=== PATIENT | female | born 1950 | race Caucasian/White ===

== ENCOUNTER → 2017-07-07 | Outpatient (POV) | payer MEDICARE, SELFPAY | PROVIDERS: Visit Provider Podiatrist ==

== ENCOUNTER → 2018-07-13 14:06 | Outpatient (CLI) | payer MEDICARE, SELFPAY ==
--- NOTE | 2018-07-13 14:10 | MR_ITS ---
MR foot RT wo/w con HISTORY: Prior injury to the great toe with persistent redness pain and swelling. Patient with diabetes ITS.REASON: Non-healing diabetic ulcer ORDERING PHYSICIAN: Celine Doyle DPM PATIENT AGE: 67 years Comparison: 07/03/2017 TECHNIQUE: Standard multiplanar multiecho sequences are performed without and with gadolinium enhancement.. In addition, thin section axial and sagittal post enhanced images are obtained FINDINGS: There is decrease T1 and increased T2 signal intensity involving the tuft of the distal phalanx of the great toe. There is increased STIR signal intensity involving the entire distal phalanx of the great toe. The DLP joint has an unremarkable appearance and the middle phalanx has an unremarkable appearance. No abscess or fluid collection evident. The area of enhancement involves the tuft of the distal phalanx. There is mild soft tissue swelling at this region well. No obvious fracture or other significant anomalies. IMPRESSION: Mild bone marrow edema involves the distal phalanx of the great toe with a small area of enhancement of the tuft of the distal phalanx with mild soft tissue swelling suggesting osteomyelitis. The middle phalanx has an unremarkable appearance as does the DIP joint
--- NOTE | 2018-07-13 14:10 | US_ITS ---
US Arterial Ankle Brachial Ind History: ITS.REASON: Non healing diabetic ulcer ORDERING PHYSICIAN: Celine Doyle DPM PATIENT AGE: 67 years TECHNIQUE: Segmental pressures obtained of both right and left leg. These are compared to brachial blood pressure to yield index at each level sampled including summary LEILANI. The data sheets from the procedure are available in PACS FINDINGS Rest study only performed today No prior studies available for comparison. Blood pressures reported are in millimeters mercury. RIGHT LEG LEILANI = 1.3. RIGHT LEG TBI=0.8 Brachial BP: 142 Thigh BP: 185 Calf BP: Noncompressible Ankle PT: 179 Ankle DP : 168 Digit =116 LEFT LEG LEILANI = 1.0 LEFT LEG TBI= 0.7 Brachial BPD: 132 Thigh BP: 157 Calf BP: Noncompressible Ankle PT:148 Ankle DP: 134 Digit = 100 Pulses and waveforms: Normal IMPRESSION: The ABIs as reported above are within normal limits. Waveforms and pulses are also unremarkable. The TBI's are within normal limits. The arteries are noncompressible in the calf which may be seen with hardening of the arteries and diabetes
--- NOTE | 2018-07-13 16:21 | HMH.ITSHM ---
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 []METOPROLOL LISINOPRIL ATORVASTATIN ASPIRIN METFORMIN SOLIQUA INSULIN SERTRALINE
== END ==
PROVIDERS: PCP Family Medicine; Visit Provider Podiatrist
DX: E08.621 Diabetes mellitus due to underlying condition with foot ulcer (principal); L97.501 Non-pressure chronic ulcer of other part of unspecified foot limited to breakdown of skin; R09.89 Other specified symptoms and signs involving the circulatory and respiratory systems
CPT/HCPCS: 73720; 93922; A9576

== ENCOUNTER → 2018-09-20 10:58 | Outpatient (CLI) | payer MEDICARE, SELFPAY ==
--- NOTE | 2018-09-20 11:03 | XR_ITS ---
XR foot wt bearing RT 3V HISTORY: Follow-up surgery/amputation ITS.REASON: postop views ORDERING PHYSICIAN: Celine Doyle DPM PATIENT AGE: 67 years COMPARISON: 09/05/2018 FINDINGS: Status post amputation at the first MTP joint. The antibody beats are less dense. There remains good alignment with no obvious bony destructive process of the distal aspect of the first metatarsal. IMPRESSION: Status post ORIF MTP amputation with no acute finding
== END ==
PROVIDERS: PCP Family Medicine; Visit Provider Podiatrist
DX: Z98.890 Other specified postprocedural states (principal)
CPT/HCPCS: 73630

== ENCOUNTER → 2020-02-24 14:25 | Outpatient (CLI) | payer MEDICARE, SELFPAY ==
--- NOTE | 2020-02-24 14:33 | XR_ITS ---
PROCEDURE: XR FOOT WT BEARING RT 3V CLINICAL INDICATION: right foot pain Pain, follow-up amputation COMPARISON: FTR3 FOOT-RT-3 VIEWS from 07/03/2017 FTL3 FOOT-LT-3 VIEWS from 07/03/2017 [id number] XR foot RT min 3V from 09/05/2018 [id number] XR foot wt bearing RT 3V from 09/20/2018 FINDINGS: Status post amputation at the 1st metatarsophalangeal joint. There is some faint calcification within the amputation site similar to the previous exam. No acute fracture or dislocation. No lytic or blastic change. Mild hypertrophic changes are present along the dorsal aspect of the navicular. The joint spaces are well-preserved. No significant degenerative/arthritic changes. No erosive changes evident. Other findings:None. IMPRESSION: Prior amputation at the 1st metatarsophalangeal junction. No acute finding Dictated by: Dustin Matos MD 02/24/2020 16:19 Electronically signed by Dustin Matos MD in [place] 02/24/2020 16:19
== END ==
PROVIDERS: PCP Family Medicine; Visit Provider Podiatrist
DX: M79.671 Pain in right foot (principal)
CPT/HCPCS: 73630

== ENCOUNTER → 2020-03-10 17:03 | Outpatient (CLI) | payer MEDICARE, SELFPAY | PROVIDERS: Visit Provider Podiatrist | DX: S91.114A Laceration without foreign body of right lesser toe(s) without damage to nail, initial encounter (principal) | CPT/HCPCS: 87070; 87077; 87186; 87205 ==

== ENCOUNTER → 2020-03-17 13:33 | Outpatient (CLI) | payer MEDICARE, SELFPAY ==
--- NOTE | 2020-03-17 13:34 | US_ITS ---
APPROVED REPORT Exam Type: Lower Extremity Segmental Pressures Manager Of Enterprise: Maria Isabel Santos RDCS Indications Claudication: Non-healing Ulcer: Rest Pain: CAD Risk Factors Hypertension Hyperlipidemia Obesity Diabetes Pressures/Indices Right Indices Left Indices Brachial 124.00 mmHg Brachial 122.00 mmHg Low Thigh 181.00 mmHg 1.46 Low Thigh 170.00 mmHg 1.37 Ankle(PT) 153.00 mmHg 1.23 Ankle(PT) 158.00 mmHg 1.27 Ankle(DP) 140.00 mmHg 1.13 Ankle(DP) 154.00 mmHg 1.24 Digit 104.00 mmHg 0.84 Digit 114.00 mmHg 0.92 Findings R LEILANI 1.2 L LEILANI 1.3 R TBI .8 L TBI .9 NORMAL PULSES AND WAVEFORMS RIGHT AND LEFT CALF NONCOMPRESSABLE Conclusion R LEILANI 1.2 L LEILANI 1.3 R TBI .8 L TBI .9 NORMAL PULSES AND WAVEFORMS RIGHT AND LEFT CALF NONCOMPRESSABLE WITH ELEVATED LEILANI OF LEFT ANKLE CONSISTENT WITH HARDENING OF THE ARTERIES Electronically signed by : Dustin Matos MD 03/17/2020 17:38:50
== END ==
PROVIDERS: PCP Family Medicine; Visit Provider Podiatrist
DX: R09.89 Other specified symptoms and signs involving the circulatory and respiratory systems (principal)
CPT/HCPCS: 93923

== ENCOUNTER → 2020-05-04 14:42 | Outpatient (CLI) | payer MEDICARE, SELFPAY ==
--- NOTE | 2020-05-04 14:46 | XR_ITS ---
PROCEDURE: XR FOOT WT BEARING RT 3V CLINICAL INDICATION: pain, wound COMPARISON: CR FTR3 FOOT-RT-3 VIEWS from 07/03/2017 CR [id number] XR foot RT min 3V from 09/05/2018 CR [id number] XR foot wt bearing RT 3V from 09/20/2018 CR XR FOOT WT BEARING RT 3V from 02/24/2020 FINDINGS: There has been amputation at the 1st metatarsophalangeal junction. There is some dystrophic calcification present within the soft tissues distal to the head of the 1st metatarsal. This is similar when compared to the previous exam. No bony erosive process. The joint spaces are well-preserved. No significant degenerative/arthritic changes. No erosive changes evident. Other findings:None. IMPRESSION: Prior amputation at the 1st MTP joint. No change with no acute finding Dictated by: Dustin Matos MD 05/04/2020 15:00 Dustin Matos MD in [place] 05/04/2020 15:00
== END ==
PROVIDERS: PCP Family Medicine; Visit Provider Podiatrist
DX: S91.114D Laceration without foreign body of right lesser toe(s) without damage to nail, subsequent encounter (principal); Z51.89 Encounter for other specified aftercare
CPT/HCPCS: 73630

== ENCOUNTER → 2021-01-14 11:01 | Outpatient (CLI) | payer MEDICARE, SELFPAY ==
--- NOTE | 2021-01-14 11:05 | XR_ITS ---
PROCEDURE: XR FOOT WT BEARING RT 3V CLINICAL INDICATION: wound, pain COMPARISON: No exams were available for comparison FINDINGS: Status post amputation at the 1st metatarsophalangeal joint. Faint calcification is present just distal to the distal aspect of the 1st metatarsal. Erosive changes are present involving the tuft of the distal phalanx the 2nd toe and also involving the DIP joint of the 2nd toe medially. IMPRESSION: Erosive changes at the tip of the distal phalanx of the 2nd toe and at the DIP joint medially suspicious for osteomyelitis. Prior amputation at the 1st metatarsophalangeal joint Dictated by: Dustin Matos MD 01/14/2021 14:54 Dustin Matos MD in [place] 01/14/2021 14:54
== END ==
PROVIDERS: PCP Family Medicine; Visit Provider Podiatrist
DX: Z51.89 Encounter for other specified aftercare (principal); M79.671 Pain in right foot
CPT/HCPCS: 73630

== ENCOUNTER → 2021-01-18 12:11 | Outpatient (CLI) | payer MEDICARE, SELFPAY ==
--- NOTE | 2021-01-18 | ECG_ITS ---
APPROVED REPORT Exam: Resting ECG HR:66 bpm ECG Measurements Heart Rate 66 AXES MT 112 P 54 QRSd 94 QRS 95 QT 438 T 78 QTc 459 Conclusion Normal sinus rhythm Rightward axis Borderline ECG Electronically signed by : Daniel Valdivia, 01/18/2021 18:13:12
--- NOTE | 2021-01-18 12:19 | XR_ITS ---
PROCEDURE: XR CHEST 2V CLINICAL HISTORY: PRE-OP COMPARISON: No exams were available for comparison FINDINGS: The cardiomediastinal silhouette and pulmonary vascularity are within normal limits. Tortuous descending thoracic aorta. The lungs are clear without infiltrates, suspicious nodules, or pleural effusions. Degenerative changes of the visualized thoracic spine are noted. IMPRESSION: No acute findings. Dictated by: Becca Perez 01/18/2021 15:25 Becca Perez in [place] 01/18/2021 15:25
[2021-01-18 13:10] LABS: Basophils % 0.3 % (0.1-2.0); Eosinophils # 0.2 K/mm3 (0.0-0.4); Eosinophils % 1.8 % (0.1-12.0); Hematocrit 46.9 % (37.0-47.0); Hemoglobin 15.3 g/dL (12.2-16.2); Lymphocytes % 23.2 % (10-50); Mean Corpuscular HGB Conc 32.7 g/dL (31.8-35.4); Mean Corpuscular Volume 88.8 fl (81-99); Mean Platelet Volume 7.8 fl (7.4-10.4); Monocytes # 0.8 K/mm3 (0.1-1.0); Monocytes % 6.6 % (1.7-9.3); Neutrophils # 8.7 K/mm3 (1.8-7.8); Neutrophils % 68.1 % (37.0-80.0); Platelet Count 204 K/mm3 (142-424); Red Blood Count 5.28 M/mm3 (4.20-5.40); Red Cell Distribution Width 14.3 % (11.5-17.5); White Blood Count 12.7 K/mm3 (4.8-10.8)
[2021-01-18 13:28] LABS: Alanine Aminotransferase 20 U/L (12-78); Albumin Level 3.8 g/dl (3.5-5.0); Albumin/Globulin Ratio 1.4 (1.1-1.8); Alkaline Phosphatase 106 U/L (38-126); Anion Gap 10.5 mEq/L (5-15); Aspartate Amino Transferase 23 U/L (14-36); Bilirubin,Total 0.6 mg/dl (0.2-1.3); Blood Urea Nitrogen 17 mg/dl (7-17); Carbon Dioxide 23 mmol/L (22.0-30.0); Chloride 110 mmol/L (98-107); Estimated Glomerular Filt Rate 71 ml/min (>60); GFR (African American) 86 ML/MIN (>60); Globulin 2.7 g/dL (1.3-3.2); Glucose 119 mg/dl (74-100); Potassium 4.5 mmoL/L (3.5-5.1); Sodium 139 mmol/L (136-145); Total Protein,Serum 6.5 g/dl (6.3-8.2)
[2021-01-18 13:34] LABS: C-Reactive Protein 4.1 mg/L (0-4)
[2021-01-18 15:21] LABS: Hemoglobin A1C 6.1 % (4.0-6.0)
[2021-01-18 17:15] LABS: Erythrocyte Sedimentation Rate 9 mm/hr (0-30)
== END ==
PROVIDERS: PCP Family Medicine; Visit Provider Podiatrist
DX: M86.9 Osteomyelitis, unspecified (principal); L03.031 Cellulitis of right toe; L97.514 Non-pressure chronic ulcer of other part of right foot with necrosis of bone; Z89.411 Acquired absence of right great toe; E11.9 Type 2 diabetes mellitus without complications; Z79.4 Long term (current) use of insulin
CPT/HCPCS: 36415; 71046; 80053; 83036; 85025; 85651; 86140; 87070; 87077; 87205; 93005; U0003

== ENCOUNTER → 2021-01-18 18:06 | Outpatient (CLI) | payer MEDICARE, SELFPAY | PROVIDERS: Visit Provider Podiatrist | DX: E08.621 Diabetes mellitus due to underlying condition with foot ulcer (principal) | CPT/HCPCS: 87070; 87205 ==

== ENCOUNTER 2021-01-20 06:59 | Day surgery (SDC) | payer MEDICARE, SELFPAY ==
[2021-01-19 14:49] VITALS: BMI 35.6
[2021-01-20] VITALS (12 sets, daily range): BP systolic 101–132; BP diastolic 50–69; PULSE 57–67; RESP 16–24; TEMP 36.2–43; O2SAT 91–943
[2021-01-20 07:56] LABS: POC Glucose,Bedside 140 (70-110)
--- NOTE | 2021-01-20 09:51 | HMH.ANESCL ---
[facility] [place] Anesthesia Checklist - Structural Data Admitted From: Home Planned Operative Procedure/s: r 2nd toe amp Consent for Planned Operative Procedure(s) Verified: Yes - Additional verifications Anesthesia Reactions: No Hx Blood Transfusions: No Blood Transfusion Reaction: No - Airway Assessment C-Spine Mobility Assessed: Yes TMJ Mobility Assessed: Yes Dentition: Poor Dentition - Neurological Assessment Level of Consciousness: Awake, Alert, Appropriate - Anesthesia Plan Anesthesia Risk discussed: Yes Anesthesia Plan: Verified ASA Class: III Anesthesia Type: General [facility] [place] History I have reviewed the patient's past medical history: Yes Medical History: Reports:: Depression, Diabetes Mellitus Type 2, Hyperlipidemia, Hypertension Denies:: Cancer, Diabetes Mellitus Type 1, Internal Pacemaker, MRSA, Seizures *Have you ever received a pneumonia vaccine?: Yes *Have you received a flu vaccine this season?: Yes Other Medical History: Denies: Blood Transfusion Reaction Anesthesia experience/problems:: none Other Surgeries: Yes: Cardiac Catheterization, Cardiac Surgery, Cholecystectomy, Colonoscopy, Tubal Ligation, Other. No: Pacemaker Amputation: No Fractures: Yes (pins and screws in left arm) - *Social History Last grade of school completed: Advanced degree Smoking Status: Never smoker Alcohol Intake: never Alcohol Intake Frequency:: other Substance Use Type: denies use *Occupational Status:: retired Housing: house Household Members: spouse *Travel in the last 8 weeks: None - Psychiatric History Pschychiatric History:: Reports:: Depression Family Hx:: Diabetes, Coronary Artery Disease
--- NOTE | 2021-01-20 10:24 | SUR.OPER ---
1024-family updated at this time
--- NOTE | 2021-01-20 10:46 | HMH.ANESI ---
[facility] Anesthesia Record Part I Intake, IV Amount: 600 Estimated blood loss (mL): 10 Urine output (mL): 0 Blood Pressure: 118/63 SaO2: 943 Pulse Rate: 61 Respiratory Rate: 24 Temperature: 98.2 F Patient is:: Awake Stable to PACU at:: 10:45
--- NOTE | 2021-01-20 10:48 | XR_ITS ---
PROCEDURE: XR FOOT RT MIN 3V CLINICAL INDICATION: Post op amp COMPARISON: CR [id number] XR foot wt bearing RT 3V from 09/20/2018 CR XR FOOT WT BEARING RT 3V from 02/24/2020 CR XR FOOT WT BEARING RT 3V from 05/04/2020 CR XR FOOT WT BEARING RT 3V from 01/14/2021 FINDINGS: Amputation of the 1st and 2nd digits at the metatarsophalangeal joint. There is evidence of minor soft tissue density noted at the soft tissues of the stump, likely postsurgical changes. No acute fractures or dislocations. Bone density is normal. The rest of the tarsals, metatarsals and phalanges are unremarkable. Calcaneal spur and Achilles tendon enthesopathy is noted. IMPRESSION: Postsurgical changes with amputation of the first and 2nd digits at the metatarsophalangeal joints. Dictated by: Becca Perez 01/20/2021 13:44 Becca Perez in [place] 01/20/2021 13:44
--- NOTE | 2021-01-20 10:50 | HMH.OPNOTE ---
Date of procedure: 01/20/21 Pre-op Diagnosis:: 1. Right 2nd toe osteomyelitis 2. Right 2nd toe cellulitis Post-op Diagnosis:: Same Procedure performed:: 1. Right 2nd toe amputation Surgeon:: Celine Doyle DPM SALES ORDER ADMINISTRATOR:: Other (Aileen Dodson) Anesthesia: local (20cc 0.5% marcaine plain), LMA Estimated blood loss (mL): 10 Clinical Note:: Patient is a 70-year-old diabetic female who presents with a toenail avulsion of the right second toe. Patient does not have a right second toenail. Patient accidentally ran the foot over with his vanity which ripped off the toenail. She reports the nail bed never fully healed and has had an open wound on and off for the last 4 months. I discussed with the patient the skin breakdown that comes and goes x 4-5 months. It gets better and then starts back again. I am concerned about the lack of progress. Imaging consistent with underlying infection. We discussed a (partial) 2nd toe amputation. Patient verbalized understand of the disease process. Patient agrees with and is to follow the treatment plan. Education provided. We discussed conservative versus surgical treatment options. Conservative treatment options include local wound care, oral and IV antibiotics, change in shoe wear, taping/padding, and off-loading. We discussed surgical intervention for amputation of the right second toe. Patient understands that there is a chance that the foot may change shape after surgery. Patient also understands that they could have wound healing complications including delayed healing and infection. We discussed that if the wound does not heal, it is possible that they may need a more proximal amputation and could result in further loss of digits, loss of partial foot or loss of leg. We discussed the risks and benefits in great detail. Other surgical risks include: prolonged pain and swelling, further infection requiring oral or IV antibiotics, delay in healing of soft tissue or bone, nerve or blood vessel damage, CRPS/RSD, DVT, anesthesia complications, and even . e-Rx Zofran, Diflucan, Doxycycline 100mg BID x 2 weeks (had Clinda, Levo x2 weeks after right hallux amp on 09/05/18). Dr. Shahnaz Meadows granted cardiac clearance on 01/19/21. Operative findings:: Right second toe nail had been previously avulsed. The nail bed directly over the distal phalanx has edema and erythema, tissue fragile. No obvious purulence noted. Cellulitis localized to the distal to middle toe. Distal phalanx soft and crumbly. Middle phalanx was also soft. The proximal phalanx head had some mild cortical erosion but the base appeared to be intact with no obvious signs of osteomyelitis. No infection tracking up the extensor or flexor tendons. Operative note:: On this date and time patient was deemed an appropriate surgical candidate. With informed consent signed, the patient was taken to the operating theater. The patient was positioned supine. LMA anesthesia was induced. No tourniquet used. Pre-op right second toe and forefoot block given with 10 cc 0.5% marcaine plain. Right 2nd digit amputation: The right lower extremity was prepped and drapped in normal sterile fashion. A fish mouth incision was mapped out around the DIPJ. Utilizing a 15 blade dissection was carried down sharply to the level of the bone around the distal phalanx which was disarticulated from the medial phalanx. The distal second toe was sent for pathology. The distal phalanx bone was soft and crumbly and had a no malodor to it. The middle phalanx was also soft. The distal and middle phalanx bone was sent for bone culture. Attention was then directed to the proximal phalanx. The head was intact with some mild cortical erosions noted. The base of the proximal phalanx was hard and intact. No obvious signs of infection tracking up the tendons. The proximal phalanx was disarticulated from the metatarsal head and sent as bone margin for pathology. First metatarsal head intact with no obvious signs of osteomye
[2021-01-20 11:08] LABS: POC Glucose,Bedside 93 (70-110)
--- NOTE | 2021-01-20 12:29 | P.PN_ITS ---
[facility] Anesthesia Record Part II Discharge Time: 11:15 Destination: Surgical Day Care (OP Surgery) PACU nurse assessment reviewed?: Yes Patient Condition:: Good Anesthesia Complications:: None Swallowing reflex intact?: Yes Cyanosis?: No Blood Pressure: 128/58 Pulse Rate: 60 Temperature: 97.9 F Mental Status: Alert & Oriented Pain level:: 0 Nausea and/or vomitting:: None Intake, IV Amount: 0
== END 2021-01-20 12:01 | disposition home or self-care (01) ==
LOC: OR 07:00
PROVIDERS: PCP Family Medicine; Visit Provider Podiatrist
DX: E11.42 Type 2 diabetes mellitus with diabetic polyneuropathy (principal); Z79.4 Long term (current) use of insulin; L03.031 Cellulitis of right toe; L97.514 Non-pressure chronic ulcer of other part of right foot with necrosis of bone; M86.9 Osteomyelitis, unspecified
CPT/HCPCS: 28825; 73630; 82962; 87070; 87077; 87186; 87205; 88305; 88311; 96374; J2405; J3370

== ENCOUNTER → 2021-02-04 12:31 | Outpatient (CLI) | payer MEDICARE, SELFPAY ==
[2021-02-04 13:15] LABS: Basophils # 0.1 K/mm3 (0-0.2); Basophils % 0.5 % (0.1-2.0); Eosinophils # 0.3 K/mm3 (0.0-0.4); Eosinophils % 1.9 % (0.1-12.0); Hematocrit 46.5 % (37.0-47.0); Hemoglobin 15.8 g/dL (12.2-16.2); Lymphocytes # 4.2 K/mm3 (0.7-4.5); Lymphocytes % 26.9 % (10-50); Mean Corpuscular HGB Conc 33.9 g/dL (31.8-35.4); Mean Corpuscular Hemoglobin 29.6 pg (27.0-31.2); Mean Corpuscular Volume 87.4 fl (81-99); Monocytes # 1.1 K/mm3 (0.1-1.0); Monocytes % 7.3 % (1.7-9.3); Neutrophils # 9.7 K/mm3 (1.8-7.8); Neutrophils % 63.2 % (37.0-80.0); Platelet Count 235 K/mm3 (142-424); Red Blood Count 5.33 M/mm3 (4.20-5.40); Red Cell Distribution Width 14.5 % (11.5-17.5); White Blood Count 15.4 K/mm3 (4.8-10.8)
[2021-02-04 13:17] LABS: MANUAL DIFFERENTIAL MANUAL DIFFERENTIAL (MANUAL DIFF)
[2021-02-04 13:28] LABS: Eosinophils % 3 % (0-3); Hypochromasia 1+; Lymphocytes % 17 % (10-50); Monocytes % 14 % (2-9); Neutrophils % 66 % (42-76); Platelet Estimate Normal; Total Cells Counted 100
[2021-02-04 13:31] LABS: Alanine Aminotransferase 21 U/L (12-78); Albumin Level 3.9 g/dl (3.5-5.0); Albumin/Globulin Ratio 1.4 (1.1-1.8); Alkaline Phosphatase 93 U/L (38-126); Anion Gap 10.2 mEq/L (5-15); Aspartate Amino Transferase 27 U/L (14-36); Bilirubin,Total 0.7 mg/dl (0.2-1.3); Blood Urea Nitrogen 20 mg/dl (7-17); Calcium 8.8 mg/dl (8.4-10.2); Carbon Dioxide 24 mmol/L (22.0-30.0); Chloride 113 mmol/L (98-107); Estimated Glomerular Filt Rate 62 ml/min (>60); GFR (African American) 75 ML/MIN (>60); Globulin 2.7 g/dL (1.3-3.2); Glucose 89 mg/dl (74-100); Potassium 4.2 mmoL/L (3.5-5.1); Sodium 143 mmol/L (136-145); Total Protein,Serum 6.6 g/dl (6.3-8.2)
[2021-02-04 13:36] LABS: C-Reactive Protein 3.2 mg/L (0-4)
[2021-02-04 14:51] LABS: Erythrocyte Sedimentation Rate 11 mm/hr (0-30)
== END ==
PROVIDERS: Visit Provider Podiatrist
DX: M86.9 Osteomyelitis, unspecified (principal); Z98.890 Other specified postprocedural states
CPT/HCPCS: 80053; 85007; 85025; 85651; 86140

== ENCOUNTER → 2021-08-23 15:55 | Outpatient (CLI) | payer MEDICARE, SELFPAY ==
--- NOTE | 2021-08-23 15:59 | XR_ITS ---
PROCEDURE: XR FOOT WT BEARING RT 3V CLINICAL INDICATION: WOUND COMPARISON: No exams were available for comparison FINDINGS: Status post amputation at the 1st and 2nd MTP joints. There is some faint soft tissue calcification distal to the head of the 1st metatarsal. Irregular there is a bandage artifact in the soft tissues at this region. Cortical erosion involves the distal aspect the distal 3rd phalanx consistent with osteomyelitis. IMPRESSION: Irregular erosive change of the of the distal phalanx of the 3rd toe consistent with osteomyelitis. Prior amputation at the 1st and 2nd MTP joints Dictated by: Dustin Matos MD 08/23/2021 16:39 Dustin Matos MD in [place] 08/23/2021 16:39
[2021-08-23 18:19] LABS: Chloride 107 mmol/L (98-107); Sodium 142 mmol/L (136-145)
[2021-08-23 18:20] LABS: Potassium 4.4 mmoL/L (3.5-5.1)
[2021-08-23 18:21] LABS: Basophils # 0.1 K/mm3 (0-0.2); Basophils % 0.4 % (0.1-2.0); Eosinophils # 0.3 K/mm3 (0.0-0.4); Eosinophils % 2.4 % (0.1-12.0); Hematocrit 48.6 % (37.0-47.0); Hemoglobin 16.1 g/dL (12.2-16.2); Lymphocytes # 3.5 K/mm3 (0.7-4.5); Lymphocytes % 31.4 % (10-50); Mean Corpuscular HGB Conc 33.1 g/dL (31.8-35.4); Mean Corpuscular Hemoglobin 30.4 pg (27.0-31.2); Mean Platelet Volume 8.3 fl (7.4-10.4); Monocytes # 0.6 K/mm3 (0.1-1.0); Monocytes % 5.5 % (1.7-9.3); Neutrophils # 6.6 K/mm3 (1.8-7.8); Neutrophils % 60.2 % (37.0-80.0); Platelet Count 190 K/mm3 (142-424); Red Blood Count 5.28 M/mm3 (4.20-5.40); Red Cell Distribution Width 14.2 % (11.5-17.5)
[2021-08-23 18:22] LABS: Alanine Aminotransferase 30 U/L (12-78); Albumin Level 3.9 g/dl (3.5-5.0); Albumin/Globulin Ratio 1.6 (1.1-1.8); Alkaline Phosphatase 88 U/L (38-126); Anion Gap 11.4 mEq/L (5-15); Aspartate Amino Transferase 41 U/L (14-36); Bilirubin,Total 0.6 mg/dl (0.2-1.3); Blood Urea Nitrogen 14 mg/dl (7-17); Carbon Dioxide 28 mmol/L (22.0-30.0); Estimated Glomerular Filt Rate 71 ml/min (>60); GFR (African American) 86 ML/MIN (>60); Globulin 2.4 g/dL (1.3-3.2); Total Protein,Serum 6.3 g/dl (6.3-8.2)
[2021-08-23 18:23] LABS: Calcium 8.7 mg/dl (8.4-10.2); Glucose 59 mg/dl (74-100)
[2021-08-23 18:28] LABS: C-Reactive Protein 2.8 mg/L (0-4)
[2021-08-23 19:03] LABS: Erythrocyte Sedimentation Rate 8 mm/hr (0-30)
== END ==
PROVIDERS: PCP Family Medicine; Visit Provider Podiatrist
DX: M86.9 Osteomyelitis, unspecified; E11.69 Type 2 diabetes mellitus with other specified complication; Z79.4 Long term (current) use of insulin
CPT/HCPCS: 36415; 73630; 80053; 85025; 85651; 86140

== ENCOUNTER → 2021-08-30 15:14 | Outpatient (CLI) | payer MEDICARE, SELFPAY ==
--- NOTE | 2021-08-30 15:15 | MR_ITS ---
PROCEDURE INFORMATION: Exam: MR Right Lower Extremity Other Than Joint Without and With Contrast; Foot Exam date and time: 08/30/2021 3:15 PM Age: 70 years old Clinical indication: Pain; Foot; Right; Prior surgery; Additional info: Wound, osteomyelitis. Open wound on tip of 3rd toe. Prior amputation of 1st and 2nd toes. Reddness on toe. 20ml prohance given. Lot: [id number] exp: Dec 2023 bun: 14 cre: 0.8 gfr: 71. TECHNIQUE: Imaging protocol: MR of the Right lower extremity without and with intravenous contrast. Exam focused on the foot. Contrast material: PROHANCE; Contrast volume: 20 ml; Contrast route: IV; COMPARISON: FOOTRTWW MR foot RT wo/w con 07/13/2018 3:22 PM FINDINGS: Bones and cartilage: There is confluent T2 bright/T1 dark marrow signal abnormality throughout the entire distal phalanx of the 3rd toe, compatible with acute osteomyelitis. There is no signal abnormality of the 3rd toe middle/proximal phalanges. Status post amputation of the 1st and 2nd toes at the level of the MTP joints. Joint spaces: Mild degenerative spurring throughout the foot. Calcaneal enthesopathy. Soft tissues: Wound of the distal aspect of the 3rd toe. Surrounding skin thickening and subcutaneous edema compatible with local cellulitis. No abscess. There is nonspecific subcutaneous edema in the posterior ankle and hindfoot region. Plantar fascia: No evidence of fasciitis. Calcaneal enthesophytes noted. IMPRESSION: 1. Wound of the distal 3rd toe with associated local cellulitis. 2. Acute osteomyelitis involving the entire 3rd toe distal phalanx. No involvement of the proximal and middle phalanges of the 3rd toe.
== END ==
PROVIDERS: PCP Family Medicine; Visit Provider Podiatrist
DX: L97.512 Non-pressure chronic ulcer of other part of right foot with fat layer exposed (principal); M86.171 Other acute osteomyelitis, right ankle and foot
CPT/HCPCS: 73720; A9576

== ENCOUNTER → 2021-09-07 15:20 | Outpatient (CLI) | payer MEDICARE, SELFPAY ==
--- NOTE | 2021-09-07 15:27 | XR_ITS ---
PROCEDURE: XR CHEST 2V CLINICAL HISTORY: PT STATES SHE HAS 3 HEART STINTS, PRE OPERATIVE COMPARISON: CR XR CHEST 2V from 01/18/2021 FINDINGS: The cardiomediastinal silhouette and pulmonary vascularity are within normal limits. The lungs are clear without infiltrates, suspicious nodules, or pleural effusions. Degenerative changes thoracic spine with mild kyphosis IMPRESSION: No acute findings. Dictated by: Dustin Matos MD 09/07/2021 16:07 Dustin Matos MD in [place] 09/07/2021 16:07
--- NOTE | 2021-09-07 15:53 | ECG_ITS ---
APPROVED REPORT Exam: Resting ECG HR:70 bpm ECG Measurements Heart Rate 70 AXES ME 134 P -24 QRSd 90 QRS 65 QT 424 T 73 QTc 457 Conclusion Normal sinus rhythm Inferior infarct, age undetermined Abnormal ECG Electronically signed by : Daniel Valdivia MD 09/08/2021 13:23:35
[2021-09-07 16:27] LABS: Basophils # 0.1 K/mm3 (0-0.2); Basophils % 1.1 % (0.1-2.0); Eosinophils # 0.2 K/mm3 (0.0-0.4); Eosinophils % 1.7 % (0.1-12.0); Hematocrit 51.1 % (37.0-47.0); Hemoglobin 16.5 g/dL (12.2-16.2); Lymphocytes # 2.9 K/mm3 (0.7-4.5); Lymphocytes % 24.6 % (10-50); Mean Corpuscular HGB Conc 32.3 g/dL (31.8-35.4); Mean Corpuscular Hemoglobin 30.2 pg (27.0-31.2); Mean Corpuscular Volume 93.4 fl (81-99); Mean Platelet Volume 8.2 fl (7.4-10.4); Monocytes # 0.8 K/mm3 (0.1-1.0); Monocytes % 6.5 % (1.7-9.3); Neutrophils # 7.8 K/mm3 (1.8-7.8); Neutrophils % 66.1 % (37.0-80.0); Platelet Count 182 K/mm3 (142-424); Red Blood Count 5.48 M/mm3 (4.20-5.40); Red Cell Distribution Width 14.7 % (11.5-17.5); White Blood Count 11.8 K/mm3 (4.8-10.8)
[2021-09-07 17:24] LABS: Erythrocyte Sedimentation Rate 7 mm/hr (0-30)
[2021-09-07 17:29] LABS: Alanine Aminotransferase 26 U/L (12-78); Albumin Level 3.8 g/dl (3.5-5.0); Albumin/Globulin Ratio 1.5 (1.1-1.8); Alkaline Phosphatase 104 U/L (38-126); Anion Gap 14.3 mEq/L (5-15); Aspartate Amino Transferase 30 U/L (14-36); Bilirubin,Total 0.6 mg/dl (0.2-1.3); Blood Urea Nitrogen 15 mg/dl (7-17); Calcium 8.8 mg/dl (8.4-10.2); Carbon Dioxide 22 mmol/L (22.0-30.0); Chloride 108 mmol/L (98-107); Estimated Glomerular Filt Rate 71 ml/min (>60); GFR (African American) 86 ML/MIN (>60); Globulin 2.6 g/dL (1.3-3.2); Glucose 164 mg/dl (74-100); Potassium 4.3 mmoL/L (3.5-5.1); Sodium 140 mmol/L (136-145); Total Protein,Serum 6.4 g/dl (6.3-8.2)
[2021-09-07 17:35] LABS: C-Reactive Protein 3.2 mg/L (0-4)
== END ==
PROVIDERS: PCP Family Medicine; Visit Provider Podiatrist
DX: Z01.818 Encounter for other preprocedural examination (principal); L97.514 Non-pressure chronic ulcer of other part of right foot with necrosis of bone; M86.171 Other acute osteomyelitis, right ankle and foot
CPT/HCPCS: 36415; 71046; 80053; 85025; 85651; 86140; 93005

== ENCOUNTER → 2021-09-14 14:12 | Outpatient (CLI) | payer MEDICARE, SELFPAY ==
--- NOTE | 2021-09-16 13:35 | P.PN_ITS ---
[facility] Anesthesia Checklist - Patient Identification Patient Identification: Arm Band - Structural Data Admitted From: Home Planned Operative Procedure/s: Partial amp right 3rd to Consent for Planned Operative Procedure(s) Verified: Yes Verified Documents: Surgical Consent - NPO Status Verified Time NPO: 00:00 - Chart Verification Results Verified: CBC, BMP - Additional verifications Anesthesia Reactions: No Hx Blood Transfusions: No Blood Transfusion Reaction: No - Cardiovascular Assessment Heart Sounds: S1 & S2 Pulse Rhythm: Regular - Airway Assessment C-Spine Mobility Assessed: Yes TMJ Mobility Assessed: Yes - Neurological Assessment Level of Consciousness: Awake, Alert, Appropriate - Anesthesia Plan Anesthesia Risk discussed: Yes ASA Class: III Anesthesia Type: MAC [facility] History Medical History: Reports:: Depression, Diabetes Mellitus Type 2, Hyperlipidemia, Hypertension Denies:: Cancer, Diabetes Mellitus Type 1, Internal Pacemaker, MRSA, Seizures *Have you ever received a pneumonia vaccine?: Yes *Have you received a flu vaccine this season?: Yes Other Medical History: Denies: Blood Transfusion Reaction Anesthesia experience/problems:: none Other Surgeries: Yes: Cardiac Catheterization, Cardiac Surgery, Cholecystectomy, Colonoscopy, Tubal Ligation, Other. No: Pacemaker Amputation: Yes (2 x toe amp) Fractures: Yes (pins and screws in left arm) - *Social History Smoking Status: Never smoker Alcohol Intake: never Alcohol Intake Frequency:: other Substance Use Type: denies use *Occupational Status:: retired Housing: house Household Members: spouse *Travel in the last 8 weeks: None - Psychiatric History Pschychiatric History:: Reports:: Depression Family Hx:: Diabetes, Coronary Artery Disease
== END ==
PROVIDERS: Visit Provider Podiatrist
DX: Z01.812 Encounter for preprocedural laboratory examination (principal); Z11.52 Encounter for screening for COVID-19; M86.171 Other acute osteomyelitis, right ankle and foot
CPT/HCPCS: C9803; U0003; U0005

== ENCOUNTER 2021-09-16 11:11 | Day surgery (SDC) | payer MEDICARE, SELFPAY ==
[2021-09-15 09:19] VITALS: BMI 36.0
[2021-09-16] VITALS (8 sets, daily range): BP systolic 138–184; BP diastolic 69–96; PULSE 57–70; RESP 16–18; TEMP 36.1–36.8; O2SAT 93–97
--- NOTE | 2021-09-16 14:00 | XR_ITS ---
FINAL REPORT CLINICAL HISTORY: Post op 3rd toe amp FINDINGS: RIGHT FOOT FINDINGS: Three views show postoperative changes from amputation of the first and second digits. There has been amputation through the middle portion of the third middle phalange. IMPRESSION: Postoperative changes as above. Reviewed, Interpreted and Dictated by Edgar Fitch MD Transcribed by Viridiana Sabillon Authenticated by Edgar Fitch MD on 09/16/2021 03:53:53 PM [facility]
--- NOTE | 2021-09-16 14:05 | HMH.OPNOTE ---
Date of procedure: 09/16/21 Pre-op Diagnosis:: 1. Right 3rd toe osteomyelitis 2. Right 3rd toe DM ulcer 3. Right sub 5th metatarsal callus Post-op Diagnosis:: Same Procedure performed:: 1. Right 3rd toe partial amputation 2. Right DM ulcer excision 3. 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 X-rays and MRI reviewed and discussed with the patient. We discussed conservative versus surgical treatment options. Conservative treatment options include local wound care, oral and IV antibiotics, change in shoe wear, taping/padding, and off-loading. Discussed that patient would benefit from a wider and deeper shoe wear to accommodate the deformity. Did not want postop for surgical fracture boot. We discussed surgical intervention for amputation of the right third toe. Patient understands that there is a chance that the toes can migrate to fill the gap or the foot may change shape after surgery. She understands this may alter her gait/balance. Patient also understands that they could have wound healing complications including delayed healing and infection. We discussed that if the wound does not heal, it is possible that they may need a more proximal amputation and could result in further loss of digits, loss of partial foot or loss of leg. We discussed the risks and benefits in great detail. Other surgical risks include: prolonged pain and swelling, further infection requiring oral or IV antibiotics, delay in healing of soft tissue or bone, nerve or blood vessel damage, CRPS/RSD, DVT, anesthesia complications, and even . All questions answered. Patient verbalized understanding. Consent obtained. Pre-op labs: ESR, CRP, CBC, CMP, EKG, CXR, covid. Operative findings:: Prior first and second toe amputations. 0.5 x 0.5 x 0.3 cm diabetic ulcer noted to the tip of the third toe, which probes deep to the level of the bone. Some serosanguineous drainage noted to the tip of the toe. Distal phalanx was crumbly and soft. Middle phalanx did have some soft nests noted. Proximal phalanx intact with no signs of infection extending up the tendon proximally. The infection appeared to be localized to the distal toe. Operative note:: On this date and time patient was deemed an appropriate surgical candidate. With informed consent signed, the patient was taken to the operating theater. The patient was positioned supine. MAC anesthesia was induced. No tourniquet used. Pre-op right 3rd toe block given with 10 cc 0.5% marcaine plain. IV vancomycin given. Right 3rd irrigation and debridement, ulcer excision, partial toe/digit amputation: The right lower extremity was prepped and draped in normal sterile fashion. Attention was directed to the right foot where prior 1-2nd toe amputation was noted, skin well healed. The right 3rd toe had a distal ulcer over the tip of toe. There was exposed deep fascia, extensor tendon and proximal phalanx. Cellulitis is noted extending to the DIPJ. Wound probed directly to the bone and <1 cc drainage was expressed from the wound site. Wound culture taken. A fish mouth incision was mapped out around the DIPJ. Utilizing a 15 blade dissection was carried down sharply to the level of the bone around the middle phalanx base which was disarticulated from the distal phalanx. The ulcer was excised in total. The distal toe tissue and bone was sent as culture. The middle phalanx appeared to be crumbly distally. It was transected with a bone rongeur and sent to pathology as bone pathology specimen. The remaining middle and entire proximal phalanx was left intact. The remaining bone was hard and intact with no cortical erosions, discoloration or obvious signs of osteomyelitis. Next gentamicin and saline irrigation w
[2022-06-09 10:56] LABS: POC Glucose,Bedside 97 (70-110)
== END 2021-09-16 15:45 | disposition home or self-care (01) ==
LOC: OR 11:12
PROVIDERS: PCP Family Medicine; Visit Provider Podiatrist
PROC: (CPT 11055; principal; 2021-09-16 13:00)
DX: E11.621 Type 2 diabetes mellitus with foot ulcer (principal); M86.171 Other acute osteomyelitis, right ankle and foot; L97.514 Non-pressure chronic ulcer of other part of right foot with necrosis of bone; Z79.4 Long term (current) use of insulin; E11.42 Type 2 diabetes mellitus with diabetic polyneuropathy; B95.2 Enterococcus as the cause of diseases classified elsewhere; L84 Corns and callosities; E11.8 Type 2 diabetes mellitus with unspecified complications; I10 Essential (primary) hypertension; E78.5 Hyperlipidemia, unspecified; Z79.899 Other long term (current) drug therapy
CPT/HCPCS: 11055; 28825; 73630; 82962; 87070; 87075; 87077; 87186; 87205; 88304; 88307; 88311; 96374

== ENCOUNTER → 2021-10-05 12:11 | Outpatient (CLI) | payer MEDICARE, SELFPAY ==
[2021-10-05 14:00] LABS: Basophils # 0.1 K/mm3 (0-0.2); Eosinophils # 0.2 K/mm3 (0.0-0.4); Eosinophils % 1.7 % (0.1-12.0); Hematocrit 50.5 % (37.0-47.0); Hemoglobin 16.4 g/dL (12.2-16.2); Lymphocytes # 3.5 K/mm3 (0.7-4.5); Lymphocytes % 31.2 % (10-50); Mean Corpuscular HGB Conc 32.4 g/dL (31.8-35.4); Mean Corpuscular Hemoglobin 30.5 pg (27.0-31.2); Mean Corpuscular Volume 94.1 fl (81-99); Mean Platelet Volume 8.2 fl (7.4-10.4); Monocytes # 0.8 K/mm3 (0.1-1.0); Monocytes % 6.8 % (1.7-9.3); Neutrophils # 6.7 K/mm3 (1.8-7.8); Neutrophils % 59.2 % (37.0-80.0); Platelet Count 192 K/mm3 (142-424); Red Blood Count 5.37 M/mm3 (4.20-5.40); Red Cell Distribution Width 14.2 % (11.5-17.5); White Blood Count 11.3 K/mm3 (4.8-10.8)
[2021-10-05 14:18] LABS: Chloride 108 mmol/L (98-107); Potassium 4.4 mmoL/L (3.5-5.1); Sodium 139 mmol/L (136-145)
[2021-10-05 14:20] LABS: Blood Urea Nitrogen 15 mg/dl (7-17); Estimated Glomerular Filt Rate 71 ml/min (>60); GFR (African American) 86 ML/MIN (>60)
[2021-10-05 14:21] LABS: Alanine Aminotransferase 24 U/L (12-78); Albumin Level 3.7 g/dl (3.5-5.0); Albumin/Globulin Ratio 1.4 (1.1-1.8); Alkaline Phosphatase 107 U/L (38-126); Anion Gap 9.4 mEq/L (5-15); Aspartate Amino Transferase 28 U/L (14-36); Bilirubin,Total 0.8 mg/dl (0.2-1.3); Calcium 8.6 mg/dl (8.4-10.2); Carbon Dioxide 26 mmol/L (22.0-30.0); Creatine Kinase 40 U/L (30-135); Globulin 2.6 g/dL (1.3-3.2); Glucose 143 mg/dl (74-100); Total Protein,Serum 6.3 g/dl (6.3-8.2)
[2021-10-05 15:21] LABS: Erythrocyte Sedimentation Rate 21 mm/hr (0-30)
== END ==
PROVIDERS: PCP Family Medicine; Visit Provider Podiatrist
DX: B95.2 Enterococcus as the cause of diseases classified elsewhere (principal); M86.9 Osteomyelitis, unspecified; Z89.421 Acquired absence of other right toe(s); Z01.812 Encounter for preprocedural laboratory examination; Z11.52 Encounter for screening for COVID-19
CPT/HCPCS: 36415; 80053; 82550; 85025; 85651; 86140; 87070; 87205; C9803; U0003; U0005

== ENCOUNTER 2021-10-06 11:50 | Day surgery (SDC) | payer MEDICARE, SELFPAY ==
[2021-10-05 13:37] VITALS: BMI 34.6
[2021-10-06 12:13] VITALS: BP 110/64; PULSE 66; RESP 18; TEMP 37; O2SAT 95
--- NOTE | 2021-10-06 13:39 | XR_ITS ---
FINAL REPORT CLINICAL HISTORY: picc line placement FINDINGS: SINGLE VIEW CHEST. A right-sided line is present with the tip in the SVC. The heart is normal in size. The mediastinum is unremarkable. There are chronic changes in the lung bases. The lungs are otherwise clear. There is no pneumothorax. IMPRESSION: Right-sided PICC line is present with the tip in the SVC. No acute process. Reviewed, Interpreted and Dictated by Edgar Fitch MD Transcribed by Marisol Judd Authenticated by Edgar Fitch MD on 10/06/2021 02:18:08 PM [facility]
[2021-10-06 14:48] VITALS: TEMP 38
--- NOTE | 2021-10-06 14:58 | HMH.OPNOTE ---
Date of procedure: 10/06/21 Pre-op Diagnosis:: 1. Right 3rd toe osteomyelitis 2. S/p right partial 3rd toe amp on 09/16/21 Post-op Diagnosis:: Same Procedure performed:: 1. Right 3rd toe amputation 2. Right 3rd toe irrigation and debridement Surgeon:: Celine Doyle DPM Anesthesia: MAC, local (20cc 0.5% marcaine plain) Estimated blood loss (mL): 10 Clinical Note:: Patient is a 70-year-old diabetic female who had a partial right third toe amputation 09/16/2021. Discussed results of the Intra-Op specimens. The pathology has finalized with OM. Discussed the distal phalanx culture grew E faecalis. She did get IV Vanco on DOS. She is currently taking minocycline oral. Discussed the proximal margin came back with osteomyelitis, will need IV antibiotics and remaining part of 3rd toe amputated. She verbalized understanding and agreement with the treatment plan. Patient understands that there is a chance that the toes can migrate to fill the gap or the foot may change shape after surgery. Patient also understands that they could have wound healing complications including delayed healing and infection. We discussed that if the wound does not heal, it is possible that they may need a more proximal amputation and could result in further loss of digits, loss of partial foot or loss of leg. We discussed the risks and benefits in great detail. Other surgical risks include: prolonged pain and swelling, further infection requiring oral or IV antibiotics, delay in healing of soft tissue or bone, nerve or blood vessel damage, CRPS/RSD, DVT, anesthesia complications, and even . All questions answered. Patient verbalized understanding. Consent obtained. Pre-op labs: ESR, CRP, Ha1c, CBC, CMP. Operative findings:: Right third toe prior partial amputation with sutures previously removed from the incision site. The distal most aspect of the incision has demarcation with distal black eschar and gangrene noted. The infection appears to be localized to the remaining portion of the middle phalanx and distal proximal phalanx. The base of the proximal phalanx was hard with no obvious cortical erosions or signs of infection. The infection did not appear to track up the tendons. No purulence or drainage noted. Operative note:: On this date and time patient was deemed an appropriate surgical candidate. With informed consent signed, the patient was taken to the operating theater. The patient was positioned supine. MAC anesthesia was induced. No tourniquet used. Pre-op right 3rd toe block given with 10 cc 0.5% marcaine plain. IV Daptomycin 1g given after bone cultures. Right 3rd irrigation and debridement, toe/digit amputation: The right lower extremity was prepped and draped in normal sterile fashion. Attention was directed to the right foot where prior 1-2nd toe amputation noted with skin well healed. A partial 3rd toe amputation was noted. The right 3rd toe had distal eschar and gangrene. Cellulitis is noted extending to the PIPJ. A linear rectal incision was made over the remaining toe. Utilizing a 15 blade dissection was carried down sharply to the level of the bone around the middle phalanx base which was disarticulated from the proximal phalanx phalanx. The medial phalanx and head of the proximal phalanx bone was sent as bone culture. The middle phalanx appeared to be crumbly. A piece of the bone and distal toe was transected with a bone rongeur and sent to pathology as bone pathology specimen. The remaining proximal phalanx including the base was sent to pathology as proximal bone margin. The remaining bone was hard and intact with no cortical erosions, discoloration or obvious signs of osteomyelitis. Next gentamicin and saline irrigation was used to flush the wound The wound was reexplored and no further signs of infection noted. Bleeding controlled. Vessels ligated with electrocautery, there was minimal to no blood loss. 3-0 Prolene was used to close skin in an interrupted simple sut
--- NOTE | 2021-10-06 15:05 | SUR.OPER ---
1431 provided with update
[2021-10-06 15:10] VITALS: BP 122/62; PULSE 61; RESP 16; TEMP 36.4; O2SAT 94
[2021-10-06 15:15] VITALS: BP 120/79; PULSE 60; RESP 16; O2SAT 95
[2021-10-06 15:30] VITALS: BP 107/63; PULSE 56; RESP 16; O2SAT 94
[2022-06-09 10:57] LABS: POC Glucose,Bedside 140 (70-110)
== END 2021-10-06 15:30 | disposition home or self-care (01) ==
LOC: OR 11:51
PROVIDERS: PCP Family Medicine; Visit Provider Podiatrist
PROC: 0Y6M0ZC Detachment at Right Foot, Partial 3rd Ray, Open Approach (ICD-10-PCS; principal; 2021-10-06 14:00)
DX: M86.171 Other acute osteomyelitis, right ankle and foot (principal); E11.42 Type 2 diabetes mellitus with diabetic polyneuropathy; E11.621 Type 2 diabetes mellitus with foot ulcer; Z79.4 Long term (current) use of insulin; E11.8 Type 2 diabetes mellitus with unspecified complications; I10 Essential (primary) hypertension; Z79.899 Other long term (current) drug therapy; M86.671 Other chronic osteomyelitis, right ankle and foot; E11.52 Type 2 diabetes mellitus with diabetic peripheral angiopathy with gangrene; I96 Gangrene, not elsewhere classified
CPT/HCPCS: 28820; 36569; 71045; 82962; 88304; 88305; 88311; 88312; 96374; C1751; J0878

== ENCOUNTER 2021-10-07 12:53 | Outpatient (CLI) | payer MEDICARE, SELFPAY ==
[2021-10-07 13:47] VITALS: BP 133/54; PULSE 70; RESP 18; TEMP 36.7; O2SAT 96
[2021-10-07 14:20] VITALS: BP 128/59; PULSE 72; RESP 18; O2SAT 97
[2021-10-07 14:50] VITALS: BP 118/58; PULSE 64; RESP 18; O2SAT 98
== END 2021-10-07 14:50 | disposition home or self-care (01) ==
LOC: INF 12:55
PROVIDERS: PCP Emergency Medicine; Visit Provider Podiatrist
DX: L03.115 Cellulitis of right lower limb (principal); M86.9 Osteomyelitis, unspecified
CPT/HCPCS: 96365; G0463; J0878

== ENCOUNTER 2021-10-08 12:47 | Outpatient (CLI) | payer MEDICARE, SELFPAY ==
[2021-10-08 13:30] VITALS: BP 152/72; PULSE 68; RESP 20; TEMP 36.9; O2SAT 95
[2021-10-08 14:10] VITALS: BP 139/58; PULSE 68; RESP 20; TEMP 36.9; O2SAT 95
== END 2021-10-08 14:10 | disposition home or self-care (01) ==
LOC: INF 12:48
PROVIDERS: PCP Emergency Medicine; Visit Provider Podiatrist
DX: L03.031 Cellulitis of right toe (principal); M86.9 Osteomyelitis, unspecified
CPT/HCPCS: 96365; G0463; J0878

== ENCOUNTER 2021-10-09 12:51 | Outpatient (CLI) | payer MEDICARE, SELFPAY | END 2021-10-09 14:05 | disposition home or self-care (01) | LOC: INF 12:52 | PROVIDERS: PCP Emergency Medicine; Visit Provider Podiatrist | DX: L03.031 Cellulitis of right toe (principal); M86.9 Osteomyelitis, unspecified | CPT/HCPCS: 96365; G0463; J0878 ==

== ENCOUNTER 2021-10-10 12:48 | Outpatient (CLI) | payer MEDICARE, SELFPAY | END 2021-10-10 13:52 | disposition home or self-care (01) | LOC: INF 12:50 | PROVIDERS: PCP Emergency Medicine; Visit Provider Podiatrist | DX: L03.031 Cellulitis of right toe (principal); M86.9 Osteomyelitis, unspecified | CPT/HCPCS: 96365; G0463; J0878 ==

== ENCOUNTER 2021-10-11 12:57 | Outpatient (CLI) | payer MEDICARE, SELFPAY ==
[2021-10-11 13:03] VITALS: BMI 36.0
--- NOTE | 2021-10-11 13:15 | PC.NURSE ---
Addendum entered by Hannah Ng RN 10/11/21 14:40: time corrected to 1315 Original Note: 1515-carlos a from office here to look at pt right foot redness and swelling; will come after she talks to chikis
[2021-10-11 13:16] VITALS: BP 145/70; PULSE 71; RESP 18; TEMP 36.7; O2SAT 94
[2021-10-11 13:22] LABS: Basophils # 0.2 K/mm3 (0-0.2); Basophils % 1.4 % (0.1-2.0); Eosinophils # 0.3 K/mm3 (0.0-0.4); Eosinophils % 3.3 % (0.1-12.0); Hematocrit 43.8 % (37.0-47.0); Hemoglobin 14.2 g/dL (12.2-16.2); Lymphocytes # 2.9 K/mm3 (0.7-4.5); Lymphocytes % 28.1 % (10-50); Mean Corpuscular HGB Conc 32.4 g/dL (31.8-35.4); Mean Corpuscular Hemoglobin 30.5 pg (27.0-31.2); Mean Corpuscular Volume 93.9 fl (81-99); Mean Platelet Volume 8.1 fl (7.4-10.4); Monocytes # 0.7 K/mm3 (0.1-1.0); Monocytes % 6.6 % (1.7-9.3); Neutrophils # 6.2 K/mm3 (1.8-7.8); Neutrophils % 60.5 % (37.0-80.0); Platelet Count 198 K/mm3 (142-424); Red Blood Count 4.66 M/mm3 (4.20-5.40); Red Cell Distribution Width 14.3 % (11.5-17.5); White Blood Count 10.2 K/mm3 (4.8-10.8)
--- NOTE | 2021-10-11 13:30 | PC.NURSE ---
1330-per pt to continue daily antibiotics and dressing changes;start new oral antibiotic and notify md with any other changes
[2021-10-11 13:36] LABS: Alanine Aminotransferase 24 U/L (12-78); Albumin Level 3.3 g/dl (3.5-5.0); Albumin/Globulin Ratio 1.3 (1.1-1.8); Alkaline Phosphatase 92 U/L (38-126); Anion Gap 9.1 mEq/L (5-15); Aspartate Amino Transferase 27 U/L (14-36); Bilirubin,Total 0.5 mg/dl (0.2-1.3); Blood Urea Nitrogen 13 mg/dl (7-17); Calcium 8.3 mg/dl (8.4-10.2); Carbon Dioxide 27 mmol/L (22.0-30.0); Chloride 110 mmol/L (98-107); Creatine Kinase 34 U/L (30-135); Creatinine Clearance Estimated 86 mL/min (50-200); Estimated Glomerular Filt Rate 62 ml/min (>60); GFR (African American) 75 ML/MIN (>60); Globulin 2.6 g/dL (1.3-3.2); Glucose 133 mg/dl (74-100); Potassium 4.1 mmoL/L (3.5-5.1); Sodium 142 mmol/L (136-145); Total Protein,Serum 5.9 g/dl (6.3-8.2)
[2021-10-11 13:41] LABS: C-Reactive Protein 11.1 mg/L (0-4)
[2021-10-11 13:54] LABS: Erythrocyte Sedimentation Rate 22 mm/hr (0-30)
[2021-10-11 14:15] VITALS: BP 139/75; PULSE 70; RESP 18
== END 2021-10-11 14:15 | disposition home or self-care (01) ==
LOC: INF 12:58
PROVIDERS: PCP Emergency Medicine; Visit Provider Podiatrist
DX: M86.8X8 Other osteomyelitis, other site (principal)
CPT/HCPCS: 80053; 82550; 85025; 85651; 86140; 96365; G0463; J0878

== ENCOUNTER 2021-10-12 13:00 | Outpatient (CLI) | payer MEDICARE, SELFPAY ==
[2021-10-12 13:35] VITALS: BP 164/73; PULSE 75; RESP 18; TEMP 36.7; O2SAT 96
[2021-10-12 14:15] VITALS: BP 149/78; PULSE 79; RESP 18; O2SAT 96
== END 2021-10-12 14:20 | disposition home or self-care (01) ==
LOC: INF 13:02
PROVIDERS: PCP Emergency Medicine; Visit Provider Podiatrist
DX: M86.9 Osteomyelitis, unspecified (principal); B95.2 Enterococcus as the cause of diseases classified elsewhere; Z89.421 Acquired absence of other right toe(s)
CPT/HCPCS: 96365; G0463; J0878

== ENCOUNTER 2021-10-13 13:06 | Outpatient (CLI) | payer MEDICARE, SELFPAY ==
[2021-10-13 13:30] VITALS: BP 131/56; PULSE 71; RESP 18; O2SAT 96
--- NOTE | 2021-10-13 13:45 | PC.NURSE ---
1345- at chairside; did daily right s/p 3rd toe amputation dressing change
[2021-10-13 14:40] VITALS: BP 132/61; PULSE 69; RESP 18
== END 2021-10-13 14:40 | disposition home or self-care (01) ==
LOC: INF 13:07
PROVIDERS: PCP Emergency Medicine; Visit Provider Podiatrist
DX: M86.9 Osteomyelitis, unspecified (principal); B95.2 Enterococcus as the cause of diseases classified elsewhere; Z89.421 Acquired absence of other right toe(s)
CPT/HCPCS: 96365; J0878

== ENCOUNTER 2021-10-14 10:28 | Outpatient (CLI) | payer MEDICARE, SELFPAY ==
[2021-10-14 10:40] VITALS: BP 128/56; PULSE 69; RESP 18; TEMP 36.3; O2SAT 96
[2021-10-14 11:40] VITALS: BP 127/51; PULSE 65; RESP 18; O2SAT 96
== END 2021-10-14 11:40 | disposition home or self-care (01) ==
LOC: INF 10:29
PROVIDERS: PCP Emergency Medicine; Visit Provider Podiatrist
DX: L03.115 Cellulitis of right lower limb (principal); M86.9 Osteomyelitis, unspecified
CPT/HCPCS: 96365; G0463; J0878

== ENCOUNTER 2021-10-16 12:57 | Outpatient (CLI) | payer MEDICARE, SELFPAY ==
[2021-10-16 13:02] VITALS: BP 125/43; PULSE 61; RESP 18; O2SAT 93
== END 2021-10-16 14:15 | disposition home or self-care (01) ==
LOC: INF 12:57
PROVIDERS: PCP Emergency Medicine; Visit Provider Podiatrist
DX: L03.115 Cellulitis of right lower limb (principal); M86.9 Osteomyelitis, unspecified
CPT/HCPCS: 96365; G0463; J0878

== ENCOUNTER → 2021-10-17 13:04 | Outpatient (CLI) | payer MEDICARE, SELFPAY ==
[2021-10-17 14:35] VITALS: BP 109/67; PULSE 63; RESP 20; TEMP 36.8; O2SAT 98
--- NOTE | 2021-10-17 15:00 | PC.NURSE ---
109/67, 63, 98.2, 20, 98% Pt came in for routine daily dressing change to rt foot and infusion of IV Daptomycin. Tolerated well. PICC (rt upper arm) flushed prior to infusing and thoroughly after.
== END ==
PROVIDERS: PCP Emergency Medicine; Visit Provider Podiatrist
DX: L03.115 Cellulitis of right lower limb (principal); M86.9 Osteomyelitis, unspecified
CPT/HCPCS: 96365; G0463; J0878

== ENCOUNTER 2021-10-18 13:10 | Outpatient (CLI) | payer MEDICARE, SELFPAY ==
[2021-10-18 13:16] VITALS: BMI 36.0
[2021-10-18 13:25] VITALS: BP 130/76; PULSE 65; RESP 16; TEMP 36.4; O2SAT 95
[2021-10-18 13:50] LABS: Creatine Kinase 47 U/L (30-135)
[2021-10-18 13:55] LABS: Basophils # 0.2 K/mm3 (0-0.2); Basophils % 1.5 % (0.1-2.0); Eosinophils # 0.2 K/mm3 (0.0-0.4); Eosinophils % 1.6 % (0.1-12.0); Hematocrit 43.5 % (37.0-47.0); Hemoglobin 13.7 g/dL (12.2-16.2); Lymphocytes # 2.8 K/mm3 (0.7-4.5); Lymphocytes % 27.7 % (10-50); Mean Corpuscular HGB Conc 31.6 g/dL (31.8-35.4); Mean Corpuscular Hemoglobin 29.9 pg (27.0-31.2); Mean Corpuscular Volume 94.6 fl (81-99); Mean Platelet Volume 7.9 fl (7.4-10.4); Monocytes # 0.6 K/mm3 (0.1-1.0); Monocytes % 6.3 % (1.7-9.3); Neutrophils # 6.3 K/mm3 (1.8-7.8); Neutrophils % 62.9 % (37.0-80.0); Platelet Count 177 K/mm3 (142-424); Red Cell Distribution Width 14.2 % (11.5-17.5)
[2021-10-18 14:51] LABS: Chloride 108 mmol/L (98-107); Potassium 4.2 mmoL/L (3.5-5.1); Sodium 136 mmol/L (136-145)
[2021-10-18 15:01] LABS: Alanine Aminotransferase 25 U/L (12-78); Albumin Level 3.2 g/dl (3.5-5.0); Albumin/Globulin Ratio 1.2 (1.1-1.8); Alkaline Phosphatase 77 U/L (38-126); Anion Gap 9.2 mEq/L (5-15); Aspartate Amino Transferase 30 U/L (14-36); Bilirubin,Total 0.6 mg/dl (0.2-1.3); Blood Urea Nitrogen 22 mg/dl (7-17); Calcium 8.1 mg/dl (8.4-10.2); Carbon Dioxide 23 mmol/L (22.0-30.0); Creatinine Clearance Estimated 86 mL/min (50-200); Estimated Glomerular Filt Rate 55 ml/min (>60); GFR (African American) 66 ML/MIN (>60); Globulin 2.6 g/dL (1.3-3.2); Glucose 263 mg/dl (74-100); Total Protein,Serum 5.8 g/dl (6.3-8.2)
[2021-10-18 15:03] LABS: Erythrocyte Sedimentation Rate 19 mm/hr (0-30)
[2021-10-18 15:22] LABS: C-Reactive Protein 3.2 mg/L (0-4)
== END 2021-10-18 14:12 | disposition home or self-care (01) ==
LOC: INF 13:11
PROVIDERS: PCP Emergency Medicine; Visit Provider Podiatrist
DX: L03.115 Cellulitis of right lower limb (principal); M86.9 Osteomyelitis, unspecified
CPT/HCPCS: 80053; 82550; 85025; 85651; 86140; 96365; G0463; J0878

== ENCOUNTER 2021-10-19 12:55 | Outpatient (CLI) | payer MEDICARE, SELFPAY ==
[2021-10-19 13:05] VITALS: RESP 16; TEMP 36.6; O2SAT 98
== END 2021-10-19 14:16 | disposition home or self-care (01) ==
LOC: INF 12:57
PROVIDERS: PCP Emergency Medicine; Visit Provider Podiatrist
DX: L03.115 Cellulitis of right lower limb (principal); M86.9 Osteomyelitis, unspecified
CPT/HCPCS: 96365; G0463; J0878

== ENCOUNTER 2021-10-20 13:20 | Outpatient (CLI) | payer MEDICARE, SELFPAY ==
[2021-10-20 13:43] VITALS: BP 117/54; PULSE 66; RESP 18; TEMP 36.4; O2SAT 96
[2021-10-20 14:35] VITALS: BP 120/56; PULSE 58; RESP 18; O2SAT 96
== END 2021-10-20 14:35 | disposition home or self-care (01) ==
LOC: INF 13:20
PROVIDERS: PCP Emergency Medicine; Visit Provider Podiatrist
DX: M86.9 Osteomyelitis, unspecified (principal); B95.2 Enterococcus as the cause of diseases classified elsewhere; Z89.421 Acquired absence of other right toe(s)
CPT/HCPCS: 96365; G0463; J0878

== ENCOUNTER 2021-10-21 12:43 | Outpatient (CLI) | payer MEDICARE, SELFPAY ==
[2021-10-21 12:53] VITALS: BMI 36.0
[2021-10-21 13:17] VITALS: BP 128/53; PULSE 65; RESP 18; TEMP 36.1; O2SAT 96
[2021-10-21 14:05] VITALS: BP 158/66; PULSE 64; RESP 18; O2SAT 97
--- NOTE | 2021-10-21 15:01 | PC.NURSE ---
10/21/[address] Doyle at pt chairside to visit pt for f/u, rt foot drsg performed per .
== END 2021-10-21 14:20 | disposition home or self-care (01) ==
LOC: INF 12:44
PROVIDERS: PCP Emergency Medicine; Visit Provider Podiatrist
DX: L03.115 Cellulitis of right lower limb (principal); M86.9 Osteomyelitis, unspecified
CPT/HCPCS: 96365; J0878

== ENCOUNTER 2021-10-22 13:14 | Outpatient (CLI) | payer MEDICARE, SELFPAY ==
[2021-10-22 14:10] VITALS: BP 112/54; PULSE 89; RESP 20; TEMP 36.9; O2SAT 95
[2021-10-22 14:50] VITALS: BP 113/54; PULSE 68; RESP 20; TEMP 36.2; O2SAT 95
== END 2021-10-22 15:00 | disposition home or self-care (01) ==
LOC: INF 13:17
PROVIDERS: PCP Emergency Medicine; Visit Provider Podiatrist
DX: L03.115 Cellulitis of right lower limb (principal); M86.9 Osteomyelitis, unspecified
CPT/HCPCS: 96365; 96413; G0463; J0878

== ENCOUNTER 2021-10-23 12:55 | Outpatient (CLI) | payer MEDICARE, SELFPAY | END 2021-10-23 14:03 | disposition home or self-care (01) | LOC: INF 12:57 | PROVIDERS: PCP Emergency Medicine; Visit Provider Podiatrist | DX: L03.115 Cellulitis of right lower limb (principal); M86.9 Osteomyelitis, unspecified | CPT/HCPCS: 96365; G0463; J0878 ==

== ENCOUNTER 2021-10-24 12:50 | Outpatient (CLI) | payer MEDICARE, SELFPAY ==
[2021-10-24 13:15] VITALS: BP 147/43; PULSE 66; RESP 17; O2SAT 95
== END 2021-10-24 13:55 | disposition home or self-care (01) ==
LOC: INF 12:50
PROVIDERS: PCP Emergency Medicine; Visit Provider Podiatrist
DX: L03.115 Cellulitis of right lower limb (principal); M86.9 Osteomyelitis, unspecified
CPT/HCPCS: 96365; G0463; J0878

== ENCOUNTER 2021-10-25 08:25 | Outpatient (CLI) | payer MEDICARE, SELFPAY ==
[2021-10-25 12:52] VITALS: BMI 42.3
[2021-10-25 13:00] VITALS: BP 135/54; PULSE 55; RESP 18; TEMP 36.6; O2SAT 98
[2021-10-25 13:19] LABS: Basophils # 0.1 K/mm3 (0-0.2); Basophils % 1.2 % (0.1-2.0); Eosinophils # 0.3 K/mm3 (0.0-0.4); Eosinophils % 2.4 % (0.1-12.0); Hematocrit 44.8 % (37.0-47.0); Hemoglobin 14.5 g/dL (12.2-16.2); Lymphocytes # 3.4 K/mm3 (0.7-4.5); Lymphocytes % 30.8 % (10-50); Mean Corpuscular HGB Conc 32.3 g/dL (31.8-35.4); Mean Corpuscular Hemoglobin 30.4 pg (27.0-31.2); Mean Corpuscular Volume 94.1 fl (81-99); Mean Platelet Volume 7.9 fl (7.4-10.4); Monocytes # 0.8 K/mm3 (0.1-1.0); Neutrophils # 6.4 K/mm3 (1.8-7.8); Neutrophils % 58.7 % (37.0-80.0); Platelet Count 181 K/mm3 (142-424); Red Blood Count 4.76 M/mm3 (4.20-5.40); Red Cell Distribution Width 14.4 % (11.5-17.5)
[2021-10-25 13:20] LABS: Chloride 109 mmol/L (98-107); Potassium 4.3 mmoL/L (3.5-5.1); Sodium 137 mmol/L (136-145)
[2021-10-25 13:22] LABS: Alanine Aminotransferase 24 U/L (12-78); Alkaline Phosphatase 84 U/L (38-126); Aspartate Amino Transferase 25 U/L (14-36); Bilirubin,Total 0.6 mg/dl (0.2-1.3); Blood Urea Nitrogen 19 mg/dl (7-17); Creatinine Clearance Estimated 46 mL/min (50-200); Estimated Glomerular Filt Rate 49 ml/min (>60); GFR (African American) 59 ML/MIN (>60)
[2021-10-25 13:23] LABS: Anion Gap 6.3 mEq/L (5-15); Calcium 7.9 mg/dl (8.4-10.2); Carbon Dioxide 26 mmol/L (22.0-30.0); Creatine Kinase 35 U/L (30-135); Glucose 138 mg/dl (74-100); Total Protein,Serum 6.3 g/dl (6.3-8.2)
[2021-10-25 14:00] VITALS: BP 139/56; PULSE 57; RESP 18
[2021-10-25 14:24] LABS: Albumin Level 3.4 g/dl (3.5-5.0); Albumin/Globulin Ratio 1.2 (1.1-1.8); Globulin 2.9 g/dL (1.3-3.2)
[2021-10-25 14:37] LABS: Erythrocyte Sedimentation Rate 16 mm/hr (0-30)
== END 2021-10-25 14:00 | disposition home or self-care (01) ==
LOC: INF 08:26
PROVIDERS: Visit Provider Podiatrist
DX: L03.115 Cellulitis of right lower limb (principal); M86.9 Osteomyelitis, unspecified
CPT/HCPCS: 80053; 82550; 85025; 85651; 86140; 96365; G0463; J0878

== ENCOUNTER 2021-10-26 08:15 | Outpatient (CLI) | payer MEDICARE, SELFPAY ==
[2021-10-26 13:08] VITALS: BP 133/85; PULSE 73; RESP 18; O2SAT 94
[2021-10-26 14:05] VITALS: BP 139/65; PULSE 68; RESP 18
== END 2021-10-26 14:05 | disposition home or self-care (01) ==
LOC: INF 08:16
PROVIDERS: Visit Provider Podiatrist
DX: L03.115 Cellulitis of right lower limb (principal); M86.9 Osteomyelitis, unspecified
CPT/HCPCS: 96365; G0463; J0878

== ENCOUNTER 2021-10-27 08:14 | Outpatient (CLI) | payer MEDICARE, SELFPAY ==
[2021-10-27 13:20] VITALS: BP 130/65; PULSE 64; RESP 18; TEMP 36.6; O2SAT 97
[2021-10-27 14:14] VITALS: BP 128/60; PULSE 62; RESP 18; O2SAT 98
== END 2021-10-27 14:19 | disposition home or self-care (01) ==
LOC: INF 08:15
PROVIDERS: Visit Provider Podiatrist
DX: L03.115 Cellulitis of right lower limb (principal); M86.9 Osteomyelitis, unspecified
CPT/HCPCS: 96365; G0463; J0878

== ENCOUNTER 2021-10-28 08:25 | Outpatient (CLI) | payer MEDICARE, SELFPAY ==
[2021-10-28 12:57] VITALS: BP 123/59; PULSE 61; RESP 18; TEMP 36.3; O2SAT 97
[2021-10-28 13:45] VITALS: BP 118/58; PULSE 64; RESP 16; TEMP 36.4; O2SAT 97
== END 2021-10-28 13:48 | disposition home or self-care (01) ==
LOC: INF 08:26
PROVIDERS: Visit Provider Podiatrist
DX: L03.115 Cellulitis of right lower limb (principal); M86.9 Osteomyelitis, unspecified
CPT/HCPCS: 96365; J0878

== ENCOUNTER 2021-10-29 08:19 | Outpatient (CLI) | payer MEDICARE, SELFPAY ==
[2021-10-29 13:11] VITALS: BP 111/63; PULSE 63; RESP 16; TEMP 36.4; O2SAT 98
[2021-10-29 15:09] VITALS: BP 111/56; PULSE 64; RESP 18; TEMP 36.4; O2SAT 98
== END 2021-10-29 13:52 | disposition home or self-care (01) ==
LOC: INF 08:20
PROVIDERS: Visit Provider Podiatrist
DX: L03.115 Cellulitis of right lower limb (principal); M86.9 Osteomyelitis, unspecified
CPT/HCPCS: 96365; G0463; J0878

== ENCOUNTER → 2021-10-30 12:48 | Outpatient (CLI) | payer MEDICARE, SELFPAY ==
[2021-10-30 13:05] VITALS: BP 141/78; PULSE 78; RESP 18; TEMP 37.1; O2SAT 98
[2021-10-30 13:50] VITALS: BP 138/69; PULSE 88; RESP 18; O2SAT 98
== END ==
PROVIDERS: PCP Emergency Medicine; Visit Provider Podiatrist
DX: L03.115 Cellulitis of right lower limb (principal); M86.9 Osteomyelitis, unspecified
CPT/HCPCS: 96365; G0463; J0878

== ENCOUNTER → 2021-10-31 12:53 | Outpatient (CLI) | payer MEDICARE, SELFPAY ==
[2021-10-31 13:15] VITALS: BP 92/68; PULSE 58; RESP 18; TEMP 36.4; O2SAT 97
== END ==
PROVIDERS: PCP Emergency Medicine; Visit Provider Podiatrist
DX: L03.115 Cellulitis of right lower limb (principal); M86.9 Osteomyelitis, unspecified
CPT/HCPCS: 96365; G0463; J0878

== ENCOUNTER 2021-11-01 08:10 | Outpatient (CLI) | payer MEDICARE, SELFPAY ==
[2021-11-01 12:55] VITALS: BMI 36.0
[2021-11-01 13:10] VITALS: BP 116/43; PULSE 60; RESP 20; TEMP 36.9; O2SAT 98
[2021-11-01 13:14] LABS: Basophils # 0.1 K/mm3 (0-0.2); Basophils % 0.4 % (0.1-2.0); Eosinophils # 0.3 K/mm3 (0.0-0.4); Eosinophils % 2.4 % (0.1-12.0); Hemoglobin 14.4 g/dL (12.2-16.2); Lymphocytes % 24.9 % (10-50); Mean Corpuscular HGB Conc 32.6 g/dL (31.8-35.4); Mean Corpuscular Hemoglobin 30.3 pg (27.0-31.2); Mean Corpuscular Volume 92.9 fl (81-99); Mean Platelet Volume 7.6 fl (7.4-10.4); Monocytes # 0.6 K/mm3 (0.1-1.0); Monocytes % 4.7 % (1.7-9.3); Neutrophils % 67.5 % (37.0-80.0); Platelet Count 155 K/mm3 (142-424); Red Blood Count 4.74 M/mm3 (4.20-5.40); Red Cell Distribution Width 14.4 % (11.5-17.5); White Blood Count 11.9 K/mm3 (4.8-10.8)
[2021-11-01 13:20] LABS: Chloride 110 mmol/L (98-107); Potassium 3.9 mmoL/L (3.5-5.1); Sodium 137 mmol/L (136-145)
[2021-11-01 13:22] LABS: Alanine Aminotransferase 23 U/L (12-78); Aspartate Amino Transferase 29 U/L (14-36); Blood Urea Nitrogen 18 mg/dl (7-17); Creatinine Clearance Estimated 86 mL/min (50-200); Estimated Glomerular Filt Rate 55 ml/min (>60); GFR (African American) 66 ML/MIN (>60)
[2021-11-01 13:23] LABS: Albumin Level 3.4 g/dl (3.5-5.0); Albumin/Globulin Ratio 1.2 (1.1-1.8); Alkaline Phosphatase 88 U/L (38-126); Anion Gap 6.9 mEq/L (5-15); Bilirubin,Total 0.7 mg/dl (0.2-1.3); Calcium 7.6 mg/dl (8.4-10.2); Carbon Dioxide 24 mmol/L (22.0-30.0); Creatine Kinase 46 U/L (30-135); Globulin 2.8 g/dL (1.3-3.2); Glucose 172 mg/dl (74-100); Total Protein,Serum 6.2 g/dl (6.3-8.2)
[2021-11-01 13:29] LABS: C-Reactive Protein 8.2 mg/L (0-4)
[2021-11-01 14:00] VITALS: BP 116/43; PULSE 68; RESP 20; TEMP 36.9; O2SAT 95
[2021-11-01 14:02] LABS: Erythrocyte Sedimentation Rate 17 mm/hr (0-30)
== END 2021-11-01 14:00 | disposition home or self-care (01) ==
LOC: INF 08:11
PROVIDERS: Visit Provider Podiatrist
DX: L03.115 Cellulitis of right lower limb (principal); M86.9 Osteomyelitis, unspecified
CPT/HCPCS: 80053; 82550; 85025; 85651; 86140; 96365; G0463; J0878

== ENCOUNTER 2021-11-02 09:32 | Outpatient (CLI) | payer MEDICARE, SELFPAY ==
[2021-11-02 13:45] VITALS: BP 130/58; PULSE 68; RESP 20; TEMP 36.2; O2SAT 95
[2021-11-02 14:25] VITALS: BP 124/55; PULSE 62; RESP 20; TEMP 36.9; O2SAT 99
--- NOTE | 2021-11-02 15:00 | XR_ITS ---
FINAL REPORT CLINICAL HISTORY: post-op, tarsal amputations in September 2021. Patient is diabetic. COMPARISON: September 16, 2021 FINDINGS: 3 views of the right foot were obtained. There has been amputation of the 1st, 2nd and 3rd digits. The amputation of the 3rd digit is new since the prior exam. There are no bony erosions. There is no periosteal reaction. The joint spaces are intact. The soft tissues are unremarkable. IMPRESSION: Interval amputation of the 3rd digit with prior amputation of the 1st and 2nd digits. No bony erosions or periosteal reaction. Reviewed, Interpreted and Dictated by Edgar Fitch MD Transcribed by Rio James Authenticated by Edgar Fitch MD on 11/02/2021 04:17:58 PM [facility]
== END 2021-11-02 14:25 | disposition home or self-care (01) ==
PROVIDERS: Visit Provider Podiatrist
DX: Z98.890 Other specified postprocedural states (principal); L03.115 Cellulitis of right lower limb; M86.9 Osteomyelitis, unspecified
CPT/HCPCS: 73630; 96365; G0463; J0878

== ENCOUNTER 2021-11-03 08:10 | Outpatient (CLI) | payer MEDICARE, SELFPAY ==
[2021-11-03 12:53] VITALS: BP 144/59; PULSE 69; RESP 16; TEMP 36.4; O2SAT 96
[2021-11-03 13:40] VITALS: BP 156/62; PULSE 69; RESP 16; O2SAT 96
--- NOTE | 2021-11-03 15:29 | PC.NURSE ---
1315 - REMOVED DRESSING FROM PT'S RIGHT FOOT. CLEANED AREA WITH NS WHERE 3RD TOE WAS AMPUTATED. SUTURES REMAIN INTACT. COVERED AREA WITH BETADINE SOAKED GAUZE, DRY GAUZE, KERLEX, AND SHARONA WRAP.
== END 2021-11-03 13:50 | disposition home or self-care (01) ==
LOC: INF 08:11
PROVIDERS: Visit Provider Podiatrist
DX: L03.115 Cellulitis of right lower limb (principal); M86.9 Osteomyelitis, unspecified
CPT/HCPCS: 96365; G0463; J0878

== ENCOUNTER 2021-11-09 08:18 | Outpatient (CLI) | payer MEDICARE, SELFPAY ==
--- NOTE | 2021-11-09 10:33 | PC.NURSE ---
11/09/21 @1020: PICC dressing changed to right upper arm via sterile technique, pt tolerated well.
[2021-11-09 10:46] VITALS: BMI 36.0
[2021-11-09 11:05] LABS: Chloride 111 mmol/L (98-107); Sodium 139 mmol/L (136-145)
[2021-11-09 11:07] LABS: Blood Urea Nitrogen 19 mg/dl (7-17); Creatinine Clearance Estimated 86 mL/min (50-200); Estimated Glomerular Filt Rate 71 ml/min (>60); GFR (African American) 86 ML/MIN (>60)
[2021-11-09 11:08] LABS: Alanine Aminotransferase 20 U/L (12-78); Albumin Level 3.3 g/dl (3.5-5.0); Albumin/Globulin Ratio 1.1 (1.1-1.8); Alkaline Phosphatase 75 U/L (38-126); Aspartate Amino Transferase 28 U/L (14-36); Bilirubin,Total 0.6 mg/dl (0.2-1.3); Calcium 7.6 mg/dl (8.4-10.2); Carbon Dioxide 23 mmol/L (22.0-30.0); Creatine Kinase 40 U/L (30-135); Globulin 2.9 g/dL (1.3-3.2); Glucose 85 mg/dl (74-100); Total Protein,Serum 6.2 g/dl (6.3-8.2)
[2021-11-09 11:16] LABS: Basophils # 0.1 K/mm3 (0-0.2); Basophils % 1.2 % (0.1-2.0); Eosinophils # 0.2 K/mm3 (0.0-0.4); Eosinophils % 1.5 % (0.1-12.0); Hematocrit 46.2 % (37.0-47.0); Hemoglobin 14.4 g/dL (12.2-16.2); Lymphocytes # 2.5 K/mm3 (0.7-4.5); Lymphocytes % 23.2 % (10-50); Mean Corpuscular HGB Conc 31.2 g/dL (31.8-35.4); Mean Corpuscular Hemoglobin 29.8 pg (27.0-31.2); Mean Corpuscular Volume 95.5 fl (81-99); Mean Platelet Volume 8.6 fl (7.4-10.4); Monocytes # 0.9 K/mm3 (0.1-1.0); Monocytes % 7.8 % (1.7-9.3); Neutrophils # 7.2 K/mm3 (1.8-7.8); Neutrophils % 66.2 % (37.0-80.0); Platelet Count 171 K/mm3 (142-424); Red Blood Count 4.84 M/mm3 (4.20-5.40); Red Cell Distribution Width 14.6 % (11.5-17.5); White Blood Count 10.9 K/mm3 (4.8-10.8)
[2021-11-09 11:53] LABS: Erythrocyte Sedimentation Rate 16 mm/hr (0-30)
== END 2021-11-09 10:29 | disposition home or self-care (01) ==
LOC: INF 08:18
PROVIDERS: Visit Provider Podiatrist
DX: L03.115 Cellulitis of right lower limb (principal); M86.9 Osteomyelitis, unspecified; Z48.01 Encounter for change or removal of surgical wound dressing
CPT/HCPCS: 80053; 82550; 85025; 85651; 86140; G0463

== ENCOUNTER → 2022-01-10 15:12 | Outpatient (CLI) | payer MEDICARE, SELFPAY ==
--- NOTE | 2022-01-10 15:12 | CT_ITS ---
FINAL REPORT TECHNIQUE: Thin section axial CT images of the facial bones and sinuses were obtained without contrast. Coronal reformatted images were also obtained.This study was performed with techniques to keep radiation doses as low as reasonably achievable, (ALARA). Individualized dose reduction techniques using automated exposure control or adjustment of mA and/or kV according to the patient''''s size were employed. CLINICAL HISTORY: sinus congestion FINDINGS: There is mild mucosal thickening in the left sphenoid sinus. No fluid levels are identified. The ostiomeatal units have an unremarkable appearance. There are bilateral malachi bullosa. There is mild leftward nasal septal deviation. There is a small left-sided nasal septal spur. No fracture or acute bony abnormality is identified. IMPRESSION: Mild mucosal thickening in the left sphenoid sinus. Reviewed, Interpreted and Dictated by Laurent Cortes III, MD Transcribed by Rio James Authenticated by Laurent Cortes III, MD on 01/10/2022 04:40:[address] [facility]
== END ==
PROVIDERS: PCP Emergency Medicine; Visit Provider Student in an Organized Health Care Education/Training Program
DX: R09.81 Nasal congestion (principal)
CPT/HCPCS: 70486

== ENCOUNTER → 2022-05-05 12:53 | Outpatient (CLI) | payer MEDICARE, SELFPAY ==
--- NOTE | 2022-05-05 13:09 | MR_ITS ---
FINAL REPORT CLINICAL HISTORY: RIGHT THIGH PAIN. mass on inner thigh getting larger and painful to touch. mass been on thigh since 2010. no injury or trauma. 21 prohance given. FINDINGS: Multiplanar MR imaging of the right femur was obtained with and without contrast. The images are somewhat degraded by magnetic artifact particularly at store Ding the image field. No marker was placed to identify the site of the clinical abnormality. No specific mass or inflammation is identified. No fluid collection is seen. There is no evidence of marrow edema. The femur appears intact. There is no abnormal contrast enhancement on the postcontrast images. IMPRESSION: No abnormality identified. Reviewed, Interpreted and Dictated by Edgar Fitch MD Transcribed by Yajaira York Authenticated and [facility]
[2022-05-05 13:31] LABS: Blood Urea Nitrogen 13 mg/dl (7-17); Estimated Glomerular Filt Rate 71 ml/min (>60); GFR (African American) 86 ML/MIN (>60)
== END ==
PROVIDERS: PCP Emergency Medicine; Visit Provider Orthopaedic Surgery
DX: M79.651 Pain in right thigh (principal)
CPT/HCPCS: 36415; 73720; 82565; 84520; A9576

== ENCOUNTER → 2022-06-07 12:46 | Outpatient (CLI) | payer MEDICARE, SELFPAY ==
--- NOTE | 2022-06-07 12:49 | MR_ITS ---
FINAL REPORT TECHNIQUE: Multiplanar MR without contrast CLINICAL HISTORY: LUMBAR BACK PAIN lower back garcia in right thigh and right hip intermittent numbness and tingling down right leg x years FINDINGS: Sagittal images show normal vertebral height. Alignment is normal. Marrow signal pattern is unremarkable. L1-2: Unremarkable L2-3: Unremarkable L3-4: Mild annular disc bulge. Moderate facet arthropathy. Mild bilateral neural foraminal narrowing without central canal stenosis. L4-5: Mild annular disc bulge. Moderate facet arthropathy. Mild bilateral neural foraminal narrowing without central canal stenosis. L5-S1: Mild annular disc bulge. Mild facet arthropathy. Moderate left neural foraminal narrowing without central canal stenosis. IMPRESSION: Multilevel degenerative disc disease. Reviewed, Interpreted and Dictated by Gill Almonte MD Transcribed by Yajaira York Authenticated and [facility]
== END ==
PROVIDERS: PCP Emergency Medicine; Visit Provider Psychiatry & Neurology Neurology
DX: M54.16 Radiculopathy, lumbar region (principal)
CPT/HCPCS: 72148; 76376

== ENCOUNTER → 2022-11-16 14:42 | Outpatient (CLI) | payer MEDICARE, SELFPAY ==
--- NOTE | 2022-11-16 14:49 | MR_ITS ---
PROCEDURE INFORMATION: Exam: MR Head Without and With Contrast Exam date and time: 11/16/2022 3:47 PM Age: 72 years old Clinical indication: Pain; Headache not specified; Additional info: Cerebrovascular disease. Posterior head pain , painful to the touch , vison loss x 6 weeks TECHNIQUE: Imaging protocol: Magnetic resonance imaging of the head without and with contrast. Contrast material: PROHANCE; Contrast volume: 21 ml; Contrast route: IV; COMPARISON: CT SINUS WO CON 01/10/2022 3:29 PM FINDINGS: Brain: No acute infarct, hemorrhage, or obvious mass lesion. Age appropriate diffuse cerebral volume loss. Mild chronic white matter changes, likely to be chronic small vessel ischemic changes. No abnormal enhancement. 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 Cerebral ventricles: Normal. No ventriculomegaly. Bones/joints: Unremarkable. Paranasal sinuses: Normal as visualized. No acute sinusitis. Mastoid air cells: Normal as visualized. No mastoid effusion. Orbital cavities: Unremarkable. Soft tissues: Unremarkable. IMPRESSION: No acute findings.
== END ==
PROVIDERS: PCP Emergency Medicine; Visit Provider Emergency Medicine
DX: I67.9 Cerebrovascular disease, unspecified (principal)
CPT/HCPCS: 70553; A9576

== ENCOUNTER 2022-12-24 12:31 | Emergency (ER) | payer MEDICARE, SELFPAY ==
[2022-12-24 12:40] VITALS: BP 126/58; PULSE 88; RESP 19; TEMP 36.6; O2SAT 100; BMI 39.1
--- NOTE | 2022-12-24 12:50 | XR_ITS ---
PROCEDURE INFORMATION: Exam: XR Left Ankle Exam date and time: 12/24/2022 1:19 PM Age: 72 years old Clinical indication: Injury or trauma; Fall; Swelling (edema); Ankle; Left; Injury date: 12/23/22 TECHNIQUE: Imaging protocol: Radiologic exam of the left ankle. Views: 3 or more views. COMPARISON: CR FTL3 FOOT-LT-3 VIEWS 07/03/2017 1:57 PM FINDINGS: Bones/joints: Normal. Soft tissues: Normal. IMPRESSION: No acute findings.
--- NOTE | 2022-12-24 13:24 | EXP.UTC ---
Discharge Plan Disposition Patient Disposition: Home, Self-Care Condition: Good Prescriptions Prescriptions: No Action lisinopril 2.5 mg tablet 2.5 mg PO DAILY urea 40 % cream 1 applic TOPICAL BID PRN (Reason: keratosis) 30 Days Qty: 60 3RF Rx Instructions: Apply to dry affected skin up to twice dailys clopidogrel 75 mg tablet 75 mg PO DAILY 90 Days Qty: 90 metoprolol succinate 50 mg tablet extended release 24 hr 50 mg PO DAILY 90 Days Qty: 90 sertraline 100 mg tablet 100 mg PO Q24H atorvastatin 40 mg tablet 40 mg PO DAILY 90 Days Qty: 180 aspirin [Adult Low Dose Aspirin] 81 mg tablet,delayed release (DR/EC) 81 mg PO DAILY glipizide 5 mg tablet extended release 24hr 5 mg PO DAILY furosemide 20 mg tablet 20 mg PO NEEDED PRN (Reason: fluid) cetirizine [Zyrtec] 10 mg tablet 10 mg PO DAILY Qty: 30 4RF fluticasone propionate [Flonase Allergy Relief] 50 mcg/actuation spray,suspension 2 spray INTRANASAL DAILY Qty: 16 3RF Rx Instructions: administer into each nostril azelastine 205.5 mcg (0.15 %) spray,non-aerosol 2 spray INTRANASAL DAILY Qty: 30 4RF Rx Instructions: administer into each nostril empagliflozin 10 MG tablet 10 mg PO DAILY insulin glargine-lixisenatide 3 ML insulin pen 50 units SQ DAILY Referrals Follow up/Referrals: Dieter Larios MD [Primary Care Provider] - See instructions Activity Restrictions/Add. Instructions Additional Instructions/Restrictions: wear air cast for added support. Clinical Impressions Clinical Impression: High ankle sprain of left lower extremity Instructions Patient Instructions: DI for Ankle Sprain Discharge ED Provider: Viki Bains [facility] [place] General Stated complaint: [id number]@home pain in Lt ankle, body aches Mode of Arrival: Ambulatory Source of Information: Patient Limitations: No Limitations Time Seen by Provider: 12/24/22 13:02 Description of Symptoms (Recalled from Triage Doc. by RN): PATIENT C/O INJURY TO LEFT ANKLE AND LEG AFTER FALLING YESTERDAY HEENT Symptoms (Recalled from RN notes): No Resp Symptoms (Recalled from RN notes): No Skin Symptoms (Recalled from RN notes): No MS Symptoms (Recalled from RN notes): Yes Functional Status (Recalled from RN notes): WNL History of Present Illness Provider Complaint: Pt relates that she fell yesterday and hurt her left ankle. She reports icing the ankle last night several times and walking on the side of her foot. She states that the ankle has only gotten more sore, swollen, and blue today. Of note she is on Eliquis and Plavix. Related Data Home Medications Medication Instructions Recorded Confirmed clopidogrel 75 mg tablet 75 mg PO DAILY Blood thinner 90 04/18/18 08/17/22 days ##90 metoprolol succinate 50 mg 50 mg PO DAILY blood pressure 90 04/18/18 08/17/22 tablet,extended release 24 hr days ##90 sertraline 100 mg tablet 100 mg PO Q24H mood 04/18/18 08/17/22 aspirin 81 mg tablet,delayed 81 mg PO DAILY heart health 09/27/18 08/17/22 release (Adult Low Dose Aspirin) atorvastatin 40 mg tablet 40 mg PO DAILY Cholesterol 90 days 04/16/20 08/17/22 #180 tabs glipizide 5 mg tablet, extended 5 mg PO DAILY Diabetes 05/04/20 08/17/22 release 24 hr lisinopril 2.5 mg tablet 2.5 mg PO DAILY High blood pressure 08/03/20 08/17/22 empagliflozin 10 mg tablet 10 mg PO DAILY Diabetes 01/20/21 08/17/22 insulin glargine 100 50 units SQ DAILY Diabetes 01/20/21 08/17/22 unit-lixisenatide 33 mcg/mL subcutaneous pen furosemide 20 mg tablet 20 mg PO NEEDED PRN fluid 10/05/21 08/17/22 Previous Rx's Medication Instructions Recorded azelastine 205.5 mcg (0.15 %) 2 spray intranasal DAILY #30 mL 01/04/22 nasal spray cetirizine 10 mg tablet (Zyrtec) 10 mg PO DAILY #30 tabs 01/04/22 fluticasone propionate 50 2 spray intranasal DAILY #16 grams 01/04/22 mcg/actuation nasal spray,suspension (Flonase Pedro
[2022-12-24 13:32] VITALS: BP 126/58; PULSE 88; RESP 19; TEMP 36.6; O2SAT 100
== END 2022-12-24 13:50 | disposition home or self-care (01) ==
PROVIDERS: Emergency Provider Nurse Practitioner Family; PCP Emergency Medicine
DX: S93.402A Sprain of unspecified ligament of left ankle, initial encounter (principal); W19.XXXA Unspecified fall, initial encounter; Z79.01 Long term (current) use of anticoagulants
CPT/HCPCS: 73610; 99203; 99212; G0463

== ENCOUNTER → 2023-01-03 14:30 | Outpatient (CLI) | payer MEDICARE, SELFPAY ==
[2023-01-03 15:15] LABS: Alanine Aminotransferase 22 U/L (12-78); Albumin Level 3.6 g/dl (3.5-5.0); Albumin/Globulin Ratio 1.3 (1.1-1.8); Alkaline Phosphatase 106 U/L (38-126); Anion Gap 12.3 mEq/L (5-15); Aspartate Amino Transferase 25 U/L (14-36); Basophils # 0.1 K/mm3 (0-0.2); Basophils % 0.5 % (0.1-2.0); Bilirubin,Total 0.6 mg/dl (0.2-1.3); Blood Urea Nitrogen 19 mg/dl (7-17); Calcium 8.5 mg/dl (8.4-10.2); Carbon Dioxide 25 mmol/L (22.0-30.0); Chloride 110 mmol/L (98-107); Eosinophils # 0.3 K/mm3 (0.0-0.4); Eosinophils % 1.7 % (0.1-12.0); Estimated Glomerular Filt Rate 71 ml/min (>60); GFR (African American) 86 ML/MIN (>60); Globulin 2.7 g/dL (1.3-3.2); Glucose 144 mg/dl (74-100); Hematocrit 50.7 % (37.0-47.0); Hemoglobin 16.4 g/dL (12.2-16.2); Lymphocytes # 3.9 K/mm3 (0.7-4.5); Lymphocytes % 25.7 % (10-50); Mean Corpuscular HGB Conc 32.4 g/dL (31.8-35.4); Mean Corpuscular Hemoglobin 30.2 pg (27.0-31.2); Mean Corpuscular Volume 93.2 fl (81-99); Mean Platelet Volume 7.9 fl (7.4-10.4); Monocytes # 0.8 K/mm3 (0.1-1.0); Monocytes % 5.3 % (1.7-9.3); Neutrophils % 66.8 % (37.0-80.0); Platelet Count 229 K/mm3 (142-424); Potassium 4.3 mmoL/L (3.5-5.1); Red Blood Count 5.44 M/mm3 (4.20-5.40); Red Cell Distribution Width 14.1 % (11.5-17.5); Sodium 143 mmol/L (136-145); Total Protein,Serum 6.3 g/dl (6.3-8.2)
[2023-01-03 15:20] LABS: C-Reactive Protein 5.2 mg/L (0-4)
[2023-01-03 15:31] LABS: MANUAL DIFFERENTIAL MANUAL DIFFERENTIAL (MANUAL DIFF)
[2023-01-03 16:07] LABS: Lymphocytes % 34 % (10-50); Monocytes % 3 % (2-9); Neutrophils % 63 % (42-76); Platelet Estimate Normal; RBC Morphology Normal; Total Cells Counted 100
[2023-01-03 16:31] LABS: Hemoglobin A1C 7.5 % (4.0-6.0)
[2023-01-03 16:53] LABS: Erythrocyte Sedimentation Rate 54 mm/hr (0-30)
== END ==
PROVIDERS: PCP Emergency Medicine; Visit Provider Podiatrist
DX: L97.511 Non-pressure chronic ulcer of other part of right foot limited to breakdown of skin; M25.571 Pain in right ankle and joints of right foot; E11.621 Type 2 diabetes mellitus with foot ulcer; L03.115 Cellulitis of right lower limb
CPT/HCPCS: 36415; 80053; 83036; 85007; 85025; 85651; 86140

== ENCOUNTER → 2023-01-10 14:58 | Outpatient (CLI) | payer MEDICARE, SELFPAY ==
--- NOTE | 2023-01-10 14:59 | MR_ITS ---
FINAL REPORT CLINICAL HISTORY: ankle pain MEDIAL SIDED ANKLE PAIN AFTER A FALL X 1 WEEK AGO SWELLING AND BRUSING FINDINGS: Multiplanar MR imaging of the left ankle was performed without contrast. The Achilles tendon is intact. The plantar fascia is intact. The bony structures are intact without evidence of fracture, bone bruise or marrow edema. No osteochondral lesion is identified. The ligaments are intact without evidence of injury. The flexor and extensor tendons are intact. No significant joint effusion is seen. The musculature is intact. There is a fluid collection medial to the distal tibial metadiaphysis measuring up to 2.0 cm best seen on image 12 of series 3. IMPRESSION: Fluid collection overlying the medial aspect of the distal tibial metadiaphysis may be due to posttraumatic seroma or resolving hematoma. No acute osseous abnormality. Reviewed, Interpreted and Dictated by Edgar Fitch MD Transcribed by Rio James Authenticated and . [facility]
== END ==
PROVIDERS: PCP Emergency Medicine; Visit Provider Podiatrist
DX: L03.116 Cellulitis of left lower limb (principal); M25.572 Pain in left ankle and joints of left foot
CPT/HCPCS: 73721

== ENCOUNTER → 2023-02-07 17:35 | Outpatient (CLI) | payer MEDICARE, SELFPAY | PROVIDERS: PCP Podiatrist; Visit Provider Podiatrist | DX: L84 Corns and callosities (principal); M79.671 Pain in right foot; B95.7 Other staphylococcus as the cause of diseases classified elsewhere | CPT/HCPCS: 87070; 87077; 87186; 87205 ==

== ENCOUNTER → 2023-02-28 14:00 | Outpatient (CLI) | payer MEDICARE, SELFPAY ==
--- NOTE | 2023-02-28 14:07 | XR_ITS ---
FINAL REPORT CLINICAL HISTORY: rt hip pain FINDINGS: Right hip with pelvis. There is no acute fracture or dislocation. There are moderate degenerative changes of the bilateral hips. There are no soft tissue abnormalities. IMPRESSION: Moderate degenerative changes. Reviewed, Interpreted and Dictated by Edgar Fitch MD Transcribed by Rio James Authenticated and [facility]
--- NOTE | 2023-02-28 14:07 | XR_ITS ---
FINAL REPORT CLINICAL HISTORY: lt hip pain FINDINGS: Left hip with pelvis. There is no acute fracture or dislocation. There are moderate degenerative changes of the bilateral hips. There are no soft tissue abnormalities. IMPRESSION: Moderate degenerative changes. Reviewed, Interpreted and Dictated by Edgar Fitch MD Transcribed by Rio James Authenticated and [facility]
== END ==
PROVIDERS: PCP Emergency Medicine; Visit Provider Orthopaedic Surgery
DX: M25.552 Pain in left hip (principal); M25.551 Pain in right hip
CPT/HCPCS: 73502

== ENCOUNTER → 2023-05-16 14:04 | Outpatient (POV) | payer MEDICARE, SELFPAY | PROVIDERS: Visit Provider Dermatology | DX: Z00.00 Encounter for general adult medical examination without abnormal findings (principal) ==

== ENCOUNTER → 2023-05-18 16:24 | Outpatient (CLI) | payer MEDICARE, SELFPAY | PROVIDERS: Visit Provider Nurse Practitioner Family | DX: S90.414A Abrasion, right lesser toe(s), initial encounter (principal); Z51.89 Encounter for other specified aftercare; B95.7 Other staphylococcus as the cause of diseases classified elsewhere | CPT/HCPCS: 87070; 87077; 87186; 87205 ==

== ENCOUNTER → 2023-06-19 14:50 | Outpatient (CLI) | payer MEDICARE, SELFPAY ==
--- NOTE | 2023-06-19 14:50 | US_ITS ---
FINAL REPORT CLINICAL HISTORY: decreased sensation, never smoked, Hyperlipidemia, DM, CAD, right pinky toe infected ulceration, great toe, 2nd toe, and 3rd toe amputation of the right foot., right leg claudication, CAD. FINDINGS: ANKLE-BRACHIAL PRESSURE INDICES Pressure indices are as follows: RIGHT LOWER EXTREMITY: Ankle-brachial pressure index: 0.9, borderline Comments: Normal LEFT LOWER EXTREMITY: Ankle-brachial pressure index: 1.1 Comments: Normal IMPRESSION: Borderline right LEILANI. Normal left LEILANI. Reviewed, Interpreted and Dictated by Laurent Cortes III, MD Transcribed by Esperanza Sparrow Authenticated and [facility]
== END ==
PROVIDERS: PCP Emergency Medicine; Visit Provider Nurse Practitioner Family
DX: R09.89 Other specified symptoms and signs involving the circulatory and respiratory systems (principal)
CPT/HCPCS: 93923

== ENCOUNTER → 2023-06-29 12:23 | Outpatient (CLI) | payer MEDICARE, SELFPAY ==
--- NOTE | 2023-06-29 12:26 | XR_ITS ---
FINAL REPORT CLINICAL HISTORY: Look for Osteomyelitis FINDINGS: Right foot Three views were obtained. There is no acute fracture or dislocation. There are mild degenerative changes. Plantar calcaneal spur is identified. There is amputation of the 1st, 2nd, and 3rd digits at the metacarpophalangeal joints. There is a chronic fracture of the distal 4th metatarsal. There is erosion of the distal aspect of the 5th distal phalanx. The appearance is worrisome for osteomyelitis. IMPRESSION: Degenerative and postsurgical changes as above. Findings worrisome for osteomyelitis of the distal 4th metatarsal. Reviewed, Interpreted and Dictated by Laurent Cortes III, MD Transcribed by Yajaira York Authenticated and [facility]
--- NOTE | 2023-06-29 12:26 | XR_ITS ---
FINAL REPORT CLINICAL HISTORY: Foot pain fell 6months ago FINDINGS: Left foot Three views were obtained. There is no acute fracture or dislocation. There are mild degenerative changes. Note is made of vascular calcification. There are calcaneal spurs. IMPRESSION: No acute process. Reviewed, Interpreted and Dictated by Laurent Cortes III, MD Transcribed by Yajaira York Authenticated and [facility]
--- NOTE | 2023-06-29 12:52 | XR_ITS ---
FINAL REPORT CLINICAL HISTORY: ankle pain FINDINGS: Left ankle Three views were obtained. There is no acute fracture or dislocation. The joint spaces appear normal. Note is made of vascular calcification. IMPRESSION: No acute process. Reviewed, Interpreted and Dictated by Laurent Cortes III, MD Transcribed by Yajaira York Authenticated and [facility]
== END ==
PROVIDERS: PCP Emergency Medicine; Visit Provider Nurse Practitioner Family
DX: Z51.89 Encounter for other specified aftercare (principal); M79.672 Pain in left foot; M25.572 Pain in left ankle and joints of left foot
CPT/HCPCS: 73610; 73630

== ENCOUNTER → 2023-07-19 14:58 | Outpatient (CLI) | payer MEDICARE, SELFPAY ==
--- NOTE | 2023-07-19 15:01 | XR_ITS ---
FINAL REPORT CLINICAL HISTORY: wound of foot, preoperative testing COMPARISON: 09/07/2021 FINDINGS: PA and lateral views of the chest were obtained. The cardiac and mediastinal silhouettes are within normal limits. The lungs are clear. There is no pleural effusion or pneumothorax. No acute osseous abnormality is identified. IMPRESSION: No radiographic evidence of acute cardiac or pulmonary disease. Reviewed, Interpreted and Dictated by Brandi Henderson MD Transcribed by Emilee Caraballo Authenticated and [facility]
--- NOTE | 2023-07-19 15:31 | MR_ITS ---
FINAL REPORT TECHNIQUE: Multi planar MR imaging was performed through the right foot. CLINICAL HISTORY: Osteomyelitis of toe. Patient is diabetic. COMPARISON: Plain films right foot 06/29/2023 FINDINGS: The first 3 toes have been amputated at the first MTP joints. There may be abnormal signal in the distal phalanx of the fifth toe, although the exam is limited by motion and the location of the fifth toe within the gantry and coil. Osteomyelitis of the distal phalanx of the fifth toe is not excluded. The bone marrow signal in the foot is otherwise unremarkable. There is multijoint degenerative change throughout the portions of the right foot visualized. There is edema in the dorsal forefoot, without a loculated fluid collection to suggest a focal abscess. IMPRESSION: Possible osteomyelitis distal phalanx of the fifth toe as described, exam somewhat limited by motion and the location of the fifth toe in the gantry. Plain film correlation is suggested. Cellulitis is present predominantly in the dorsal forefoot, without evidence of an abscess. Reviewed, Interpreted and Dictated by Brandi Henderson MD Transcribed by Daksha Alexander Authenticated and [facility]
[2023-07-19 15:38] LABS: Basophils # 0.1 K/mm3 (0-0.2); Basophils % 0.6 % (0.1-2.0); Eosinophils # 0.3 K/mm3 (0.0-0.4); Eosinophils % 2.1 % (0.1-12.0); Hematocrit 45.6 % (37.0-47.0); Hemoglobin 15.6 g/dL (12.2-16.2); Mean Corpuscular HGB Conc 34.1 g/dL (31.8-35.4); Mean Corpuscular Hemoglobin 31.4 pg (27.0-31.2); Mean Corpuscular Volume 92.1 fl (81-99); Mean Platelet Volume 8.1 fl (7.4-10.4); Monocytes # 0.7 K/mm3 (0.1-1.0); Monocytes % 5.5 % (1.7-9.3); Neutrophils # 7.1 K/mm3 (1.8-7.8); Neutrophils % 58.9 % (37.0-80.0); Platelet Count 178 K/mm3 (142-424); Red Blood Count 4.95 M/mm3 (4.20-5.40); Red Cell Distribution Width 14.6 % (11.5-17.5)
[2023-07-19 15:57] LABS: Hemoglobin A1C 8.7 % (4.0-6.0)
[2023-07-19 16:08] LABS: Alanine Aminotransferase 33 U/L (12-78); Albumin Level 3.6 g/dl (3.5-5.0); Albumin/Globulin Ratio 1.4 (1.1-1.8); Alkaline Phosphatase 93 U/L (38-126); Anion Gap 12.6 mEq/L (5-15); Aspartate Amino Transferase 31 U/L (14-36); Bilirubin,Total 0.5 mg/dl (0.2-1.3); Blood Urea Nitrogen 16 mg/dl (7-17); Carbon Dioxide 23 mmol/L (22.0-30.0); Chloride 107 mmol/L (98-107); Estimated Glomerular Filt Rate 62 ml/min (>60); GFR (African American) 75 ML/MIN (>60); Globulin 2.5 g/dL (1.3-3.2); Glucose 234 mg/dl (74-100); Potassium 4.6 mmoL/L (3.5-5.1); Sodium 138 mmol/L (136-145); Total Protein,Serum 6.1 g/dl (6.3-8.2)
[2023-07-19 16:09] LABS: Erythrocyte Sedimentation Rate 12 mm/hr (0-30)
[2023-07-19 16:13] LABS: C-Reactive Protein 4.7 mg/L (0-4)
== END ==
PROVIDERS: Podiatrist; PCP Emergency Medicine; Visit Provider Nurse Practitioner Family
DX: E11.42 Type 2 diabetes mellitus with diabetic polyneuropathy; E11.621 Type 2 diabetes mellitus with foot ulcer; L97.511 Non-pressure chronic ulcer of other part of right foot limited to breakdown of skin; L97.512 Non-pressure chronic ulcer of other part of right foot with fat layer exposed; M79.671 Pain in right foot; S90.414A Abrasion, right lesser toe(s), initial encounter; Z87.39 Personal history of other diseases of the musculoskeletal system and connective tissue; Z79.84 Long term (current) use of oral hypoglycemic drugs; Z79.4 Long term (current) use of insulin
CPT/HCPCS: 36415; 71046; 73718; 80053; 83036; 85025; 85651; 86140

== ENCOUNTER → 2023-07-25 13:02 | Outpatient (POV) | payer MEDICARE, SELFPAY | PROVIDERS: PCP Emergency Medicine; Visit Provider Dermatology | DX: Z00.00 Encounter for general adult medical examination without abnormal findings (principal) ==

== ENCOUNTER 2023-08-02 10:34 | Day surgery (SDC) | payer MEDICARE, SELFPAY ==
[2023-08-01 08:41] VITALS: BMI 36.1
[2023-08-02] VITALS (8 sets, daily range): BP systolic 104–141; BP diastolic 52–71; PULSE 63–85; RESP 16–20; TEMP 36.1–36.6; O2SAT 91–97
[2023-08-02] MEDS: LACTATED RINGERS 1000ML 1,000 ML 25 ML IV (11:06)
[2023-08-02 11:11] LABS: POC Glucose,Bedside 128 (70-110)
--- NOTE | 2023-08-02 12:47 | SUR.PREOP ---
1245- recheck FSBS- 109 Pt up to bathroom and back to stretcher. Stated comfortable
[2023-08-02 12:54] LABS: POC Glucose,Bedside 109 (70-110)
[2023-08-02] MEDS: BUPIVACAINE 0.5% 30ML VIAL 150 MG (13:29)
--- NOTE | 2023-08-02 13:35 | EXP.ANES.CKL ---
[facility] Disclaimer: The information contained in this section may have been updated after the patient was seen, as this information can be updated by other users. Medical History History of amputation of toe History of fracture of arm Hyperlipidemia Hypertension Type 2 diabetes mellitus Surgical History History of laparoscopic cholecystectomy Family History Sister Cancer Diabetes Stroke Sister Cancer Diabetes Mother Coronary artery disease Heart attack Hypertension Stroke Sister Diabetes Father Diabetes Social History Smoking Status: Never smoker second hand exposure: No alcohol intake: never substance use type: denies use current occupational status: retired Travel in the last 8 weeks: None household members: spouse housing: house current occupational exposures/hazards: Yes caffeine: Yes [facility] Anesthesia Checklist Patient Identification Patient Identification: Arm Band Structural Data Admitted From: Home Planned Operative Procedure/s: Right Foot Transmetatarsal Amputation Consent for Planned Operative Procedure(s) Verified: Yes Verified Documents: Surgical Consent and History and Physical NPO Status Verified Time NPO: 00:00 Additional verifications Anesthesia Reactions: No Hx Blood Transfusions: No Blood Transfusion Reaction: No Airway Assessment Mallampati Score:: Class II C-Spine Mobility Assessed: Yes TMJ Mobility Assessed: Yes Dentition: Good Dentition Neurological Assessment Level of Consciousness: Awake and Alert Anesthesia Plan Anesthesia Risk discussed: Yes Anesthesia Plan: Verified ASA Class: III Anesthesia Type: General
[2023-08-02] MEDS: GENTAMICIN 80 MG/2 ML VIAL (13:47)
[2023-08-02] MEDS: SODIUM CHLORIDE IRRIG SOLUTION 3,000 ML 100 ML IR (13:49)
--- NOTE | 2023-08-02 14:47 | P.PNANES_ITS ---
[facility] Anesthesia Record Part I Anesthesia Record I Intake, IV Amount: 1,000 Hydration: Adequate Estimated blood loss (mL): 20 Urine output (mL): 0 Blood Pressure: 141/71 SaO2: 96 Pulse Rate: 85 Airway Patency: Patent Respiratory Rate: 20 Temperature: 97 F Patient is:: Awake Stable to PACU at:: 14:39
[2023-08-02 14:48] LABS: POC Glucose,Bedside 118 (70-110)
--- NOTE | 2023-08-02 14:53 | SUR.PHASEII ---
per dr. diop pt to cont. all home medications
--- NOTE | 2023-08-02 14:55 | P.OP_ITS ---
Date of procedure: 08/02/23 Pre-op Diagnosis:: Right foot osteomyelitis Right fifth toe diabetic foot ulcer Post-op Diagnosis:: Same Procedure performed:: Right transmetatarsal amputation Application of ADELINA drain Surgeon:: Celine Doyle DPM ACCOUNT MAINTENANCE REPRESENTATIVE:: Aileen Dodson Anesthesia: local (20 cc 0.5% Marcaine plain) and LMA Estimated blood loss (mL): 20 Clinical Note:: X-rays and MRI right foot reviewed and discussed with patient. Concern for osteomyelitis right 5th toe and 4th met. We discussed conservative versus surgical treatment options. Conservative treatment options include local wound care, oral and IV antibiotics, change in shoe wear, taping/padding, and off-misael ding. We discussed surgical intervention for amputation of the remaining two toes and met heads. Patient understands that the foot will change shape after surgery. Patient also understands that they could have wound healing complications including delayed healing and infection. We discussed that if the wound does not heal, it is possible that they may need a more proximal amputation and could result in further loss of digits, loss of partial foot or loss of leg. We discussed the risks and benefits in great detail. Other surgical risks include: prolonged pain and swelling, further infection requiring oral or IV antibiotics, delay in healing of soft tissue or bone, nerve or blood vessel damage, CRPS/RSD, DVT/PE, anesthesia complications, including stroke and even . All questions answered. Patient verbalized understanding. Consent obtained. Cardiac clearance granted. Operative findings:: Right fifth digit diabetic foot ulcer noted. No purulence or malodor. The wound measures 0.5 x 0.5 x 0.2 cm through skin into subcutaneous tissue. Prior first through third toe amputations. Hammertoe to the fourth digit. Transmetatarsal amputation performed in standard technique. Fourth and fifth toes were sent for culture. Metatarsal heads intact. There are some cortical erosion noted to the fourth and fifth metatarsal heads; they were removed and sent for pathology. Metatarsal heads 1 through 3 sent for pathology separate. No ascending cellulitis or signs of tracking or sinus drainage. Equinus evaluated and ankle was able to get to neutral, no MARK performed. Operative note:: On this date and time patient was deemed an appropriate surgical candidate. With informed consent signed, the patient was taken to the operating theater. The patient was positioned supine. General anesthesia was induced. Right mid- calf tourniquet used @225mmHg. IV vancomycin infused. Right transmetatarsal amputation, irrigation and debridement: Attention was directed to the 4-5th toes where open wound was noted to fifth toe. Previous 1- 3rd toe amp sites well healed. A fish mouth incision was mapped out at the level of the MPJs. Utilizing a 15 blade dissection was carried down sharply to the level of the bone around the proximal phalanx bases, which were disarticulated from the metatarsals. The 4-5th distal toes were soft and crumbly. The toes were cut and sent for bone culture and the other part was sent for pathology. Attention was then directed to the metatarsals. Utilizing power resection the metatarsal heads 1-5 were transected. A piece of the 1-3rd metatarsals were sent to pathology and 4-5th metatarsals were sent separately to pathology. The remaining proximal aspect of the metatarsals looked within normal limits, bone hard, no obvious signs of osteomyelitis noted. Next 3 L of bacitracin irrigation was used to flush the wound and pulse lavage. The wound was reexplored and no further signs of infection noted. At this point the double-ended rasp was used to smooth down the edges of the bone so that there were no sharp prominences. Bleeding controlled. The tourniquet was deflated and immediate hyperemic response was noted to the digits. 2-0 Vicryl was used to reapproximate the subcutaneous tissue. Nylon used to reapproximate the skin. A 7 flat ADELINA drain was inserted medially. Mich were used to reinforce the skin closure. The wounds were cleansed. 20cc 0.5% marcaine plain was injected at the end of the case. Betadine soaked Xeroform and dry sterile dressing was then applied to the right foot. The patient was awoken from anesthesia and transferred to recovery with vital signs stable and neurovascular status intact. Materials: Nylon, Skin mich, 7 flat ADELINA drain Discharge/Plan: Okay to DC home when ready and vital signs stable. Patient is to maintain dressing clean dry and intact. Instructions dispensed on how to change the drain if necessary. Continue antibiotics. e-Rx given for Doxy. PWB to RLE with walker in offloading post op shoe. Obtain post op films, right foot, 3 views. Follow-up in 5 days for dressing change. Tourniquet time (min): 39 Condition: stable Disposition: same day Specimens:: Right 4-5th toe culture Right 1-3rd metatarsals path Right 4-5th metatarsals path Complications:: None
--- NOTE | 2023-08-02 15:10 | XR_ITS ---
FINAL REPORT CLINICAL HISTORY: TMA COMPARISON: None FINDINGS: RIGHT FOOT: Three views of the right foot were obtained. The patient has undergone a transmetatarsal amputation of the foot, and a surgical drain is present along with multiple alphonse in the distal soft tissues. There is mild degenerative change seen in the midfoot. IMPRESSION: The patient has undergone a transmetatarsal amputation of the foot, and a surgical drain is present in the operative site with multiple alphonse in the distal soft tissues. Reviewed, Interpreted and Dictated by Laurent Cortes III, MD Transcribed by Daksha Alexander Authenticated and [facility]
--- NOTE | 2023-08-04 04:35 | EXP.ANES.II ---
[facility] Anesthesia Record Part II Anesthesia Record Part II Discharge Time: 15:09 Destination: Surgical Day Care (OP Surgery) PACU nurse assessment reviewed?: Yes Patient Condition:: Good Anesthesia Complications:: None Swallowing reflex intact?: Yes Airway Patency: Patent Cyanosis?: No Blood Pressure: 104/65 SaO2: 92 Respiratory Rate: 18 Pulse Rate: 83 Temperature: 97.6 F Mental Status: Alert & Oriented Pain level:: 0 Nausea and/or vomitting:: None Intake, IV Amount: 0 Hydration: Adequate
[2023-08-04 04:36] VITALS: BP 104/65; PULSE 83; RESP 18; TEMP 36.4; O2SAT 92
== END 2023-08-02 15:43 | disposition home or self-care (01) ==
PROVIDERS: PCP Emergency Medicine; Visit Provider Podiatrist
PROC: (CPT 28805; principal; 2023-08-02 12:15)
DX: E11.621 Type 2 diabetes mellitus with foot ulcer (principal); M86.171 Other acute osteomyelitis, right ankle and foot; L97.512 Non-pressure chronic ulcer of other part of right foot with fat layer exposed; E11.42 Type 2 diabetes mellitus with diabetic polyneuropathy; Z89.411 Acquired absence of right great toe; I10 Essential (primary) hypertension; Z79.4 Long term (current) use of insulin; Z79.899 Other long term (current) drug therapy; E11.69 Type 2 diabetes mellitus with other specified complication
CPT/HCPCS: 28805; 73630; 82962; 88304; 88305; 88307; 88311; 96374; J2405

== ENCOUNTER 2023-09-13 11:19 | Outpatient (CLI) | payer MEDICARE, SELFPAY ==
--- NOTE | 2023-09-13 11:31 | XR_ITS ---
FINAL REPORT CLINICAL HISTORY: Right foot pain COMPARISON: 08/02/2023 FINDINGS: RIGHT FOOT: Three views of the right foot were obtained. There are postoperative changes from transmetatarsal amputation. There is no acute fracture or dislocation. The joint spaces are intact. Calcaneal spurs are noted. There is no soft tissue abnormality. IMPRESSION: Postoperative changes without acute bony abnormality. Reviewed, Interpreted and Dictated by Laurent Corets III, MD Transcribed by Emilee Caraballo Authenticated and [facility]
== END 2023-09-13 23:59 ==
LOC: RAD 11:22
PROVIDERS: PCP Emergency Medicine; Visit Provider Podiatrist
DX: M79.671 Pain in right foot (principal)
CPT/HCPCS: 73630

== ENCOUNTER 2023-10-12 22:26 | Outpatient (CLI) | payer MEDICARE, SELFPAY | END 2023-10-12 23:59 | LOC: LAB.DROPOF 22:26 | PROVIDERS: PCP Nurse Practitioner; Visit Provider Nurse Practitioner | DX: M79.671 Pain in right foot; S91.301A Unspecified open wound, right foot, initial encounter; B96.89 Other specified bacterial agents as the cause of diseases classified elsewhere; B96.4 Proteus (mirabilis) (morganii) as the cause of diseases classified elsewhere; B95.2 Enterococcus as the cause of diseases classified elsewhere | CPT/HCPCS: 87070; 87205 ==

== ENCOUNTER 2023-11-14 10:24 | Outpatient (CLI) | payer MEDICARE, SELFPAY ==
--- NOTE | 2023-11-14 10:29 | XR_ITS ---
FINAL REPORT CLINICAL HISTORY: Ankle Pain FINDINGS: Left ankle Three views were obtained. There is no acute fracture or dislocation. There are mild degenerative changes. Calcaneal spurs are identified. Note is made of vascular calcification. IMPRESSION: Degenerative and chronic appearing findings. Reviewed, Interpreted and Dictated by Laurent Cortes III, MD Transcribed by Yajaira York Authenticated and [facility]
== END 2023-11-14 23:59 ==
PROVIDERS: PCP Emergency Medicine; Visit Provider Podiatrist
DX: M25.572 Pain in left ankle and joints of left foot (principal)
CPT/HCPCS: 73610

== ENCOUNTER 2023-12-07 11:00 | Outpatient (RCR) | payer MEDICARE, SELFPAY ==
--- NOTE | 2023-11-21 16:51 | HMH.PTOPEV ---
PT Outpatient Evaluation Rehab PT Outpatient Evaluation Start: 11/21/23 14:55 Freq: Status: Active Protocol: Document 11/21/23 14:56 KEVON (Rec: 11/21/23 16:50 KEVON [email or web address]) E-signed By Giuliana Stoddard, PT Outpatient Therapy Subjective History Subjective History This is an initial evaluation for 73 y/o, Tiffany Javed who presents with referral for right foot stability and balance training. Pt with post transmetatarsal amputation of R foot. Pt uses SPC for most ambulation and intermittently a RW at home. Pt reports 4 falls since initial amputation . Pt denies balance concerns before amputation or use of AD . Pt with closed amp wound site. Pt reports she will be getting a custom shoe insert soon. PMH: History of fracture of arm, Hyperlipidemia, Hypertension, Type 2 diabetes mellitus New diagnosis of cancer in past 12 No months? Hip/Knee Eval MMT bilateral Hip Flexion Strength Grade 4 Good Hip Abduction Strength Grade 4 Good Hip Adduction Strength Grade 4 Good Knee Extension Strength Grade 4 Good Knee Flexion Strength Grade 4 Good Balance Eval Subjective Hx of Complaint Comment Unsteady, falls, LOB Chief Complaint vertigo No Did you feel dizzy, unsteady or faint? No Prior Functional Limitations Prior Functional [place] Level None reported Current Functional Limitations Comment Walking on even and uneven surfaces, stairs, balance, standing, gait Hx of Falls Hx Falls Yes Number in last 6 months 4 Gait/Posture Asssessment General Gait Observation Antalgic Gait,Wide Based Gait, Decrease Weight Bear (R) Assistive Devices Straight Cane Level of Transfer Assist Standby Assistance Timed Up and Go Test 1. Is the Timed Up and Go test result > yes or = to 12 seconds? [place] Feet Together/Eyes open/Stable Surface fail Feet Together/Eyes Closed/Stable Surface fail Feet Together/Eyes open/Unstable Surface fail Feet Together/Eyes Closed/Unstable fail Surface ROBERSON Balance Evaluation Sitting to Standing Ability Independent w/Hands Unsupported Stance Safely- 2 minutes Sitting Unsupported, Feet on Floor Safely- 2 minutes Standing to Sitting Ability Safely, Minimal Hand Use Transfer Ability Safely, Minimal Hand Use Unsupported Stance- Eyes Closed Supervision, 10 seconds Unsupported Stance- Eyes Open Independent, 1 minute Reaching Forward Standing Confidently, 10 inches Pick- Up Object From Floor Supervision Look Behind Shoulder - Standing Shifts Weight Unilateral Turning 360 Degrees Turns slowly, but safely Unsupported Stance, Alternating Feet on 2 Steps w/Minimum Assist Stair Unsupported Tandem Stance Balance Lost- Step/Stand Unilateral Leg Stance Lifts Leg/Unable to Hold Total Score Balance Evaluation Total (out of 56 40 points) Tinetti Sitting Balance Sitting Balance Steady, safe Arising from Chair Ability to Arise Able, uses arms to help Attempts to Arise Arises on 1st attempt Standing Balance Immediate Standing Balance Steady with support Standing Balance Steady, wide stance Nudged Response Staggers, catches self Standing with Eyes Closed Steady Turning Step Pattern Turning 360 Degrees Discontinuous steps Stability Turning 360 Degrees Steady Sitting Down Sitting Down Uses arms or unsteady Gait and Step Initiation of Gait No hesitancy Right Foot Step Length Does pass stance foot Right Foot Step Height Completely clears floor Left Foot Step Length Does pass stance foot Left Foot Step Height Completely clears floor Step Description Step Symmetry Step length not equal Step Continuity Stopping or discontinuity Gait Description Path Description Straight Trunk Description Marked sway or uses aide Walking Stance Heels apart Scoring and Interpretation Tinetti Composite Score (points) 17 Interpretation of Scores High risk for falls(< 19) Lower Extremity Functional Index Activities Today, do you or would you have any difficulty at all with: a.Any of your usual work, housework or Moderate difficulty school activities b. Your usual hobbies, recreational or Moderate difficulty sporting activities c. Getting into or out of the bath Moderate difficulty d. Walking between rooms Moderate difficulty e. Putting on your shoes or socks Moderate difficulty f. Squatting Quite a bit of difficulty g. Lifting an object, like a bag of Moderate difficulty groceries from the floor h. Performing light activities around Moderate difficulty your home i. Performing heavy activities around Quite a bit of difficulty your home j. Getting into or out of a car Quite a bit of difficulty k. Walking 2 blocks Quite a bit of difficulty l. Walking a mile Extreme difficulty or unable to perform activity m. Going up or down 10 stairs (about 1 Quite a bit of difficulty flight of stairs) n. Standing for 1 hour Quite a bit of difficulty o. Sitting for 1 hour Moderate difficulty p. Running on even ground Extreme difficulty or unable to perform activity q. Running on uneven ground Extreme difficulty or unable to perform activity r. Making sharp turns while running fast Extreme difficulty or unable to perform activity s. Hopping Extreme difficulty or unable to perform activity t. Rolling over in bed Moderate difficulty LEFI Score Lower Extremity Functional Index Score 24 Outpatient Therapy Assessment Impairments Problems/Impairmments Impaired Range of Motion, Impaired Strength,Impaired Endurance,Impaired Transfers, Impaired Gait Pattern,Impaired Walking,Impaired Standing, Impaired Stair Climbing, Impaired Stepping on Uneven Surface,Impaired Squatting, Impaired Recreational Activities,Impaired Balance, Impaired ROBERSON Score,Impaired Tinnetti Score,Impaired TUG Time Prognosis Rehab Potential Good Comment Pt presents with impaired gait , dynamic and static standing balance, and strength. Pt would benefit from skilled OP PT to address safety, gait, and balance. Clinical Impression Consistent with Diagnosis Yes Short Term Goals Number of Weeks 3 Improve Gait Pattern with Assistive Yes: 20' with even step length Device and proper weight shifting with Min VCs Improve Balance Yes: At most Mod A during higher level dynamic balance interventions. Increase ROBERSON Score Yes: >45/56 Improve Self Care/Self Management Yes: Will report no falls at home over past 72 hours. Patient to be Ind w/ HEP Yes Longterm Goals Number of Weeks 6 Increase Strength Yes: 5/5 BLE strength Improve Gait Pattern with Assistive Yes: No antalgic gait pattern Device Increase ROBERSON Score Yes: 50/56 Increase Tinnetti Score Yes: Score reflecting low risk for falls Decrease TUG Time Yes: <12sec Improve Self Care/Self Management Yes: Reports no falls in the past 10 days. Patient to be Ind w/ Advanced HEP Yes Outpatient Therapy Plan of Care Treatment Plan May Include Therapeutic Exercise Including Home Yes Exercise Program Neuromuscular Re-education Yes Therapeutic Activities to Return to Yes Previous Functional/Work Level Gait Training Yes ADL/Self Care Education Yes Thermal Modalities Yes Electrical Stimulation Yes Ultrasound/Phonophoresis Yes Massage Yes Eval/Re-Eval Yes Aquatic Therapy Yes Frequency Times per week 1-2 times Duration Number of Weeks 5-6 Addendums This patient is a candidate for social No or vocational rehab? Patient/Guardian verbally acknowledges Yes understanding of treatment program and consents to further treatment? Patient/Guardian verbally acknowledges Yes understanding of diagnosis, prognosis and goals for treatment? Eval Complexity PT Charges 99070 - Moderate Complexity Shoulder/Elbow Eval Shoulder Objective Measurements Elbow Objective Measurements PHYSICIAN CERTIFICATION: I certify the specified therapy services for Tiffany Kiko Bridges are required, authorized, and reviewed every 30 days.
== END 2023-12-07 12:00 | disposition home or self-care (01) ==
LOC: PT 11:00
PROVIDERS: Visit Provider Podiatrist
DX: R26.89 Other abnormalities of gait and mobility (principal); Z89.431 Acquired absence of right foot
CPT/HCPCS: 97110; 97112; 97163; 97530; 97535

== ENCOUNTER 2024-01-16 10:02 | Outpatient (CLI) | payer MEDICARE, SELFPAY ==
--- NOTE | 2024-01-16 10:09 | XR_ITS ---
FINAL REPORT CLINICAL HISTORY: Foot Pain COMPARISON: 08/02/2023 FINDINGS: Right foot Three views were obtained. There is no acute fracture or dislocation. There are postoperative changes from transmetatarsal amputation. Mild degenerative changes are present. Note is made of calcaneal spurs. IMPRESSION: Degenerative and postsurgical changes as above. Reviewed, Interpreted and Dictated by Laurent Cortes III, MD Transcribed by Yajaira York Authenticated and [facility]
--- NOTE | 2024-01-16 10:09 | XR_ITS ---
FINAL REPORT CLINICAL HISTORY: Foot Pain COMPARISON: 06/29/2023 FINDINGS: Left foot Three views were obtained. There is no acute fracture or dislocation. There are mild degenerative changes. Calcaneal spurs are identified. No soft tissue abnormality is identified. IMPRESSION: Mild degenerative changes. Reviewed, Interpreted and Dictated by Laurent Cortes III, MD Transcribed by Yajaira York Authenticated and [facility]
== END 2024-01-16 23:59 | disposition home or self-care (01) ==
LOC: RAD 10:03
PROVIDERS: PCP Emergency Medicine; Visit Provider Podiatrist
DX: M79.671 Pain in right foot (principal); M79.672 Pain in left foot
CPT/HCPCS: 73630

== ENCOUNTER 2024-12-17 12:51 | Outpatient (CLI) | payer MEDICARE, SELFPAY ==
--- NOTE | 2024-12-17 12:54 | CT_ITS ---
FINAL REPORT TECHNIQUE: Axial images through the head was performed by computed tomography. Reconstructed images were obtained and reviewed. This study was performed with techniques to keep radiation doses as low as reasonably achievable, (ALARA). Individualized dose reduction techniques using automated exposure control or adjustment of mA and/or kV according to the patient's size were employed. CLINICAL HISTORY: HEADACHES, FOREHEAD TENDERNESS, VISUAL CHANGES, FALLS FINDINGS: Chronic ischemic white matter changes are noted. No cortical edema is present. There is no mass or hemorrhage. Ventricles are normal. 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 Bone windows show no skull fracture or obvious obstructive lesion. IMPRESSION: 1. No acute intracranial abnormality or obvious mass. Reviewed, Interpreted and Dictated by Gill Almonte MD Transcribed by Yajaira York Authenticated and . [facility]
--- OUTSIDE RECORDS SUMMARY | 2024-12-19 21:12 | XMS_ITS | Data Portability ---
Author Organization [facility] Address [address] [place] [address] Care Team Providers Care Financial Health Counselor Name Role Phone DIETER MOORE Primary Care Provider [phone] Assessment Encounter Date Assessment Date Assessment LastModified by Organization Details LastModified Time 06/21/2023 06/21/2023 patient denies any new issues. She tells me she is not due for a colonoscopy at this time. she is also up-to-date on her mammogram and DEXA scans. [email or web address] Not available 06/21/2023 08:45:25 Plan of Treatment Reminders Order Date Submit Date Provider Last Modified By Organization Details Last Modified Time Details Appointments None recorded. Lab HbA1c (hemoglobin A1c), blood 2023 [facility] (Laboratory), [address] [place], [address], 4 17:29:31 CMP, serum or plasma 2023 [facility] (Laboratory), [place], [address], 4 17:24:54 CMP, serum or plasma 2023 [facility] (Laboratory), [address] [place], [address], 4 07:49:45 CBC w/ auto diff 2023 [facility] (Laboratory), [address] [place], [address], 4 17:06:22 TSH, serum or plasma 2023 024 [facility] (Laboratory), [address] [place], [address], 4 17:24:52 HbA1c (hemoglobin A1c), blood 2023 024 [facility] (Laboratory), [address] [place], [address], 4 07:49:46 CMP, serum or plasma 2023 024 [facility] (Laboratory), [address] [place], [address], 4 11:33:32 CBC w/ auto diff 2023 024 [facility] (Laboratory), [address] [place], [address], 4 11:06:48 hemoglobin A1c + average glucose, QN, blood 2023 024 [facility] (Laboratory), [address] [place], [address], 4 07:32:22 CMP, serum or plasma 2022 023 [facility] (Laboratory), [address] [place], [address], 3 12:03:01 CMP, serum or plasma 2022 023 [facility] (Laboratory), [address] [place], [address], 3 19:26:25 CBC w/ auto diff 2022 023 [facility] (Laboratory), [address] [place], [address], 3 11:30:03 TSH, serum or plasma 2022 [facility] (Laboratory), [address] [place], [address], 3 12:04:11 HbA1c (hemoglobin A1c), blood 2022 [facility] (Laboratory), [address] [place], [address], 3 12:12:57 vitamin B12, serum 2022 [facility] (Laboratory), [address] [place], [address], 3 12:04:13 vitamin D, 25-hydroxy, total, serum [address] (Laboratory), [address] [place], [address], 4 07:43:26 lipid panel, serum 2022 [facility] (Laboratory), [address] [place], [address], 3 12:04:09 CMP, serum or plasma 2022 023 [facility] (Laboratory), [address] [place], [address], 3 18:03:50 CBC w/ auto diff 2022 023 [facility] (Laboratory), [address] [place], [address], 3 17:51:36 HbA1c (hemoglobin A1c), blood 2022 023 [facility] (Laboratory), [address] [place], [address], 3 18:03:45 TSH, serum or plasma 2022 023 [facility] (Laboratory), [address] [place], [address], 3 18:03:46 lipid panel, serum 2022 023 [facility] (Laboratory), [address] [place], [address], 3 18:03:48 Referral [facility] referral - PT and OT to evaluate and treat 2022 023 [facility], [address], [address], [place], [address], 3 10:43:[address] referral 2022 023 [facility], [address], [place], [address], 3 10:43:00 Procedures None recorded. Surgeries None recorded. Imaging None recorded. Medication Orders propranolol 20 mg tablet 2023 024 [facility]/Pharmacy #[id number], [address] [place], [address], 4 15:28:44 Soliqua 100/33 100 unit-33 mcg/mL subcutaneou s insulin pen 2023 024 [facility], [address], [address], [place], [place], [id number], 4 15:14:16 Medrol (Ag) 4 mg tablets in a dose pack 2023 024 [facility]arm[facility] #3016, [address] [place], [address], 4 15:28:47 doxycycline monohydrate 100 mg capsule 2023 024 [facility]armacy #3016, [address] [place], [address], 4 15:28:43 Magic Mouthwash w/ Nystatin 2023 024 tpardini [facility]/Pharmacy #3016, [address] [place], [address], 4 15:43:48 amlodipine 10 mg-atorvast atin 80 mg tablet 2022 023 [email or web address] 0 [facility], [address], [address], [place], [place], [id number], 4 14:36:18 lisinopril 5 mg tablet 2022 023 [facility], [address], [address], [place], [place], [id number], 3 08:49:49 metoprolol succinate ER 50 mg tablet,exte nded release 24 hr 2022 023 [facility], [address], [address], [place], [place], [id number], 3 08:49:49 clopidogrel 75 mg tablet 2022 023 [facility], [address], [address], [place], [place], [id number], 3 08:49:50 sertraline 100 mg tablet 2022 023 [facility], [address], [address], [place], [place], [id number], 3 08:49:51 Patient TargetsNo targets recorded. Patient InstructionsNo instructions recorded. Reason for Referral [employer] Referral for P igmented skin lesion Referring Physician: Dieter Moore [facility], Encounter Date: 01/05/2023 Home Health Referral for Fal ls PT and OT to evaluate and treat Referring Physician: Dieter Moore [facility], Encounter Date: 01/05/2023 Results Created Date Observation Date Name Description Value Unit Range Abnormal Flag Note LastModifiedBy Organization Detail LastModifiedTime 11/08/19 23 11/08/2022 CBC AUTO W DIFF WBC 11.2 10 4.5-11 .5 Not Available [facility] (Lab Registration) [address] [place], [address], 11/08/2022 17:51:36 11/08/19 23 11/08/2022 CBC AUTO W DIFF RBC 5.39 10 4.25-5 .57 Not Available [facility] (Lab Registration) [address] [place], [address], 11/08/2022 17:51:36 11/08/19 23 11/08/2022 CBC AUTO W DIFF HGB 16.3 g/dL 12.0-1 5.7 high Not Available [facility] (Lab Registration) [address] [place], [address], 11/08/2022 17:51:36 11/08/19 23 11/08/2022 CBC AUTO W DIFF HCT 48.9 % 36.0-4 7.0 high Not Available [facility] (Lab Registration) [address] [place], [address], 11/08/2022 17:51:36 11/08/19 23 11/08/2022 CBC AUTO W DIFF MCV 90.7 fL 80-95 Not Available [facility] (Lab Registration) [address] [place], [address], 11/08/2022 17:51:36 11/08/19 23 11/08/2022 CBC AUTO W DIFF MCH 30.2 pg 27.0-3 4.0 Not Available [facility] (Lab Registration) [address] [place], [address], 11/08/2022 17:51:36 11/08/19 23 11/08/2022 CBC AUTO W DIFF MCHC 33.3 g/dL 32.0-3 6.0 Not Available [facility] (Lab Registration) [address] [place], [address], 11/08/2022 17:51:36 11/08/19 23 11/08/2022 CBC AUTO W DIFF platelet count 194 10 150-45 0 Not Available [facility] (Lab Registration) [address] [place], [address], 11/08/2022 17:51:36 11/08/19 23 11/08/2022 CBC AUTO W DIFF RDW 13.5 % 12.3-1 5.1 Not Available [facility] (Lab Registration) [address] [place], [address], 11/08/2022 17:51:36 11/08/19 23 11/08/2022 CBC AUTO W DIFF MPV 10.2 fL 7.4-10 .4 Not Available [facility] (Lab Registration) [address] [place], [address], 11/08/2022 17:51:36 11/08/19 23 11/08/2022 CBC AUTO W DIFF granulocyte% 61.8 % 40-75 Not Available [facility] (Lab Registration) [address] [place], [address], 11/08/2022 17:51:36 11/08/19 23 11/08/2022 CBC AUTO W DIFF lymphocyte% 26.4 % 15-57 Not Available [facility] (Lab Registration) [address] [place], [address], 11/08/2022 17:51:36 11/08/19 23 11/08/2022 CBC AUTO W DIFF monocyte% 9.5 % 4.0-12 .0 Not Available [facility] (Lab Registration) [address] [place], [address], 11/08/2022 17:51:36 11/08/19 23 11/08/2022 CBC AUTO W DIFF eosinophil% 1.7 % 0.0-4. 0 Not Available [facility] (Lab Registration) [address] [place], [address], 11/08/2022 17:51:36 11/08/19 23 11/08/2022 CBC AUTO W DIFF basophil% 0.3 % 0.0-1. 0 Not Available [facility] (Lab Registration) [address] [place], [address], 11/08/2022 17:51:36 11/08/19 23 11/08/2022 CBC AUTO W DIFF immature granulocytes % 0.3 % 0.0-0. 8 Not Available [facility] (Lab Registration) [address] [place], [address], 11/08/2022 17:51:36 11/08/19 23 11/08/2022 CBC AUTO W DIFF granulocyte# 6.94 10 Not Available [facility] (Lab Registration) [address] [place], [address], 11/08/2022 17:51:36 11/08/19 23 11/08/2022 CBC AUTO W DIFF lymphocyte# 2.96 10 Not Available [facility] (Lab Registration) [address] [place], [address], 11/08/2022 17:51:36 11/08/19 23 11/08/2022 CBC AUTO W DIFF monocyte# 1.06 10 Not Available [facility] (Lab Registration) [address] [place], [address], 11/08/2022 17:51:36 11/08/19 23 11/08/2022 CBC AUTO W DIFF eosinophil# 0.19 10 Not Available [facility] (Lab Registration) [address] [place], [address], 11/08/2022 17:51:36 11/08/19 23 11/08/2022 CBC AUTO W DIFF basophil# 0.03 10 Not Available [facility] (Lab Registration) [address] [place], [address], 11/08/2022 17:51:36 11/08/19 23 11/08/2022 CBC AUTO W DIFF immature granulocytes # 0.03 10 Not Available [facility] (Lab Registration) [address] [place], [address], 11/08/2022 17:51:36 11/08/19 23 11/08/2022 CBC AUTO W DIFF manual differential NO Not Available [facility] (Lab Registration) [address] [place], [address], 11/08/2022 17:51:36 11/08/19 23 11/08/2022 CBC AUTO W DIFF note Unles s other wilkinson noted testi ng perfo rmed at: [facility] [address] [place] [address] [phone] Juan polanco MD CLIA: [id number] Not Available [facility] (Lab Registration) [address] [place], [address], 11/08/2022 17:51:36 11/08/19 23 11/08/2022 HEMOG LOBIN A1C glycosylated hemoglobin A1C 6.8 % 4.5-6. 2 high Not Available [facility] (Lab Registration) [address] [place], [address], 11/08/2022 18:03:45 11/08/19 23 11/08/2022 HEMOG LOBIN A1C estimated average glucose 148 mg/dL 82-131 high Not Available [facility] (Lab Registration) [address] [place], [address], 11/08/2022 18:03:45 11/08/19 23 11/08/2022 HEMOG LOBIN A1C note Marylues s other wilkinson noted testi ng perfo rmed at: [facility] [address] [address] [place] [phone] Juan polanco MD CLIA: [id number] Not Available [facility] (Lab Registration) [address] [place], [address], 11/08/2022 18:03:45 11/08/19 23 11/08/2022 THYRO ID STIMU LATIN G HORMO NE thyroid stimulating hormone 0.82 mIU/m L 0.34-4 .80 Not Available [facility] (Lab Registration) [address] [place], [address], 11/08/2022 18:03:46 11/08/19 23 11/08/2022 THYRO ID STIMU LATIN G HORMO NE note Michelle polanco other wilkinson noted testi ng perfo rmed at: [facility] [address] [place] [address] [phone] Juan polanco MD CLIA: [id number] Not Available [facility] (Lab Registration) [address] [place], [address], 11/08/2022 18:03:46 11/08/19 23 11/08/2022 LIPID PANEL triglyceride 114 mg/dL 20-200 The [employer]io n[employer] t[employer] am (NCEP ) has set the follo wing guide lines for Fasti ng Trigl yceri rakesh: DERICK L: <150 mg/dL BORDE RLINE HIGH: 150 - 199 mg/dL HIGH: 200 - 499 mg/dL VERY HIGH: > or =500 mg/dL Not Available [facility] (Lab Registration) [address] [place], [address], 11/08/2022 18:03:47 11/08/19 23 11/08/2022 LIPID PANEL cholesterol 138 mg/dL 0-200 The [employer]io n[employer]ca t[employer]gr am (NCEP ) has set the follo wing guide lines for Fasti ng Jill stero l: SONYA ABLE: <200 mg/dL BORDE RLINE HIGH: 200 - 239 mg/dL HIGH: > or =240 mg/dL Not Available [facility] (Lab Registration) [address], [place], [address], 11/08/2022 18:03:47 11/08/19 23 11/08/2022 LIPID PANEL HDL cholesterol 47 mg/dL 60- low The [employer]io n[employer]ca t[employer]gr am (IDEP ) has set the follo wing guide lines for Fasti ng HDL Jill stero l: LOW HDL: <40 mg/dL DERICK L: 40 - 60 mg/dL SONYA ABLE: >60 mg/dL Not Available [facility] (Lab Registration) [address], [place], [address], 11/08/2022 18:03:47 11/08/19 23 11/08/2022 LIPID PANEL LDL calculated 68 mg/dL 100- low The [employer]ca t[employer]gr am (IDEP ) has set the follo wing guide lines for Fasti ng LDL Jill stero l: OPTIM AL: < 100 mg/dL LOW RISK: 100 - 129 mg/dL BORDE RLINE HIGH: 130 - 159 mg/dL HIGH: 160 - 189 mg/dL VERY HIGH: > or = 190 mg/dL Not Available [facility] (Lab Registration) [address], [place], [address], 11/08/2022 18:03:47 11/08/19 23 11/08/2022 LIPID PANEL chol/HDL ratio 3 ratio -5 Not Available [facility] (Lab Registration) [address] [place], [address], 11/08/2022 18:03:47 11/08/19 23 11/08/2022 LIPID PANEL note Unles s other wilkinson noted testi ng perfo rmed at: [facility] [address] [facility] [place] [address] [phone] Juan polanco MD CLIA: [id number] Not Available [facility] (Lab Registration) [address] [place], [address], 11/08/2022 18:03:47 11/08/19 23 11/08/2022 COMP METAB OLIC PANEL sodium 143 mmol/ L 136-14 5 Not Available [facility] (Lab Registration) [address] [place], [address], 11/08/2022 18:03:50 11/08/19 23 11/08/2022 COMP METAB OLIC PANEL potassium 4.5 mmol/ L 3.5-5. 1 Not Available [facility] (Lab Registration) [address] [place], [address], 11/08/2022 18:03:50 11/08/19 23 11/08/2022 COMP METAB OLIC PANEL chloride 109 mmol/ L 98-107 high Not Available [facility] (Lab Registration) [address] [place], [address], 11/08/2022 18:03:50 11/08/19 23 11/08/2022 COMP METAB OLIC PANEL carbon dioxide 26 mmol/ L 21-32 Not Available [facility] (Lab Registration) [address] [place], [address], 11/08/2022 18:03:50 11/08/19 23 11/08/2022 COMP METAB OLIC PANEL anion gap 8.0 Not Available [facility] (Lab Registration) [address] [place], [address], 11/08/2022 18:03:50 11/08/19 23 11/08/2022 COMP METAB OLIC PANEL glucose 161 mg/dL 70-110 high Not Available [facility] (Lab Registration) [address] [place], [address], 11/08/2022 18:03:50 11/08/19 23 11/08/2022 COMP METAB OLIC PANEL blood urea nitrogen 16 mg/dL 7-18 Not Available [facility] (Lab Registration) [address] [place], [address], 11/08/2022 18:03:50 11/08/19 23 11/08/2022 COMP METAB OLIC PANEL creatinine 0.8 mg/dL 0.6-1. 0 Not Available [facility] (Lab Registration) [address] [place], [address], 11/08/2022 18:03:50 11/08/19 23 11/08/2022 COMP METAB OLIC PANEL BUN/creatini ne ratio 20.0 ratio 9-21 Not Available [facility] (Lab Registration) [address] [place], [address], 11/08/2022 18:03:50 11/08/19 23 11/08/2022 COMP METAB OLIC PANEL estimated glom filtration rate 75 mL/mi n >60- Not Available [facility] (Lab Registration) [address] [place], [address], 11/08/2022 18:03:50 11/08/19 23 11/08/2022 COMP METAB OLIC PANEL total protein 6.7 g/dL 6.4-8. 2 Not Available [facility] (Lab Registration) [address] [place], [address], 11/08/2022 18:03:50 11/08/19 23 11/08/2022 COMP METAB OLIC PANEL albumin 3.6 g/dL 3.4-5. 0 Not Available [facility] (Lab Registration) [address] [place], [address], 11/08/2022 18:03:50 11/08/19 23 11/08/2022 COMP METAB OLIC PANEL calcium 8.8 mg/dL 8.5-10 .1 Not Available [facility] (Lab Registration) [address] [place], [address], 11/08/2022 18:03:50 11/08/19 23 11/08/2022 COMP METAB OLIC PANEL corrected calcium 9.1 mg/dL 8.5-10 .1 Not Available [facility] (Lab Registration) [address], [place], [address], 11/08/2022 18:03:50 11/08/19 23 11/08/2022 COMP METAB OLIC PANEL bilirubin total 0.6 mg/dL 0.4-1. 5 Not Available [facility] (Lab Registration) [address] [place], [address], 11/08/2022 18:03:50 11/08/19 23 11/08/2022 COMP METAB OLIC PANEL AST (SGOT) 19 U/L 15-37 Not Available [facility] (Lab Registration) [address] [place], [address], 11/08/2022 18:03:50 11/08/19 23 11/08/2022 COMP METAB OLIC PANEL ALT (SGPT) 32 U/L 12-78 Not Available [facility] (Lab Registration) [address] [place], [address], 11/08/2022 18:03:50 11/08/19 23 11/08/2022 COMP METAB OLIC PANEL alk phosphatase 82 U/L 53-141 Not Available [facility] (Lab Registration) [address] [place], [address], 11/08/2022 18:03:50 11/08/19 23 11/08/2022 COMP METAB OLIC PANEL note Unles s other wilkinson noted testi ng perfo rmed at: [facility] [address] [place] [address] [phone] Juan polanco MD CLIA: [id number] Not Available [facility] (Lab Registration) [address] [place], [address], 11/08/2022 18:03:50 06/21/20 23 06/21/2023 CBC AUTO W DIFF WBC 12.4 10 4.5-11 .5 high Not Available [facility] (Lab Registration) [address] [place], [address], 06/21/2023 11:30:03 06/21/20 23 06/21/2023 CBC AUTO W DIFF RBC 5.19 10 4.25-5 .57 Not Available [facility] (Lab Registration) [address] [place], [address], 06/21/2023 11:30:03 06/21/2006/21/2023 CBC AUTO W DIFF HGB 15.7 g/dL 12.0-1 5.7 Not Available [facility] (Lab Registration) [address] [place], [address], 06/21/2023 11:30:03 06/21/2006/21/2023 CBC AUTO W DIFF HCT 45.5 % 36.0-4 7.0 Not Available [facility] (Lab Registration) [address] [place], [address], 06/21/2023 11:30:03 06/21/2006/21/2023 CBC AUTO W DIFF MCV 87.7 fL 80-95 Not Available [facility] (Lab Registration) [address] [place], [address], 06/21/2023 11:30:03 06/21/2006/21/2023 CBC AUTO W DIFF MCH 30.3 pg 27.0-3 4.0 Not Available [facility] (Lab Registration) [address] [place], [address], 06/21/2023 11:30:03 06/21/2006/21/2023 CBC AUTO W DIFF MCHC 34.5 g/dL 32.0-3 6.0 Not Available [facility] (Lab Registration) [address] [place], [address], 06/21/2023 11:30:03 06/21/2006/21/2023 CBC AUTO W DIFF platelet count 180 10 150-45 0 Not Available [facility] (Lab Registration) [address] [place], [address], 06/21/2023 11:30:03 06/21/2006/21/2023 CBC AUTO W DIFF RDW 13.9 % 12.3-1 5.1 Not Available [facility] (Lab Registration) [address] [place], [address], 06/21/2023 11:30:03 06/21/2006/21/2023 CBC AUTO W DIFF MPV 10.2 fL 7.4-10 .4 Not Available [facility] (Lab Registration) [address] [place], [address], 06/21/2023 11:30:03 06/21/2006/21/2023 CBC AUTO W DIFF granulocyte% 58.0 % 40-75 Not Available [facility] (Lab Registration) [address] [place], [address], 06/21/2023 11:30:03 06/21/2006/21/2023 CBC AUTO W DIFF lymphocyte% 29.1 % 15-57 Not Available [facility] (Lab Registration) [address] [place], [address], 06/21/2023 11:30:03 06/21/2006/21/2023 CBC AUTO W DIFF monocyte% 10.6 % 4.0-12 .0 Not Available [facility] (Lab Registration) [address] [place], [address], 06/21/2023 11:30:03 06/21/2006/21/2023 CBC AUTO W DIFF eosinophil% 1.6 % 0.0-4. 0 Not Available [facility] (Lab Registration) [address] [place], [address], 06/21/2023 11:30:03 06/21/2006/21/2023 CBC AUTO W DIFF basophil% 0.3 % 0.0-1. 0 Not Available [facility] (Lab Registration) [address] [place], [address], 06/21/2023 11:30:03 06/21/2006/21/2023 CBC AUTO W DIFF immature granulocytes % 0.4 % 0.0-0. 8 Not Available [facility] (Lab Registration) [address] [place], [address], 06/21/2023 11:30:03 06/21/2006/21/2023 CBC AUTO W DIFF granulocyte# 7.21 10 Not Available [facility] (Lab Registration) [address] [place], [address], 06/21/2023 11:30:03 06/21/2006/21/2023 CBC AUTO W DIFF lymphocyte# 3.62 10 Not Available [facility] (Lab Registration) [address] [place], [address], 06/21/2023 11:30:03 06/21/2006/21/2023 CBC AUTO W DIFF monocyte# 1.32 10 Not Available [facility] (Lab Registration) [address] [place], [address], 06/21/2023 11:30:03 06/21/2006/21/2023 CBC AUTO W DIFF eosinophil# 0.20 10 Not Available [facility] (Lab Registration) [address] [place], [address], 06/21/2023 11:30:03 06/21/2006/21/2023 CBC AUTO W DIFF basophil# 0.04 10 Not Available [facility] (Lab Registration) [address] [place], [address], 06/21/2023 11:30:03 06/21/20 23 06/21/2023 CBC AUTO W DIFF immature granulocytes # 0.05 10 Not Available [facility] (Lab Registration) [address] [place], [address], 06/21/2023 11:30:03 06/21/20 23 06/21/2023 CBC AUTO W DIFF manual differential NO Not Available [facility] (Lab Registration) [address] [place], [address], 06/21/2023 11:30:03 06/21/20 23 06/21/2023 CBC AUTO W DIFF note Unles s other wilkinson noted testi ng perfo rmed at: [facility] [address] [place] [address] [phone] Juan polanco MD CLIA: [id number] Not Available [facility] (Lab Registration) [address] [place], [address], 06/21/2023 11:30:03 06/21/20 23 06/21/2023 COMP METAB OLIC PANEL sodium 142 mmol/ L 136-14 5 Not Available [facility] (Lab Registration) [address] [place], [address], 06/21/2023 12:03:00 06/21/20 23 06/21/2023 COMP METAB OLIC PANEL potassium 4.0 mmol/ L 3.5-5. 1 Not Available [facility] (Lab Registration) [address] [place], [address], 06/21/2023 12:03:00 06/21/2006/21/2023 COMP METAB OLIC PANEL chloride 104 mmol/ L 98-107 Not Available [facility] (Lab Registration) [address] [place], [address], 06/21/2023 12:03:00 06/21/2006/21/2023 COMP METAB OLIC PANEL carbon dioxide 26 mmol/ L 21-32 Not Available [facility] (Lab Registration) [address], [place], [address], 06/21/2023 12:03:00 06/21/2006/21/2023 COMP METAB OLIC PANEL anion gap 12.0 Not Available [facility] (Lab Registration) [address] [place], [address], 06/21/2023 12:03:00 06/21/2006/21/2023 COMP METAB OLIC PANEL glucose 159 mg/dL 70-110 high Not Available [facility] (Lab Registration) [address] [place], [address], 06/21/2023 12:03:00 06/21/2006/21/2023 COMP METAB OLIC PANEL blood urea nitrogen 17 mg/dL 7-18 Not Available [facility] (Lab Registration) [address] [place], [address], 06/21/2023 12:03:00 06/21/2006/21/2023 COMP METAB OLIC PANEL creatinine 1.0 mg/dL 0.6-1. 0 Not Available [facility] (Lab Registration) [address] [place], [address], 06/21/2023 12:03:00 06/21/2006/21/2023 COMP METAB OLIC PANEL BUN/creatini ne ratio 17.0 ratio 9-21 Not Available [facility] (Lab Registration) [address] [place], [address], 06/21/2023 12:03:00 06/21/2006/21/2023 COMP METAB OLIC PANEL estimated glom filtration rate 58 mL/mi n >60- low Not Available [facility] (Lab Registration) [address] [place], [address], 06/21/2023 12:03:00 06/21/2006/21/2023 COMP METAB OLIC PANEL total protein 6.5 g/dL 6.4-8. 2 Not Available [facility] (Lab Registration) [address] [place], [address], 06/21/2023 12:03:00 06/21/2006/21/2023 COMP METAB OLIC PANEL albumin 3.3 g/dL 3.4-5. 0 low Not Available [facility] (Lab Registration) [address] [place], [address], 06/21/2023 12:03:00 06/21/2006/21/2023 COMP METAB OLIC PANEL calcium 8.9 mg/dL 8.5-10 .1 Not Available [facility] (Lab Registration) [address] [place], [address], 06/21/2023 12:03:00 06/21/2006/21/2023 COMP METAB OLIC PANEL corrected calcium 9.5 mg/dL 8.5-10 .1 Not Available [facility] (Lab Registration) [address] [place], [address], 06/21/2023 12:03:00 06/21/2006/21/2023 COMP METAB OLIC PANEL bilirubin total 0.6 mg/dL 0.4-1. 5 Not Available [facility] (Lab Registration) [address] [place], [address], 06/21/2023 12:03:00 06/21/2006/21/2023 COMP METAB OLIC PANEL AST (SGOT) 17 U/L 15-37 Not Available [facility] (Lab Registration) [address] [place], [address], 06/21/2023 12:03:00 06/21/2006/21/2023 COMP METAB OLIC PANEL ALT (SGPT) 29 U/L 12-78 Not Available [facility] (Lab Registration) [address] [place], [address], 06/21/2023 12:03:00 06/21/20 23 06/21/2023 COMP METAB OLIC PANEL alk phosphatase 102 U/L 53-141 Not Available [facility] (Lab Registration) [address], [place], [address], 06/21/2023 12:03:00 06/21/2006/21/2023 COMP METAB OLIC PANEL note Unles s other wilkinson noted testi ng perfo rmed at: [facility] [address] [place] [address] [phone] Juan polanco MD CLIA: [id number] Not Available [facility] (Lab Registration) [address], [place], [address], 06/21/2023 12:03:00 06/21/2006/21/2023 LIPID PANEL triglyceride 143 mg/dL 20-200 [employer] ([employer] ) has set the follo wing guide lines for Fasti ng Trigl yceri rakesh: DERICK L: <150 mg/dL BORDE RLINE HIGH: 150 - 199 mg/dL HIGH: 200 - 499 mg/dL VERY HIGH: > or =500 mg/dL Not Available [facility] (Lab Registration) [address], [place], [address], 06/21/2023 12:04:09 06/21/2006/21/2023 LIPID PANEL cholesterol 151 mg/dL 0-200 [employer] ([employer] ) has set the follo wing guide lines for Fasti ng Jill stero l: SONYA ABLE: <200 mg/dL BORDE RLINE HIGH: 200 - 239 mg/dL HIGH: > or =240 mg/dL Not Available [facility] (Lab Registration) [address] [place], [address], 06/21/2023 12:04:09 06/21/2006/21/2023 LIPID PANEL HDL cholesterol 47 mg/dL 60- low [facility] [employer] [facility] ([facility] ) has set the follo wing guide lines for Fasti ng HDL Jill stero l: LOW HDL: <40 mg/dL DERICK L: 40 - 60 mg/dL SONYA ABLE: >60 mg/dL Not Available [facility] (Lab Registration) [address] [place], [address], 06/21/2023 12:04:09 06/21/20 23 06/21/2023 LIPID PANEL LDL calculated 75 mg/dL 100- low [employer] ([facility] ) has set the follo wing guide lines for Fasti ng LDL Jill stero l: OPTIM AL: < 100 mg/dL LOW RISK: 100 - 129 mg/dL BORDE RLINE HIGH: 130 - 159 mg/dL HIGH: 160 - 189 mg/dL VERY HIGH: > or = 190 mg/dL Not Available [facility] (Lab Registration) [address] [place], [address], 06/21/2023 12:04:09 06/21/20 23 06/21/2023 LIPID PANEL chol/HDL ratio 3 ratio -5 Not Available [facility] (Lab Registration) [address] [place], [address], 06/21/2023 12:04:09 06/21/20 23 06/21/2023 LIPID PANEL note Unles s other wilkinson noted testi ng perfo rmed at: [facility] [address] [place] [address] [phone] Juan polanco MD CLIA: [id number] Not Available [facility] (Lab Registration) [address] [place], [address], 06/21/2023 12:04:09 06/21/20 23 06/21/2023 THYRO ID STIMU LATIN G HORMO NE thyroid stimulating hormone 2.88 mIU/m L 0.34-4 .80 Not Available [facility] (Lab Registration) [address] [place], [address], 06/21/2023 12:04:11 06/21/20 23 06/21/2023 THYRO ID STIMU LATIN G HORMO NE note Unles s other wilkinson noted testi ng perfo rmed at: [facility] [address] [place] [address] [phone] Juan polanco MD CLIA: [id number] Not Available [facility] (Lab Registration) [address], [place], [address], 06/21/2023 12:04:11 06/21/2006/21/2023 VITAM IN D TOTAL (D2+D 3) vitamin D25 (D2+D3) 35.3 NG/mL 30-100 Not Available [facility] (Lab Registration) [address] [place], [address], 06/21/2023 12:04:12 06/21/2006/21/2023 VITAM IN D TOTAL (D2+D 3) note Michelle s other wilkinson noted testi ng perfo rmed at: [facility] [address] [place] [address] [phone] Juan polanco MD CLIA: [id number] Not Available [facility] (Lab Registration) [address] , [place], [address], 06/21/2023 12:04:12 06/21/2006/21/2023 VITAM IN B12 vitamin B12 540 pg/mL 193-98 6 Not Available [facility] (Lab Registration) [address], [place], [address], 06/21/2023 12:04:13 06/21/2006/21/2023 VITAM IN B12 note Michelle polanco other wilkinson noted testi ng perfo rmed at: [facility] [address] [place] [address] [phone] Juan polanco MD CLIA: [id number] Not Available [facility] (Lab Registration) [address], [place], [address], 06/21/2023 12:04:13 06/21/20 23 06/21/2023 HEMOG LOBIN A1C glycosylated hemoglobin A1C 8.3 % 4.5-6. 2 high Not Available [facility] (Lab Registration) [address] [place], [address], 06/21/2023 12:12:57 06/21/2006/21/2023 HEMOG LOBIN A1C estimated average glucose 192 mg/dL 82-131 high Not Available [facility] (Lab Registration) [address] [place], [address], 06/21/2023 12:12:57 06/21/2006/21/2023 HEMOG LOBIN A1C note Unles s other wilkinson noted testi ng perfo rmed at: [facility] [address] [place] [address] [phone] Juan polanco MD CLIA: [id number] Not Available [facility] (Lab Registration) [address] [place], [address], 06/21/2023 12:12:57 11/23/19 24 11/23/2023 CBC AUTO W DIFF WBC 10.0 10 4.5-11 .5 Not Available [facility] (Lab Registration) [address] [place], [address], 11/23/2023 11:06:48 11/23/19 24 11/23/2023 CBC AUTO W DIFF RBC 4.96 10 4.25-5 .57 Not Available [facility] (Lab Registration) [address] [place], [address], 11/23/2023 11:06:48 11/23/19 24 11/23/2023 CBC AUTO W DIFF HGB 14.5 g/dL 12.0-1 5.7 Not Available [facility] (Lab Registration) [address], [place], [address], 11/23/2023 11:06:48 11/23/19 24 11/23/2023 CBC AUTO W DIFF HCT 43.3 % 36.0-4 7.0 Not Available [facility] (Lab Registration) [address] [place], [address], 11/23/2023 11:06:48 11/23/19 24 11/23/2023 CBC AUTO W DIFF MCV 87.3 fL 80-95 Not Available [facility] (Lab Registration) [address] [place], [address], 11/23/2023 11:06:48 11/23/19 24 11/23/2023 CBC AUTO W DIFF MCH 29.2 pg 27.0-3 4.0 Not Available [facility] (Lab Registration) [address] [place], [address], 11/23/2023 11:06:48 11/23/19 24 11/23/2023 CBC AUTO W DIFF MCHC 33.5 g/dL 32.0-3 6.0 Not Available [facility] (Lab Registration) [address] [place], [address], 11/23/2023 11:06:48 11/23/19 24 11/23/2023 CBC AUTO W DIFF platelet count 170 10 150-45 0 Not Available [facility] (Lab Registration) [address] [place], [address], 11/23/2023 11:06:48 11/23/19 24 11/23/2023 CBC AUTO W DIFF RDW 15.1 % 12.3-1 5.1 Not Available [facility] (Lab Registration) [address] [place], [address], 11/23/2023 11:06:48 11/23/19 24 11/23/2023 CBC AUTO W DIFF MPV 9.9 fL 7.4-10 .4 Not Available [facility] (Lab Registration) [address], [place], [address], 11/23/2023 11:06:48 11/23/19 24 11/23/2023 CBC AUTO W DIFF granulocyte% 61.9 % 40-75 Not Available [facility] (Lab Registration) [address] [place], [address], 11/23/2023 11:06:48 11/23/19 24 11/23/2023 CBC AUTO W DIFF lymphocyte% 25.9 % 15-57 Not Available [facility] (Lab Registration) [address] [place], [address], 11/23/2023 11:06:48 11/23/19 24 11/23/2023 CBC AUTO W DIFF monocyte% 10.0 % 4.0-12 .0 Not Available [facility] (Lab Registration) [address] [place], [address], 11/23/2023 11:06:48 11/23/19 24 11/23/2023 CBC AUTO W DIFF eosinophil% 1.6 % 0.0-4. 0 Not Available [facility] (Lab Registration) [address] [place], [address], 11/23/2023 11:06:48 11/23/19 24 11/23/2023 CBC AUTO W DIFF basophil% 0.3 % 0.0-1. 0 Not Available [facility] (Lab Registration) [address] [place], [address], 11/23/2023 11:06:48 11/23/19 24 11/23/2023 CBC AUTO W DIFF immature granulocytes % 0.3 % 0.0-0. 8 Not Available [facility] (Lab Registration) [address] [place], [address], 11/23/2023 11:06:48 11/23/19 24 11/23/2023 CBC AUTO W DIFF granulocyte# 6.22 10 Not Available [facility] (Lab Registration) [address] [place], [address], 11/23/2023 11:06:48 11/23/19 24 11/23/2023 CBC AUTO W DIFF lymphocyte# 2.60 10 Not Available [facility] (Lab Registration) [address] [place], [address], 11/23/2023 11:06:48 11/23/19 24 11/23/2023 CBC AUTO W DIFF monocyte# 1.00 10 Not Available [facility] (Lab Registration) [address] [place], [address], 11/23/2023 11:06:48 11/23/19 24 11/23/2023 CBC AUTO W DIFF eosinophil# 0.16 10 Not Available [facility] (Lab Registration) [address] [place], [address], 11/23/2023 11:06:48 11/23/19 24 11/23/2023 CBC AUTO W DIFF basophil# 0.03 10 Not Available [facility] (Lab Registration) [address] [place], [address], 11/23/2023 11:06:48 11/23/19 24 11/23/2023 CBC AUTO W DIFF immature granulocytes # 0.03 10 Not Available [facility] (Lab Registration) [address] [place], [address], 11/23/2023 11:06:48 11/23/19 24 11/23/2023 CBC AUTO W DIFF manual differential NO Not Available [facility] (Lab Registration) [address] [place], [address], 11/23/2023 11:06:48 11/23/19 24 11/23/2023 CBC AUTO W DIFF note Unles s other wilkinson noted testi ng perfo rmed at: [facility] [place] [address] [phone] Juan polanco MD CLIA: [id number] Not Available [facility] (Lab Registration) [address] [place], [address], 11/23/2023 11:06:48 11/23/19 24 11/23/2023 COMP METAB OLIC PANEL sodium 140 mmol/ L 136-14 5 Not Available [facility] (Lab Registration) [address] [place], [address], 11/23/2023 11:33:32 11/23/19 24 11/23/2023 COMP METAB OLIC PANEL potassium 4.2 mmol/ L 3.5-5. 1 Not Available [facility] (Lab Registration) [address] [place], [address], 11/23/2023 11:33:32 11/23/19 24 11/23/2023 COMP METAB OLIC PANEL chloride 105 mmol/ L 98-107 Not Available [facility] (Lab Registration) [address] [place], [address], 11/23/2023 11:33:32 11/23/19 24 11/23/2023 COMP METAB OLIC PANEL carbon dioxide 26 mmol/ L 21-32 Not Available [facility] (Lab Registration) [address] [place], [address], 11/23/2023 11:33:32 11/23/19 24 11/23/2023 COMP METAB OLIC PANEL anion gap 9.0 Not Available [facility] (Lab Registration) [address] [place], [address], 11/23/2023 11:33:32 11/23/19 24 11/23/2023 COMP METAB OLIC PANEL glucose 242 mg/dL 70-110 high Not Available [facility] (Lab Registration) [address] [place], [address], 11/23/2023 11:33:32 11/23/19 24 11/23/2023 COMP METAB OLIC PANEL blood urea nitrogen 16 mg/dL 7-18 Not Available [facility] (Lab Registration) [address] [place], [address], 11/23/2023 11:33:32 11/23/19 24 11/23/2023 COMP METAB OLIC PANEL creatinine 0.9 mg/dL 0.6-1. 0 Not Available [facility] (Lab Registration) [address] [place], [address], 11/23/2023 11:33:32 11/23/19 24 11/23/2023 COMP METAB OLIC PANEL BUN/creatini ne ratio 17.8 ratio 9-21 Not Available [facility] (Lab Registration) [address] [place], [address], 11/23/2023 11:33:32 11/23/19 24 11/23/2023 COMP METAB OLIC PANEL estimated glom filtration rate 65 mL/mi n >60- Not Available [facility] (Lab Registration) [address] [place], [address], 11/23/2023 11:33:32 11/23/19 24 11/23/2023 COMP METAB OLIC PANEL total protein 6.1 g/dL 6.4-8. 2 low Not Available [facility] (Lab Registration) [address] [place], [address], 11/23/2023 11:33:32 11/23/19 24 11/23/2023 COMP METAB OLIC PANEL albumin 3.2 g/dL 3.4-5. 0 low Not Available [facility] (Lab Registration) [address] [place], [address], 11/23/2023 11:33:32 11/23/19 24 11/23/2023 COMP METAB OLIC PANEL calcium 8.8 mg/dL 8.5-10 .1 Not Available [facility] (Lab Registration) [address] [place], [address], 11/23/2023 11:33:32 11/23/19 24 11/23/2023 COMP METAB OLIC PANEL corrected calcium 9.4 mg/dL 8.5-10 .1 Not Available [facility] (Lab Registration) [address], [place], [address], 11/23/2023 11:33:32 11/23/19 24 11/23/2023 COMP METAB OLIC PANEL bilirubin total 0.7 mg/dL 0.4-1. 5 Not Available [facility] (Lab Registration) [address], [place], [address], 11/23/2023 11:33:32 11/23/19 24 11/23/2023 COMP METAB OLIC PANEL AST (SGOT) 17 U/L 15-37 Not Available [facility] (Lab Registration) [address] [place], [address], 11/23/2023 11:33:32 11/23/19 24 11/23/2023 COMP METAB OLIC PANEL ALT (SGPT) 28 U/L 12-78 Not Available [facility] (Lab Registration) [address] [place], [address], 11/23/2023 11:33:32 11/23/19 24 11/23/2023 COMP METAB OLIC PANEL alk phosphatase 110 U/L 53-141 Not Available [facility] (Lab Registration) [address] [place], [address], 11/23/2023 11:33:32 11/23/19 24 11/23/2023 COMP METAB OLIC PANEL note Unles s other wilkinson noted testi ng perfo rmed at: [facility] [place] [address] [phone] Juan polanco MD CLIA: [id number] Not Available [facility] (Lab Registration) [address] [place], [address], 11/23/2023 11:33:32 11/23/19 24 11/23/2023 HEMOG LOBIN A1C glycosylated hemoglobin A1C 9.4 % 4.5-6. 2 high Not Available [facility] (Lab Registration) [address] [place], [address], 11/23/2023 11:55:32 11/23/19 24 11/23/2023 HEMOG LOBIN A1C estimated average glucose 223 mg/dL 82-131 high Not Available [facility] (Lab Registration) [address] [place], [address], 11/23/2023 11:55:32 11/23/19 24 11/23/2023 HEMOG LOBIN A1C note Unles s other wilkinson noted testi ng perfo rmed at: [facility] [place] [address] [phone] Juan polanco MD CLIA: [id number] Not Available [facility] (Lab Registration) [address] [place], [address], 11/23/2023 11:55:32 02/20/20 24 02/20/2024 CBC AUTO W DIFF WBC 10.8 10 4.5-11 .5 Not Available [facility] (Lab Registration) [address] [place], [address], 02/20/2024 17:06:22 02/20/20 24 02/20/2024 CBC AUTO W DIFF RBC 5.22 10 4.25-5 .57 Not Available [facility] (Lab Registration) [address] [place], [address], 02/20/2024 17:06:22 02/20/20 24 02/20/2024 CBC AUTO W DIFF HGB 15.8 g/dL 12.0-1 5.7 high Not Available [facility] (Lab Registration) [address] [place], [address], 02/20/2024 17:06:22 02/20/20 24 02/20/2024 CBC AUTO W DIFF HCT 46.3 % 36.0-4 7.0 Not Available [facility] (Lab Registration) [address] [place], [address], 02/20/2024 17:06:22 02/20/20 24 02/20/2024 CBC AUTO W DIFF MCV 88.7 fL 80-95 Not Available [facility] (Lab Registration) [address] [place], [address], 02/20/2024 17:06:22 02/20/20 24 02/20/2024 CBC AUTO W DIFF MCH 30.3 pg 27.0-3 4.0 Not Available [facility] (Lab Registration) [address] [place], [address], 02/20/2024 17:06:22 02/20/20 24 02/20/2024 CBC AUTO W DIFF MCHC 34.1 g/dL 32.0-3 6.0 Not Available [facility] (Lab Registration) [address] [place], [address], 02/20/2024 17:06:22 02/20/20 24 02/20/2024 CBC AUTO W DIFF platelet count 166 10 150-45 0 Not Available [facility] (Lab Registration) [address] [place], [address], 02/20/2024 17:06:22 02/20/20 24 02/20/2024 CBC AUTO W DIFF RDW 13.9 % 12.3-1 5.1 Not Available [facility] (Lab Registration) [address] [place], [address], 02/20/2024 17:06:22 02/20/20 24 02/20/2024 CBC AUTO W DIFF MPV 9.8 fL 7.4-10 .4 Not Available [facility] (Lab Registration) [address] [place], [address], 02/20/2024 17:06:22 02/20/20 24 02/20/2024 CBC AUTO W DIFF granulocyte% 60.3 % 40-75 Not Available [facility] (Lab Registration) [address] [place], [address], 02/20/2024 17:06:22 02/20/20 24 02/20/2024 CBC AUTO W DIFF lymphocyte% 27.0 % 15-57 Not Available [facility] (Lab Registration) [address] [place], [address], 02/20/2024 17:06:22 02/20/20 24 02/20/2024 CBC AUTO W DIFF monocyte% 11.0 % 4.0-12 .0 Not Available [facility] (Lab Registration) [address] [place], [address], 02/20/2024 17:06:22 02/20/20 24 02/20/2024 CBC AUTO W DIFF eosinophil% 1.2 % 0.0-4. 0 Not Available [facility] (Lab Registration) [address] [place], [address], 02/20/2024 17:06:22 02/20/20 24 02/20/2024 CBC AUTO W DIFF basophil% 0.2 % 0.0-1. 0 Not Available [facility] (Lab Registration) [address] [place], [address], 02/20/2024 17:06:22 02/20/20 24 02/20/2024 CBC AUTO W DIFF immature granulocytes % 0.3 % 0.0-0. 8 Not Available [facility] (Lab Registration) [address] [place], [address], 02/20/2024 17:06:22 02/20/20 24 02/20/2024 CBC AUTO W DIFF granulocyte# 6.50 10 Not Available [facility] (Lab Registration) [address] [place], [address], 02/20/2024 17:06:22 02/20/20 24 02/20/2024 CBC AUTO W DIFF lymphocyte# 2.91 10 Not Available [facility] (Lab Registration) [address], [place], [address], 02/20/2024 17:06:22 02/20/20 24 02/20/2024 CBC AUTO W DIFF monocyte# 1.18 10 Not Available [facility] (Lab Registration) [address], [place], [address], 02/20/2024 17:06:22 02/20/20 24 02/20/2024 CBC AUTO W DIFF eosinophil# 0.13 10 Not Available [facility] (Lab Registration) [address], [place], [address], 02/20/2024 17:06:22 02/20/20 24 02/20/2024 CBC AUTO W DIFF basophil# 0.02 10 Not Available [facility] (Lab Registration) [address], [place], [address], 02/20/2024 17:06:22 02/20/20 24 02/20/2024 CBC AUTO W DIFF immature granulocytes # 0.03 10 Not Available [facility] (Lab Registration) [address], [place], [address], 02/20/2024 17:06:22 02/20/20 24 02/20/2024 CBC AUTO W DIFF manual differential NO Not Available [facility] (Lab Registration) [address] [place], [address], 02/20/2024 17:06:22 02/20/20 24 02/20/2024 CBC AUTO W DIFF note Unles s other wilkinson noted testi ng perfo rmed at: [facility] [address] [place] [address] [phone] Juan polanco MD CLIA: [id number] Not Available [facility] (Lab Registration) [address], [place], [address], 02/20/2024 17:06:22 02/20/20 24 02/20/2024 THYRO ID STIMU LATIN G HORMO NE thyroid stimulating hormone 2.05 mIU/m L 0.34-4 .80 Not Available [facility] (Lab Registration) [address], [place], [address], 02/20/2024 17:24:52 02/20/20 24 02/20/2024 THYRO ID STIMU LATIN G HORMO NE note Unles s other wilkinson noted testi ng perfo rmed at: [facility] [address] [employer] [place] [address] [phone] Juan polanco MD CLIA: [id number] Not Available [facility] (Lab Registration) [address], [place], [address], 02/20/2024 17:24:52 02/20/20 24 02/20/2024 COMP METAB OLIC PANEL sodium 142 mmol/ L 136-14 5 Not Available [facility] (Lab Registration) [address], [place], [address], 02/20/2024 17:24:54 02/20/20 24 02/20/2024 COMP METAB OLIC PANEL potassium 4.0 mmol/ L 3.5-5. 1 Not Available [facility] (Lab Registration) [address], [place], [address], 02/20/2024 17:24:54 02/20/20 24 02/20/2024 COMP METAB OLIC PANEL chloride 107 mmol/ L 98-107 Not Available [facility] (Lab Registration) [address], [place], [address], 02/20/2024 17:24:54 02/20/20 24 02/20/2024 COMP METAB OLIC PANEL carbon dioxide 26 mmol/ L 21-32 Not Available [facility] (Lab Registration) [address] [place], [address], 02/20/2024 17:24:54 02/20/20 24 02/20/2024 COMP METAB OLIC PANEL anion gap 9.0 Not Available [facility] (Lab Registration) [address] [place], [address], 02/20/2024 17:24:54 02/20/20 24 02/20/2024 COMP METAB OLIC PANEL glucose 147 mg/dL 70-110 high Not Available [facility] (Lab Registration) [address] [place], [address], 02/20/2024 17:24:54 02/20/20 24 02/20/2024 COMP METAB OLIC PANEL blood urea nitrogen 13 mg/dL 7-18 Not Available [facility] (Lab Registration) [address] [place], [address], 02/20/2024 17:24:54 02/20/20 24 02/20/2024 COMP METAB OLIC PANEL creatinine 0.9 mg/dL 0.6-1. 0 Not Available [facility] (Lab Registration) [address] [place], [address], 02/20/2024 17:24:54 02/20/20 24 02/20/2024 COMP METAB OLIC PANEL BUN/creatini ne ratio 14.4 ratio 9-21 Not Available [facility] (Lab Registration) [address] [place], [address], 02/20/2024 17:24:54 02/20/20 24 02/20/2024 COMP METAB OLIC PANEL estimated glom filtration rate 68 mL/mi n >60- Not Available [facility] (Lab Registration) [address] [place], [address], 02/20/2024 17:24:54 02/20/20 24 02/20/2024 COMP METAB OLIC PANEL total protein 6.3 g/dL 6.4-8. 2 low Not Available [facility] (Lab Registration) [address] [place], [address], 02/20/2024 17:24:54 02/20/20 24 02/20/2024 COMP METAB OLIC PANEL albumin 3.3 g/dL 3.4-5. 0 low Not Available [facility] (Lab Registration) [address] [place], [address], 02/20/2024 17:24:54 02/20/20 24 02/20/2024 COMP METAB OLIC PANEL calcium 8.7 mg/dL 8.5-10 .1 Not Available [facility] (Lab Registration) [address] [place], [address], 02/20/2024 17:24:54 02/20/20 24 02/20/2024 COMP METAB OLIC PANEL corrected calcium 9.3 mg/dL 8.5-10 .1 Not Available [facility] (Lab Registration) [address] [place], [address], 02/20/2024 17:24:54 02/20/20 24 02/20/2024 COMP METAB OLIC PANEL bilirubin total 0.8 mg/dL 0.4-1. 5 Not Available [facility] (Lab Registration) [address] [place], [address], 02/20/2024 17:24:54 02/20/20 24 02/20/2024 COMP METAB OLIC PANEL AST (SGOT) 21 U/L 15-37 Not Available [facility] (Lab Registration) [address] [place], [address], 02/20/2024 17:24:54 02/20/20 24 02/20/2024 COMP METAB OLIC PANEL ALT (SGPT) 34 U/L 12-78 Not Available [facility] (Lab Registration) [address] [place], [address], 02/20/2024 17:24:54 02/20/20 24 02/20/2024 COMP METAB OLIC PANEL alk phosphatase 90 U/L 53-141 Not Available [facility] (Lab Registration) [address] [place], [address], 02/20/2024 17:24:54 02/20/20 24 02/20/2024 COMP METAB OLIC PANEL note Unles s other wilkinson noted testi ng perfo rmed at: [facility] [address] [place] [address] [phone] Juan polanco MD CLIA: [id number] Not Available [facility] (Lab Registration) [address] [place], [address], 02/20/2024 17:24:54 02/20/20 24 02/20/2024 HEMOG LOBIN A1C glycosylated hemoglobin A1C 8.4 % 4.5-6. 2 high Not Available [facility] (Lab Registration) [address] [place], [address], 02/20/2024 17:29:31 02/20/20 24 02/20/2024 HEMOG LOBIN A1C estimated average glucose 194 mg/dL 82-131 high Not Available [facility] (Lab Registration) [address] [place], [address], 02/20/2024 17:29:31 02/20/20 24 02/20/2024 HEMOG LOBIN A1C note Unles sherri other wilkinson noted testi ng perfo rmed at: [facility] [address] [place] [address] [phone] Juan polanco MD CLIA: [id number] Not Available [facility] (Lab Registration) [address] [place], [address], 02/20/2024 17:29:31 11/17/19 23 11/16/2022 imagi ng inter preta tion No observ ation record ed. [email or web address] [place], [address], 11/17/2022 11:18:40 12/25/19 23 12/24/2022 XR, ankle No observ ation record ed. [address] [place], [address], 12/26/2022 08:25:46 12/28/19 23 12/27/2022 XR, foot No observ ation record ed. [facility] (Radiology) [address] [place] [address] [place], [address], 12/27/2022 15:23:54 12/28/19 23 12/27/2022 CT, lumba r spine , w/o contr ast No observ ation record ed. [facility] (Radiology) [address] [place] [address] [place], [address], 12/27/2022 15:23:33 01/04/20 23 12/09/2016 colon oscop y proce dure (PROC ) No observ ation record ed. [email or web address] Not Available 2022 08:18:49 01/11/20 23 01/10/2023 XR, foot No observ ation record ed. [facility] [address], [place], [address], 01/11/2023 08:04:50 02/29/20 23 02/28/2023 XR, hip + pelvi s, bilat eral No observ ation record ed. [address] [place], [address], 02/28/2023 16:31:42 02/29/20 23 02/28/2023 XR, hip, unila teral , 2 or 3 view No observ ation record ed. [address] [place], [address], 02/28/2023 16:31:23 06/19/20 23 06/19/2023 imagi ng inter preta tion No observ [facility] ed. [facility] [address], [place], [place], [address], 06/20/2023 00:45:05 06/29/20 23 06/29/2023 XR, foot No observ ation record ed. [facility] [address], [place], [address], 06/30/2023 07:42:49 06/29/2006/29/2023 XR, foot No observ ation record ed. [facility] [address], [place], [place], [address], 06/30/2023 07:42:36 06/29/2006/29/2023 XR, ankle No observ ation record ed. [facility] [address], [place], [place], [address], 06/30/2023 07:42:24 07/20/20 23 07/19/2023 imagi ng inter preta tion No observ ation record ed. [address], [place], [place], [address], 07/24/2023 08:10:55 07/20/20 23 07/19/2023 imagi ng inter preta tion No observ ation record ed. [address], [place], [place], [address], 07/24/2023 08:10:45 08/02/20 23 08/02/2023 imagi ng inter preta tion No observ [facility]ion record ed. [facility] [address], [place], [place], [address], 08/02/2023 16:12:36 09/13/19 24 09/13/2023 imagi ng inter preta tion No observ ation record ed. [email or web address] [id number], [place], [address], 09/13/2023 15:41:46 11/14/19 24 11/14/2023 imagi ng inter preta tion No observ ation record ed. [facility] [address], [place], [address], 11/15/2023 07:53:54 01/16/20 24 01/16/2024 imagi ng inter preta tion No observ ation record ed. [facility] [address], [place], [address], 01/16/2024 14:33:55 01/16/20 24 01/16/2024 imagi ng inter preta tion No observ ation record ed. [facility] [address], [place], [address], 01/16/2024 14:33:43 Result Notes None recorded. Problems Name Problem SNOMED Code Status Onset Date Resolution Date Notes Provider Name and Address Organization Details Recorded Time Essential hypertension 75394863 Active 2021 Kassandra Darden null, [place] - [facility] - [place] & [place] 2 08:27:27 Type 2 diabetes mellitus 40603342 Active 2021 Kassandra Bellamyi null[place] [facility] 2 08:27:36 Mixed anxiety and depressive disorder 246673620 Active 2021 Kassandra Sedrickdini null[place] 2 08:27:44 Insomnia 802454509 Active 2021 Kassandra Sedrickdini [place] 2 08:27:54 Atrial fibrillation 64340745 Active 2021 Kassandra Miai [place] [facility] 2 08:28:00 Hyperlipidemi a 03004688 Active 2021 Kassandragurwinder Darden null[place] [facility] 2 08:28:10 Pulmonary embolism 52700137 Active 2022 Dieter Moore MD [address] [place], [address] , [place] [facility] [place] 3 16:20:29 Falls 662672814 Active 2022 Dieter Moore MD [address] [place], [address] , [place] [facility] & [place] 3 15:39:10 Problem Notes None recorded. Procedures Surgical History Date Name Laterality Status Provider Name and Address Organization Details Recorded Time 023 Medicare Annual Wellness Visit Health Risk Assessment completed Pipo MARTINEZ - [facility] - [place] & [place] 06/21/2023 08:17:32 022 Medicare Annual Wellness Visit Health Risk Assessment completed Kassandra Darden [place] - [facility] - [place] 08/11/2022 08:44:27 022 Cardiovascular Surgery completed Kassandra Darden [place] [facility] 08/11/2022 08:40:05 996 Gastrointestinal Surgery completed Kassandra Darden [place] [facility] 08/11/2022 08:40:05 Cholecystectomy completed Ashley MARTINEZ - [facility] - [place] & [place] 06/09/2022 16:01:07 bilateral extraction of cataracts completed Ashley MARTINEZ - [facility] - [facility] [place] 06/09/2022 16:01:45 insertion of arterial stent completed Ashley MARTINEZ - [facility] - [place] & [place] 06/09/2022 16:02:18 cardiac catheterization completed Ashley MARTINEZ - [facility] - [place] & [place] 06/09/2022 16:02:31 amputation of toe completed Ashley plummer [place] - [facility] - [place] & [place] 06/09/2022 16:03:01 Other completed Kassandra Darden [place] [facility] [place] & [place] 08/11/2022 08:27:06 Colonoscopy completed Kassandra Darden [place] - [facility] & [place] 08/11/2022 08:40:05 Imaging Results Imaging Date Name Status LastModified by Organization Details LastModified Time 11/16/2022 imaging interpretation completed [address] [place], [address], 11/17/2022 11:18:40 12/24/2022 XR, ankle completed [address] [place], [address], 12/26/2022 08:25:46 12/27/2022 XR, foot completed [facility] [address] [place] [address] [place], [address], 12/27/2022 15:23:54 12/27/2022 CT, lumbar spine, w/o contrast completed [facility] [address] [place] [address] [place], [address], 12/27/2022 15:23:33 12/09/2016 colonoscopy procedure (PROC) [place] [address] Information not available 01/03/2023 08:18:49 01/10/2023 XR, foot completed [place] [address], [place], [address], 01/11/2023 08:04:50 02/28/2023 XR, hip + pelvis, bilateral [place] [address] [place], [address], 02/28/2023 16:31:42 02/28/2023 XR, hip, unilateral, 2 or 3 view completed [address] [place], [address], 02/28/2023 16:31:23 06/19/2023 imaging interpretation completed [facility] [address], [place], [address], 06/20/2023 00:45:05 06/29/2023 XR, foot completed [facility] [address], [place], [address], 06/30/2023 07:42:49 06/29/2023 XR, foot completed [facility] [address], [place], [address], 06/30/2023 07:42:36 06/29/2023 XR, ankle completed [facility] [address], [place], [address], 06/30/2023 07:42:24 07/19/2023 imaging interpretation completed [place] [id number], [place], [address], 07/24/2023 08:10:55 07/19/2023 imaging interpretation completed [address], [place], [address], 07/24/2023 08:10:45 08/02/2023 imaging interpretation completed [facility] [address], [place], [address], 08/02/2023 16:12:36 09/13/2023 imaging interpretation completed [address], [place], [address], 09/13/2023 15:41:46 11/14/2023 imaging interpretation completed [facility] [address], [place], [address], 11/15/2023 07:53:54 01/16/2024 imaging interpretation completed [place] [address], [place], [address], 01/16/2024 14:33:55 01/16/2024 imaging interpretation completed [facility] [address], [place], [place], [address], 01/16/2024 14:33:43 Procedure Notes None recorded. Medical Equipment None Reported. Allergies Allergen ID Allergen Name Allergen Category Reaction Reaction Severity Criticality Documentation Date Start Date Code Code System Note Provider Name and Address Organization Details Recorded Time hydrocodo ne Not available Not available Not available Not available 06/09/2022 5489 RxNorm Ashley espinosa, [place] [facility] & [place] 15:54:53 [address] acetamino phen / hydrocodo ne medicatio n Not available Not available Not available 06/09/2022 909[address] 2 RxNorm Ashley [place]pinosa, [place] [facility] & [place] 15:55:00 Medications Name Sig Start Date Stop Date Status Note LastModified by Organization Details LastModified Time Magic Mouthwash w/ Nystatin swish and swallow 4 times a day. 2023 active Not Available Not Available Not Avai lable Santyl 250 unit/gram topical ointment APPLY A NICKEL THICK AMOUNT TO WOUND EVERY DAY 11/19 completed Not Available Not Available Not Available fluconazole 100 mg tablet active Not Available Not Available Not Available atorvastati n 40 mg tablet 01/05 completed Not Available Not Available Not Available atorvastati n 80 mg tablet active Not Available Not Available Not Available doxycycline hyclate 100 mg capsule TAKE 1 CAPSULE BY MOUTH TWICE A DAY FOR 14 DAYS FOR WOUND 06/21 completed Not Available Not Available Not Available trazodone 50 mg tablet 1 tablet at bedtime 08/08 completed Not Available Not Available Not Available Lidocaine Viscous 2 % mucosal solution SWISH AND SWALLOW 4 TIMES A DAY. active Not Available Not Available No t Available fluconazole 150 mg tablet 11/22 completed Not Available Not Available Not Available metoprolol succinate ER 50 mg tablet,exte nded release 24 hr TAKE 1 TABLET BY MOUTH ONCE DAILY 2023 active Not Available Not Available Not Avai lable hydrocodone 5 mg-acetamin ophen 325 mg tablet TAKE ONE TABLET BY MOUTH EVERY 6 HOURS NEEDED FOR PAIN MAY CAUSE DROWSINES S 06/09 completed Not Available Not Available Not Available minocycline 100 mg capsule TAKE ONE CAPSULE BY MOUTH TWICE DAILY FOR 2 WEEKS -- FINISH ALL MEDICINE -- 06/09 completed Not Available Not Available Not Available sertraline 100 mg tablet TAKE 1 TABLET BY MOUTH ONCE DAILY 2023 active Not Available Not Available Not Avai lable glipizide ER 5 mg tablet, extended release 24 hr 1 tablet by mouth once daily 08/08 completed Not Available Not Available Not Available acetaminoph en 300 mg-codeine 30 mg tablet 11/19 completed Not Available Not Available Not Available clopidogrel 75 mg tablet TAKE 1 TABLET BY MOUTH DAILY 2023 active Not Available Not Available Not Avai lable tramadol 50 mg tablet TAKE 1 TABLET BY MOUTH TWICE A DAY NEEDED FOR PAIN FOR 5 DAYS 11/22 completed Not Available Not Available Not Available benzonatate 100 mg capsule TAKE 1 CAPSULE BY MOUTH THREE TIMES A DAY NEEDED 06/09 completed Not Available Not Available Not Available doxycycline monohydrate 100 mg capsule Take 1 capsule twice a day by oral route. active Not Available Not Available No t Available cephalexin 500 mg capsule TAKE 1 CAPSULE BY MOUTH EVERY 12 HOURS FOR 10 DAYS 01/05 completed Not Available Not Available Not Available oseltamivir 75 mg capsule TAKE 1 CAPSULE BY MOUTH TWICE A DAY 11/08 completed Not Available Not Available Not Available lisinopril 5 mg tablet TAKE 1 TABLET BY MOUTH DAILY 2023 active Not Available Not Available Not Avai lable mupirocin 2 % topical ointment APPLY TO AFFECTED AREA TWICE A DAY 11/19 completed Not Available Not Available Not Available furosemide 20 mg tablet 08/08 completed Not Available Not Available Not Available levofloxaci n 500 mg tablet TAKE ONE TABLET BY MOUTH EVERY DAY FOR infection FOR 2 WEEKS -- FINISH ALL MEDICINE -- 06/09 completed Not Available Not Available Not Available levofloxaci n 750 mg tablet TAKE ONE TABLET BY MOUTH ONCE DAILY FOR 10 DAYS 11/22 completed Not Available Not Available Not Available methylpredn isolone 4 mg tablets in a dose pack Take 1 dose pk by oral route. active Not Available Not Available No t Available propranolol 20 mg tablet TAKE 1 TABLET BY MOUTH TWICE A DAY active Not Available Not Available No t Available lisinopril 2.5 mg tablet 1 tablet once daily 11/08 completed Not Available Not Available Not Available doxycycline hyclate 100 mg tablet 11/19 completed Not Available Not Available Not Available oxycodone 5 mg tablet TAKE ONE TABLET BY MOUTH TWICE DAILY NEEDED FOR PAIN MAY CAUSE DROWSINES S 11/22 completed Not Available Not Available Not Available amlodipine 10 mg-atorvast atin 80 mg tablet Take 90 tablets by oral route for 90 days. 11/19 completed Not Available Not Available Not Available tizanidine 2 mg capsule 08/08 completed Not Available Not Available Not Available ranolazine ER 500 mg tablet,exte nded release,12 hr 08/11 completed Not Available Not Available Not Available NovoFine 30 30 gauge x 1/3 needle 11/19 completed Not Available Not Available Not Available Eliquis 5 mg tablet 11/19 completed Not Available Not Available Not Available Farxiga 5 mg tablet active Not Available Not Available No t Available Jardiance 10 mg tablet 11/19 completed Not Available Not Available Not Available Soliqua 100/33 100 unit-33 mcg/mL subcutaneou s insulin pen inject 50 units in the morning active Not Available Not Available No t Available Ozempic 0.25 mg or 0.5 mg (2 mg/1.5 mL) subcutaneou s pen injector Inject 0.5 mg every week by subcutane ous route. 11/22 completed Not Available Not Available Not Available Ozempic 1 mg/dose (4 mg/3 mL) subcutaneou s pen injector Inject 1 mg every week by subcutane ous route. active Not Available Not Available No t Available Ozempic 0.25 mg or 0.5 mg (2 mg/3 mL) subcutaneou s pen injector active Not Available Not Available Not Available Xdemvy 0.25 % eye drops 11/19 completed Not Available Not Available Not Available Vitals Date Recorded Body height Body mass index (BMI) Body weight Body temperature Oxygen saturation Oxygen saturation in Arterial blood by Pulse oximetry Heart rate Respiratory rate Systolic blood pressure Diastolic blood pressure Provider Name and Address Organization Details Last Updated DateTime 3 167.64 cm 36.7 kg/m2 978289. 62 g 97.3 [degF] 95 % 95 % 68 /min 16 /min 133 mm[Hg] 69 mm[Hg] Simone Varela [place] - [facility] & [place] 3 15:47:15 Date Recorded Body height Body mass index (BMI) Body weight Body temperature Oxygen saturation Oxygen saturation in Arterial blood by Pulse oximetry Heart rate Respiratory rate Systolic blood pressure Diastolic blood pressure Provider Name and Address Organization Details Last Updated DateTime 3 167.64 cm 37.2 kg/m2 140927. 4 g 97.2 [degF] 96 % 96 % 71 /min 16 /min 145 mm[Hg] 73 mm[Hg] Kassandra MARTINEZ - [facility] & [place] 3 15:07:36 Date Recorded Body height Body mass index (BMI) Body weight Body temperature Oxygen saturation Oxygen saturation in Arterial blood by Pulse oximetry Heart rate Respiratory rate Systolic blood pressure Diastolic blood pressure Provider Name and Address Organization Details Last Updated DateTime 3 167.64 cm 37.3 kg/m2 859231. 84 g 97.2 [degF] 93 % 93 % 85 /min 18 /min 125 mm[Hg] 70 mm[Hg] Pipo Talley john [place] - [facility] & [place] 3 08:14:57 Date Recorded Body height Body mass index (BMI) Body weight Body temperature Oxygen saturation Oxygen saturation in Arterial blood by Pulse oximetry Heart rate Respiratory rate Systolic blood pressure Diastolic blood pressure Provider Name and Address Organization Details Last Updated DateTime 4 167.64 cm 39 kg/m2 198480. 2 g 97.4 [degF] 95 % 95 % 70 /min 16 /min 138 mm[Hg] 73 mm[Hg] Kassandra Dubosemilady [place] - NT [facility] & [place] 4 10:17:26 Date Recorded Body height Body mass index (BMI) Body weight Body temperature Oxygen saturation Oxygen saturation in Arterial blood by Pulse oximetry Heart rate Respiratory rate Systolic blood pressure Diastolic blood pressure Provider Name and Address Organization Details Last Updated DateTime 4 167.64 cm 38.7 kg/m2 997174. 17 g 97.3 [degF] 97 % 97 % 68 /min 18 /min 130 mm[Hg] 74 mm[Hg] Liu Feliciano [facility] & [place] 14:36:00 Social History Question Answer Notes LastModified by Organizat ion Details LastModified Time Tobacco Smoking Status Never Smoker Ashley Dor[facility], [facility] & [place] 06/09/2022 16:00:57 Do You Have An Advance Directive? Yes Information not available 08/11/2022 What Is Your Level Of Alcohol Consumption? None Information not available 08/11/2022 Do You Wear A Helmet When Biking? Yes [email or web address] Information not available 02/20/2024 Are You Blind Or Do You Have Difficulty Seeing? Yes Information not available 08/11/2022 What Is Your Level Of Caffeine Consumption? Occasional [email or web address] Information not available 02/20/2024 In The 14 Days Before Symptom Onset, Have You Had Close Contact With A Laboratory-confir med COVID-19 While That Case Was Ill? No [email or web address] Information not available 02/20/2024 In The 14 Days Before Symptom Onset, Have You Had Close Contact With A Person Who Is Under Investigation For COVID-19 While That Person Was Ill? No [email or web address] Information not available 02/20/2024 Have You Been To An Area Known To Be High Risk For COVID-19? No [email or web address] Information not available 02/20/2024 Are You Currently Employed? No [email or web address] Information not available 02/20/2024 Are You Deaf Or Do You Have Serious Difficulty Hearing? No [email or web address] Information not available 02/20/2024 What Type Of Diet Are You Following? REGULAR [email or web address] Information not available 02/20/2024 Have You Processed Blood Or Body Fluids From An Ebola Virus Disease Patient Without Appropriate PPE? No [email or web address] Information not available 02/20/2024 Do You Reside In Or Have You Traveled To An Area Where Ebola Virus Transmission Is Active? No Information not available 02/20/2024 Have There Been Any Changes To Your Family Or Social Situation? No [email or web address] Information no t available 02/20/2024 What Is The Fluoride Status Of Your Home? Unknown [email or web address] Information not available 02/20/2024 Are There Any Guns Present In Your Home? No [email or web address] Information not available 02/20/2024 Have You Recently Or Are You Planning To Travel To An Area With Zika Virus? No [email or web address] Information not available 02/20/2024 Do You Use Insect Repellent Routinely? Yes [email or web address] Information not available 02/20/2024 Do You Feel Safe At Home? Yes Information not available 02/20/2024 Do You Have A Medical Power Of Endoscopy Rn? Yes [email or web address] Information not available 02/20/2024 What Was The Date Of Your Most Recent Tobacco Screening? 11/23/2023 [email or web address] Information not available 02/20/2024 Do You Have Any Pets? No [email or web address] Information not available 02/20/2024 Do You Use Your Seat Belt Or Car Seat Routinely? Yes [email or web address] Information not available 02/20/2024 Do You Have Smoke And Carbon Monoxide Detectors In Your Home? Yes [email or web address] Information not available 02/20/2024 Are You Passively Exposed To Smoke? No Information no t available 08/11/2022 Do You Or Have You Ever Used Smokeless Tobacco? Never Used Smokeless Tobacco Information not available 08/11/2022 How Much Tobacco Do You Smoke? No Information not available 08/11/2022 Do You Feel Stressed (tense, Restless, Nervous, Or Anxious, Or Unable To Sleep At Night)? [id number] Information not available 08/11/2022 Do You Use Any Illicit Or Recreational Drugs? No Information not available 08/11/2022 Do You Use Sunscreen Routinely? Yes [email or web address] Information not available 02/20/2024 Has Tobacco Cessation Counseling Been Provided? Yes [email or web address] Information not available 02/20/2024 On What Date Was Tobacco Cessation Counseling Provided? 02/20/2024 [email or web address] Information not available 02/20/2024 How Many Years Have You Smoked Tobacco? 0 [email or web address] Information not available 01/03/2023 Are You Currently In School? No [email or web address] Information not available 02/20/2024 Do You Or Have You Ever Used Any Other Forms Of Tobacco Or Nicotine? No [email or web address] Information not available 02/20/2024 Sex: Female Functional Status Question Answer Note LastModified by Organizat ion Details LastModified Time Do you have difficulty walking or climbing stairs? No [email or web address] Information not available 02/20/2024 Do you have transportation difficulties? No [email or web address] Information not available 02/20/2024 Are you able to walk? YESWOREST [email or web address] Information not available 02/20/2024 Do you have difficulty doing errands alone? No [email or web address] Information not available 02/20/2024 Are you able to care for yourself? Yes [email or web address] Information n ot available 02/20/2024 Do you have difficulty dressing or bathing? No [email or web address] Information not available 02/20/2024 What is your exercise level? Occasional Information not available 08/11/2022 Mental Status Question Answer Note LastModified by Organization D etails LastModified Time Do you have difficulty concentrating, remembering or making decisions? No [email or web address] Information no t available 02/20/2024 Family History Relationship Description Onset Age of this Age Resolved Age Notes LastModified by Organization Details LastModified Time Mother Heart failure deceas ed [email or web address] Not available 02/20/2024 14:25:38 Mother Chronic renal failure deceas ed [email or web address] Not available 02/20/2024 14:25:38 Mother Heart disease pt. added direct ly (06/10) [email or web address] Not available 06/10/2022 14:18:15 Mother Hypercholest erolemia pt. added direct ly (06/10) [email or web address] Not available 06/10/2022 14:18:40 Mother Kidney disease pt. added direct ly (06/10) [email or web address] Not available 06/10/2022 14:19:01 Mother Cerebrovascu lar accident pt. added direct ly (06/10) [email or web address] Not available 06/10/2022 14:21:29 Father Chronic renal failure deceas ed [email or web address] Not available 02/20/2024 14:25:38 Father Parkinson's disease deceas ed [email or web address] Not available 02/20/2024 14:25:38 Father Diabetes mellitus deceas ed pfryman Not available 02/20/2024 14:25:38 Father Disorder of endocrine system pt. added direct ly (06/10) [email or web address] Not available 06/10/2022 14:17:12 Father Kidney disease pt. added direct ly (06/10) [email or web address] Not available 06/10/2022 14:19:01 Father Obesity pt. added direct ly (06/10) [email or web address] Not available 06/10/2022 14:21:02 Sister Parkinson's disease [email or web address] Not available 2023 14:25:38 Sister Malignant tumor of breast pfryman Not available 2023 14:25:38 Sister Disorder of endocrine system pt. added direct ly (06/10) [email or web address] Not available 06/10/2022 14:17:12 Sister Chronic obstructive pulmonary disease pt. added direct ly (06/10) [email or web address] Not available 06/10/2022 14:17:23 Sister Mental health problem pt. added direct ly (06/10) [email or web address] Not available 06/10/2022 14:19:38 Sister Obesity pt. added direct ly (06/10) [email or web address] Not available 06/10/2022 14:21:02 Sister Cerebrovascu lar accident pt. added direct ly (06/10) [email or web address] Not available 06/10/2022 14:21:29 Daughter Autoimmune disease pt. added direct ly (06/10) [email or web address] Not available 06/10/2022 14:16:33 Daughter Disorder of endocrine system pt. added direct ly (06/10) [email or web address] Not available 06/10/2022 14:17:12 Daughter Headache pt. added direct ly (06/10) [email or web address] Not available 06/10/2022 14:17:36 Daughter Multiple sclerosis pt. added direct ly (06/10) [email or web address] Not available 06/10/2022 14:20:45 Daughter Obesity pt. added direct ly (06/10) [email or web address] Not available 06/10/2022 14:21:02 Paternal Grandmother Disorder of endocrine system pt. added direct ly (06/10) [email or web address] Not available 06/10/2022 14:17:12 Unspecified Relation Hearing loss pt. added direct ly (06/10) [email or web address] Not available 06/10/2022 14:17:57 Medical History Condition Response Coronary Artery Disease Y Other Y Clotting Disorder N Spine Problems Y Obesity Y Vision or Eye Problems Y Arthritis Y Stroke N Liver Disease N Headaches N Kidney or Bladder Problems Y Neurological Problems Y Diabetes Y Hyperlipidemia Y Back Problems Y Heart Disease Y Hypertension N Gynecological History Statement/Question Response Menses Monthly N Abnormal Pap N Age at Menarche 45 Sexually Active? N Obstetrics History GPAL:G 0 P 0 0 0 0 Immunizations Vaccine Type Date Status Note Provider Nam e and Address Organization Details Recorded Time Hep A, adult 07/13/2018 completed Kassandra Pardi [place] null[place] [facility] [facility] & [place] 08/18/2022 10:48:48 COVID-19, mRNA, LNP-S, PF, 30 mcg/0.3 mL dose 10/30/2020 completed Kassandra Pardini null[place] [facility] [facility] & [place] 08/18/2022 10:48:48 Influenza, high-dose, trivalent, PF 06/14/2021 completed Kassandra [place]ard[place] [facility] 08/18/2022 10:48:48 Influenza, adjuvanted, trivalent, PF 05/27/2020 completed Kassandra [place]ard[place] [facility] 08/18/2022 10:48:48 COVID-19, mRNA, LNP-S, PF, 30 mcg/0.3 mL dose, luis carlos-sucrose 03/21/2022 completed Kassandra [place]ard[place] [facility] [facility] [place] 08/18/2022 10:48:48 COVID-19, mRNA, LNP-S, PF, 30 mcg/0.3 mL dose 11/20/2020 completed Kassandra [place] 08/18/2022 10:48:48 Influenza, adjuvanted, trivalent, PF 07/11/2019 completed Kassandra [place] 08/18/2022 10:48:48 Influenza, high-dose, quadrivalent, PF 06/30/2022 completed Kassandra [place] [facility] [place] 08/18/2022 10:48:48 COVID-19, mRNA, LNP-S, PF, 30 mcg/0.3 mL dose 07/31/2021 completed Kassandra [place]ard[place] 08/18/2022 10:48:48 Influenza, high-dose, quadrivalent, PF 06/21/2023 completed Dieter Moore MD [address] [place] [address], [id number], [place] [facility] 06/21/2023 12:49:44 Past Encounters Encounter ID Performer Location Encounter Start Date Encounter Closed Date Diagnosis/Indication Diagnosis SNOMED-CT Code Diagnosis ICD10 Code Diagnosis Note [id number] Cristela Macdonald MD [facility] [address] [place] [address] 06/13/2022 14:59:59 06/13/2022 15:50:32 Lumbar radiculopathy 261783597 M54.16 multilevel neuro degenerati ve disc disease noted, not a surgical candidate but certainly will try to maximize conservati ve management which includes weight loss, physical therapy and use of antispasmo dics. Will go ahead and reorder Zanaflex, get physical therapy involved and follow-up with me over the next 6-8 weeks. 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 if worsening, go to the emergency department Influenza A virus present 2150695063 08 J09.X2 will call in Tamiflu [id number] Dieter Moore MD [address] [address] 11/08/2022 15:36:58 11/08/2022 16:33:43 Essential hypertension 98412712 I10 Stable. Atrial fibrillation 4943 6004 I48.91 patient appears stable. She is to continue to follow-up with her cardiologi st. Hyperlipidemia 90080869 E78.5 I will check patient's lipid profile today Type 2 luz betes mellitus 20823844 E11.9 Patient states that she can no longer afford Ozempic. Will check her A1c and then decide on how to adjust her medication . Pulmonary embolism 76792 003 I26.99 patient states she was diagnosed with a PE secondary to a CT scan she had done. She is currently on Eliquis. She is being followed by her cardiologi st. [id number] MD eileen Sterling[address] [address] 01/05/2023 14:39:09 01/05/2023 15:27:00 Pigmented skin lesion 049992470 L81.9 will refer patient to Dermatolog y. Type 2 luz betes mellitus 36991686 E11.9 Patient states that she can no longer afford Ozempic. Will check her A1c and then decide on how to adjust her medication . Falls 184275226 R29.6 refer to physical therapy. [id number] Dieter Moore MD [address] [place] [address] 06/21/2023 07:56:22 06/21/2023 08:53:42 Type 2 diabetes mellitus 22796049 E11.9 Patient states that she can no longer afford Ozempic. Will check her A1c and then decide on how to adjust her medication . Adult [facility] th examination [id number] Z00.00 We have discussed preventati ve health and well-being issues. Essential hypertension 79855198 I10 Stable. Hyperlipidemia 39623187 E78.5 I will check patient's lipid profile today Mixed anxi ety and depressive disorder 430837017 F41.8 stable Vitamin deficiency 32640 002 E56.9 Administra tion of influenza vaccine 28630885 Z23 Atrial fibrillation 4943 6004 I48.91 patient appears stable. She is to continue to follow-up with her cardiologi st. Depressive disorder 3548 9007 F32.A [id number] Dieter Moore MD [place] [address] [address] [place] [address] 11/23/2023 10:10:12 11/23/2023 10:36:07 Type 2 diabetes mellitus 11178518 E11.9 Will check patient's A1c today. She tells me she has recently filled her prescripti on for Ozempic. She is now on Ozempic, Soliqua [id number] Dieter Moore MD [place] [address] [address] [place] [address] 02/20/2024 14:25:12 02/20/2024 15:03:49 Essential hypertension 72472287 I10 Stable. Hyperlipidemia 01132040 E78.5 I will check patient's lipid profile today Mixed anxi ety and depressive disorder 952873692 F41.8 stable Type 2 luz betes mellitus 33725792 E11.9 Will check patient's A1c today. She tells me she has recently filled her prescripti on for Ozempic. She is now on Ozempic, Soliqua Cough 73320319 R05.9 Stomatitis 61619673 K12. 1 Tremor 94626657 R25.1 Health Concerns Section Related Observation LastModified by Organization Detai ls LastModified Time None Recorded Concern Status LastModified by Organization Details LastModified Time None Recorded Advance Directives Directive Y: Payers Encounter Date Sequence Insurance Name Policy Number Policy Jacobson Covered Member ID Jacobson Member ID Guarantor Name 11/08/2022 1 [place] Tiffany Javed [id number] Tiffany Javed 11/08/2022 2 [employer] OPTIONS (MEDICARE SUPPLEMENT) Tiffany Javed [id number] Tiffany Javed 01/05/2023 1 [place] Tiffany Javed [id number] Tiffany Javed 01/05/2023 2 [employer] OPTIONS (MEDICARE SUPPLEMENT) Tiffany Javed [id number] Tiffany Javed 06/21/2023 1 [place] Tiffany Javed [id number] Tiffany Javed 06/21/2023 2 [employer] OPTIONS (MEDICARE SUPPLEMENT) Tiffany Javed [id number] Tiffany Javed 11/23/2023 1 [place] Tiffany Javed [id number] Tiffany Javed 11/23/2023 2 [employer] OPTIONS (MEDICARE SUPPLEMENT) Tiffany Javed [id number] Tiffany Javed 02/20/2024 1 [place] Tiffany Javed [id number] Tiffany Javed 02/20/2024 2 [employer] OPTIONS (MEDICARE SUPPLEMENT) Tiffany Javed [id number] Tiffany Javed Notes Date Note Type Note Provider Name and Address Organization Details Recorded Time 11/08/2022 text/html patient presents today for routine follow-up and lab work. She states that she recently had a stress test and a CT scan of her chest that were ordered by her manager residential. It was determined that she had a pulmonary embolus. She is currently on Eliquis.Patient complains of chronic headaches. She has an MRI of the head scheduled. This was ordered by her manager residential as well. Dieter Moore MD [address] [place] [address], [phone], [facility] & [place] 11/08/2022 16:28:36 01/05/2023 text/html Patient presents today for a follow-up from hospital visit. She was seen in the emergency department due secondary to a fall. She has had several falls in the last couple of weeks. She is complaining of pain to her left foot. She is already being evaluated by the equine breeder for this. She reports that she is unsteady on her feet.Patient also tells me that she has a lesion on her face that is getting bigger and tender. Dieter Moore MD [address] [place] [address], [phone], [facility] & [place] 01/05/2023 15:47:33 06/21/2023 text/html Patient presents today for annual Medicare physical examination. She denies any new issues. Dieter Moore MD [address] [place] [address], [phone], [facility] & [place] 06/21/2023 12:49:48 11/23/2023 text/html patient presents for routine follow-up. She denies any new issues. She is having trouble affording her medications. She has stopped taking her Jardiance due to cost. Dieter Moore MD [address] [place] [address], [phone], DIONIS[place] ELVIRA [facility] & [place] 11/23/2023 10:41:33 02/20/2024 text/html patient presents today for chronic care management. She is also complaining of a two-month history of a cough. she has blisters in her mouth. She is also complaining of exacerbation of back and hip pain. Dieter Moore MD [address] [place] [address], [phone], DIONISIO RANDVIOLETA [facility] & [place] 02/20/2024 15:29:09 OBGyn Episode No OBEpisode recorded.
== END 2024-12-17 23:59 | disposition home or self-care (01) ==
LOC: RAD 12:51
PROVIDERS: PCP Pediatrics; Visit Provider Pediatrics
DX: R51.9 Headache, unspecified (principal); G89.29 Other chronic pain
CPT/HCPCS: 70450

== ENCOUNTER 2025-03-24 15:30 | Outpatient (CLI) | payer MEDICARE, SELFPAY ==
--- OUTSIDE RECORDS SUMMARY | 2025-03-17 11:00 | XMS_ITS | Encounter Summary ---
Author Organization [employer] ([place], [place], [place], [place]) Address [address] [place] [address] Care Team Providers Care [employer] Name Role Phone Shan Pimentel MD Primary Care Provider [phone] Reason for Referral * Other (Routine) - Closed Specialty Diagnoses / Procedures Referred By Contac t Referred To Contact Diagnoses Athscl heart disease of [place] cor art w ot ang pctrs (HCC) Procedures CARDIAC CATH - LEFT HEART CATH W/ POSSIBLE INTERVENTION Susan Christopher MD [address] [place] [address] [place] [address] Phone: tel: fax: Tank Wilkins MD [address] [place] [address] Phone: tel: fax: Referral ID Status Reason Start Date Expiration Date Visits Re quested Visits Authorized [id number] Closed 02/18/2025 02/18/2026 1 1 Reason for Visit * Other (Routine) - Closed Specialty Diagnoses / Procedures Referred By Contac t Referred To Contact Diagnoses Athscl heart disease of [place] cor art w [facility] ang pctrs (HCC) Procedures CARDIAC CATH - LEFT HEART CATH W/ POSSIBLE INTERVENTION Susan Christopher MD [address] [place] [address] [place] [address] Phone: tel: fax: Tank Wilkins MD [address] [place] [address] [place] [address] Phone: tel: fax: Referral ID Status Reason Start Date Expiration Date Visits Re quested Visits Authorized [id number] Closed 02/18/2025 02/18/2026 1 1 Encounter Details Date Type Department Care Team (Late st Contact Info) Description 03/17/2025 11:00 AM EDT - 03/17/2025 1:22 PM EDT Hospital Encounter [facility] Cardiac Catheterization Lab [address] [phone] Susan Christopher MD [address] [place] [address] Tank Wilkins MD [address] [place] [address] Athscl heart disease of [place] cor art w oth ang pctrs ([facility]) Discharge Disposition: Home or Self Care Social History Tobacco Use Types Packs/Day Years Used Date Smoking Tobacco: Never Smokeless Tobacco: Never Tobacco Cessation:Counseling Given: Not Answered Alcohol Use Standard Drinks/Week Comments Never 0 (1 standard drink = 0.6 oz pur e alcohol) Family and Community Support Answer Adam e Recorded Help with Day to Day Activities Not on file 09/28/2023 Feeling Lonely or Isolated Not on file 09/28 Educational Attainment Answer Date Kai rded Speak language other than Citizen Of [place] at home Not on file 09/28/2023 Want help with school or training Not on file 09/28/2023 Substance Use Answer Date Recorded Used prescription meds for non-medical reasons N ot on file 09/28/2023 Used illegal drugs past 12 months Not on file 09/28/2023 Comments Unknown Sex and Gender Information Value Date Recorded Sex Assigned at Not on file Legal Sex Female 5:07 PM CDT Gender Identity Not on file Sexual Orientation Not on file documented as of this encounter Last Filed Vital Signs Vital Sign Reading Time Taken Comments Blood Pressure 154/67 03/17/2025 11:46 AM EDT Pulse 72 03/17/2025 11:46 AM EDT Temperature 36.4 C (97.6 F) 03/17/2025 11:46 AM EDT Respiratory Rate - - Oxygen Saturation 94% 03/17/2025 11:46 AM EDT Inhaled Oxygen Concentration - - Weight 98.4 kg (217 lb) 03/17/2025 11:46 AM EDT Height 172.7 cm (5' 8 ) 03/17/2025 11:46 AM EDT Body Mass Index 32.99 03/17/2025 11:46 AM EDT documented in this encounter Discharge Instructions * Discharge Instr - Activity* Juju Rodríguez RN - 03/17/2025 2:38 PM EDT No driving 24 hours. Rest/relax today. May remove dressing and shower tomorrow. No hot baths/hot tubs or swimming next 5-7 days or until site heals. * Attachments The following attachments cannot be sent through Care Everywhere. * Radial Site Care (Citizen Of [place]) * Transradial Angiogram (Citizen Of [place]) * Moderate Conscious Sedation Adult Care After (Citizen Of [place]) documented in this encounter Medications at Time of Discharge atorvastatin (LIPITOR) 40 MG tablet atorvastatin 40 mg tablet C,E,zinc,copper [id number] (Ocuvite Adult 50 Plus) 250-5-1 mg Cap Take by mouth. clopidogreL (PLAVIX) 75 mg tablet clopidogrel 75 mg tablet dapagliflozin propanediol (Farxiga) 5 mg tablet 1 tablet (5 mg total). insulin glargine (LANTUS) 100 unit/mL (3 mL) inpn Inject 60 Units under the skin daily. 07/23/2024 lisinopriL (PRINIVIL,ZESTRI L) 5 MG tablet Take 1 tablet (5 mg total) by mouth daily. 90 tablet 3 07/25/2022 metoprolol succinate (TOPROL-XL) 50 MG 24 hr tablet metoprolol succinate ER 50 mg tablet,extended release 24 hr mv-mn/om3/dha/ep a/fish/lut/nacho (OCUVITE ADULT 50 PLUS ORAL) Take by mouth. Ozempic 2 mg/dose (8 mg/3 mL) pnij INJECT SUBCUTANEOUSLY 2 MG EVERY WEEK INTO THE ABDOMEN, THIGH OR OUTER AREA OF UPPER ARM (ROTATE SITES) 10/04/2024 sertraline (ZOLOFT) 100 MG tablet sertraline 100 mg tablet fluconazole (DIFLUCAN) 100 MG tablet Take 1 tablet (100 mg total) by mouth daily. peg 400-propylene glycol (Systane Ultra) 0.4-0.3 % drop Administer 1 drop into both eyes 4 (four) times daily. documented as of this encounter Progress Notes * Juju Rodríguez RN - 03/17/2025 1:30 PM EDT 1645-Spouse here for transportation home. Stable. documented in this encounter H&P Notes * Tank Wilkins MD - 03/17/2025 11:00 AM EDT History Of Present Illness Patient is a 74 y.o. female presenting for left heart cath. Patient follows with . Has history of CAD with last PCI in [address] Wilkins. Patient was recently seen back in February admitting to occasional left-sided chest pain that feels deep and makes her feel weak when it occurs and has been getting worse. Mostly with exertion and has associated palpitations. Patient would prefer to avoid repeat stress test given symptoms there is concern for worsening anginal symptoms despite medical therapy so coronary angiogram was ordered Past Medical History She has a past medical history of CAD (coronary artery disease), HLD (hyperlipidemia), HTN (hypertension), Nonrheumatic mitral (valve) insufficiency, and PAD (peripheral artery disease) ([facility]). Surgical History She has a past surgical history that includes Coronary angioplasty with stent (12/21/2012); Cataract extraction, bilateral; Toe amputation; Cholecystectomy; and Tubal ligation. Social History She has no history on file for tobacco use, alcohol use, and drug use. Family History Family History Problem Relation Name Age of Onset Heart failure Mother Coronary artery disease Mother Kidney failure Father Coronary artery disease Sister Allergies Hydrocodone Medications Current Outpatient Medications Medication Instructions atorvastatin (LIPITOR) 40 MG tablet atorvastatin 40 mg tablet C,E,zinc,copper [id number] (Ocuvite Adult 50 Plus) 250-5-1 mg Cap oral clopidogreL (PLAVIX) 75 mg tablet clopidogrel 75 mg tablet empagliflozin (Jardiance) 10 mg tablet Jardiance 10 mg tablet glipiZIDE (GLUCOTROL XL) 5 MG 24 hr tablet glipizide ER 5 mg tablet, extended release 24 hr lisinopriL (ZESTRIL) 5 mg, oral, Daily metoprolol succinate (TOPROL-XL) 50 MG 24 hr tablet metoprolol succinate ER 50 mg tablet,extended release 24 hr ranolazine (RANEXA) 500 mg, oral, 2 times daily sertraline (ZOLOFT) 100 MG tablet sertraline 100 mg tablet Review of Systems Review of Systems All other systems reviewed and are negative. Last Recorded Vitals There were no vitals taken for this visit. Physical Exam Constitutional: General: She is not in acute distress. Appearance: Normal appearance. HENT: Head: Normocephalic. Neck: Vascular: No carotid bruit. Cardiovascular: Rate and Rhythm: Normal rate and regular rhythm. Pulses: Normal pulses. Heart sounds: Normal heart sounds. No murmur heard. Pulmonary: Effort: Pulmonary effort is normal. Breath sounds: Normal breath sounds. No wheezing or rales. Abdominal: General: Bowel sounds are normal. Palpations: Abdomen is soft. Musculoskeletal: Right lower leg: No edema. Left lower leg: No edema. Skin: General: Skin is warm and dry. Capillary Refill: Capillary refill takes less than 2 seconds. Neurological: Mental Status: She is alert and oriented to person, place, and time. Assessment & Plan Problem List Items Addressed This Visit None *CAD -Hx of Recurrent class III Angina in 2021 -Lexiscan cardiolite 07/02: EF 65%, anterior ischemia. -ECHO: mild to moderate mitral insufficiency and left ventricular hypertrophy with a preserved EF. -XAVIER to proximal LAD in 07/2022 -Hx XAVIER to LAD in 2012. *Hx of PAD *Carotid Stenosis *IRDMII -On insulin, Farxiga, Ozempic *HTN *HLD *Hx of DVT, PE 2022 *Obesity Plan: Left heart cath +/- PCI via radial artery approach. Risks and benefits discussed. Patient agrees to proceed. CV medication changes pending cath findings. Post cath addendum: Patent LAD stents. Continue current CV meds. Discussed Echo during RV with Dr. Christopher. documented in this encounter Plan of Treatment Not on file documented as of this encounter Procedures Procedure Name Priority Date/Time Associated Diagnosis Comments CARDIAC CATH - LEFT HEART CATH W/ POSSIBLE INTERVENTION Routine 03/17/2025 2:03 PM EDT Athscl heart disease of [place] cor art w oth ang pctrs ([facility]) CHEM8+ POC Routine 03/17/2025 11:57 AM EDT PLATELET COUNT, AUTO STAT 03/17/2025 11:55 AM EDT documented in this encounter Results * CARDIAC CATH - LEFT HEART CATH W/ POSSIBLE INTERVENTION (03/17/2025 2:03 PM EDT) Anatomical Region Laterality Modality Heart Other Narrative 03/17/2025 2:13 PM EDT LEFT HEART CATHETERIZATION INDICATION: Angina like chest pain. Coronary artery disease. REFERRING MD: Dr. Shan Pimentel; Dr. Susan Christopher TECHNIQUE: A 5/6-Kiswahili sheath was placed in the right radial artery. 5 mg of verapamil and 50 units/kg heparin were administered via the radial artery sheath. Marcos catheter was used for selective angiography of the left and right coronary artery as well as obtaining pressures in the left ventricle. Following the diagnostic catheterization, the radial artery sheath was removed and the access site successfully compressed using a TR band. No complications. The patient received 5 mg of verapamil and 50 units/kg of heparin via the radial artery sheath. She received moderate conscious sedation including intravenous Versed and fentanyl. She was monitored by me for more than 30 minutes and remained stable hemodynamically without respiratory distress. HEMODYNAMICS: Left ventricle 120/18 mmHg, aorta 120/60 mmHg. DIAGNOSES: 1. Mild coronary artery atherosclerosis with continued patency of left anterior descending artery stents. 2. Elevated left ventricular filling pressure without gradient across the aortic valve. CORONARY ANATOMY: 1. Left main trunk: Angiographically normal. 2. Left anterior descending artery: Large caliber vessel, which gives rise to several diagonal branches before extending to the apex. Widely patent stents with mild atherosclerosis in the left anterior descending artery. 3. Circumflex artery: Moderate caliber dominant vessel, which gives rise to a large caliber high lateral branch and a small caliber posterior descending artery. Mild atherosclerosis in the circumflex artery. 5. Right coronary artery: Small non-dominant right coronary artery with mild atherosclerosis. 6. Left ventricle: Elevated left ventricular filling pressure without gradient across the aortic valve. Left ventriculography was not performed. IMPRESSION: Angiographically, the patient has mild coronary artery atherosclerosis. There is elevated filling pressure without gradient across the aortic valve. Medical management and lifestyle optimization of cardiovascular risk factors are recommended. us Susan Christopher MD CV CARDIAC CATH ORDERABLES Fin al Result * (ABNORMAL) Chem8+ POC (03/17/2025 11:57 AM EDT) POC Sodium 143 138 - 146 mmol/L 03/17/2025 5:17 PM EDT [facility] POC Potassium 3.8 3.5 - 4.9 mmol/L 03/17/2025 5:17 PM EDT [facility] POC Chloride 106 98 - 109 mmol/L 03/17/2025 5:17 PM EDT [facility] POC Glucose 122(H) 70 - 105 mg/dL 03/17/2025 5:17 PM EDT [facility] POC BUN 17 8 - 26 mg/dL 03/17/2025 5:17 PM EDT [facility] POC Anion Gap 19 10 - 20 mmol/L 03/17/2025 5:17 PM EDT [facility] POC IONIZED CALCIUM JILLIAN 1.25 1.12 - 1.32 mmol/L 03/17/2025 5:17 PM EDT [facility] POC CO2 TOTAL JILLIAN 22(L) 24 - 29 mmol/L 03/17/2025 5:17 PM EDT [facility] POC-Creatinine 1.0 0.6 - 1.3 mg/dL 03/17/2025 5:17 PM EDT [facility] POC-EGFR 59 mL/min/1.7 3M2 03/17/2025 5:17 PM EDT [facility] Comment:Proceed with contras t if eGFR > 45 ml/min/1.73 when performed on the NovaSTAT strip Creatinine meter. POC HEMATOCRIT JILLIAN 49 38 - 51 %PCV 03/17/2025 5:17 PM EDT [facility] POC HEMOGLOBIN JILLIAN 16.7 12.0 - 17.0 g/dL 03/17/2025 5:17 PM EDT [facility] Blood 03/17/2025 11:5 7 AM EDT 03/17/2025 5:17 PM EDT Narrative [facility] - 03/17/2025 5:17 PM EDT Director Corporate Sales ID is - [id number] us Susan Christopher MD POINT OF CARE TEST ORDERABLES Final Result [facility] [address] [phone] * Platelet count, auto (03/17/2025 11:55 AM EDT) Platelets 161 140 - 375 K/CU MM 03/17/2025 12:06 PM EDT [facility] Blood Venipuncture / Unknown 03/17/2025 11:55 AM EDT 03/17/2025 12:00 PM EDT us Marco Salcedo PA-C LAB BLOOD ORDERABLES Final Resu lt [facility] [address] [phone] documented in this encounter Visit Diagnoses Diagnosis Athscl heart disease of [place] cor art w oth ang pctrs ([facility]) documented in this encounter Administered Medications Inactive Administered Medications - up to 3 most recent administrations Medication Order MAR Action Action Date Dose Rate Site aspirin tablet 325 mg Once, oral, On Mon03/17/25 at 1200, For 1 dose, On Unit Given 03/17/2025 12:06 PM EDT 325 mg atorvastatin (LIPITOR) tablet 80 mg 80 mg Once, oral, On Mon03/17/25 at 1200, For 1 dose, STAT if patient didn't already take this morning or allergic, Pre-op Given 03/17/2025 12:06 PM EDT 80 mg fentaNYL PF (SUBLIMAZE) injection IMG once as needed, intravenous, Starting on Mon03/17/25 at 1351, Intra-op Given 03/17/2025 1:51 PM EDT 50 mcg heparin 1,000 Units/mL injection IMG once as needed, intravenous, Starting on Mon03/17/25 at 1356, Intra-op Given 03/17/2025 1:56 PM EDT 5,000 Units iodixanoL (VISIPAQUE) injection IMG once as needed, Starting on Mon03/17/25 at 1405, Intra-op Given 03/17/2025 2:05 PM EDT 48 mLs lidocaine (XYLOCAINE) injection 2% IMG once as needed, intradermal, Starting on Mon03/17/25 at 1354, Intra-op Given 03/17/2025 1:54 PM EDT 2 mLs midazolam (PF) (VERSED) injection IMG once as needed, intravenous, Starting on Mon03/17/25 at 1351, Intra-op Given 03/17/2025 1:51 PM EDT 1 mg sodium chloride 0.9 % infusion 3 mL/kg/hr 98.4 kg Continuous (295.2 mL/hr), intravenous, Starting on Mon03/17/25 at 1200, Pre-op New Bag 03/17/2025 12:06 PM EDT 3 mL/kg/hr 295.2 mL/hr verapamiL (ISOPTIN) injection IMG once as needed, Starting on Mon03/17/25 at 1356, Intra-op Given 03/17/2025 1:56 PM EDT 5 mg documented in this encounter Care Teams [employer] Police Officer Relationship Specialty Start Date End Date Shan Pimentel MD [address] [place] [address] PCP - General General Internal Medicine 03/17/25 documented as of this encounter
--- OUTSIDE RECORDS SUMMARY | 2025-03-17 13:23 | XMS_ITS | Encounter Summary ---
Author Organization [employer] ([place], [place], [place], [place]) Address [address] [place] [address] Care Team Providers Care Ambulatory Analyst Name Role Phone Shan Pimentel MD Primary Care Provider Reason for Referral * Ultrasound (Routine) - New Request Specialty Diagnoses / Procedures Referred By Contac t Referred To Contact Radiology Diagnoses CAD (coronary artery disease) Procedures Ultrasound-guided vascular access Nilesh Mccarty MD [address] [place] [address] [place] [address] Phone: tel: fax: Referral ID Status Reason Start Date Expiration Date V isits Requested Visits Authorized [id number] New Request 03/17/2025 03/17/2026 1 1 Reason for Visit * Ultrasound (Routine) - New Request Specialty Diagnoses / Procedures Referred By Contac t Referred To Contact Radiology Diagnoses CAD (coronary artery disease) Procedures Ultrasound-guided vascular access Nilesh Mccarty MD [address] [place] [address] [place] [address] Phone: tel: fax: Referral ID Status Reason Start Date Expiration Date V isits Requested Visits Authorized [id number] New Request 03/17/2025 03/17/2026 1 1 Encounter Details Date Type Department Care Team (Late st Contact Info) Description 03/17/2025 1:23 PM EDT - 03/17/2025 11:59 PM EDT Hospital Encounter [facility] Non-Invasive Cardiology [address] [place] [phone] Nilesh Mccarty MD [address] [facility] [address] [place] [address] CAD (coronary artery disease) Discharge Disposition: Home or Self Care Social History Tobacco Use Types Packs/Day Years Used Date Smoking Tobacco: Never Smokeless Tobacco: Never Alcohol Use Standard Drinks/Week Comments Never 0 (1 standard drink = 0.6 oz pur e alcohol) Family and Community Support Answer Adam e Recorded Help with Day to Day Activities Not on file 09/28/2023 Feeling Lonely or Isolated Not on file 09/28 Educational Attainment Answer Date Kai rded Speak language other than Austrian at home Not on file 09/28/2023 Want [...] on file documented as of this encounter Medications at Time of Discharge atorvastatin (LIPITOR) 40 MG tablet atorvastatin 40 mg tablet C,E,zinc,copper [id number] (Ocuvite Adult 50 Plus) 250-5-1 mg Cap [...] times daily. documented as of this encounter Plan of Treatment Not on file documented as of this encounter Procedures Procedure Name Priority Date/Time Associated Diagnosis Comments US GUIDED VASCULAR ACCESS Routine 03/17/2025 2:00 PM EDT CAD (coronary artery disease) documented in this encounter Results * Ultrasound-guided vascular access (03/17/2025 2:00 PM EDT) Anatomical Region Laterality Modality Vascular Vascular Ultraso und 03/17/2025 1:45 PM EDT Narrative 03/17/2025 10:26 PM EDT Vascular Procedure Demographics Patient Name LATRICIA MISTRY Age 74 [place] Patient Number [id number] Gender Female Race Unknown Ethnicity Corporate ID [id number] Height 68 Date of 1950 Weight 217 Accession Number [id number] BSA 2.12 m^2 Room Number BMI 32.99 kg/m^2 Referring NILESH MCCARTY MD Interpreting NILESH MCCARTY MD Physician Physician Pressure Control Supervisor Katina Betancourt RVT Procedure Type of Study: US GUIDED VASCULAR ACCESS : . Impressions Summary INDICATION: CAD (I25.10) ##################################### RIGHT: Ultrasound guided vascular access of the radial artery. Radial artery was 0.5 cm in depth and patent. Access was successful. ##################################### Allergies - Codeine. - Vicodin. Patient Status:Outpatient. Study Location:Portable. Technical Quality:Adequate visualization. Signature Procedure Note Nilesh Mccarty MD - 03/17/2025 Vascular Procedure Demographics Patient Name LATRICIA MISTRY Age 74 [place] Patient Number [id number] Gender Female Race Unknown Ethnicity Corporate ID [id number] Height 68 Date of 1950 Weight 217 Accession Number [id number] BSA 2.12 m^2 Room Number BMI 32.99kg/m^2 Referring NILESH MCCARTY MD Interpreting NILESH MANNING Physician Physician Pressure Control Supervisor Katina Betancourt Emy Procedure Type of Study: US GUIDED VASCULAR ACCESS : . Impressions Summary INDICATION: CAD (I25.10) ##################################### RIGHT: Ultrasound guided vascular access of the radial artery. Radial artery was 0.5 cm in depth and patent. Access was successful. ##################################### Allergies - Codeine. - Vicodin. Patient Status:Outpatient. Study Location:Portable. Technical Quality:Adequate visualization. Signature Result [facility] Nilesh Mccarty MD [facility] ORDERABLES Final Result documented in this encounter Visit Diagnoses Diagnosis CAD (coronary artery disease) Coronary atherosclerosis of unspecified type of vessel, [place] or graft documented in this encounter Care Teams Ambulatory Analyst Relationship Specialty Start Date End Date Shan Pimentel MD [address] [place] [address] PCP - General General Internal Medicine 03/17/25 documented as of this encounter
--- OUTSIDE RECORDS SUMMARY | 2025-03-25 12:12 | XMS_ITS | Clinical Summary ---
Author Organization [employer] ([place], [place], [place], [place]) Address [address] [place] [address] Care Team Providers Care Carriage Setter Name Role Phone Shan Pimentel MD Primary Care Provider [phone] Allergies Active Allergy Reactions Criticality Noted Date Comments Hydrocodone Anxiety Low 07/25/2022 Medications clopidogreL (PLAVIX) 75 mg tablet clopidogrel 75 mg tablet Active atorvastatin (LIPITOR) 40 MG tablet atorvastatin 40 mg tablet Active metoprolol succinate (TOPROL-XL) 50 MG 24 hr tablet metoprolol succinate ER 50 mg tablet,extended release 24 hr Active sertraline (ZOLOFT) 100 MG tablet sertraline 100 mg tablet Active C,E,zinc,coppe r [id number] (Ocuvite Adult 50 Plus) 250-5-1 mg Cap Take by mouth. Active lisinopriL (PRINIVIL,ZEST RIL) 5 MG tablet Take 1 tablet (5 mg total) by mouth daily. 90 tablet 3 022 Active dapagliflozin propanediol (Farxiga) 5 mg tablet 1 tablet (5 mg total). Active insulin glargine (LANTUS) 100 unit/mL (3 mL) inpn Inject 60 Units under the skin daily. 024 Active Ozempic 2 mg/dose (8 mg/3 mL) pnij INJECT SUBCUTANEOUSLY 2 MG EVERY WEEK INTO THE ABDOMEN, THIGH OR OUTER AREA OF UPPER ARM (ROTATE SITES) 025 Active mv-mn/om3/dha/ epa/fish/lut/z ea (OCUVITE ADULT 50 PLUS ORAL) Take by mouth. Activ e fluconazole (DIFLUCAN) 100 MG tablet Take 1 tablet (100 mg total) by mouth daily. Active peg 400-propylene glycol (Systane Ultra) 0.4-0.3 % drop Administer 1 drop into both eyes 4 (four) times daily. Active glipiZIDE (GLUCOTROL XL) 5 MG 24 hr tablet glipizide ER 5 mg tablet, extended release 24 hr 2024 Discontinued(M D Discontinued) empagliflozin (Jardiance) 10 mg tablet Jardiance 10 mg tablet 2024 Discontinued ranolazine (RANEXA) 500 MG 12 hr tablet Take 500 mg by mouth 2 (two) times daily. 2024 Discontinued(M D Discontinued) Active Problems Problem Noted Date Diagnosed Date Coronary artery disease invo lving [place] coronary artery of [place] heart with angina pectoris 07/25/2022 Abnormal nuclear stress test 07/25/2022 History of peripheral arterial disease Primary hypertension 07/25/2022 Mixed hyperlipidemia 07/25/2022 Nonrheumatic mitral valve regurgitation 07/25/20 22 History of DVT (deep vein thrombosis) 07/25/2022 Carotid stenosis 07/25/2022 Class 2 obesity with body ma ss index (BMI) of 36.0 to 36.9 in adult 07/25/2022 Type 2 diabetes mellitus 07/25/2022 Encounters Date Type Department Care Team Description 03/17/2025 1:23 PM EDT - 03/17/2025 11:59 PM EDT Hospital Encounter [facility] Non-Invasive Cardiology [address] [place] [phone] Nilesh Mccarty MD CAD (coronary artery disease) Discharge Disposition: Home or Self Care 03/17/2025 11:00 AM EDT - 03/17/2025 1:22 PM EDT Hospital Encounter [facility] Cardiac Catheterization [facility] [address] [place] [phone] Susan Christopher MD Lin, Steve, MD Athscl heart disease of [place] cor art w oth ang pctrs ([facility]) Discharge Disposition: Home or Self Care 03/17/2025 Travel from Last 3 Months Family History Medical History Relation Name Comments Kidney failure Father Coronary artery disease Mother Heart failure Mother Coronary artery disease Sister Relation Name Status Comments Father Alive Mother Sister Social History Tobacco Use Types Packs/Day Years [...] Date Kai rded Speak language other than Turkish at home Not on file 09/28/2023 Want [...] on file Sexual Orientation Not on file Last Filed Vital Signs Vital Sign Reading Time Taken Comments Blood Pressure 120/62 03/17/2025 4:30 PM EDT Pulse 62 03/17/2025 4:30 PM EDT Temperature 36.4 C (97.6 F) 03/17/2025 11:46 AM EDT Respiratory Rate 13 03/17/2025 4:30 PM EDT Oxygen Saturation 92% 03/17/2025 4:30 PM EDT room air Inhaled Oxygen Concentration - - Weight 98.4 kg (217 lb) 03/17/2025 11:46 AM EDT Height 172.7 cm (5' 8 ) 03/17/2025 11:46 AM EDT Body Mass Index 32.99 03/17/2025 11:46 AM EDT Plan of Treatment Health Maintenance Due Date Last Done Comments CT Colonography 1950 Colonoscopy 1950 Colorectal Cancer Screening 1950 DXA SCAN 1950 Diabetic Kidney Health Evalu ation (KED) 1950 FOBT/FIT 1950 Fit-DNA (Cologuard) 1950 Sigmoidoscopy 1950 Diabetic Eye Exam 1961 Depression Screening (12+) 1963 Hepatitis C Screening 1969 Breast Cancer Screening 1991 Shingles Vaccine (Zoster) (1 of 2) 2001 Respiratory Syncytial Virus (RSV) Adult or (1 - Risk 60-74 years 1-dose series) 2011 Medicare Initial AWV G0438 09/12/2017 Hemoglobin A1C 07/25/2022 COVID-19 VACCINE (5 - 2023-2 5 season) 2024 03/21/2022, 07/31/2021, 11/20/2020, Additional history exists Falls Risk Screening 09/11/2024 Influenza Vaccine (#1) 2025 , 06/21/2023, 06/30/2022, Additional history exists Tobacco Cessation Counseling and Screening (12+) 03/17/2026 03/17/2025 DTAP/TDAP/TD VACCINES (2 - T d or Tdap) 07/23/2034 07/23/2024 Pneumococcal 50+ years Completed 03/07/2024 Medical Devices Implanted Type Area Manager Consumer Device Identifier Shelf Expiration Date Model / Serial / Lot Stent Synergy Xd Mr [id number] IMPLANTS [employer] [id number] / / Procedures Procedure Name Priority Date/Time Associated Diagnosis Comments CARDIAC CATH - LEFT HEART CATH W/ POSSIBLE INTERVENTION Routine 03/17/2025 2:03 PM EDT Athscl heart disease of [place] cor art w oth ang pctrs ([facility]) US GUIDED VASCULAR ACCESS Routine 03/17/2025 2:00 PM EDT CAD (coronary artery disease) CHEM8+ POC Routine 03/17/2025 11:57 AM EDT PLATELET COUNT, AUTO STAT 03/17/2025 11:55 AM EDT from Last 3 Months Results * CARDIAC CATH - LEFT HEART CATH W/ POSSIBLE INTERVENTION (03/17/2025 2:03 PM EDT) Anatomical Region Laterality Modality Heart Other Narrative 03/17/2025 2:13 PM EDT LEFT HEART CATHETERIZATION INDICATION: Angina like chest pain. Coronary artery disease. REFERRING MD: Dr. Shan Pimentel; Dr. Susan Christopher TECHNIQUE: A 5/6-[place] Island[place] sheath was placed in the right radial [...] CARDIAC CATH ORDERABLES Fin al Result * Ultrasound-guided vascular access (03/17/2025 2:00 PM EDT) Anatomical Region Laterality Modality Vascular Vascular Ultraso und 03/17/2025 1:45 PM EDT Narrative 03/17/2025 10:26 PM EDT Vascular Procedure Demographics Patient Name TELLO MISTRY Age 74 [place] Patient Number [id number] Gender Female Race Unknown Ethnicity Corporate ID [id number] Height 68 Date of 1950 Weight 217 Accession Number [id number] BSA 2.12 m^2 Room Number BMI 32.99 kg/m^2 Referring NILESH MCCARTY MD Interpreting NILESH MCCARTY MD Physician Physician Cytotechnologist/Cytology Supervisor Katina Betancourt T Procedure Type of Study: US GUIDED VASCULAR ACCESS : . Impressions Summary INDICATION: CAD (I25.10) ##################################### RIGHT: Ultrasound guided vascular access of the radial artery. Radial artery was 0.5 cm in depth and patent. Access was successful. ##################################### Allergies - Codeine. - Vicodin. Patient Status:Outpatient. Study Location:Portable. Technical Quality:Adequate visualization. Signature Procedure Note Nilesh Mccarty MD - 03/17/2025 Vascular Procedure Demographics Patient Name TELLO MISTRY Age 74 [place] Patient Number [id number] Gender Female Race Unknown Ethnicity Corporate ID [id number] Height 68 Date of 1950 Weight 217 Accession Number [id number] BSA 2.12 m^2 Room Number BMI 32.99kg/m^2 Referring NILESH MCCARTY MD Interpreting NILESH MANNING Physician Physician Cytotechnologist/Cytology Supervisor Katina Betancourt RVT Procedure Type of Study: US GUIDED VASCULAR ACCESS : . Impressions Summary INDICATION: CAD (I25.10) ##################################### RIGHT: Ultrasound guided vascular access of the radial artery. Radial artery was 0.5 cm in depth and patent. Access was successful. ##################################### Allergies - Codeine. - Vicodin. Patient Status:Outpatient. Study Location:Portable. Technical Quality:Adequate visualization. Signature Nilesh Mccarty MD [facility] [place] ORDERABLES Final Result * (ABNORMAL) Chem8+ POC (03/17/2025 11:57 AM EDT) POC Sodium 143 138 - 146 mmol/L 03/17/2025 5:17 PM EDT [facility] POC Potassium 3.8 3.5 - 4.9 mmol/L 03/17/2025 5:17 PM EDT [facility] POC Chloride 106 98 - 109 mmol/L 03/17/2025 5:17 PM EDT [facility] POC Glucose 122(H) 70 - 105 mg/dL 03/17/2025 5:17 PM EDT [facility] POC BUN 17 8 - 26 mg/dL 03/17/2025 5:17 PM EDT [facility] POC Anion Gap 19 10 - 20 mmol/L 03/17/2025 5:17 PM EDT [facility] POC IONIZED CALCIUM JILLIAN 1.25 1.12 - 1.32 mmol/L 03/17/2025 5:17 PM EDT [facility] POC CO2 TOTAL JILLIAN 22(L) 24 - 29 mmol/L 03/17/2025 5:17 PM EDT [facility] POC-Creatinine 1.0 0.6 - 1.3 mg/dL 03/17/2025 5:17 PM EDT [facility] POC-EGFR 59 mL/min/1.7 3M2 03/17/2025 5:17 PM EDT [facility] Comment:Proceed with contras t if eGFR > 45 ml/min/1.73 when performed on the NovaSTAT strip Creatinine meter. POC HEMATOCRIT JILLIAN 49 38 - 51 %PCV 03/17/2025 5:17 PM EDT [facility] POC HEMOGLOBIN JILLIAN 16.7 12.0 - 17.0 g/dL 03/17/2025 5:17 PM EDT [facility] Blood 03/17/2025 11:5 7 AM EDT 03/17/2025 5:17 PM EDT Narrative [facility] - 03/17/2025 5:17 PM EDT Apple Turner ID is - [id number] us Susan Christopher MD POINT OF CARE TEST ORDERABLES Final Result [facility] [address] [place] [address] * Platelet count, auto (03/17/2025 11:55 AM EDT) Platelets 161 140 - 375 K/CU MM 03/17/2025 12:06 PM EDT [facility] Blood Venipuncture / Unknown 03/17/2025 11:55 AM EDT 03/17/2025 12:00 PM EDT us Marco [facility] BLOOD ORDERABLES Final Resu lt [facility] [address] [place] [address], [facility] [phone] from Last 3 Months Insurance MEDICARE [place] [address] [place] [address] MCR SUPP [facility] HEALTH CLAIMS Advance Directives For more information, please contact: [phone] * Full Code (Latest Code Status on File) Date Activated Date Inactivated Comments 03/17/2025 1:15 PM 03/18/2025 4:24 AM * Full Code Date Activated Date Inactivated Comments 03/17/2025 10:28 AM 03/17/2025 1:15 PM * Full Code Date Activated Date Inactivated Comments 07/25/2022 8:22 AM 08/19/2022 11:58 PM Care Teams Carriage Setter Relationship Specialty Start Date End Date Shan Pimentel MD [address] [place], [place] [id number] PCP - General General Internal Medicine 03/17/25
--- OUTSIDE RECORDS SUMMARY | 2025-03-25 12:12 | XMS_ITS | Encounter Summary ---
Author Organization [employer] ([place], [place], [place], [place]) Address [address] [place] [address] Care Team Providers Care Mold Worker Name Role Phone Dieter Larios MD Primary Care Provider [phone] Shan Pimentel MD Primary Care Provider [phone] Encounter Details Date Type Department Care Team (Late st Contact Info) Description 04/20/2020 Transcribed Document [facility] Family Medicine [address] [place] [address] ProviderBelkys MD [address], [place] [id number] Social History Tobacco Use Types Packs/Day Years Used Date Smoking Tobacco: Never Assessed Comments Unknown Sex and Gender Information Value Date Recorded Sex Assigned at Not on file Legal Sex Female 5:07 PM CDT Gender Identity Not on file Sexual Orientation Not on file documented as of this encounter Miscellaneous Notes * Cerner Conversion Note - Belkys ProviderMD - 04/20/2020 12:33 PM CDT Stroke/Warfarin Instructions Entered On: 04/20/2020 12:33 EDT Performed On: 04/20/2020 12:33 EDT by EMILEE GRAY, RN Stroke/Warfarin Instructions Stroke/TIA Discharge Ins : N/A Warfarin Discharge Ins : N/A EMILEE GRAY RN - 04/20/2020 12:33 EDT documented in this encounter Plan of Treatment Not on file documented as of this encounter Visit Diagnoses Not on filedocumented in this encounter Care Teams Mold Worker Relationship Specialty Start Date End Date Dieter Larios MD [address] [place] [address] PCP - General Emergency Medicine 07/25/22 03/16/25 Shan Pimentel MD [address] [place] [address] PCP - General General Internal Medicine 03/17/25 documented as of this encounter
--- OUTSIDE RECORDS SUMMARY | 2025-03-25 12:12 | XMS_ITS | Encounter Summary ---
Author Organization [employer] ([place], [place], [place], [place]) Address [address] [facility] [address] [place] [address] Care Team Providers Care Car Filler Name Role Phone Dieter Larios MD Primary Care Provider [phone] Shan Pimentel MD Primary Care Provider [phone] Encounter Details Date Type Department Care Team (Late st Contact Info) Description 04/20/[address] [facility] Family Medicine [address] [place] [address] Belkys Monsalve MD [address], [place] [id number] Social History Tobacco Use Types Packs/Day Years Used Date Smoking Tobacco: Never Assessed Comments Unknown Sex and Gender Information Value Date Recorded Sex Assigned at Not on file Legal Sex Female 5:07 PM CDT Gender Identity Not on file Sexual Orientation Not on file documented as of this encounter Miscellaneous Notes * [employer]ner Conversion Note - Belkys Monsalve MD - 04/20/2020 12:29 PM CDT DATE OF SERVICE: 04/20/2020 LEFT HEART CATHETERIZATION REPORT INDICATION: Recurrent exertional angina, anterior ischemia by nuclear perfusion study. ADDITIONAL REFERRING PHYSICIAN: Dr. Umesh Sterling. PROCEDURE PERFORMED: Standard left heart catheterization. TECHNIQUE: A 5/6-Lithuanian sheath was placed in the right radial artery. Marcos catheter was used for selective angiography of left and right coronary arteries and obtaining pressures in the left ventricle. Left ventriculogram was not performed. Following diagnostic catheterization, the radial artery sheath was removed and the access site was successfully compressed using a TR band. No complications. 5 mg of verapamil and 50 units/kg of heparin were administered via right radial artery sheath. HEMODYNAMICS: Left ventricle 110/20 mmHg, aorta 110/50 mmHg. DIAGNOSES: 1. Mild coronary artery atherosclerosis with continued patency of the LAD stents. 2. Elevated left ventricular filling pressure without gradient across the aortic valve. CORONARY ANATOMY: 1. Left main trunk: Minimally diseased. 2. LAD: Large caliber vessel, which gives rise to several small caliber diagonal branches before extending beyond the apex. There is continued patency of the mid, distal LAD stents. Mild atherosclerosis in remaining portion of the LAD and diagonal branches. 3. Circumflex artery: Dominant vessel, which gives rise to a large caliber high lateral branch, several tiny lateral branches, a small caliber posterolateral branch, and a small caliber posterior descending artery. Mild atherosclerosis present in the circumflex artery. The circumflex artery is a codominant vessel. 4. Right coronary artery: Small nondominant right coronary artery with mild atherosclerosis. 5. Left ventricle: Elevated left ventricular filling pressure without gradient across the aortic valve. IMPRESSION: Angiographically, the patient has mild coronary artery atherosclerosis with continued patency of the LAD stents. There is elevated left ventricular filling pressure without gradient across the aortic valve. Medical management and risk factor modification recommended from the cardiovascular standpoint. /[id number] Tank Wilkins MD SSL/AQ / SSL / MODL /[id number] CC: MD Dr. Umesh Kearns Electronically signed by [facility] Conversion [employer] at 12/26/2022 11:29 AM CDT documented in this encounter Plan of Treatment Not on file documented as of this encounter Visit Diagnoses Not on filedocumented in this encounter Care Teams Car Filler Relationship Specialty Start Date End Date Dieter Larios MD [address] [place] [id number] PCP - General Emergency Medicine 07/25/22 03/16/25 Shan Pimentel MD [address] [place] [address] [place] [id number] PCP - General General Internal Medicine 03/17/25 documented as of this encounter
--- OUTSIDE RECORDS SUMMARY | 2025-03-25 12:12 | XMS_ITS | Encounter Summary ---
Author Organization [employer] ([place], [place], [place], [place]) Address [address] [place] [address] Care Team Providers Care Head Concierge Name Role Phone Dieter Larios MD Primary Care Provider [phone] Shan Pimentel MD Primary Care Provider Encounter Details Date Type Department Care Team (Late st Contact Info) Description 04/20/2020 Transcribed Document [facility] Family Medicine [address] [place] [address] Belkys Monsalve MD [address] [place], [place] [id number] Social History Tobacco Use Types Packs/Day Years Used Date Smoking Tobacco: Never Assessed Comments Unknown Sex and Gender Information Value Date Recorded Sex Assigned at Not on file Legal Sex Female 5:07 PM CDT Gender Identity Not on file Sexual Orientation Not on file documented as of this encounter Miscellaneous Notes * Cerner Conversion Note - Belkys Monsalve MD - 04/20/2020 2:29 PM CDT Patient Education Materials Follows: Heart-Healthy Eating Plan Many factors influence your heart (coronary) health, including eating and exercise habits. Coronary risk increases with abnormal blood fat (lipid) levels. Heart-healthy meal planning includes limiting unhealthy fats, increasing healthy fats, and making other diet and lifestyle changes. What is my plan? Your health care provider may recommend that you: ??? Limit your fat intake to % or less of your total calories each day. ??? Limit your saturated fat intake to % or less of your total calories each day. ??? Limit the amount of cholesterol in your diet to less than mg per day. What are tips for following this plan? Cooking Cook foods using methods other than frying. Baking, boiling, grilling, and broiling are all good options. Other ways to reduce fat include: ??? Removing the skin from poultry. ??? Removing all visible fats from meats. ??? Steaming vegetables in water or broth. Meal planning ??? At meals, imagine dividing your plate into fourths: ? Fill one-half of your plate with vegetables and green salads. ? Fill one-fourth of your plate with whole grains. ? Fill one-fourth of your plate with lean protein foods. ??? Eat 4?5 servings of vegetables per day. One serving equals 1 cup raw or cooked vegetable, or 2 cups raw leafy greens. ??? Eat 4?5 servings of fruit per day. One serving equals 1 medium whole fruit, ? cup dried fruit, ? cup fresh, frozen, or canned fruit, or ? cup 100% fruit juice. ??? Eat more foods that contain soluble fiber. Examples include apples, broccoli, carrots, beans, peas, and barley. Aim to get 25?30 g of fiber per day. ??? Increase your consumption of legumes, nuts, and seeds to 4?5 servings per week. One serving of dried beans or legumes equals ? cup cooked, 1 serving of nuts is ? cup, and 1 serving of seeds equals 1 tablespoon. Fats ??? Choose healthy fats more often. Choose monounsaturated and polyunsaturated fats, such as olive and canola oils, flaxseeds, walnuts, almonds, and seeds. ??? Eat more omega-3 fats. Choose salmon, mackerel, sardines, tuna, flaxseed oil, and ground flaxseeds. Aim to eat fish at least 2 times each week. ??? Check food labels carefully to identify foods with trans fats or high amounts of saturated fat. ??? Limit saturated fats. These are found in animal products, such as meats, butter, and cream. Plant sources of saturated fats include palm oil, palm kernel oil, and coconut oil. ??? Avoid foods with partially hydrogenated oils in them. These contain trans fats. Examples are stick margarine, some tub margarines, cookies, crackers, and other baked goods. ??? Avoid fried foods. General information ??? Eat more home-cooked food and less restaurant, buffet, and fast food. ??? Limit or avoid alcohol. ??? Limit foods that are high in starch and sugar. ??? Lose weight if you are overweight. Losing just 5?10% of your body weight can help your overall health and prevent diseases such as diabetes and heart disease. ??? Monitor your salt (sodium) intake, especially if you have high blood pressure. Talk with your health care provider about your sodium intake. ??? Try to incorporate more vegetarian meals weekly. What foods can I eat? Fruits All fresh, canned (in natural juice), or frozen fruits. Vegetables Fresh or frozen vegetables (raw, steamed, roasted, or grilled). Green salads. Grains Most grains. Choose whole wheat and whole grains most of the time. Rice and pasta, including brown rice and pastas made with whole wheat. Meats and other proteins Lean, well-trimmed beef, veal, pork, and velasquez. Chicken and turkey without skin. All fish and shellfish. Wild duck, rabbit, pheasant, and venison. Egg whites or low-cholesterol egg substitutes. Dried beans, peas, lentils, and tofu. Seeds and most nuts. Dairy Low-fat or nonfat cheeses, including ricotta and mozzarella. Skim or 1% milk (liquid, powdered, or evaporated). Buttermilk made with low-fat milk. Nonfat or low-fat yogurt. Fats and oils Non-hydrogenated (trans-free) margarines. Vegetable oils, including soybean, sesame, sunflower, olive, peanut, safflower, corn, canola, and cottonseed. Salad dressings or mayonnaise made with a vegetable oil. Beverages Water (mineral or sparkling). Coffee and tea. Diet carbonated beverages. Sweets and desserts Sherbet, gelatin, and fruit ice. Small amounts of dark chocolate. Limit all sweets and desserts. Seasonings and condiments All seasonings and condiments. The items listed above may not be a complete list of foods and beverages you can eat. Contact a dietitian for more options. What foods are not recommended? Fruits Canned fruit in heavy syrup. Fruit in cream or butter sauce. Fried fruit. Limit coconut. Vegetables Vegetables cooked in cheese, cream, or butter sauce. Fried vegetables. Grains Breads made with saturated or trans fats, oils, or whole milk. Croissants. Sweet rolls. Donuts. High-fat crackers, such as cheese crackers. Meats and other proteins Fatty meats, such as hot dogs, ribs, sausage, mendes, rib-eye roast or steak. High-fat deli meats, such as salami and bologna. Caviar. Domestic duck and goose. Organ meats, such as liver. Dairy Cream, sour cream, cream cheese, and creamed cottage cheese. Whole milk cheeses. Whole or 2% milk (liquid, evaporated, or condensed). Whole buttermilk. Cream sauce or high-fat cheese sauce. Whole-milk yogurt. Fats and oils Meat fat, or shortening. Burney butter, hydrogenated oils, palm oil, coconut oil, palm kernel oil. Solid fats and shortenings, including mendes fat, salt pork, lard, and butter. Nondairy cream substitutes. Salad dressings with cheese or sour cream. Beverages Regular sodas and any drinks with added sugar. Sweets and desserts Frosting. Pudding. Cookies. Cakes. Pies. Milk chocolate or white chocolate. Buttered syrups. Full-fat ice cream or ice cream drinks. The items listed above may not be a complete list of foods and beverages to avoid. Contact a dietitian for more information. Summary ??? Heart-healthy meal planning includes limiting unhealthy fats, increasing healthy fats, and making other diet and lifestyle changes. ??? Lose weight if you are overweight. Losing just 5?10% of your body weight can help your overall health and prevent diseases such as diabetes and heart disease. ??? Focus on eating a balance of foods, including fruits and vegetables, low-fat or nonfat dairy, lean protein, nuts and legumes, whole grains, and heart-healthy oils and fats. This information is not intended to replace advice given to you by your health care provider. Make sure you discuss any questions you have with your health care provider. Document Released: 06/06/2009 Document Revised: 10/05/2018 Document Reviewed: 10/05/2018 [employer] Patient Education ? 2020 [employer]. Radial Site Care This sheet gives you information about how to care for yourself after your procedure. Your health care provider may also give you more specific instructions. If you have problems or questions, contact your health care provider. What can I expect after the procedure? After the procedure, it is common to have: ??? Bruising and tenderness at the catheter insertion area. Follow these instructions at home: Medicines ??? Take vair-wyq-vrvyaiw and prescription medicines only as told by your health care provider. Insertion site care ??? Follow instructions from your health care provider about how to take care of your insertion site. Make sure you: ? Wash your hands with soap and water before you change your bandage (dressing). If soap and water are not available, use hand financial planner. ? Change your dressing as told by your health care provider. ? Leave stitches (sutures), skin glue, or adhesive strips in place. These skin closures may need to stay in place for 2 weeks or longer. If adhesive strip edges start to loosen and curl up, you may trim the loose edges. Do not remove adhesive strips completely unless your health care provider tells you to do that. ??? Check your insertion site every day for signs of infection. Check for: ? Redness, swelling, or pain. ? Fluid or blood. ? Pus or a bad smell. ? Warmth. ??? Do not take baths, swim, or use a hot tub until your health care provider approves. ??? You may shower 24?48 hours after the procedure, or as directed by your health care provider. ? Remove the dressing and gently wash the site with plain soap and water. ? Pat the area dry with a clean towel. ? Do not rub the site. That could cause bleeding. ??? Do not apply powder or lotion to the site. Activity ??? For 24 hours after the procedure, or as directed by your health care provider: ? Do not flex or bend the affected arm. ? Do not push or pull heavy objects with the affected arm. ? Do not drive yourself home from the hospital or clinic. You may drive 24 hours after the procedure unless your health care provider tells you not to. ? Do not operate machinery or power tools. ??? Do not lift anything that is heavier than 10 lb (4.5 kg), or the limit that you are told, until your health care provider says that it is safe. ??? Ask your health care provider when it is okay to: ? Return to work or school. ? Resume usual physical activities or sports. ? Resume sexual activity. General instructions ??? If the catheter site starts to bleed, raise your arm and put firm pressure on the site. If the bleeding does not stop, get help right away. This is a medical emergency. ??? If you went home on the same day as your procedure, a responsible adult should be with you for the first 24 hours after you arrive home. ??? Keep all follow-up visits as told by your health care provider. This is important. Contact a health care provider if: ??? You have a fever. ??? You have redness, swelling, or yellow drainage around your insertion site. Get help right away if: ??? You have unusual pain at the radial site. ??? The catheter insertion area swells very fast. ??? The insertion area is bleeding, and the bleeding does not stop when you hold steady pressure on the area. ??? Your arm or hand becomes pale, cool, tingly, or numb. These symptoms may represent a serious problem that is an emergency. Do not wait to see if the symptoms will go away. Get medical help right away. Call your local emergency services (911 in the [place] Do not drive yourself to the hospital. Summary ??? After the procedure, it is common to have bruising and tenderness at the site. ??? Follow instructions from your health care provider about how to take care of your radial site wound. Check the wound every day for signs of infection. ??? Do not lift anything that is heavier than 10 lb (4.5 kg), or the limit that you are told, until your health care provider says that it is safe. This information is not intended to replace advice given to you by your health care provider. Make sure you discuss any questions you have with your health care provider. Document Released: 09/30/2011 Document Revised: 10/03/2018 Document Reviewed: 10/03/2018 [employer] Patient Education ? 2020 [employer] Moderate Conscious Sedation, Adult, Care After These instructions provide you with information about caring for yourself after your procedure. Your health care provider may also give you more specific instructions. Your treatment has been planned according to current medical practices, but problems sometimes occur. Call your health care provider if you have any problems or questions after your procedure. What can I expect after the procedure? After your procedure, it is common: ??? To feel sleepy for several hours. ??? To feel clumsy and have poor balance for several hours. ??? To have poor judgment for several hours. ??? To vomit if you eat too soon. Follow these instructions at home: For at least 24 hours after the procedure: ??? Do not: ? Participate in activities where you could fall or become injured. ? Drive. ? Use heavy machinery. ? Drink alcohol. ? Take sleeping pills or medicines that cause drowsiness. ? Make important decisions or sign legal documents. ? Take care of children on your own. ??? Rest. Eating and drinking ??? Follow the diet recommended by your health care provider. ??? If you vomit: ? Drink water, juice, or soup when you can drink without vomiting. ? Make sure you have little or no nausea before eating solid foods. General instructions ??? Have a responsible adult stay with you until you are awake and alert. ??? Take kepu-iyj-bjssphd and prescription medicines only as told by your health care provider. ??? If you smoke, do not smoke without supervision. ??? Keep all follow-up visits as told by your health care provider. This is important. Contact a health care provider if: ??? You keep feeling nauseous or you keep vomiting. ??? You feel light-headed. ??? You develop a rash. ??? You have a fever. Get help right away if: ??? You have trouble breathing. This information is not intended to replace advice given to you by your health care provider. Make sure you discuss any questions you have with your health care provider. Document Released: 06/18/2014 Document Revised: 08/10/2018 Document Reviewed: 12/17/2016 [employer] Patient Education ? 2020 [employer]. Radiology Coronary Angiogram A coronary angiogram is an X-ray procedure that is used to examine the arteries in the heart. In this procedure, a dye (contrast dye) is injected through a long, thin tube (catheter). The catheter is inserted through the groin, wrist, or arm. The dye is injected into each artery, then X-rays are taken to show if there is a blockage in the arteries of the heart. This procedure can also show if you have valve disease or a disease of the aorta, and it can be used to check the overall function of your heart muscle. You may have a coronary angiogram if: ??? You are having chest pain, or other symptoms of angina, and you are at risk for heart disease. ??? You have an abnormal electrocardiogram (ECG) or stress test. ??? You have chest pain and heart failure. ??? You are having irregular heart rhythms. ??? You and your health care provider determine that the benefits of the test information outweigh the risks of the procedure. Let your health care provider know about: ??? Any allergies you have, including allergies to contrast dye. ??? All medicines you are taking, including vitamins, herbs, eye drops, creams, and yqrd-eje-dvnodwk medicines. ??? Any problems you or family members have had with anesthetic medicines. ??? Any blood disorders you have. ??? Any surgeries you have had. ??? History of kidney problems or kidney failure. ??? Any medical conditions you have. ??? Whether you are or may be . What are the risks? Generally, this is a safe procedure. However, problems may occur, including: ??? Infection. ??? Allergic reaction to medicines or dyes that are used. ??? Bleeding from the access site or other locations. ??? Kidney injury, especially in people with impaired kidney function. ??? Stroke (rare). ??? Heart attack (rare). ??? Damage to other structures or organs. What happens before the procedure? Staying hydrated Follow instructions from your health care provider about hydration, which may include: ??? Up to 2 hours before the procedure ? you may continue to drink clear liquids, such as water, clear fruit juice, black coffee, and plain tea. Eating and drinking restrictions Follow instructions from your health care provider about eating and drinking, which may include: ??? 8 hours before the procedure ? stop eating heavy meals or foods such as meat, fried foods, or fatty foods. ??? 6 hours before the procedure ? stop eating light meals or foods, such as toast or cereal. ??? 2 hours before the procedure ? stop drinking clear liquids. General instructions ??? Ask your health care provider about: ? Changing or stopping your regular medicines. This is especially important if you are taking diabetes medicines or blood thinners. ? Taking medicines such as ibuprofen. These medicines can thin your blood. Do not take these medicines before your procedure if your health care provider instructs you not to, though aspirin may be recommended prior to coronary angiograms. ??? Plan to have someone take you home from the hospital or clinic. ??? You may need to have blood tests or X-rays done. What happens during the procedure? An IV tube will be inserted into one of your veins. ??? You will be given one or more of the following: ? A medicine to help you relax (sedative). ? A medicine to numb the area where the catheter will be inserted into an artery (local anesthetic). ??? To reduce your risk of infection: ? Your health care team will wash or sanitize their hands. ? Your skin will be washed with soap. ? Hair may be removed from the area where the catheter will be inserted. ??? You will be connected to a continuous ECG monitor. ??? The catheter will be inserted into an artery. The location may be in your groin, in your wrist, or in the fold of your arm (near your elbow). ??? A type of X-ray (fluoroscopy) will be used to help guide the catheter to the opening of the blood vessel that is being examined. ??? A dye will be injected into the catheter, and X-rays will be taken. The dye will help to show where any narrowing or blockages are located in the heart arteries. ??? Tell your health care provider if you have any chest pain or trouble breathing during the procedure. ??? If blockages are found, your health care provider may perform another procedure, such as inserting a coronary stent. The procedure may vary among health care providers and hospitals. What happens after the procedure? After the procedure, you will need to keep the area still for a few hours, or for as long as told by your health care provider. If the procedure is done through the groin, you will be instructed to not bend and not cross your legs. ??? The insertion site will be checked frequently. ??? The pulse in your foot or wrist will be checked frequently. ??? You may have additional blood tests, X-rays, and a test that records the electrical activity of your heart (ECG). ??? Do not drive for 24 hours if you were given a sedative. Summary ??? A coronary angiogram is an X-ray procedure that is used to look into the arteries in the heart. ??? During the procedure, a dye (contrast dye) is injected through a long, thin tube (catheter). The catheter is inserted through the groin, wrist, or arm. ??? Tell your health care provider about any allergies you have, including allergies to contrast dye. ??? After the procedure, you will need to keep the area still for a few hours, or for as long as told by your health care provider. This information is not intended to replace advice given to you by your health care provider. Make sure you discuss any questions you have with your health care provider. Document Released: 03/03/2004 Document Revised: 08/10/2018 Document Reviewed: 06/09/2017 [employer] Patient Education ? 2020 [employer]. documented in this encounter Plan of Treatment Not on file documented as of this encounter Visit Diagnoses Not on filedocumented in this encounter Care Teams Head Concierge Relationship Specialty Start Date End Date Dieter Larios MD [address] [place] [address] PCP - General Emergency Medicine 07/25/22 03/16/25 Shan Pimentel MD [address] [place] [address] PCP - General General Internal Medicine 03/17/25 documented as of this encounter
--- OUTSIDE RECORDS SUMMARY | 2025-03-25 12:12 | XMS_ITS | Encounter Summary ---
Author Organization [employer] ([place], [place], [place], [place]) Address [address] [place] [address] Care Team Providers Care Feltmaker And Weigher Name Role Phone Dieter Larios MD Primary Care Provider [phone] Shan Pimentel MD Primary Care Provider [phone] Encounter Details Date Type Department Care Team (Late st Contact Info) Description 04/20/2020 Transcribed Document [facility] Family Medicine [address] [place] [address] ProviderBelkys MD [address], [place] [id number] Social History Tobacco Use Types Packs/Day Years Used Date Smoking Tobacco: Never Assessed Comments Unknown Sex and Gender Information Value Date Recorded Sex Assigned at Not on file Legal Sex Female 5:07 PM CDT Gender Identity Not on file Sexual Orientation Not on file documented as of this encounter Miscellaneous Notes * Cerner Conversion Note - Belkys ProviderMD - 04/20/2020 3:02 PM CDT Event Note Entered On: 04/20/2020 15:03 EDT Performed On: 04/20/2020 15:02 EDT by EMILEE GRAY, RN Event Note Event Date/Time : 04/20/2020 14:56 EDT Description of Event : pt discharged home in stable condition, pt and spouse verbalized understanding of discharge teaching EMILEE GRAY, RN - 04/20/2020 15:02 EDT documented in this encounter Plan of Treatment Not on file documented as of this encounter Visit Diagnoses Not on filedocumented in this encounter Care Teams Feltmaker And Weigher Relationship Specialty Start Date End Date Dieter Larios MD [address] [place] [address] PCP - General Emergency Medicine 07/25/22 03/16/25 Shan Pimentel MD [address] [place] [address] PCP - General General Internal Medicine 03/17/25 documented as of this encounter
--- OUTSIDE RECORDS SUMMARY | 2025-03-25 12:12 | XMS_ITS | Encounter Summary ---
Author Organization [employer] ([place], [place], [place], [place]) Address [address] [facility] [place] [address] Care Team Providers Care Lead Burner Name Role Phone Dieter Larios MD Primary Care Provider Shan Pimentel MD Primary Care Provider [phone] Encounter Details Date Type Department Care Team (Late st Contact Info) Description 04/20/2020 Transcribed Document [facility] [place] Medicine [address] [place] [address] ProviderBelkys MD [address], [place] [id number] Social History Tobacco Use Types Packs/Day Years Used Date Smoking Tobacco: Never Assessed Comments Unknown Sex and Gender Information Value Date Recorded Sex Assigned at Not on file Legal Sex Female 5:07 PM CDT Gender Identity Not on file Sexual Orientation Not on file documented as of this encounter Miscellaneous Notes * Cerner Conversion Note - Belkys ProviderMD - 04/20/2020 1:25 PM CDT Event Note Entered On: 04/20/2020 13:25 EDT Performed On: 04/20/2020 13:25 EDT by EMILEE GRAY, RN Event Note Event Date/Time : 04/20/2020 13:25 EDT Description of Event : pt instructed to start Jardiance daily per DR. Wilkins, samples given to patient from office staff, pt verbalized understanding of dosage instructions EMILEE GRAY, RN - 04/20/2020 13:25 EDT documented in this encounter Plan of Treatment Not on file documented as of this encounter Visit Diagnoses Not on filedocumented in this encounter Care Teams Lead Burner Relationship Specialty Start Date End Date Dieter Larios MD [address] [place] [address] PCP - General Emergency Medicine 07/25/22 03/16/25 Shan Pimentel MD [address] [place] [address] PCP - General General Internal Medicine 03/17/25 documented as of this encounter
--- OUTSIDE RECORDS SUMMARY | 2025-03-25 12:12 | XMS_ITS | Encounter Summary ---
Author Organization [employer] ([place], [place], [place], [place]) Address [address] [facility] [address] [address] Care Team Providers Care Conduit Installer Name Role Phone Dieter Larios MD Primary Care Provider Shan Pimentel MD Primary Care Provider [phone] Encounter Details Date Type Department Care Team (Late st Contact Info) Description 04/20/2020 Transcribed Document [facility] Family Medicine [address] [place] [address] ProviderBelkys MD [address], [place] [id number] Social History Tobacco Use Types Packs/Day Years Used Date Smoking Tobacco: Never Assessed Comments Unknown Sex and Gender Information Value Date Recorded Sex Assigned at Not on file Legal Sex Female 5:07 PM CDT Gender Identity Not on file Sexual Orientation Not on file documented as of this encounter Miscellaneous Notes * Cerner Conversion Note - Belkys ProviderMD - 04/20/2020 12:30 PM CDT Nursing Discharge Summary Entered On: 04/20/2020 12:30 EDT Performed On: 04/20/2020 12:30 EDT by EMILEE GRAY, carbon rod inserter Documentation Discharge Date/Time : 04/20/2020 14:56 EDT EMILEE GRAY, RN - 04/20/2020 15:19 EDT Patient Disposition, General : Discharge Discharge To : Home with ambulatory/outpatient follow-up Mode Of Departure, General Discharge : Private vehicle Accompanied By, Discharge : Spouse IV Discontinued : Yes Personal Belongings With Patient : Yes Pt's Own Supply of Medications Returned : No patient supply of medications to return Prescriptions Given to Patient : No Discharge Instructions Reviewed With, Opportunity For Questions Given : Patient Patient Education Completed : Yes Teaching Method : Demonstration, Explanation Teaching Evaluation : Returns demonstration, Verbalizes understanding EMILEE GRAY, RN - 04/20/2020 12:30 EDT Electronically signed by [facility], [facility] Conversion Drying Unit Felting Machine Operator Cerner at 12/26/2022 11:15 AM CDT documented in this encounter Plan of Treatment Not on file documented as of this encounter Visit Diagnoses Not on filedocumented in this encounter Care Teams Conduit Installer Relationship Specialty Start Date End Date Dieter Larios MD [address] [place] [address] PCP - General Emergency Medicine 07/25/22 03/16/25 Shan Pimentel MD [address] [place] [address] PCP - General General Internal Medicine 03/17/25 documented as of this encounter
--- OUTSIDE RECORDS SUMMARY | 2025-03-25 12:12 | XMS_ITS | Referral Summary ---
Author Organization [employer] ([place], [place], [place], [place]) Address [address] [place] [address] Care Team Providers Care Traveling Crane Operator Name Role Phone Shan Pimentel MD Primary Care Provider Encounters Date Type Department Care Team Description 03/17/2025 1:23 PM EDT - 03/17/2025 11:59 PM EDT Hospital Encounter [facility] Non-Invasive Cardiology [address] [place] [address] Nilesh Mccarty MD CAD (coronary artery disease) Discharge Disposition: Home or Self Care 03/17/2025 Travel 03/17/2025 11:00 AM EDT - 03/17/2025 1:22 PM EDT Hospital Encounter [facility] Cardiac Catheterization Lab [address] [place] [address] Susan Christopher MD Lin, Steve, MD Athscl heart disease of pilot station cor art [facility] Discharge Disposition: Home or Self Care from Last 3 Months Allergies Active Allergy Reactions Criticality Noted Date Comments Hydrocodone Anxiety Low 07/25/2022 Medications clopidogreL (PLAVIX) 75 mg tablet clopidogrel 75 mg tablet Active atorvastatin (LIPITOR) 40 MG tablet atorvastatin 40 mg tablet Active metoprolol succinate (TOPROL-XL) 50 MG 24 hr tablet metoprolol succinate ER 50 mg tablet,extended release 24 hr Active sertraline (ZOLOFT) 100 MG tablet sertraline 100 mg tablet Active C,E,zinc,coppe r [id number]-ska (Ocuvite Adult 50 Plus) 250-5-1 mg Cap [...] Diagnosed Date Coronary artery disease invo lving pilot station coronary artery of pilot station heart with angina pectoris 07/25/2022 Abnormal nuclear stress test 07/25/2022 History of peripheral arterial disease 2 Primary hypertension 07/25/2022 Mixed hyperlipidemia 07/25/2022 Nonrheumatic mitral valve regurgitation 07/25/20 22 History of DVT (deep vein thrombosis) 07/25/2022 Carotid stenosis 07/25/2022 Class 2 obesity with body ma ss index (BMI) of 36.0 to 36.9 in adult 07/25/2022 Type 2 diabetes mellitus 07/25/2022 Social History Tobacco Use Types Packs/Day Years [...] Date Kai rded Speak language other than Danish at home Not on file 09/28/2023 Want [...] 03/17/2025 11:46 AM EDT Plan of Treatment Not on file Medical Devices Implanted Type Area Fiscal Services Director Device Identifier Shelf Expiration Date Model / Serial / Lot Stent Synergy Xd Mr [id number] IMPLANTS [employer] [id number] / / Procedures Procedure Name Priority Date/Time Associated Diagnosis Comments CARDIAC CATH - LEFT HEART CATH W/ POSSIBLE INTERVENTION Routine 03/17/2025 2:03 PM EDT Athscl heart disease of pilot station cor art w oth ang pctrs ([facility]) US GUIDED VASCULAR ACCESS Routine 03/17/2025 2:00 [...] Shan Pimentel; Dr. Susan Christopher TECHNIQUE: A 5/6-Icelandic sheath was placed in the right radial [...] Susan Christopher MD CV CARDIAC CATH ORDERABLES [facility] al Result * Ultrasound-guided vascular access (03/17/2025 2:00 PM EDT) Anatomical Region Laterality Modality Vascular Vascular Ultraso und 03/17/2025 1:45 PM EDT Narrative 03/17/2025 10:26 PM EDT Vascular Procedure Demographics Patient Name TELLO MISRTY Age 74 ELAINE Patient Number [id number] Gender Female Race Unknown Ethnicity Corporate ID [id number] Height 68 Date of 1950 Weight 217 Accession Number [id number] BSA 2.12 m^2 Room Number BMI 32.99 kg/m^2 Referring NILESH MCCARTY MD Interpreting NILESH MCCARTY MD Physician Physician [employer] Katina Betancourt RVT Procedure Type of Study: [...] Demographics Patient Name TELLO MISTRY Age 74 ELAINE Patient Number [id number] Gender Female Race Unknown Ethnicity Corporate ID [id number] Height 68 Date of 1950 Weight 217 Accession Number [id number] BSA 2.12 m^2 Room Number BMI 32.99kg/m^2 Referring NILESH MCCARTY MD Interpreting NILESH MANNING Physician Physician [employer] [place] [employer] Katina Betancourt Emy Procedure Type of Study: US GUIDED VASCULAR ACCESS : . Impressions Summary INDICATION: CAD (I25.10) ##################################### RIGHT: Ultrasound guided vascular access of the radial artery. Radial artery was 0.5 cm in depth and patent. Access was successful. ##################################### Allergies - Codeine. - Vicodin. Patient Status:Outpatient. Study Location:Portable. Technical Quality:Adequate visualization. Signature Nilesh Mccarty MD [facility] US ORDERABLES Final Result * (ABNORMAL) Chem8+ POC (03/17/2025 11:57 AM EDT) POC Sodium 143 138 - 146 mmol/L 03/17/2025 5:[address] [facility] POC Potassium 3.8 3.5 - 4.9 mmol/L 03/17/2025 5:[address] [facility] POC Chloride 106 98 - 109 mmol/L 03/17/2025 5:[address] [facility] POC Glucose 122(H) 70 - 105 mg/dL 03/17/2025 5:[address] [facility] POC BUN 17 8 - 26 mg/dL 03/17/2025 5:[address] [facility] POC Anion Gap 19 10 - 20 mmol/L 03/17/2025 5:[address] [facility] POC IONIZED CALCIUM JILLIAN 1.25 1.12 - 1.32 mmol/L 03/17/2025 5:[address] [facility] POC CO2 TOTAL JILLIAN 22(L) 24 - 29 mmol/L 03/17/2025 5:[address] [facility] POC-Creatinine 1.0 0.6 - 1.3 mg/dL 03/17/2025 5:[address] [facility] POC-EGFR 59 mL/min/1.7 3M2 03/17/2025 5:[address] [facility] Comment:Proceed with contras t if eGFR > 45 ml/min/1.73 when performed on the NovaSTAT strip Creatinine meter. POC HEMATOCRIT JILILAN 49 38 - 51 %PCV 03/17/2025 5:[address] [facility] POC HEMOGLOBIN JILLIAN 16.7 12.0 - 17.0 g/dL 03/17/2025 5:[address] [facility] Blood 03/17/2025 11:5 7 AM EDT 03/17/2025 5:[address] [facility] - 03/17/2025 5:17 PM EDT Thermal Technician ID is - [id number] us Susan Christopher MD POINT OF CARE TEST ORDERABLES Final Result [facility] [address] [phone] * Platelet count, auto (03/17/2025 11:55 AM EDT) Platelets 161 140 - 375 K/CU MM 03/17/2025 12:[address] [facility] Blood Venipuncture / Unknown 03/17/2025 11:55 AM EDT 03/17/2025 12:00 PM EDT us Marco Salcedo PA-C LAB BLOOD ORDERABLES Final Resu lt [facility] [address] [place] [address], [facility] [phone] from Last 3 Months Insurance [facility] M[facility] SUPP [facility] CLAIMS Advance Directives For more information, please contact: [phone] * Full Code (Latest Code Status on File) Date Activated Date Inactivated Comments 03/17/2025 1:15 PM 03/18/2025 4:24 AM * Full Code Date Activated Date Inactivated Comments 03/17/2025 10:28 AM 03/17/2025 1:15 PM * Full Code Date Activated Date Inactivated Comments 07/25/2022 8:22 AM 08/19/2022 11:58 PM Care Teams Traveling Crane Operator Relationship Specialty Start Date End Date Shan Pimentel MD [address] [place] [address] PCP - General General Internal Medicine 03/17/25
--- OUTSIDE RECORDS SUMMARY | 2025-03-25 12:12 | XMS_ITS | Encounter Summary ---
Author Organization [employer] ([place], [place], [place], [place]) Address [address] [place] [address] Care Team Providers Care Electronic Communications Technician Name Role Phone Dieter Larios MD Primary Care Provider [phone] hSan Pimentel MD Primary Care Provider [phone] Encounter Details Date Type Department Care Team (Late st Contact Info) Description 04/20/2020 Transcribed Document [facility] [place] Medicine [address] [place] [address] ProviderBelkys MD [address] [place] [address] Social History Tobacco Use Types Packs/Day Years Used Date Smoking Tobacco: Never Assessed Comments Unknown Sex and Gender Information Value Date Recorded Sex Assigned at Not on file Legal Sex Female 5:07 PM CDT Gender Identity Not on file Sexual Orientation Not on file documented as of this encounter Miscellaneous Notes * Cerner Conversion Note - Belkys Monsalve MD - 04/20/2020 9:00 AM CDT Patient: FEDE JAVED Age: 69 years Sex: Female : 1950 Associated Diagnoses: None Author: NILESH WILKINS MD-[facility] Basic Information Social Work Manager: Susan Christopher MD Chief Complaint Abnormal Lexiscan History of Present Illness 69 year old female with history of CAD s/p LAD stent in 2013 and 2 C since that time revealing patent stent, HTN, HLD, DMII, Mild PVD has been experiencing intermittent chest pains associated dyspnea. She also has worsening fatigue and is requiring naps. She had an extensive workup with Dr. Christopher which revealed mild carotid disease as well as ischemia per stress test. Lexiscan on 04/01/2020 At [facility]: Normal EF. Mild in intensity, moderate in size lateral reversible defect indicative of ischemia. Hypertension note. Blood pressure varied from 166/71 to 187/80 Patient presents today for elective LHC with Dr. Nilesh Wilkins. Review of Systems Constitutional: Negative except as documented in history of present illness. Eye: Negative except as documented in history of present illness. Ear/Nose/Mouth/Throat: Negative except as documented in history of present illness. Respiratory: Negative except as documented in history of present illness. Cardiovascular: Negative except as documented in history of present illness. Gastrointestinal: Negative except as documented in history of present illness. Genitourinary: Negative except as documented in history of present illness. Hematology/Lymphatics: Negative except as documented in history of present illness. Endocrine: Negative except as documented in history of present illness. Immunologic: Negative except as documented in history of present illness. Musculoskeletal: Negative except as documented in history of present illness. Integumentary: Negative except as documented in history of present illness. Neurologic: Alert and oriented X4. Psychiatric: Negative except as documented in history of present illness. Health Status Allergies (3) Active Reaction Actifed None Documented Brilinta soa Vicodin HP None Documented Home Medications (9) Active Aspirin Low Dose 81 mg oral tablet atorvastatin 40 mg oral tablet 40 mg = 1 Tab, Oral, Daily lisinopril 5 mg oral tablet 5 mg = 1 Tab, Oral, Daily metFORMIN 850 mg oral tablet 850 mg = 1 Tab, Oral, BID Metoprolol Succinate ER 50 mg oral tablet, extended release 50 mg = 1 Tab, Oral, Daily Plavix 75 mg oral tablet 75 mg = 1 Tab, Oral, Daily sertraline 100 mg oral tablet 100 mg = 1 Tab, Oral, Daily Soliqua 100/33 subcutaneous solution 50 units Vitamin D3 2,000 Units Current medications: (Selected) Documented Medications Documented Aspirin Low Dose 81 mg oral tablet: 0 Refill(s) Metoprolol Succinate ER 50 mg oral tablet, extended release: 1 Tab, Oral, Daily, 0 Refill(s) Plavix 75 mg oral tablet: 1 Tab, Oral, Daily, 90 Tab, 0 Refill(s) Soliqua 100/33 subcutaneous solution: 50 units, 0 Refill(s) Vitamin D3: 2,000 Units, 0 Refill(s) atorvastatin 40 mg oral tablet: 1 Tab, Oral, Daily, 90 Tab, 0 Refill(s) lisinopril 5 mg oral tablet: 1 Tab, Oral, Daily, 90 Tab, 0 Refill(s) metFORMIN 850 mg oral tablet: 1 Tab, Oral, BID, 0 Refill(s) sertraline 100 mg oral tablet: 1 Tab, Oral, Daily, 90 Tab, 0 Refill(s), No qualifying data available Problem list: Active Problems Anxiety CAD - Coronary artery disease Depression Diabetes mellitus GERD (gastroesophageal reflux disease) Hyperlipidemia Hypertension Left leg DVT PAD (peripheral artery disease) Peripheral neuropathy Histories No education data available. Social & Psychosocial Habits Alcohol 08/05/2015 Alcohol Use History, Social Habits No Substance Abuse 08/05/2015 Recreational Drug Use History No Recreational Drug Use Last 12 Months No Tobacco 08/05/2015 Tobacco Use Within Last Twelve Months No Past Medical History: Active CAD - Coronary artery disease (9376808100) HTN - Hypertension (7134904005) Hyperlipidemia (17488717) Diabetes mellitus (348911959) Family History: Father: () Cause of : kidney problems Age at : 74 years. Kidney disease Mother: () Cause of : heart problems Age at : 87 years. Heart disease Aneurysm Kidney disease Sister Heart disease Procedure history: Cardiac Stent on 12/21/2012 at 62 Years. Comments: 04/19/2020 18:33 YOVANI KIM RN SUMMARY: Long high-grade LAD disease in the distal vessel segment, subtending a very large area of myocardium, which has now been successfully percutaneously revascularized with three drug-eluting stents. cataract bilaterally. cholecystectomy. Colonoscopy ([id number]). left arm surgery. Comments: 08/05/2015 11:33 CHITRA RAUSCH RN plates and screws pt states. tubal ligation. Physical Examination VS/Measurements No qualifying data available General: Alert and oriented, No acute distress. Eye: Pupils are equal, round and reactive to light, Vision unchanged. HENT: Normocephalic, Oral mucosa is moist. Neck: Supple, Non-tender, No carotid bruit, No jugular venous distention. Respiratory: Lungs are clear to auscultation, Respirations are non-labored, Symmetrical chest wall expansion. Cardiovascular: Normal rate, Regular rhythm, No murmur, Good pulses equal in all extremities. Gastrointestinal: Soft, Non-distended, Normal bowel sounds. Musculoskeletal: Normal range of motion, Normal strength. Integumentary: Warm, Dry, [place]. Neurologic: Alert, Oriented. Psychiatric: Cooperative, Appropriate mood & affect. Review / Management Documentation reviewed: Records from referring physician, Reviewed prior records. Impression and Plan IMPRESSION: Recurrent CP & FC II/III dyspnea Abnormal Lexiscan Myoview (04-01-20) Normal EF. Mild in intensity, moderate in size lateral reversible defect indicative of ischemia. Hypertension note. Blood pressure varied from 166/71 to 187/80 h.o LAD stents 2012 HTN; not well controlled HLD DMII PLAN; Left Heart Catheterization with possibility of tinerventionvia right radial artery. Risks and Benefits discussed. Patient wishes to proceed. Hold Metformin 48 hr post cath. Trial of Jardiance 10 mg daily. BP log. Increase Lisinopril to 10 mg daily. Electronically signed by [employer], [facility] Conversion Media Job Titles Cerner at 12/26/2022 11:09 AM CDT documented in this encounter Plan of Treatment Not on file documented as of this encounter Visit Diagnoses Not on filedocumented in this encounter Care Teams Electronic Communications Technician Relationship Specialty Start Date End Date Dieter Larios MD [address] [place] [address] PCP - General Emergency Medicine 07/25/22 03/16/25 Shan Pimentel MD [address] [place] [address] [place] [address] PCP - General General Internal Medicine 03/17/25 documented as of this encounter
--- OUTSIDE RECORDS SUMMARY | 2025-03-25 12:12 | XMS_ITS | Encounter Summary ---
Author Organization [employer] ([place], [place], [place], [place]) Address [address] [place] [address] Care Team Providers Care Fashion Intern Name Role Phone Sahn Pimentel MD Primary Care Provider [phone] Encounter Details Date Type Department Care Team (Latest Contact Info) Description 03/17/2025 Travel Social History Tobacco Use Types Packs/Day Years [...] Date Kai rded Speak language other than Nicaraguan at home Not on file 09/28/2023 Want [...] on file documented as of this encounter Plan of Treatment Not on file documented as of this encounter Visit Diagnoses Not on filedocumented in this encounter Care Teams Fashion Intern Relationship Specialty Start Date End Date Shan Pimentel MD [address] [place] [address] PCP - General General Internal Medicine 03/17/25 documented as of this encounter
--- OUTSIDE RECORDS SUMMARY | 2025-03-25 12:12 | XMS_ITS | Encounter Summary ---
Author Organization [employer] ([place], [place], [place], [place]) Address [address] [place] [address] Care Team Providers Care Professor Of Special Education Name Role Phone Dieter Larios MD Primary Care Provider [phone] Shan Pimentel MD Primary Care Provider [phone] Encounter Details Date Type Department Care Team (Late st Contact Info) Description 04/20/2020 Transcribed Document [facility] [place] Family Medicine [address] [place] [address] ProviderBelkys MD [address], [place] [id number] Social History Tobacco Use Types Packs/Day Years Used Date Smoking Tobacco: Never Assessed Comments Unknown Sex and Gender Information Value Date Recorded Sex Assigned at Not on file Legal Sex Female 5:07 PM CDT Gender Identity Not on file Sexual Orientation Not on file documented as of this encounter Miscellaneous Notes * [employer]ner Conversion Note - Belkys ProviderMD - 04/20/2020 10:07 AM CDT Pre Procedure Adult Entered On: 04/20/2020 10:22 EDT Performed On: 04/20/2020 10:07 EDT by EMILEE GRAY RN Height and Weight, Clinical Dosing Height Source : Stated Height Entry Format : [place] Height, Feet : 5 ft(Converted to: 152 cm, 60 Inch) Height, Inches : 7 Inch(Converted to: 0 ft 7 Inch, 17.78 cm) Clinical Height : 170.18 cm Weight Source : Standing scale Weight Entry Format : [place] Clinical Dosing Weight : 105 kg Weight, Pounds : 231 lb Body Surface Area (BSA) : 2.15 m2 Body Mass Index : 36.3 kg/m2 (HI) [place] Body Weight : 61 kg EMILEE GRAY RN - 04/20/2020 10:07 EDT Health Histories Smoking Status : Never (less than 100 in lifetime; none in last 30 days) Smokeless Tobacco Status : Never EMILEE GRAY RN - 04/20/2020 10:07 EDT Social History (As Of: 04/20/2020 10:22:26 EDT) Tobacco: Use in Last 12 Months: No. (Last Updated: 08/05/2015 11:31:39 EST by CHITRA LOVE RN) Alcohol: Alcohol Use History No. (Last Updated: 08/05/2015 11:31:45 EST by CHITRA LOVE RN) Substance Abuse: Drug Use Hx: No. Use in Last 12 Months: No. (Last Updated: 08/05/2015 11:31:50 EST by CHITRA LOVE RN) Infectious Disease History Has the patient ever been tested for COVID-19? : Yes, Patient stated results Negative Date of COVID-19 test known? : Yes Date of COVID-19 Test : 04/17/2020 EDT Does patient have symptoms of COVID-19? : No COVID19 Screening : No Experiencing Infectious Disease Symptoms : No symptoms Physical contact outside [place] in the last 30 days : No Infectious Disease History : Chicken pox/Shingles, Influenza, Measles, Mumps Tuberculosis Symptoms : None EMILEE GRAY RN - 04/20/2020 10:07 EDT COVID19 PreProcedure Screening Is this an Emergent or Add on Procedure? : No Has patient been isolated since the test : Yes Exposed to COVID19 symptoms since test? 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 EMILEE GRAY RN - 04/20/2020 10:07 EDT Blanket Suicide Severity Rating Scale (C-SSRS) CSSRS Past Month Wish to be : No CSSRS Past Month Suicidal Thoughts : No CSSRS Lifetime Suicide Behavior : No Suicide Severity Rating Score : 0 Suicide Severity Rating : No Additional Care Required at this time EMILEE GRAY RN - 04/20/2020 10:07 EDT Psychosocial History Currently in Unsafe Situation : No EMILEE GRAY RN - 04/20/2020 10:07 EDT Advance Directive Patient has Advance Directive *Q : Yes, Advance Directive not with the patient Advance Directive Type : Living will Copy Advance Directive Verified/on Chart : No EMILEE GRAY RN - 04/20/2020 10:07 EDT Teaching/Learning Assessment Barriers To Learning : None evident Individuals Taught : Patient Readiness to Learn : Cooperative Baseline Knowledge of Topic : Limited Readiness to Learn : Demonstration, Explanation Learning Style Preferences Patient : None Learning Style Preferences Family : None EMILEE GRAY RN - 04/20/2020 10:07 EDT Education Topics, Periop Preadmission Perioperative Education Grid Arrival Time/Place : Verbalizes understanding, Returns demonstration CAUTI : Verbalizes understanding, Returns demonstration Central Lines : Verbalizes understanding, Returns demonstration CHG Preoperative Bathing/Cloths : Verbalizes understanding, Returns demonstration Falls : Verbalizes understanding, Returns demonstration Incentive Spirometry : Verbalizes understanding, Returns demonstration Infection Control : Verbalizes understanding, Returns demonstration IV's : Verbalizes understanding, Returns demonstration NPO Status/Directions : Verbalizes understanding, Returns demonstration Pain Management : Verbalizes understanding, Returns demonstration Postoperative Care Preparations : Verbalizes understanding, Returns demonstration Preprocedure Preparations : Verbalizes understanding, Returns demonstration Preprocedure Tests/Labs : Verbalizes understanding, Returns demonstration Remove Body Piercings : Verbalizes understanding, Returns demonstration Responsible Adult : Verbalizes understanding, Returns demonstration Take/Hold Medications Pre-Procedure : Verbalizes understanding, Returns demonstration Other : Verbalizes understanding, Returns demonstration EMILEE GRAY RN - 04/20/2020 10:07 EDT General Info Arrived From : Home Mode of Arrival on Unit : Ambulatory Legal Guardian : Unaccompanied Support Person/Pt Rep Name : Vamsi, spouse Support Person/Pt Rep Contact Information : [phone] Want Family/Rep/Phys Notified of Admit : No Emergency Contact #1 : see above Emergency Contact #1 Phone Number : na Emergency Contact #1 Relationship : na Emergency Contact #2 : none Emergency Contact #2 Phone Number : na Emergency Contact #2 Relationship : na Information Obtained From : Patient Primary Language : [place] Communication Barrier : None Product Development Needed : No EMILEE GRAY RN - 04/20/2020 10:07 EDT Vital Measurements Temperature Source : Temporal artery scanning Temperature Mode : Fahrenheit Temperature, Fahrenheit : 97.8 Deg F Clinical Temperature, C : 36.6 Deg C Peripheral Pulse Rate : 60 bpm Systolic Blood Pressure : 140 mmHg Diastolic Blood Pressure : 69 mmHg Oxygen Saturation : 95 % Oxygen Therapy Mode : Room air EMILEE GRAY RN - 04/20/2020 10:07 EDT Sleep Apnea Risk Assmt Hx of Obstructive Sleep Apnea Diagnosis : No Snore Loudly : No Tired, Fatigued, or Sleepy During Day : No Observed Stopping Breathing During Sleep : No Have/Are Being Treated for Hypertension : Yes BMI Greater Than 35 kg/m2 : No Age over 50 Years Old : Yes Neck Circumference Greater Than 40 cm : Yes Gender Male : No STOP-BANG Sleep Apnea Risk Level Score : 3 EMILEE GRAY RN - 04/20/2020 10:07 EDT Jp Scale Jp Sensory Perception : No impairment Jp Moisture : Rarely moist Jp Activity : Walks occasionally Jp Mobility : Slightly limited Jp Nutrition : Adequate Jp Friction and Shear : Potential problem Jp Score : 19 EMILEE GRAY RN - 04/20/2020 10:07 EDT Oxygen Therapy Oxygen Therapy Mode : Room air EMILEE GRAY RN - 04/20/2020 10:07 EDT Pain Assessment Pain Assessment : Initial assessment Pain Scale Used : 0-10 Scale EMILEE GRAY RN - 04/20/2020 10:07 EDT Fall Risk Scales ABCs Fall Injury Risk Identification : None KRISHNAMURTHY Hx Falls Immediate/Within 3 Months : No Krishnamurthy Secondary Diagnosis : Yes KRISHNAMURTHY Use of Ambulatory Aid : None KRISHNAMURTHY IV Therapy or IV Access : Yes Krishnamurthy Gait/Transferring : Normal, bedrest, immobile Krishnamurthy Mental Status : Oriented to own ability Krishnamurthy Fall Risk Score : 35 KRISHNAMURTHY Fall Scale Risk Level : 25-45 Medium Risk [place] Fall Interventions : Adequate lighting, Bed in low position, Call device within reach, Hourly comfort/safety rounds, Non-slip footwear, Personal items within reach, Room free of clutter/spills, Wheels locked, Wires/Cords secured EMILEE GRAY, RN - 04/20/2020 10:07 EDT Valuables and Belongings Valuables and Belongings : Clothing, Personal devices, Personal items, Medications, No comfort items, No jewelry, No personal devices, No assistive devices, No respiratory devices Clothing : Common streetwear Clothing Disposition : Bedside Personal Device Disposition : With patient, Declines to send to security/safe Personal Devices : Glasses Personal Items : Cell phone Personal Items Disposition : Bedside, With patient, Declines to send to security/safe Medication Disposition : Bedside, With patient, Declines to send to security/safe Medication Brought With Patient : Yes Belongings Disposition Comment : pt denies having any valuables that need locked in hospital safe EMILEE GRAY, RN - 04/20/2020 10:07 EDT Pain Scale Intensity : 0 EMILEE GRAY, RN - 04/20/2020 10:07 EDT Image 4 - Images currently included in the form version of this document have not been included in the text rendition version of the form. Electronically signed by [facility] Conversion Data Solutions Architect Cerner at 12/26/2022 11:15 AM CDT documented in this encounter Plan of Treatment Not on file documented as of this encounter Visit Diagnoses Not on filedocumented in this encounter Care Teams Professor Of Special Education Relationship Specialty Start Date End Date Dieter Larios MD [address] [place] [address] PCP - General Emergency Medicine 07/25/22 03/16/25 Shan Pimentel MD [address] [place] [id number] PCP - General General Internal Medicine 03/17/25 documented as of this encounter
--- OUTSIDE RECORDS SUMMARY | 2025-03-25 12:12 | XMS_ITS | Encounter Summary ---
Author Organization [employer] ([place], [place], [place], [place]) Address [address] [place] [address] Care Team Providers Care Primary Counselor Name Role Phone Dieter Larios MD Primary Care Provider [phone] Shan Pimentel MD Primary Care Provider [phone] Encounter Details Date Type Department Care Team (Late st Contact Info) Description 04/20/2020 Transcribed Document [facility] [place] [address] [place] [address] ProviderBelkys MD [address], [place] [id number] Social History Tobacco Use Types Packs/Day Years Used Date Smoking Tobacco: Never Assessed Comments Unknown Sex and Gender Information Value Date Recorded Sex Assigned at Not on file Legal Sex Female 5:07 PM CDT Gender Identity Not on file Sexual Orientation Not on file documented as of this encounter Miscellaneous Notes * [employer]ner Conversion Note - Historical ProviderMD - 04/20/2020 2:36 PM CDT Event Note Entered On: 04/20/2020 14:37 EDT Performed On: 04/20/2020 14:36 EDT by EMILEE GRAY, RN Event Note Event Date/Time : 04/20/2020 14:36 EDT Description of Event : 2 hrs post procedure fluids finished , 200ml total volume given EMILEE GRAY, RN - 04/20/2020 14:36 EDT documented in this encounter Plan of Treatment Not on file documented as of this encounter Visit Diagnoses Not on filedocumented in this encounter Care Teams Primary Counselor Relationship Specialty Start Date End Date Dieter Larios MD [address] [place] [address] PCP - General Emergency Medicine 07/25/22 03/16/25 Shan Pimentel MD [address] [place] [address] PCP - General General Internal Medicine 03/17/25 documented as of this encounter
--- OUTSIDE RECORDS SUMMARY | 2025-03-25 12:12 | XMS_ITS | Encounter Summary ---
Author Organization [employer] ([place], [place], [place], [place]) Address [address] [place] [address] Care Team Providers Care Front Office Spec Name Role Phone Dieter Larios MD Primary Care Provider [phone] Shan Pimentel MD Primary Care Provider [phone] Encounter Details Date Type Department Care Team (Late st Contact Info) Description 04/20/2020 Transcribed Document [facility] [place] [facility] [address] [place] [address] ProviderBelkys MD [address] [place] [address] Social History Tobacco Use Types Packs/Day Years [...] Monsalve MD - 04/20/2020 2:29 PM CDT [facility] [place] [id number] LATRICIA FEDEHelen HENRY :1950 Visit Time:04/20/2020 Your Visit Summary Your Care Team Admitting Physician - NILESH MCCARTY MD-CAR Attending Physician - NILESH MCCARTY MD-CAR Primary Care Physician - NEGRITO ANGELES (REF), -MED Referring Physician - NILESH MCCARTY MD-CAR Your Diagnosis Abnormal result of other cardiovascular function study, Abnormal result of other cardiovascular function study Discharge Vitals Temperature 36.6 ??C Heart Rate (Monitored) 54 Respiratory Rate 16 Blood Pressure 119/58 What to do next Instructions From Your Care Team Do not drive for the next 24 hours. Follow a heart healthy diet. Refer to post radial cardiac cath info sheet regarding right wrist site care. Follow-Up Appointments Follow Up with RYAN MONTGOMERY MD-INT When Within 2 to 3 days Comments as previously scheduled Where: [address] [place] [id number]- Medications What How Much When Instructions Next Dose aspirin (Aspirin Low Dose 81 mg oral tablet) atorvastatin (atorvastatin 40 mg oral tablet) 2 Tablet(s) Oral At Bedtime clopidogrel (Plavix 75 mg oral tablet) 1 Tablet(s) Oral At Bedtime insulin glargine-lixisenatide (Soliqua 100/ 33 subcutaneous solution) 50 units SubCutaneous Every Morning lisinopril (lisinopril 5 mg oral tablet) 1 Tablet(s) Oral At Bedtime metFORMIN (metFORMIN 850 mg oral tablet) 1 Tablet(s) Oral Two Times A Day metoprolol (Metoprolol Succinate ER 50 mg oral tablet, extended release) 1 Tablet(s) Oral At Bedtime sertraline (sertraline 100 mg oral tablet) 1 Tablet(s) Oral At Bedtime Take your medications faithfully. Do NOT skip medication. Do NOT stop taking medications without the direction of a physician. Carry a list of your medications with you at all times, and take this medication list with you to your first follow up visit. Report any side effects. Avoid herbal remedies unless discussed with your physician. As part of your treatment plan, your physician may have prescribed a limited course of a controlled substance. This medication may be given to help people with moderate or severe pain or for other medical conditions, but there are risks involved with treatment. Common side effects may include nausea, constipation, drowsiness, sweating, itching, dry mouth, and rash. More serious side effects may include cognitive and motor impairment, like problems with thinking, concentrating, alertness, and movement (e.g. slowed reflexes), and driving and operating heavy machinery can be dangerous. It is important for you to talk to your physician if you have these side effects or questions. These controlled substances can produce physical dependence and be habit-forming if taken for an extended period of time, which means that the body has gotten used to them and may experience withdrawal symptoms if they are abruptly stopped. Withdrawal symptoms can include runny nose, sweating, goose bumps, diarrhea, abdominal cramping, rapid heartbeat, difficulty sleeping, and nervousness. Please dispose of unused and medications per your retail pharmacy guidance. Allergies Actifed Brilinta (soa) Vicodin HP codeine (nausea, nausea) Immunizations This Visit No Immunizations Found Education Materials Heart-Healthy Eating Plan Many factors influence your [...] plate with lean protein foods. ??? Eat 4???5 servings of vegetables per day. One serving equals 1 cup raw or cooked vegetable, or 2 cups raw leafy greens. ??? Eat 4???5 servings of fruit per day. One serving equals 1 medium whole fruit, ?? cup dried fruit, ?? cup fresh, frozen, or canned fruit, or ?? cup 100% fruit juice. ??? Eat more foods that contain soluble fiber. Examples include apples, broccoli, carrots, beans, peas, and barley. Aim to get 25???30 g of fiber per day. ??? Increase your consumption of legumes, nuts, and seeds to 4???5 servings per week. One serving of dried beans or legumes equals ?? cup cooked, 1 serving of nuts is ?? cup, and 1 serving of seeds equals [...] weight if you are overweight. Losing just 5???10% of your body weight can help your [...] Fats and oils Meat fat, or shortening. [place] butter, hydrogenated oils, palm oil, coconut oil, [...] weight if you are overweight. Losing just 5???10% of your body weight can help your [...] 06/06/2009 Document Revised: 10/05/2018 Document Reviewed: 10/05/2018 [employer] Patient Education ?? 2020 [employer] Radial Site Care This sheet gives you [...] these instructions at home: Medicines ??? Take styb-ywm-rspqvou and prescription medicines only as told by your health care provider. Insertion site care ??? Follow instructions from your health care provider about how to take care of your insertion site. Make sure you: ? Wash your hands with soap and water before you change your bandage (dressing). If soap and water are not available, use hand a/c tech. ? Change your dressing as told by [...] care provider approves. ??? You may shower 24???48 hours after the procedure, or as directed [...] 09/30/2011 Document Revised: 10/03/2018 Document Reviewed: 10/03/2018 [employer] Patient Education ?? 2020 [employer] Moderate Conscious Sedation, Adult, Care After [...] you are awake and alert. ??? Take pyvb-xwc-pejikav and prescription medicines only as told by [...] 06/18/2014 Document Revised: 08/10/2018 Document Reviewed: 12/17/2016 [employer] Patient Education ?? 2020 [employer]. Coronary Angiogram A coronary angiogram is an [...] including vitamins, herbs, eye drops, creams, and keqi-ywp-nzzgota medicines. ??? Any problems you or family [...] Up to 2 hours before the procedure ??? you may continue to drink clear liquids, such as water, clear fruit juice, black coffee, and plain tea. Eating and drinking restrictions Follow instructions from your health care provider about eating and drinking, which may include: ??? 8 hours before the procedure ??? stop eating heavy meals or foods such as meat, fried foods, or fatty foods. ??? 6 hours before the procedure ??? stop eating light meals or foods, such as toast or cereal. ??? 2 hours before the procedure ??? stop drinking clear liquids. General instructions ??? [...] 03/03/2004 Document Revised: 08/10/2018 Document Reviewed: 06/09/2017 [employer] Patient Education ?? 2020 [employer]. empagliflozin (SATINDER olivera) Jardiance What is the most important information I should know about empagliflozin? You should not use empagliflozin if you have severe kidney disease, or if you are on dialysis. Taking empagliflozin can make you dehydrated, which could cause you to feel weak or dizzy (especially when you stand up). Empagliflozin can cause serious infections in the penis or vagina. Get medical help right away if you have burning, itching, odor, discharge, pain, tenderness, redness or swelling of the genital or rectal area, fever, or if you don't feel well. What is empagliflozin? Empagliflozin is used together with diet and exercise to improve blood sugar control in adults with type 2 diabetes mellitus. Empagliflozin is also used to lower the risk of from heart attack, stroke, or heart failure in adults with type 2 diabetes who also have heart disease. Empagliflozin is not for treating type 1 diabetes. Empagliflozin may also be used for purposes not listed in this medication guide. What should I discuss with my healthcare provider before taking empagliflozin? You should not use empagliflozin if you are allergic to it, or if you have: ?? severe kidney disease (or if you are on dialysis). Tell your doctor if you have ever had: ?? liver or kidney disease; ?? bladder infections or other urination problems; ?? low blood pressure; ?? heart problems; ?? problems with your pancreas, including surgery; ?? if you drink alcohol often; or ?? if you are on a low salt diet. Follow your doctor's instructions about using this medicine if you are or you become . Controlling diabetes is very important during , and having high blood sugar may cause complications in both the mother and the baby. You should not use empagliflozin during the second or third trimester of . You should not breastfeed while using this medicine. Empagliflozin is not approved for use by anyone younger than 18 years old. How should I take empagliflozin? Follow all directions on your prescription label and read all medication guides or instruction sheets. Your doctor may occasionally change your dose. Use the medicine exactly as directed. You may take empagliflozin with or without food. Call your doctor if you are sick with vomiting or diarrhea, if you consume less food or fluid than usual, or if you are sweating more than usual. Your blood sugar will need to be checked often, and you may also need to test the level of ketones your urine. Empagliflozin can cause life-threatening ketoacidosis (too much acid in the blood). Even if your blood sugar is normal, contact your doctor if a urine test shows that you have ketones in the urine. You may have low blood sugar (hypoglycemia) and feel very hungry, dizzy, irritable, confused, anxious, or shaky. To quickly treat hypoglycemia, eat or drink a fast-acting source of sugar (fruit juice, hard candy, crackers, raisins, or non-diet soda). Your doctor may prescribe a glucagon injection kit in case you have severe hypoglycemia. Be sure your family or close friends know how to give you this injection in an emergency. Also watch for signs of high blood sugar (hyperglycemia) such as increased thirst or urination. Blood sugar levels can be affected by stress, illness, surgery, exercise, alcohol use, or skipping meals. Ask your doctor before changing your dose or medication schedule. This medicine can affect the results of certain medical tests. Tell any doctor who treats you that you are using empagliflozin. Empagliflozin is only part of a treatment program that may also include diet, exercise, weight control, blood sugar testing, and special medical care. Follow your doctor's instructions very closely. Store at room temperature away from moisture and heat. What happens if I miss a dose? Take the medicine as soon as you can, but skip the missed dose if it is almost time for your next dose. Do not take two doses at one time. What happens if I overdose? Seek emergency medical attention or call the Poison Help line at . What should I avoid while taking empagliflozin? Avoid getting up too fast from a sitting or lying position, or you may feel dizzy. What are the possible side effects of empagliflozin? Get emergency medical help if you have signs of an allergic reaction: hives; difficult breathing; swelling of your face, lips, tongue, or throat. Seek medical attention right away if you have signs of a genital infection (penis or vagina): burning, itching, odor, discharge, pain, tenderness, redness or swelling of the genital or rectal area, fever, not feeling well. These symptoms may get worse quickly. Call your doctor at once if you have: ?? little or no urination; ?? dehydration symptoms--dizziness, weakness, feeling light-headed (like you might pass out); ?? ketoacidosis (too much acid in the blood)--nausea, vomiting, stomach pain, confusion, unusual drowsiness, or trouble breathing; or ?? signs of a bladder infection--pain or burning when you urinate, increased urination, blood in your urine, fever, pain in your pelvis or back. Older adults may be more likely to have side effects from this medicine. Common side effects may include: ?? bladder infection; or ?? vaginal yeast infection. This is not a complete list of side effects and others may occur. Call your doctor for medical advice about side effects. You may report side effects to FDA at 6-516-VKR-5645. What other drugs will affect empagliflozin? Tell your doctor about all your other medicines, especially: ?? insulin or other oral diabetes medications; or ?? a diuretic or 'water pill.' This list is not complete. Other drugs may affect empagliflozin, including prescription and dzcv-tiy-pdbpdqp medicines, vitamins, and herbal products. Not all possible drug interactions are listed here. Where can I get more information? Your pharmacist can provide more information about empagliflozin. Remember, keep this and all other medicines out of the reach of children, never share your medicines with others, and use this medication only for the indication prescribed. Every effort has been made to ensure that the information provided by [employer]. ('[employer]') is accurate, up-to-date, and complete, but no guarantee is made to that effect. Drug information contained herein may be time sensitive. [employer] information has been compiled for use by healthcare practitioners and consumers in the [place] and therefore [employer] does not warrant that uses outside of the [place] are appropriate, unless specifically indicated otherwise. [employer] drug information does not endorse drugs, diagnose patients or recommend therapy. [employer] drug information is an informational resource designed to assist licensed healthcare practitioners in caring for their patients and/or to serve consumers viewing this service as a supplement to, and not a substitute for, the expertise, skill, knowledge and judgment of healthcare practitioners. The absence of a warning for a given drug or drug combination in no way should be construed to indicate that the drug or drug combination is safe, effective or appropriate for any given patient. [employer] does not assume any responsibility for any aspect of healthcare administered with the aid of information [employer] provides. The information contained herein is not intended to cover all possible uses, directions, precautions, warnings, drug interactions, allergic reactions, or adverse effects. If you have questions about the drugs you are taking, check with your doctor, nurse or pharmacist. Copyright 7859-6131 [facility]. Version: 3.02. Revision Date: 12/10/2019. Emergency Awareness and Preventative Care STROKE is an EMERGENCY Every Minute Counts Act FAST and Check for these signs: FACE Does the face look uneven? ARM Does one arm drift down? SPEECH Does their speech sound strange? TIME Call at any sign of stroke Stroke Risk Factors Atrial Fibrillation (irregular heartbeat) Diabetes Family history of stroke Heart Disease Heavy alcohol use High Blood Pressure High Cholesterol Physical inactivity and obesity Smoking Cigarette Smoking The facts are clear, cigarette smoking will shorten your life. Smoking can cause many illnesses along the way. As a healthcare provider, we recommend that you stop smoking. Assistance with quitting is available by contacting 2-536-OUON-NOW. This is a free resource providing counseling, support, and referral. Or you may contact your personal physician. National Suicide Prevention Lifeline: The National Suicide Prevention Lifeline is a national network of local crisis centers that provides free and confidential emotional support to people in suicidal crisis or emotional distress 24 hours a day, 7 days a week. Don't Wait! Stop a Heart Attack Before it Starts What is a heart attack? A heart attack is damage or to a part of the heart from severely decreased or lack of blood flow to the heart. Over time, arteries can become narrow from the buildup of fat and cholesterol, which is called plaque. The plaque can rupture causing a blood clot to form. When the blood clot forms, the artery can become severely narrowed or completely blocked, causing a heart attack. Heart attack is the leading cause of in the [place]. 85% of muscle damage occurs within the first 2 hours. Delay in the recognition of heart attack symptoms increases the chances of . Know the early symptoms of a heart attack: Nausea Feeling of fullness in chest Jaw Pain Pain that travels down one or both arms Fatigue/being tired Anxiety Back Pain Chest pressure, squeezing, or discomfort Shortness of breath Sweating, or a cold sweat Feeling of impending doom There are unusual signs of a heart attack, too! Women, the elderly, and diabetics may present with atypical symptoms: Fainting/dizziness Weakness Confusion Risk Factors for a Heart Attack Some heart disease risk factors, such as age and family history, cannot be changed. Others, like smoking and lack of exercise, can be changed. Smoking High Cholesterol High Blood Pressure Family History Obesity Age Gender (Males are at higher risk) Lack of Exercise Diabetes Diet Stress Excessive Alcohol Intake If you or someone you know is experiencing the signs and symptoms of a heart attack, DON???T DELAY. Call immediately and seek help. If someone collapses, perform CPR! Do not attempt to drive if you are having symptoms of heart attack. Hands-Only CPR Why Hands-Only CPR? Hands-Only CPR has been shown to be as effective as conventional CPR for cardiac arrests that occur outside of a hospital. Survival depends on immediately receiving CPR from someone nearby. How do you perform Hands-Only CPR? There are two easy steps: Call if you see a teen or adult collapse Push hard and fast in the center of the chest at a beat of 100 beats per minute. Save a life! 4 WAYS TO GET AHEAD OF SEPSIS SEPSIS is a MEDICAL EMERGENCY. Time matters! Infections put you and your family at risk for a life-threatening condition called sepsis. Sepsis is the body's extreme response to an infection. It is life-threatening, and without timely treatment, sepsis can rapidly lead to tissue damage, organ failure, and . Sepsis happens when an infection you already have-in your skin, lungs, urinary tract or somewhere else-triggers a chain reaction throughout your body. 1 PREVENT INFECTIONS Take good care of chronic conditions. Talk to your doctor about getting the recommended vaccines. 2 PRACTICE GOOD HYGIENE Wash your hands frequently. Keep cuts or open sores clean and covered until they are healed. 3 KNOW THE SYMPTOMS Confusion or disorientation Shortness of breath High heart rate Fever, shivering, or feeling very cold Extreme pain or discomfort Clammy or sweaty skin 4 ACT FAST Get medical care IMMEDIATELY if you suspect sepsis or if you have an infection that is not getting better or is getting worse. To learn more about sepsis and how to prevent infections, visit www.cdc.gov/sepsis. Test Results Laboratory or Other Results This Visit (last charted value for your 04/20/2020 visit) Hematology 04/20/2020 9:48 AM Platelet Count: 194 K/uL -- Normal range between ( 163 and 369 ) Microbiology 04/17/2020 12:00 PM Novel Coronavirus 2019: Not Detected Vascular Ultrasound 04/20/2020 11:40 AM VL Vascular Access: VL Vascular Access Patient Name:FEDE JAVED I have received and understand this information and was given the opportunity to ask questions. Patient/Ekg/Ecg Technician Name: Patient/Ekg/Ecg Technician Signature: Relationship to Patient: Clinician/Hospital Ekg/Ecg Technician Signature: Date: documented in this encounter Plan of Treatment Not on file documented as of this encounter Visit Diagnoses Not on filedocumented in this encounter Care Teams Front Office Spec Relationship Specialty Start Date End Date Dieter Larios MD [address] [place] [address] PCP - General Emergency Medicine 07/25/22 03/16/25 Shan Pimentel MD [address] [place] [address] PCP - General General Internal Medicine 03/17/25 documented as of this encounter
== END 2025-03-24 23:59 | disposition home or self-care (01) ==
LOC: LAB.DROPOF 03-25 12:10
PROVIDERS: PCP Podiatrist; Visit Provider Podiatrist
DX: E11.621 Type 2 diabetes mellitus with foot ulcer (principal); L97.512 Non-pressure chronic ulcer of other part of right foot with fat layer exposed
CPT/HCPCS: 87070; 87077; 87205

== ENCOUNTER 2025-04-09 11:00 | Outpatient (CLI) | payer MEDICARE, SELFPAY ==
--- OUTSIDE RECORDS SUMMARY | 2025-02-17 13:30 | XMS_ITS | Encounter Summary ---
[facility] Address [address] [place] [id number] Care Team Providers Care Client Care Specialist Name Role Phone Shan Pimentel MD Primary Care Provider [phone] Reason for Visit * Reason Comments Coronary Artery Disease Pt states she is here today for follow up CAD. Does have some chest pain that does not last very long. She states it comes and goes. Hypertension Pt states she is her e today for follow up HTN. 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 (Primary Dx); Precordial chest pain; Hypertension, essential Social History Tobacco Use Types Packs/Day Years Used Date Smoking Tobacco: Never Passive Smoke Exposure: Never Smokeless Tobacco: Never Tobacco Cessation:Counseling Given: Yes Alcohol Use Standard Drinks/Week Comments No 0 (1 standard drink = 0.6 oz pur e alcohol) PHQ-2 Answer Date Recorded Patient Health Questionnaire-2 Score 0 07/23/2024 Comments No Sex and Gender Information Value Date Recorded Sex Assigned at Female 11/23/2024 1:23 PM EDT Legal Sex Female 10:12 AM EDT Gender Identity Not on file Sexual Orientation Straight 11/23/2024 1: 23 PM EDT Occupation Industry Job Start Date Job End Date RETIRED Not on file Not on file Not on file documented as of this encounter Last Filed Vital Signs Vital Sign Reading Time Taken Comments Blood Pressure 120/64 02/17/2025 1:41 PM EDT Pulse 93 02/17/2025 1:41 PM EDT Temperature - - Respiratory Rate - - Oxygen Saturation 94% 02/17/2025 1:41 PM EDT Inhaled Oxygen Concentration - - Weight 99.8 kg (220 lb) 02/17/2025 1:41 PM EDT Height 170.2 cm (5' 7 ) 02/17/2025 1:41 PM EDT Body Mass Index 34.46 02/17/2025 1:41 PM EDT documented in this encounter Progress Notes * Susan Christopher MD - 02/17/2025 1:30 PM EDTAssociated Order(s): ECG 12 Lead Post-Procedure Diagnose(s): 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 [facility] Provider Note Date: 02/17/2025 Name: Tiffany Javed : 1950 PCP: Shan Pimentel MD Chief Complaint Patient presents with Coronary Artery Disease Pt states she is here today for follow up CAD. Does have some chest pain that does not last very long. She states it comes and goes. Hypertension Pt states she is here today for follow up HTN. Subjective History of Present Illness Tiffany Javed is a 74 y.o. female who presents today for CAD On occasion does have chest pain right over the left side of chest. Feels deep. Startles her when it starts. Last 5 minutes to 1/2 hour. States that she gets weak and scared with it and that will make her shake.Getting worse and she is concerned about it. Any major exertion will make her have palpitations. EKG updated today. Will have dizzy spells. States that she can have these while walking. Has to sit down or hold on tosomething to get bearings. Does not have good balance and reports falls a lot. Does not recall passing out. Feels like she sleeps to sound after having a bad feeling and wonders if that could have been passing out but reports that has not had any real syncopal events. Has reported some hands and ankle swelling. Same in nature. When wears socks will leave prints. Has occasional shortness of air. Has been able to feel with exertion and while resting. No worsening. Has stated that does not want to repeat a sleep test or stress test Reports that gets selling behind the retina and has been getting shots in eyes for about 2 years and reports that the left is the worst. Right eye gets a different shot and it is as good as it is going to get. Does report that there is a type of surgery that he is going to look at the next visit. Dr Mike Rodriges at [facility]. Has concerns over gaining 7 pounds. Reports that is eating more and decrease activity. Does not have any toes on the right foot and that contributes to a lot of her problems with activity. Has cane for balance. Does not use at home just when out. No other concerns or issues. 02/17/2025 Updated Cardiology/Sleep history 1. CAD -2012 XAVIRE to LAD -07/[address] [facility] [address]. Wilkins LAD XAVIER 3.0x12mm Synergy stent -10/05/22 nuclear stress low risk -03/24/24 nuclear stress low risk 2. PAD 3. DMT2 4. HTN 5. Toe amputations 6. DVT remote, PE 10/2022 7. Mild to moderate mitral regurgitation 06/2022, EF normal 8. Mild pulmonary HTN Allergies Allergen Reactions Codeine Other (See Comments) Hydrocodone Anxiety and Unknown - Low Severity Current Outpatient Medications: atorvastatin (LIPITOR) 80 MG tablet, TAKE 1 TABLET BY MOUTH ONCE DAILY, Disp: 90 tablet, Rfl: 3 clopidogrel (PLAVIX) 75 MG tablet, , Disp: , Rfl: Farxiga 10 MG tablet, TAKE 1 TABLET BY MOUTH DAILY, Disp: 90 tablet, Rfl: 3 Insulin Glargine (LANTUS SOLOSTAR) 100 UNIT/ML injection pen, Inject 60 Units under the skin into the appropriate area as directed Daily., Disp: 30 mL, Rfl: 3 lisinopril (PRINIVIL,ZESTRIL) 5 MG tablet, Take 1 tablet by mouth Daily., Disp: 90 tablet, Rfl: 3 metoprolol succinate XL (TOPROL-XL) 50 MG 24 hr tablet, Take 1 tablet by mouth Daily., Disp: , Rfl: montelukast (SINGULAIR) 10 MG tablet, TAKE 1 TABLET BY MOUTH EVERY NIGHT, Disp: 90 tablet, Rfl: 3 Multiple Vitamins-Minerals (OCUVITE ADULT 50+ PO), Take by mouth., Disp: , Rfl: Ozempic, 2 MG/DOSE, 8 MG/3ML solution pen-injector, INJECT SUBCUTANEOUSLY 2 MG EVERY WEEK INTO THE ABDOMEN, THIGH OR OUTER AREA OF UPPER ARM (ROTATE SITES), Disp: 9 mL, Rfl: 3 sertraline (ZOLOFT) 100 MG tablet, , Disp: , Rfl: doxycycline (VIBRAMYCIN) 100 MG capsule, , Disp: , Rfl: fluconazole (DIFLUCAN) 100 MG tablet, , Disp: , Rfl: Past Medical History: Diagnosis Date Ankle sprain Arm fracture X2 Arthritis Arthritis of back Arthritis of neck Athscl heart disease of rosebud cor art w oth ang pctrs Athscl heart disease of rosebud coronary artery w/o ang pctrs Athscl rosebud arteries of extrm w intrmt rere, bi legs CAD (coronary artery disease) Carotid stenosis Cataracts, bilateral Cervical disc disorder Diabetes mellitus Dizziness and giddiness DVT (deep venous thrombosis) Fracture of ankle Fracture, foot GERD (gastroesophageal reflux disease) Heart disease Hip arthrosis Hyperlipidemia Knee swelling Low back pain Low back strain Lumbosacral disc disease Nonrheumatic mitral (valve) insufficiency Obstructive sleep apnea (adult) (pediatric) Occlusion and stenosis of bilateral carotid arteries Other hypersomnia Other pulmonary embolism with acute cor pulmonale Other secondary pulmonary hypertension PAD (peripheral artery disease) Periarthritis of shoulder Precordial pain Pure hypercholesterolemia Supraventricular tachycardia Tear of meniscus of knee Tennis elbow Thoracic disc disorder Type 2 diabetes mellitus without complication DIANOSED 10 YEARS Past Surgical History: Procedure Laterality Date AMPUTATION Right middle toe CARDIAC CATHETERIZATION CATARACT EXTRACTION Bilateral CHOLECYSTECTOMY CORONARY ANGIOPLASTY FOOT SURGERY LUNG BIOPSY TOE AMPUTATION Right GREAT TOE TRIGGER POINT INJECTION TUBAL ABDOMINAL LIGATION Family History Problem Relation Age of Onset Heart disease Mother Arthritis Mother Kidney disease Mother Kidney disease Father Cancer Sister Breast cancer Diabetes Sister Diabetes Sister Heart disease Sister Depression Sister Diabetes Sister Social History Socioeconomic History Marital status: Number of children: 1 Tobacco Use Smoking status: Never Passive exposure: Never Smokeless tobacco: Never Vaping Use Vaping status: Never Used Substance and Sexual Activity Alcohol use: No Drug use: No Sexual activity: Not Currently Partners: Male control/protection: Condom, Tubal ligation, Pill, Surgical Objective Vital Signs: BP 120/64 (BP Location: Right arm, Patient Position: Sitting, Cuff Size: Adult) Pulse 93 Ht 170.2 cm (67 ) Wt 99.8 kg (220 lb) SpO2 94% BMI 34.46 kg/m?? Estimated body mass index is 34.46 kg/m?? as calculated from the following: Height as of this encounter: 170.2 cm (67 ). Weight as of this encounter: 99.8 kg (220 lb). Physical Exam Constitutional: Appearance: Normal appearance. She is well-developed. HENT: Head: Normocephalic and atraumatic. Eyes: General: No scleral icterus. Pupils: Pupils are equal, round, and reactive to light. Cardiovascular: Rate and Rhythm: Normal rate and regular rhythm. Heart sounds: Normal heart sounds. No murmur heard. Pulmonary: Breath sounds: Normal breath sounds. No wheezing or rhonchi. Musculoskeletal: Right lower leg: No edema. Left lower leg: No edema. Skin: Capillary Refill: Capillary refill takes less than 2 seconds. Coloration: Skin is not cyanotic. Nails: There is no clubbing. Neurological: Mental Status: She is alert and oriented to person, place, and time. Motor: No weakness. Gait: Gait normal. Psychiatric: Mood and Affect: Mood normal. Behavior: Behavior is cooperative. Thought Content: Thought content normal. Cognition and Memory: Memory normal. ECG 12 Lead Date/Time: 02/17/2025 2:39 PM Performed by: Susan Christopher MD Authorized by: Susan Christopher MD Comparison: compared with previous ECG from 02/26/2024 Similar to previous ECG Rhythm: sinus rhythm Rate: normal Conduction: conduction normal Q waves: III and aVF QRS axis: indeterminate Other findings: non-specific ST-T wave changes Clinical impression: abnormal EKG Assessment and Plan Diagnoses and all orders for this visit: 1. 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 Precordial chest pain - Provider Communication 3 - CBC & Differential; Future - Comprehensive Metabolic Panel; Future PLAN -update heart cath, continued and worsening symptoms despite medical therapy. Known disease -Some vague atypical chest pain but main symptom is worsening shortness of breath. No reason that Ican see for an extreme change or deconditioning beyond her usual state of health. -BP well controlled, continue current meds Follow Up Return in about 6 weeks (around 03/31/2025) for results of testing. Susan Christopher MD 02/17/2025 Please note that this explicitly excludes time spent on other separate billable services such as performing procedures or test interpretation, when applicable. This note was created using dictation software which occasionally transcribes nonsensical phrases. Please contact the provider if any clarification is needed. 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 Precordial chest pain Expected: 03/17/2025 (Approximate), Expires: 02/17/2026 Comprehensive Metabolic Panel Lab Routine 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 Precordial chest pain Expected: 03/17/2025 (Approximate), Expires: 02/17/2026 documented as of this encounter Procedures Procedure Name Priority Date/Time Associated Diagnosis Comments ECG 12-LEAD Routine 02/17/2025 2:39 PM EDT 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 documented in this encounter Results * ECG 12-LEAD (02/17/2025 2:39 PM EDT) Narrative Susan Christopher MD - 02/17/2025 2:39 PM EDT Susan Christopher MD 02/18/2025 10:01 AM ECG 12 Lead Date/Time: 02/17/2025 2:39 PM Performed by: Susan Christopher MD Authorized by: Susan Christopher MD Comparison: compared with previous ECG from 02/26/2024 Similar to previous ECG Rhythm: sinus rhythm Rate: normal Conduction: conduction normal Q waves: III and aVF QRS axis: indeterminate Other findings: non-specific ST-T wave changes Clinical impression: abnormal EKG us Susan Christopher MD ECG ORDERABLES Final Result documented in this encounter Visit Diagnoses Diagnosis 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
--- OUTSIDE RECORDS SUMMARY | 2025-02-25 11:00 | XMS_ITS | Encounter Summary ---
Author Organization [facility] Address [address] [place] [address] Care Team Providers Care Posting Machine Operator Name Role Phone Shan Pimentel MD Primary Care Provider [phone] Reason for Visit * Reason Comments Med Refill Encounter Details Date Type Department Care Team (Late st Contact Info) Description 02/25/2025 11:00 AM EDT Office Visit 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 pectoris; Mixed hyperlipidemia; Class 2 severe obesity due to excess calories with serious comorbidity and body mass index (BMI) of 37.0 to 37.9 in adult; Psychophysiological insomnia; Anxiety and depression Social History Tobacco Use Types Packs/Day Years Used Date Smoking Tobacco: Never Passive Smoke Exposure: Never Smokeless Tobacco: Never Tobacco Cessation:Counseling Given: No Alcohol Use Standard Drinks/Week Comments No 0 [...] Sign Reading Time Taken Comments Blood Pressure 108/64 02/25/2025 11:13 AM EDT Pulse 67 02/25/2025 11:13 AM EDT Temperature 36.9 C (98.4 F) 02/25/2025 11:13 AM EDT Respiratory Rate - - Oxygen Saturation 95% 02/25/2025 11:13 AM EDT Inhaled Oxygen Concentration - - Weight 99.3 kg (219 lb) 02/25/2025 11:13 AM EDT Height - - Body Mass Index 34.3 02/17/2025 1:41 PM EDT documented in this encounter Progress Notes * Shan Pimentel MD - 02/25/2025 12:43 PM EDTAssociated Problem(s): Type 2 diabetes mellitus with diabetic autonomic neuropathy, with long-term current use of insulin Diagnosis sometime in the early to mid by patient report. today's hemoglobin A1c notably continues in good range and improved to 6.2% on 02/25/2025, previous 6.7% on 10/28/2024, 6.8%, 03/07/2024 at 8.2%, prior to that 9.4% on 11/23/2023. In 2023, to simplify her regimen, I discontinued Soliqua, t ransition to insulin glargine 60 units daily, and increase Ozempic To 2 mg weekly. Previous Jardiance was cost prohibitive but Farxiga is less expensive than a current 5 mg dosing as initiated 03/07/2024, and increased to Farxiga 10 mg dosing on 07/23/2024. Notable for good kidney function creatinine 0.9 GFR 68 with blood work 02/20/2024. As such she is overall doing well currently on a regimen of Lantus 60 units daily, Farxiga 10 mg daily and Ozempic 2 mg weekly. Continue unchanged, although forhemoglobin A1c at her job much further in the future we will consider decreasing the dose of Lantusmodestly. Of note patient does not have any specific contraindication to metformin use and could be reconsidered in the future. Notable for reported history of neuropathy although 10/28/2024 neuropathy test with pinprick was normal. Notable for status post [address] 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 Regular follow-up with retina associates, Dr. Loyola for her eyes. Overall still having good control of her glucose measurements, continue regimen unchanged. With such good stability will follow-up in 5 months time, sooner as needed. * Shan Pimentel MD - 02/25/2025 12:42 PM EDTAssociated Problem(s): Psychophysiological insomnia Discussed initially in detail 10/28/2024. Some difficulty getting sleep and sometimes waking up but she also has poor sleep hygiene with frequent naps the day. Discussed in detail need to improve sleep hygiene with removing naps which allow her to sleep better and having good sleep hygiene for nighttime. Recommendation at that time to consider melatonin which was started in November 2024 with some benefit, she is not interested in pursuing other medicines at this time. If desired in the future, we could consider other medication such as amitriptyline, although with her comorbid use of Zoloft thatwould be generally preferred to avoid. Advise concerns. * Shan Pimentel MD - 02/25/2025 12:42 PM EDTAssociated Problem(s): Mixed hyperlipidemia Most recent cholesterol 07/23/2024 with total cholesterol 132, triglycerides under 37, HDL 38, LDL 70. Overall good profile. She continues on high-dose statin with atorvastatin 80 mg daily, patient cardiovascular disease, benefit of high-dose statin with target LDL goal less than 70. Continue healthy diet, exercise and benefits of weight loss. Monitor cholesterol at minimum yearly. No new concerns as of 02/25/2025. * Shan Pimentel MD - 02/25/2025 12:41 PM EDTAssociated Problem(s): Hypertension, essential Comorbid with coronary artery disease, on regimen of lisinopril 5 mg daily, metoprolol XL 50 mg daily benefit, with additional modest blood pressure effect from her Farxiga 10 mg daily. Good blood pressure control. Continue good activity level, decrease salt intake. Monitor regularly. No new concerns as of 02/25/2025. * Shan Pimentel MD - 02/25/2025 12:41 PM EDTAssociated Problem(s): Coronary artery disease involving apache coronary artery of apache heart As managed through [facility] cardiology with Dr. Christopher, with stenting and on appropriate medical therapy, including SAHRONA inhibitor, beta-juan, statin and Plavix. Notable for history of 2012 RODRÍGUEZ-LAD, July 2022 LAD-XAVIER. Follows with Dr. Wilkins additionally. She most recently had a low risk stress test 03/24/2024, prior to that 10/05/2022 low risk nuclear stress test. Most recent follow-up with [facility] cardiology 02/17/2025 with a bit of atypical symptoms that have resulted in pending repeat cardiac catheterization for 03/17/2025. * Shan Pimentel MD - 02/25/2025 12:41 PM EDTAssociated Problem(s): Class 2 severe obesity with serious comorbidity and body mass index (BMI) of37.0 to 37.9 in adult BMI improved to the low-mid 30 range, with improved diet, probably benefited by GLP-1 class of medicine, with multiple medical comorbidities. Reinforced importance of healthy diet, exercise and weight loss to benefit. * Shan Pimentel MD - 02/25/2025 12:40 PM EDTAssociated Problem(s): Anxiety and depression Anxiety and depressive symptoms for which she has been on sertraline 100 mg daily, for many years with stability. I again discussed potential consideration of weaning dose, and as of 11/28/2024 she isconsidering but would like to hold off. Continue lifestyle modifications to benefit mood including pursuit of enjoyable activities, good communication, regular activity. Advise any concerns, we couldconsider adding buspirone to regimen in future if necessary. Stability as of 02/25/2025. * Shan Pimentel MD - 02/25/2025 11:00 AM EDT Images from the original note were not included. Follow Up Office Visit Date: 02/25/2025 Patient Name: Tiffany Javed : 1950 Chief Complaint: Chief Complaint Patient presents with Med Refill History of Present Illness: Tiffany Javed is a 74 y.o. female who is here today to follow up with multimedical problems. Recent evaluation by cardiology with a bit of an atypical fatigue pattern for which she has repeat cardiac catheterization scheduled for 03/17/2025. No change in that regard since that visit last week. No new swelling or edema. Regarding diabetes, ongoing intake of her medicine as prescribed and she is doing well, sugars in the 110s to 130s, typically on the lower side over the last couple months. Blood pressure checked periodically when she does its in good range. Nolightheadedness or dizziness. Anxiety depressive symptoms of sleep pattern are overall stable on her current regimen of medicine.. Subjective Review of Systems: Review of Systems I have reviewed the patients family history, social history, past medical history, past surgical history and have updated it as appropriate. Medications: Current Outpatient Medications: atorvastatin (LIPITOR) 80 MG [...] tablet by mouth Daily., Disp: , Rfl: minocycline (MINOCIN,DYNACIN) 100 MG capsule, TAKE 1 CAPSULE BY MOUTH TWICE A DAY FOR CELLULITIS FOR 10 DAYS, Disp: , Rfl: montelukast (SINGULAIR) 10 MG [...] 100 MG tablet, , Disp: , Rfl: Allergies: Allergies Allergen Reactions Codeine Other (See Comments) Hydrocodone Anxiety and Unknown - Low Severity Objective Physical Exam: Please see above Vital Signs: Vitals: 02/25/25 1113 BP: 108/64 BP Location: Left arm Patient Position: Sitting Cuff Size: Adult Pulse: 67 Temp: 98.4 ??F (36.9 ??C) TempSrc: Temporal SpO2: 95% Weight: 99.3 kg (219 lb) Facility age limit for growth %ruy is 20 years. Body mass index is 34.3 kg/m??. Physical Exam Constitutional: General: She is not in acute distress. Appearance: Normal appearance. She is not ill-appearing, toxic-appearing or diaphoretic. HENT: Head: Normocephalic and atraumatic. Right Ear: Tympanic membrane, ear canal and external ear normal. Left Ear: Tympanic membrane, ear canal and external ear normal. Nose: Nose normal. No rhinorrhea. Mouth/Throat: Mouth: Mucous membranes are moist. Pharynx: Oropharynx is clear. No oropharyngeal exudate or posterior oropharyngeal erythema. Cardiovascular: Rate and Rhythm: Normal rate and regular rhythm. Pulses: Normal pulses. Dorsalis pedis pulses are 2+ on the right side and 2+ on the left side. Posterior tibial pulses are 2+ on the right side and 2+ on the left side. Heart sounds: Normal heart sounds. No murmur heard. No friction rub. No gallop. Pulmonary: Effort: Pulmonary effort is normal. No respiratory distress. Breath sounds: Normal breath sounds. No stridor. No wheezing. Abdominal: General: Abdomen is flat. Bowel sounds are normal. There is no distension. Palpations: Abdomen is soft. There is no mass. Tenderness: There is no abdominal tenderness. There is no guarding or rebound. Hernia: No hernia is present. Musculoskeletal: Cervical back: Neck supple. No tenderness. Right lower leg: No edema. Left lower leg: No edema. Right Lower Extremity: (Partial amputation of the distal foot) Feet: Right foot: Protective Sensation: 8 sites tested. 6 sites sensed. Skin integrity: Skin integrity normal. Toenail Condition: Right toenails are normal. Left foot: Protective Sensation: 8 sites tested. 5 sites sensed. Skin integrity: Skin integrity normal. Toenail Condition: Left toenails are normal. Lymphadenopathy: Cervical: No cervical adenopathy. Skin: General: Skin is warm and dry. Neurological: General: No focal deficit present. Mental Status: She is alert and oriented to person, place, and time. Mental status is at baseline. Psychiatric: Mood and Affect: Mood normal. Behavior: Behavior normal. Diabetic Foot Exam Performed and Monofilament Test Performed Procedures Results: Labs: Hemoglobin A1C Date Value Ref Range Status 02/25/2025 6.2 (A) 4.5 - 5.7 % Final TSH Date Value Ref Range Status 07/23/2024 1.920 0.450 - 4.500 uIU/mL Final Imaging: No valid procedures specified. Patient's (Body mass index is 34.3 kg/m .) indicates that they are obese (BMI >30) with health related conditions that include hypertension, coronary heart disease, diabetes mellitus, and dyslipid emias . Weight is improving with lifestyle modifications. BMI is is above average; BMI management plan is completed. We discussed low calorie, low carb based diet program, portion control, increasingexercise, and joining a fitness center or start home based exercise program. Vaccine Counseling: Assessment / Plan Assessment/Plan: Diagnoses and all orders for this visit: 1. Type 2 diabetes mellitus with diabetic autonomic neuropathy, with long-term current use of insulin (Primary) Assessment & Plan: Diagnosis sometime in the early to mid by patient report. today's hemoglobin A1c notably continues in good range and improved to 6.2% on 02/25/2025, previous 6.7% on 10/28/2024, 6.8%, 03/07/2024 at 8.2%, prior to that 9.4% on 11/23/2023. In 2023, to simplify her regimen, I discontinued Soliqua, t ransition to insulin glargine 60 units daily, and increase Ozempic To 2 mg weekly. Previous Jardiance was cost prohibitive but Farxiga is less expensive than a current 5 mg dosing as initiated 03/07/2024, and increased to Farxiga 10 mg dosing on 07/23/2024. Notable for good kidney function creatinine 0.9 GFR 68 with blood work 02/20/2024. As such she is overall doing well currently on a regimen of Lantus 60 units daily, Farxiga 10 mg daily and Ozempic 2 mg weekly. Continue unchanged, although forhemoglobin A1c at her job much further in the future we will consider decreasing the dose of Lantusmodestly. Of note patient does not have any specific contraindication to metformin use and could be reconsidered in the future. Notable for reported history of neuropathy although 10/28/2024 neuropathy test with pinprick was normal. Notable for status post [address] 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 Regular follow-up with retina associates, Dr. Loyola for her eyes. Overall still having good control of her glucose measurements, continue regimen unchanged. With such good stability will follow-up in 5 months time, sooner as needed. Orders: - POC Glycosylated Hemoglobin (Hb A1C) - POC Glucose, Blood 2. Hypertension, essential Assessment & Plan: Comorbid with coronary artery disease, on regimen of lisinopril 5 mg daily, metoprolol XL 50 mg daily benefit, with additional modest blood pressure effect from her Farxiga 10 mg daily. Good blood pressure control. Continue good activity level, decrease salt intake. Monitor regularly. No new concerns as of 02/25/2025. 3. Coronary artery disease involving apache coronary artery of apache heart without angina pectoris Assessment & Plan: As managed through [facility] cardiology with Dr. Christopher, with stenting and on appropriate medical therapy, including SHARONA inhibitor, beta-juan, statin and Plavix. Notable for history of 2012 RODRÍGUEZ-LAD, July 2022 LAD-XAVIER. Follows with Dr. Wilkins additionally. She most recently had a low risk stress test 03/24/2024, prior to that 10/05/2022 low risk nuclear stress test. Most recent follow-up with [facility] cardiology 02/17/2025 with a bit of atypical symptoms that have resulted in pending repeat cardiac catheterization for 03/17/2025. 4. Mixed hyperlipidemia Assessment & Plan: Most recent cholesterol 07/23/2024 with total cholesterol 132, triglycerides under 37, HDL 38, LDL 70. Overall good profile. She continues on high-dose statin with atorvastatin 80 mg daily, patient cardiovascular disease, benefit of high-dose statin with target LDL goal less than 70. Continue healthy diet, exercise and benefits of weight loss. Monitor cholesterol at minimum yearly. No new concerns as of 02/25/2025. 5. Class 2 severe obesity due to excess calories with serious comorbidity and body mass index (BMI)of 37.0 to 37.9 in adult Assessment & Plan: BMI improved to the low-mid 30 range, with improved diet, probably benefited by GLP-1 class of medicine, with multiple medical comorbidities. Reinforced importance of healthy diet, exercise and weight loss to benefit. 6. Psychophysiological insomnia Assessment & Plan: Discussed initially in detail 10/28/2024. Some difficulty getting sleep and sometimes waking up but she also has poor sleep hygiene with frequent naps the day. Discussed in detail need to improve sleep hygiene with removing naps which allow her to sleep better and having good sleep hygiene for nighttime. Recommendation at that time to consider melatonin which was started in November 2024 with some benefit, she is not interested in pursuing other medicines at this time. If desired in the future, we could consider other medication such as amitriptyline, although with her comorbid use of Zoloft thatwould be generally preferred to avoid. Advise concerns. 7. Anxiety and depression Assessment & Plan: Anxiety and depressive symptoms for which she has been on sertraline 100 mg daily, for many years with stability. I again discussed potential consideration of weaning dose, and as of 11/28/2024 she isconsidering but would like to hold off. Continue lifestyle modifications to benefit mood including pursuit of enjoyable activities, good communication, regular activity. Advise any concerns, we couldconsider adding buspirone to regimen in future if necessary. Stability as of 02/25/2025. Follow Up: Return in about 5 months (around 07/28/2025) for Medicare Wellness. Shan Pimentel MD [facility] [place] documented in this encounter Plan of Treatment Upcoming Encounters Date Type Department Care Team (Late st Contact Info) Description 04/14/2025 3:00 PM EDT Office Visit [facility] [address] [place], [place] [phone] Susan Christopher MD [address] [place] [address] documented as of this encounter Procedures Procedure Name Priority Date/Time Associated Diagnosis Comments POCT GLUCOSE, BLD (NON STRIP) Routine 02/25/2025 11:47 AM EDT Type 2 diabetes mellitus with diabetic autonomic neuropathy, with long-term current use of insulin POCT GLYCOSYLATED HEMOGLOBIN (HGB A1C) Routine 02/25/2025 11:47 AM EDT Type 2 diabetes mellitus with diabetic autonomic neuropathy, with long-term current use of insulin documented in this encounter Results * (ABNORMAL) POC Glucose, Blood (02/25/2025 11:47 AM EDT) Glucose 140(A) 70 - 130 mg/dL Lot Number [id number] Expiration Date 05/22/2025 Blood 02/25/2025 11:4 7 AM EDT us Shan Pmientel MD POINT OF CARE TEST ORDERABLES Fi nal Result * (ABNORMAL) POC Glycosylated Hemoglobin (Hb A1C) (02/25/2025 11:47 AM EDT) Hemoglobin A1C 6.2(A) 4.5 - 5.7 % [facility] Lot Number [id number] [facility] Expiration Date 11/01/2026 [facility] Blood 02/25/2025 11:4 7 AM EDT us Shan Pimentel MD POINT OF CARE TEST ORDERABLES Fi nal Result [facility]
[address] [place] [address], documented in this encounter Visit Diagnoses Diagnosis Type 2 diabetes mellitus with diabetic autonomic neuropathy, with long-term current use of insulin- Primary Hypertension, essential Unspecified essential hypertension Coronary artery disease involving apache coronary artery of apache heart without angina pectoris Mixed hyperlipidemia Class 2 severe obesity due to excess calories with serious comorbidity and body mass index (BMI) of 37.0 to 37.9 in adult Psychophysiological insomnia Persistent disorder of initiating or maintaining sleep Anxiety and depression documented in this encounter Care Teams Posting Machine Operator Relationship Specialty Start Date End Date Shan Pimentel MD [address] [place] [address] [place] [id number] PCP - General Internal Medicine 03/07/24 documented as of this encounter
--- OUTSIDE RECORDS SUMMARY | 2025-03-17 11:00 | XMS_ITS | Encounter Summary ---
Author Organization [employer] ([place], [place], [place], [place]) Address [address] [place] [address] Care Team Providers Care [employer] Teacher Name Role Phone Shan Pimentel MD Primary Care Provider [phone] Reason for Referral * Other (Routine) - Closed Specialty Diagnoses / Procedures Referred By Contac t Referred To Contact Diagnoses Athscl heart disease of [place] cor art w ot ang pctrs (HCC) Procedures CARDIAC CATH - LEFT HEART CATH W/ POSSIBLE INTERVENTION Susan Christopher MD [address] [place] [address] [place] [address] Phone: tel: fax: Tank Wilkins MD [address] [place] [address] Phone: tel: fax: Referral ID Status Reason Start Date Expiration Date Visits Re quested Visits Authorized [id number] Closed 02/18/2025 02/18/2026 1 1 Reason for Visit * Other (Routine) - Closed Specialty Diagnoses / Procedures Referred By Contac t Referred To Contact Diagnoses Athscl heart disease of [place] cor art w [facility] ang pctrs (HCC) Procedures CARDIAC CATH - LEFT HEART CATH W/ POSSIBLE INTERVENTION Susan Christopher MD [address] [place] [address] [place] [address] Phone: tel: fax: Tank Wilkins MD [address] [place] [address] [place] [address] Phone: tel: fax: Referral ID Status Reason Start Date Expiration Date Visits Re quested Visits Authorized [id number] Closed 02/18/2025 02/18/2026 1 1 Encounter Details Date Type Department Care Team (Late st Contact Info) Description 03/17/2025 11:00 AM EDT - 03/17/2025 1:22 PM EDT Hospital Encounter [facility] Cardiac Catheterization Lab [address] [phone] Susan Christopher MD [address] [place] [address] Tank Wilkins MD [address] [place] [address] Athscl heart disease of [place] cor art w oth ang pctrs ([facility]) Discharge Disposition: Home or Self Care Social [...] Date Kai rded Speak language other than [place] at home Not on file 09/28/2023 Want [...] through Care Everywhere. * Radial Site Care ([place]banian) * Transradial Angiogram ([place]ian) * Moderate Conscious Sedation Adult Care After ([place]ian) documented in this encounter Medications at Time of Discharge atorvastatin (LIPITOR) 40 MG tablet atorvastatin 40 mg tablet C,E,zinc,copper [id number] (Ocuvite Adult 50 Plus) 250-5-1 mg Cap [...] (valve) insufficiency, and PAD (peripheral artery disease) ([facility]). Surgical History She has a past surgical [...] MG tablet atorvastatin 40 mg tablet C,E,zinc,copper [id number] (Ocuvite Adult 50 Plus) 250-5-1 mg Cap [...] 2:03 PM EDT Athscl heart disease of [place] cor art w oth ang pctrs ([facility]) CHEM8+ POC Routine 03/17/2025 11:57 AM EDT [...] Shan Pimentel; Dr. Susan Christopher TECHNIQUE: A 5/6-Serbian sheath was placed in the right radial [...] - 146 mmol/L 03/17/2025 5:17 PM EDT [facility] POC Potassium 3.8 3.5 - 4.9 mmol/L 03/17/2025 5:17 PM EDT [facility] POC Chloride 106 98 - 109 mmol/L 03/17/2025 5:17 PM EDT [facility] POC Glucose 122(H) 70 - 105 mg/dL 03/17/2025 5:17 PM EDT [facility] POC BUN 17 8 - 26 mg/dL 03/17/2025 5:17 PM EDT [facility] POC Anion Gap 19 10 - 20 mmol/L 03/17/2025 5:17 PM EDT [facility] POC IONIZED CALCIUM JILLIAN 1.25 1.12 - 1.32 mmol/L 03/17/2025 5:17 PM EDT [facility] POC CO2 TOTAL JILLIAN 22(L) 24 - 29 mmol/L 03/17/2025 5:17 PM EDT [facility] POC-Creatinine 1.0 0.6 - 1.3 mg/dL 03/17/2025 5:17 PM EDT [facility] POC-EGFR 59 mL/min/1.7 3M2 03/17/2025 5:17 PM EDT [facility] Comment:Proceed with contras t if eGFR > 45 ml/min/1.73 when performed on the NovaSTAT strip Creatinine meter. POC HEMATOCRIT JILLIAN 49 38 - 51 %PCV 03/17/2025 5:17 PM EDT [facility] POC HEMOGLOBIN JILLIAN 16.7 12.0 - 17.0 g/dL 03/17/2025 5:17 PM EDT [facility] Blood 03/17/2025 11:5 7 AM EDT 03/17/2025 5:17 PM EDT Narrative [facility] - 03/17/2025 5:17 PM EDT [employer] ID is - [id number] us Susan Christopher MD POINT OF CARE TEST ORDERABLES Final Result [facility] [address] [phone] * Platelet count, auto (03/17/2025 11:55 AM EDT) Platelets 161 140 - 375 K/CU MM 03/17/2025 12:06 PM EDT [facility] Blood Venipuncture / Unknown 03/17/2025 11:55 AM EDT 03/17/2025 12:00 PM EDT us Marco Salcedo PA-C LAB BLOOD ORDERABLES Final Resu lt [facility] [address] [phone] documented in this encounter Visit Diagnoses Diagnosis Athscl heart disease of [place] cor art w oth ang pctrs ([facility]) documented in this encounter Administered Medications Inactive [...] mg documented in this encounter Care Teams [employer] Teacher Relationship Specialty Start Date End Date Shan Pimentel MD [address] [place] [address] PCP - General General Internal Medicine 03/17/25 documented as of this encounter
--- OUTSIDE RECORDS SUMMARY | 2025-03-17 13:23 | XMS_ITS | Encounter Summary ---
Author Organization [employer] ([place], [place], [place], [place]) Address [address] [place] [address] Care Team Providers Care Billposting Supervisor Name Role Phone Shan Pimentel MD Primary Care Provider [phone] Reason for Referral * Ultrasound (Routine) - New Request Specialty Diagnoses / Procedures Referred By Contac t Referred To Contact Radiology Diagnoses CAD (coronary artery disease) Procedures Ultrasound-guided vascular access Nilesh Mccarty MD [address] [place] [address] [place] [address] Phone: tel: fax: Referral ID Status Reason Start Date Expiration Date V isits Requested Visits Authorized [id number] New Request 03/17/2025 03/17/2026 1 1 Reason for Visit * Ultrasound (Routine) - New Request Specialty Diagnoses / Procedures Referred By Contac t Referred To Contact Radiology Diagnoses CAD (coronary artery disease) Procedures Ultrasound-guided vascular access Nilesh Mccarty MD [address] [place] [address] [place] [address] Phone: tel: fax: Referral ID Status Reason Start Date Expiration Date V isits Requested Visits Authorized [id number] New Request 03/17/2025 03/17/2026 1 1 Encounter Details Date Type Department Care Team (Late st Contact Info) Description 03/17/2025 1:23 PM EDT - 03/17/2025 11:59 PM EDT Hospital Encounter [facility] Non-Invasive Cardiology [address] [place] [phone] Nilesh Mccarty MD [address] [facility] [address] [place] [address] CAD (coronary artery disease) Discharge Disposition: Home [...] Date Kai rded Speak language other than Faroese at home Not on file 09/28/2023 Want [...] MG tablet atorvastatin 40 mg tablet C,E,zinc,copper [id number] (Ocuvite Adult 50 Plus) 250-5-1 mg Cap [...] Demographics Patient Name LATRICIA MISTRY Age 74 [place] Patient Number [id number] Gender Female Race Unknown Ethnicity Corporate ID [id number] Height 68 Date of 1950 Weight 217 Accession Number [id number] BSA 2.12 m^2 Room Number BMI 32.99 kg/m^2 Referring NILESH MCCARTY MD Interpreting NILESH MCCARTY MD Physician Physician Timber Girdler Katina Betancourt RVT Procedure Type of Study: [...] LATRICIA MISTRY Age 74 [place] Patient Number [id number] Gender Female Race Unknown Ethnicity Corporate ID [id number] Height 68 Date of 1950 Weight 217 Accession Number [id number] BSA 2.12 m^2 Room Number BMI 32.99kg/m^2 Referring NILESH MCCARTY MD Interpreting NILESH MANNING Physician Physician Timber Girdler Katina Betancourt Emy Procedure Type of Study: US GUIDED VASCULAR ACCESS : . Impressions Summary INDICATION: CAD (I25.10) ##################################### RIGHT: Ultrasound guided vascular access of the radial artery. Radial artery was 0.5 cm in depth and patent. Access was successful. ##################################### Allergies - Codeine. - Vicodin. Patient Status:Outpatient. Study Location:Portable. Technical Quality:Adequate visualization. Signature Result [facility] Nilesh Mccarty MD [facility] ORDERABLES Final Result documented in this encounter Visit Diagnoses Diagnosis CAD (coronary artery disease) Coronary atherosclerosis of unspecified type of vessel, [place] or graft documented in this encounter Care Teams Billposting Supervisor Relationship Specialty Start Date End Date Shan Pimentel MD [address] [place] [address] PCP - General General Internal Medicine 03/17/25 documented as of this encounter
--- OUTSIDE RECORDS SUMMARY | 2025-04-10 11:53 | XMS_ITS | Encounter Summary ---
Author Organization [facility] Address [address] [place] [address] Care Team Providers Care Scanning Coordinator Name Role Phone Shan Pimentel MD Primary Care Provider [phone] Encounter Details Date Type Department Care Team (Latest Contact Info) Description 02/25/2025 Travel Social History Tobacco Use Types Packs/Day Years Used Date Smoking Tobacco: Never Passive Smoke Exposure: Never Smokeless Tobacco: Never Alcohol Use Standard Drinks/Week Comments No 0 [...] as of this encounter Plan of Treatment Upcoming Encounters Date Type Department Care Team (Late st Contact Info) Description 04/14/2025 3:00 PM EDT Office Visit [facility] [address] [place] [id number] Susan Christopher MD [address] [place] [address] documented as of this encounter Visit Diagnoses Not on filedocumented in this encounter Care Teams Scanning Coordinator Relationship Specialty Start Date End Date Shan Pimentel MD [address] [place] [address] [place] [address] PCP - General Internal Medicine 03/07/24 documented as of this encounter
--- OUTSIDE RECORDS SUMMARY | 2025-04-10 11:53 | XMS_ITS | Encounter Summary ---
[facility] Address [address] [place] [address] Care Team Providers Care Badger Distiller Operator Name Role Phone Shan Pimentel MD Primary Care Provider [phone] Encounter Details Date Type Department Care Team (Late st Contact Info) Description 02/18/2025 Patient rounding ([facility] only) [facility] [address] [place] [address] Susan Christopher MD [address] [place] [address] Social History Tobacco Use Types Packs/Day Years [...] on file documented as of this encounter Progress Notes * Venecia Katz RegSched Rep - 02/18/2025 3:22 PM EDT ..My name is Lori Nicholas and I am the Ladle Handler for Psychiatric. I would like to thank you for being a loyal patient. If you do not mind I would like to ask you a few questions about your recent visit with us. Please feel free to reply if you wish to provide us with feedback on your first visit with our practice. First, could you tell me what went well with your recent visit? Secondly, we are always looking for ways to make our patients' experiences even better. Do you haveany recommendations on ways we may improve? Finally, overall were you satisfied with your first visit to us as a [facility]? In the next few days, you will be receiving a Patient Experience Survey. Thank you for taking the time to answer a few questions today. I hope you have a good day. documented in this encounter Plan of Treatment Upcoming Encounters Date Type Department Care Team (Late st Contact Info) Description 04/14/2025 3:00 PM EDT Office Visit [facility] [address] [phone] Susan Christopher MD [address] [address] documented as of this encounter Visit Diagnoses Not on filedocumented in this encounter Care Teams Badger Distiller Operator Relationship Specialty Start Date End Date Shan Pimentel MD [address] [place] [address] [place] [address] PCP - General Internal Medicine 03/07/24 documented as of this encounter
--- OUTSIDE RECORDS SUMMARY | 2025-04-10 11:53 | XMS_ITS | Encounter Summary ---
Author Organization [employer] ([place], [place], [place], [place]) Address [address] [place] [address] Care Team Providers Care Fabrication Welder Name Role Phone Dieter Larios MD Primary Care Provider [phone] Shan Pimentel MD Primary Care Provider [phone] Encounter Details Date Type Department Care Team (Late st Contact Info) Description 04/20/2020 Transcribed Document [facility] [place] Family Medicine [address] [place] [address] ProviderBelkys MD [address], [place] [id number] Social History Tobacco Use Types Packs/Day Years [...] on filedocumented in this encounter Care Teams Fabrication Welder Relationship Specialty Start Date End Date Dieter Larios MD [address] [place] [address] PCP - General Emergency Medicine 07/25/22 03/16/25 Shan Pimentel MD [address] [place] [address] PCP - General General Internal Medicine 03/17/25 documented as of this encounter
--- OUTSIDE RECORDS SUMMARY | 2025-04-10 11:53 | XMS_ITS | Encounter Summary ---
Author Organization [facility] Address [address] [place] [address] Care Team Providers Care Brand Designer Name Role Phone Shan Pimentel MD Primary Care Provider [phone] Encounter Details Date Type Department Care Team (Latest Contact Info) Description 02/17/2025 Travel Social History Tobacco Use Types Packs/Day [...] Description 04/14/2025 3:00 PM EDT Office Visit [facility] CARDIOLOGY [address] [place] [address] Susan Christopher MD [address] [place] [address] documented as of this encounter Visit Diagnoses Not on filedocumented in this encounter Care Teams Brand Designer Relationship Specialty Start Date End Date Shan Pimentel MD [address] [place] [address] [place] [address] PCP - General Internal Medicine 03/07/24 documented as of this encounter
--- OUTSIDE RECORDS SUMMARY | 2025-04-10 11:54 | XMS_ITS | Encounter Summary ---
Author Organization [employer] ([place], [place], [place], [place]) Address [address] [place] [address] Care Team Providers Care Supervisor Production Department Name Role Phone Dieter Larios MD Primary Care Provider [phone] Shan Pimentel MD Primary Care Provider [phone] Encounter Details Date Type Department Care Team (Late st Contact Info) Description 04/20/2020 Transcribed Document [facility] [place] Family Medicine [address] [place] [address] ProviderBelkys MD [address] [place] [address] Social History Tobacco Use Types Packs/Day Years [...] 1950 Associated Diagnoses: None Author: NILESH WILKINS MD-[facility] Basic Information Child Care Provider: Susan Christopher MD Chief Complaint Abnormal Lexiscan [...] per stress test. Lexiscan on 04/01/2020 At [facility]: Normal EF. Mild in intensity, moderate in [...] History: Active CAD - Coronary artery disease (5860419033) HTN - Hypertension ([id number]) Hyperlipidemia (43531531) Diabetes mellitus (958900714) Family History: Father: () Cause of : [...] three drug-eluting stents. cataract bilaterally. cholecystectomy. Colonoscopy ([id number]). left arm surgery. Comments: 08/05/2015 11:33 CHITRA [...] of motion, Normal strength. Integumentary: Warm, Dry, [place]. Neurologic: Alert, Oriented. Psychiatric: Cooperative, Appropriate mood [...] 10 mg daily. Electronically signed by [place], [facility] Conversion [employer] Cerner at 12/26/2022 11:09 AM CDT documented in this encounter Plan of Treatment Not on file documented as of this encounter Visit Diagnoses Not on filedocumented in this encounter Care Teams Supervisor Production Department Relationship Specialty Start Date End Date Dieter Larios MD [address] [place] [address] PCP - General Emergency Medicine 07/25/22 03/16/25 Shan Pimetnel MD [address] [place] [address] [place] [address] PCP - General General Internal Medicine 03/17/25 documented as of this encounter
--- OUTSIDE RECORDS SUMMARY | 2025-04-10 11:54 | XMS_ITS | Encounter Summary ---
Author Organization [employer] ([place], [place], [place], [place]) Address [address] [place] [address] Care Team Providers Care Dining Room Coordinator Name Role Phone Dieter Larios MD Primary Care Provider [phone] Shan Pimentel MD Primary Care Provider [phone] Encounter Details Date Type Department Care Team (Late st Contact Info) Description 04/20/2020 Transcribed Document [facility] [place] Family Medicine [address] [place] [address] ProviderBelkys MD [address] [place], [place] [id number] Social History Tobacco Use Types Packs/Day Years [...] on filedocumented in this encounter Care Teams Dining Room Coordinator Relationship Specialty Start Date End Date Dieter Larios MD [address] [place] [address] PCP - General Emergency Medicine 07/25/22 03/16/25 Shan Pimentel MD [address] [place] [address] PCP - General General Internal Medicine 03/17/25 documented as of this encounter
--- OUTSIDE RECORDS SUMMARY | 2025-04-10 11:54 | XMS_ITS | Encounter Summary ---
Author Organization [employer] ([place], [place], [place], [place]) Address [address] [place] [address] Care Team Providers Care Blow Torch Burner Name Role Phone Dieter Larios MD Primary Care Provider [phone] Shan Pimentel MD Primary Care Provider [phone] Encounter Details Date Type Department Care Team (Late st Contact Info) Description 04/20/2020 Transcribed Document [facility] [place] [address] [place] [address] Belkys Monsalve MD [address] [place], [place] [address] Social History Tobacco Use Types Packs/Day Years [...] Fats and oils Meat fat, or shortening. [place] butter, hydrogenated oils, palm oil, coconut oil, [...] 06/06/2009 Document Revised: 10/05/2018 Document Reviewed: 10/05/2018 [employer] Patient Education ? 2020 [employer]. Radial Site Care This sheet gives you [...] these instructions at home: Medicines ??? Take ujnt-ejc-rnjapxv and prescription medicines only as told by your health care provider. Insertion site care ??? Follow instructions from your health care provider about how to take care of your insertion site. Make sure you: ? Wash your hands with soap and water before you change your bandage (dressing). If soap and water are not available, use hand production support specialist. ? Change your dressing as told by [...] 09/30/2011 Document Revised: 10/03/2018 Document Reviewed: 10/03/2018 [employer] Patient Education ? 2020 [employer]. Moderate Conscious Sedation, Adult, Care After [...] you are awake and alert. ??? Take rfdb-fue-ofoaoqv and prescription medicines only as told by [...] 06/18/2014 Document Revised: 08/10/2018 Document Reviewed: 12/17/2016 [employer] Patient Education ? 2020 [employer]og. Radiology Coronary Angiogram A coronary angiogram is [...] including vitamins, herbs, eye drops, creams, and soil-azf-dwmdumh medicines. ??? Any problems you or family [...] Reviewed: 06/09/2017 Elsevier Patient Education ? 2020 [employer]alog. documented in this encounter Plan of Treatment Not on file documented as of this encounter Visit Diagnoses Not on filedocumented in this encounter Care Teams Blow Torch Burner Relationship Specialty Start Date End Date Dieter Larios MD [address] [place] [address] PCP - General Emergency Medicine 07/25/22 03/16/25 Shan Pimentel MD [address] [place] [address] PCP - General General Internal Medicine 03/17/25 documented as of this encounter
--- OUTSIDE RECORDS SUMMARY | 2025-04-10 11:54 | XMS_ITS | Encounter Summary ---
Author Organization [facility] Address [address] [place] [id number] Care Team Providers Care Practice Professional Name Role Phone Shan Pimentel MD Primary Care Provider [phone] Reason for Visit * Reason Onset Date Comments Med Refill 03/25/2025 Encounter Details Date Type Department Care Team (Late st Contact Info) Description 03/25/2025 Refill [facility] PRIMARY CARE [address] [place] [address] [place] [address] Shan Pimentel MD [address] [place] [address] DM (diabetes mellitus), type 2 with complications Social History Tobacco Use Types Packs/Day Years [...] as of this encounter Miscellaneous Notes * Telephone Encounter - Deb Ulloa MA - 03/25/2025 9:16 AM EDT Rx sent in documented in this encounter Plan of Treatment Upcoming Encounters Date Type Department Care Team (Late st Contact Info) Description 04/14/2025 3:00 PM EDT Office Visit [facility] CARDIOLOGY [address] [place], [place] [phone] Susan Christopher MD [address] [place], [place] [address] documented as of this encounter Visit Diagnoses Diagnosis DM (diabetes mellitus), type 2 with complications Type II or unspecified type diabetes mellitus with unspecified complication, not stated as uncontrolled documented in this encounter Care Teams Practice Professional Relationship Specialty Start Date End Date Shan Pimentel MD [address] [place] [address] [place] [address] PCP - General Internal Medicine 03/07/24 documented as of this encounter
--- OUTSIDE RECORDS SUMMARY | 2025-04-10 11:54 | XMS_ITS | Encounter Summary ---
Author Organization [employer] ([place], [place], [place], [place]) Address [address] [place] [address] Care Team Providers Care Cornetist Name Role Phone Dieter Larios MD Primary Care Provider [phone] Shan Pimentel MD Primary Care Provider [phone] Encounter Details Date Type Department Care Team (Late st Contact Info) Description 04/20/2020 Transcribed Document [facility] [place] [address] [place] [address] ProviderBelkys MD [address], [place] [phone] Social History Tobacco Use Types Packs/Day Years [...] on filedocumented in this encounter Care Teams Cornetist Relationship Specialty Start Date End Date Dieter Larios MD [address] [place] [address] PCP - General Emergency Medicine 07/25/22 03/16/25 Shan Pimentel MD [address] [place] [address] PCP - General General Internal Medicine 03/17/25 documented as of this encounter
--- OUTSIDE RECORDS SUMMARY | 2025-04-10 11:54 | XMS_ITS | Encounter Summary ---
[facility] Address [address] [place] [address] Care Team Providers Care Garden Tractor Mechanic Name Role Phone Shan Pimentel MD Primary Care Provider [phone] Reason for Visit * Reason Comments Med Refill Encounter Details Date Type Department Care Team (Late st Contact Info) Description 03/22/2025 Refill [facility] PRIMARY CARE [address] [place] [place] [address] Shan Pimentel MD [address] [place] [address] [place] [address] Type 2 diabetes mellitus with diabetic autonomic neuropathy, with long-term current use of insulin Social History Tobacco Use Types Packs/Day Years [...] Description 04/14/2025 3:00 PM EDT Office Visit [facility] CARDIOLOGY [address] [phone] Susan Christopher MD [address] [address] documented as of this encounter Visit Diagnoses Diagnosis Type 2 diabetes mellitus with diabetic autonomic neuropathy, with long-term current use of insulin documented in this encounter Care Teams Garden Tractor Mechanic Relationship Specialty Start Date End Date Shan Pimentel MD [address] [place] [address] [place] [address] PCP - General Internal Medicine 03/07/24 documented as of this encounter
--- OUTSIDE RECORDS SUMMARY | 2025-04-10 11:54 | XMS_ITS | Referral Summary ---
Author Organization [employer] ([place], [place], [place], [place]) Address [address] [place] [address] Care Team Providers Care Spring Maker Name Role Phone Shan Pimentel MD Primary Care Provider [phone] Encounters Date Type Department Care Team Description 03/17/2025 1:23 PM EDT - 03/17/2025 11:59 PM EDT Hospital Encounter [facility] Non-Invasive Cardiology [address] [place] [address] Nilesh Mccarty MD CAD (coronary artery disease) Discharge Disposition: Home or Self Care 03/17/2025 Travel 03/17/2025 11:00 AM EDT - 03/17/2025 1:22 PM EDT Hospital Encounter [facility] Cardiac Catheterization Lab [address] [place] [address] Susan Christopher MD Lin, Steve, MD Athscl heart disease of os[place] cor [facility]) Discharge Disposition: Home [...] sertraline 100 mg tablet Active C,E,zinc,coppe r 49-wztjv3q-mvn (Ocuvite Adult 50 Plus) 250-5-1 mg Cap [...] Diagnosed Date Coronary artery disease invo lving osage coronary artery of osage heart with angina pectoris 07/25/2022 Abnormal nuclear [...] Date Kai rded Speak language other than Kazakh at home Not on file 09/28/2023 Want [...] on file Medical Devices Implanted Type Area Will Call Clerk Device Identifier Shelf Expiration Date Model / Serial / Lot Stent Synergy Xd Mr [id number] IMPLANTS [employer]:INTERV CARDIOLOGY [id number] / / Procedures Procedure Name Priority Date/Time Associated Diagnosis Comments CARDIAC CATH - LEFT HEART CATH W/ POSSIBLE INTERVENTION Routine 03/17/2025 2:03 PM EDT Athscl heart disease of osage cor art w oth ang pctrs (GRAND [...] Shan Pimentel; Dr. Susan Christopher TECHNIQUE: A 5/6-Maori sheath was placed in the right radial [...] Susan Christopher MD CV CARDIAC CATH ORDERABLES [facility] al Result * Ultrasound-guided vascular access (03/17/2025 2:00 PM EDT) Anatomical Region Laterality Modality Vascular Vascular Ultraso und 03/17/2025 1:45 PM EDT Narrative 03/17/2025 10:26 PM EDT Vascular Procedure Demographics Patient Name TELLO MISTRY Age 74 [place] Patient Number [id number] Gender Female Race Unknown Ethnicity Corporate ID [id number] Height 68 Date of 1950 Weight 217 Accession Number [id number] BSA 2.12 m^2 Room Number BMI 32.99 kg/m^2 Referring NILESH MCCARTY MD Interpreting NILESH MCCARTY MD Physician Physician Follow Up Rep Katina Betancourt RVT Procedure Type of Study: [...] TELLO MISTRY Age 74 [place] Patient Number [id number] Gender Female Race Unknown Ethnicity Corporate ID [id number] Height 68 Date of 1950 Weight 217 Accession Number [id number] BSA 2.12 m^2 Room Number BMI 32.99kg/m^2 Referring NILESH MCCARTY MD Interpreting NILESH MANNING Physician Physician Follow Up Rep Katina Betancourt Emy Procedure Type of Study: US GUIDED VASCULAR ACCESS : . Impressions Summary INDICATION: CAD (I25.10) ##################################### RIGHT: Ultrasound guided vascular access of the radial artery. Radial artery was 0.5 cm in depth and patent. Access was successful. ##################################### Allergies - Codeine. - Vicodin. Patient Status:Outpatient. Study Location:Portable. Technical Quality:Adequate visualization. Signature Nilesh Mccarty MD [facility] [place] ORDERABLES Final Result * (ABNORMAL) Chem8+ POC (03/17/2025 11:57 AM EDT) POC Sodium 143 138 - 146 mmol/L 03/17/2025 5:17 PM EDT [facility] POC Potassium 3.8 3.5 - 4.9 mmol/L 03/17/2025 5:17 PM EDT [facility] POC Chloride 106 98 - 109 mmol/L 03/17/2025 5:17 PM EDT [facility] POC Glucose 122(H) 70 - 105 mg/dL 03/17/2025 5:17 PM EDT [facility] POC BUN 17 8 - 26 mg/dL 03/17/2025 5:17 PM EDT [facility] POC Anion Gap 19 10 - 20 mmol/L 03/17/2025 5:17 PM EDT [facility] POC IONIZED CALCIUM JILLIAN 1.25 1.12 - 1.32 mmol/L 03/17/2025 5:17 PM EDT [facility] POC CO2 TOTAL JILLIAN 22(L) 24 - 29 mmol/L 03/17/2025 5:17 PM EDT [facility] POC-Creatinine 1.0 0.6 - 1.3 mg/dL 03/17/2025 5:17 PM EDT [facility] POC-EGFR 59 mL/min/1.7 3M2 03/17/2025 5:17 PM EDT [facility] Comment:Proceed with contras t if eGFR > 45 ml/min/1.73 when performed on the NovaSTAT strip Creatinine meter. POC HEMATOCRIT JILLIAN 49 38 - 51 %PCV 03/17/2025 5:17 PM EDT [facility] POC HEMOGLOBIN JILLIAN 16.7 12.0 - 17.0 g/dL 03/17/2025 5:17 PM EDT [facility] Blood 03/17/2025 11:5 7 AM EDT 03/17/2025 5:17 PM EDT Narrative [facility] - 03/17/2025 5:17 PM EDT Project Crew Worker ID is - [id number] us Susan Christopher MD POINT OF CARE TEST ORDERABLES Final Result [facility] [address] [phone] * Platelet count, auto (03/17/2025 11:55 AM EDT) Platelets 161 140 - 375 K/CU MM 03/17/2025 12:06 PM EDT [facility] Blood Venipuncture / Unknown 03/17/2025 11:55 AM EDT 03/17/2025 12:00 PM EDT us Marco Salcedo PA-C LAB BLOOD ORDERABLES Final Resu lt [facility] [address] [place] [address], [facility] [phone] from Last 3 Months Insurance [facility] MCR SUPP [facility] CLAIMS Advance Directives For more information, please contact: [phone] * Full Code (Latest Code Status on File) Date Activated Date Inactivated Comments 03/17/2025 1:15 PM 03/18/2025 4:24 AM * Full Code Date Activated Date Inactivated Comments 03/17/2025 10:28 AM 03/17/2025 1:15 PM * Full Code Date Activated Date Inactivated Comments 07/25/2022 8:22 AM 08/19/2022 11:58 PM Care Teams Spring Maker Relationship Specialty Start Date End Date Shan Pimentel MD [address] [place] [address] PCP - General General Internal Medicine 03/17/25
--- OUTSIDE RECORDS SUMMARY | 2025-04-10 11:54 | XMS_ITS | Encounter Summary ---
Author Organization [email or web address] ([place], [place], [place], [place]) Address [address] [facility] [address] [place] [address] Care Team Providers Care Assistant Community Director Name Role Phone Dieter Larios MD Primary Care Provider [phone] Shan Pimentel MD Primary Care Provider [phone] Encounter Details Date Type Department Care Team (Late st Contact Info) Description 04/20/2020 Transcribed Document [facility] [place] Family Medicine [address] [place] [address] Belkys Monsalve MD [address], [place] [address] Social History Tobacco Use Types Packs/Day Years [...] PERFORMED: Standard left heart catheterization. TECHNIQUE: A 5/6-Romansh sheath was placed in the right radial [...] factor modification recommended from the cardiovascular standpoint. /[id number] Tank Wilkins MD SSL/AQ / SSL / MODL /[id number] CC: MD Dr. Umesh Kearns Electronically signed by [facility] Conversion [employer] Machine Feeder Cerner at 12/26/2022 11:29 AM CDT documented in this encounter Plan of Treatment Not on file documented as of this encounter Visit Diagnoses Not on filedocumented in this encounter Care Teams Assistant Community Director Relationship Specialty Start Date End Date Dieter Larios MD [address] [place] [address] PCP - General Emergency Medicine 07/25/22 03/16/25 Shan Pimentel MD [address] [place] [address] [place] [address] PCP - General General Internal Medicine 03/17/25 documented as of this encounter
--- OUTSIDE RECORDS SUMMARY | 2025-04-10 11:54 | XMS_ITS | Encounter Summary ---
Author Organization [employer] ([place], [place], [place], [place]) Address [address] [place] [address] Care Team Providers Care Monitoring Engineer Name Role Phone Dieter Larios MD Primary Care Provider [phone] Shan Pimentel MD Primary Care Provider [phone] Encounter Details Date Type Department Care Team (Late st Contact Info) Description 04/20/2020 Transcribed Document [facility] [place] Family Medicine [address] [place] [address] ProviderBelkys MD [address] [place], [place] [phone] Social History Tobacco Use Types Packs/Day Years Used Date Smoking Tobacco: Never Assessed Comments Unknown Sex and Gender Information Value Date Recorded Sex Assigned at Not on file Legal Sex Female 5:07 PM CDT Gender Identity Not on file Sexual Orientation Not on file documented as of this encounter Miscellaneous Notes * Cerner Conversion Note - Blekys ProviderMD - 04/20/2020 12:33 PM CDT Stroke/Warfarin [...] on filedocumented in this encounter Care Teams Monitoring Engineer Relationship Specialty Start Date End Date Dieter Larios MD [address] [place] [address] PCP - General Emergency Medicine 07/25/22 03/16/25 Shan Pimentel MD [address] [place] [address] PCP - General General Internal Medicine 03/17/25 documented as of this encounter
--- OUTSIDE RECORDS SUMMARY | 2025-04-10 11:54 | XMS_ITS | Encounter Summary ---
[facility] Address [address] [place] [id number] Care Team Providers Care Suture Gauger Name Role Phone Shan Landry MD Primary Care Provider [phone] Reason for Visit * Reason Onset Date Comments DR. CHRISTOPHER -- RELAYRESPONSE 02/14/2025 Encounter Details Date Type Department Care Team (Late st Contact Info) Description 02/14/2025 Telephone [facility] MEDICAL [facility] CARDIOLOGY [address] [facility] [address] [place] [address] WAESPE -- RELAYRESPONSE Social History Tobacco Use Types Packs/Day Years [...] encounter Miscellaneous Notes * Telephone Encounter - Hernandez Otoole RegSched Rep - 02/14/2025 12:12 PM EDT Name: Tiffany Javed Kiko Relationship: Self Best Callback Number: [phone] HUB PROVIDED THE RELAY MESSAGE FROM THE OFFICE PATIENT: VOICED UNDERSTANDING AND HAS NO FURTHER QUESTIONS AT THIS TIME ADDITIONAL INFORMATION: PER OFFICE, HUB OKAY TO RELAY. PT NOT HAD ANY LABS OR RECENT ED VISITS. HASLABS SHE IS GOING TO COMPLETE AT DR. LANDRY'S OFFICE ON 02.25.25 FOR ROUTINE A1C. * Telephone Encounter - Christine Ulrich MA - 02/14/2025 11:41 AM EDT Left message for pt to call back. I was calling pt to ask if she has had labs drawn or been to the ER since we last saw her. documented in this encounter Plan of Treatment Upcoming Encounters Date Type Department Care Team (Late st Contact Info) Description 04/14/2025 3:00 PM EDT Office Visit [facility] CARDIOLOGY [address] [phone] Susan Christopher MD [address] [place] [address] documented as of this encounter Visit Diagnoses Not on filedocumented in this encounter Care Teams Suture Gauger Relationship Specialty Start Date End Date Shan Landry MD [address] [place] [address] [place] [address] PCP - General Internal Medicine 03/07/24 documented as of this encounter
--- OUTSIDE RECORDS SUMMARY | 2025-04-10 11:54 | XMS_ITS | Encounter Summary ---
Author Organization [employer] ([place], [place], [place], [place]) Address [address] [place] [address] Care Team Providers Care Organic Lab Worker Name Role Phone Shan Pimentel MD Primary Care Provider [phone] Encounter Details Date Type Department Care Team [...] Date Kai rded Speak language other than Spanish at home Not on file 09/28/2023 Want [...] on filedocumented in this encounter Care Teams Organic Lab Worker Relationship Specialty Start Date End Date Shan Pimentel MD [address] [place] [address] PCP - General General Internal Medicine 03/17/25 documented as of this encounter
--- OUTSIDE RECORDS SUMMARY | 2025-04-10 11:54 | XMS_ITS | Encounter Summary ---
Author Organization [employer] ([place], [place], [place], [place]) Address [address] [facility] [place] [address] Care Team Providers Care Pbx Technician Name Role Phone Dieter Larios MD Primary Care Provider Shan Pimentel MD Primary Care Provider [phone] Encounter Details Date Type Department Care Team (Late st Contact Info) Description 04/20/2020 Transcribed Document [facility] [place] [address] [place] [address] ProviderBelkys MD [address], [place] [address] Social History Tobacco Use Types Packs/Day Years [...] On: 04/20/2020 12:30 EDT by EMILEE GRAY, instrumentation instructor Documentation Discharge Date/Time : 04/20/2020 14:56 EDT [...] - 04/20/2020 12:30 EDT Electronically signed by [facility] Conversion Business Line Controller Cerner at 12/26/2022 11:15 AM CDT documented in this encounter Plan of Treatment Not on file documented as of this encounter Visit Diagnoses Not on filedocumented in this encounter Care Teams Pbx Technician Relationship Specialty Start Date End Date iDeter Larios MD [address] [place] [address] PCP - General Emergency Medicine 07/25/22 03/16/25 Shan Pimentel MD [address] [place] [address] PCP - General General Internal Medicine 03/17/25 documented as of this encounter
--- OUTSIDE RECORDS SUMMARY | 2025-04-10 11:54 | XMS_ITS | Encounter Summary ---
Author Organization [employer] ([place], [place], [place], [place]) Address [address] [place] [address] Care Team Providers Care Tank Truck Loader Name Role Phone Dieter Larios MD Primary Care Provider [phone] Shan Pimentel MD Primary Care Provider [phone] Encounter Details Date Type Department Care Team (Late st Contact Info) Description 04/20/2020 Transcribed Document [facility] [place] [address] [place] [address] ProviderBelkys MD [address] [id number] Social History Tobacco Use Types Packs/Day Years [...] Source : Stated Height Entry Format : [place] Height, Feet : 5 ft(Converted to: 152 cm, 60 Inch) Height, Inches : 7 Inch(Converted to: 0 ft 7 Inch, 17.78 cm) Clinical Height : 170.18 cm Weight Source : Standing scale Weight Entry Format : [place] Clinical Dosing Weight : 105 kg Weight, Pounds : 231 lb Body Surface Area (BSA) : 2.15 m2 Body Mass Index : 36.3 kg/m2 (HI) [place] Body Weight : 61 kg EMILEE GRAY [...] : Blood glucose monitoring, Other: pt sees tin stacker for wounds on toes on both feet EMILEE GRAY RN - 04/20/2020 10:07 EDT [place] Suicide Severity Rating Scale (C-SSRS) CSSRS Past [...] spouse Support Person/Pt Rep Contact Information : [phone] Want Family/Rep/Phys Notified of Admit : No Emergency Contact #1 : see above Emergency Contact #1 Phone Number : na Emergency Contact #1 Relationship : na Emergency Contact #2 : none Emergency Contact #2 Phone Number : na Emergency Contact #2 Relationship : na Information Obtained From : Patient Primary Language : Ghanaian Communication Barrier : None Cow Puncher Needed : No EMILEE GRAY RN - [...] Scale Risk Level : 25-45 Medium Risk [place] Fall Interventions : Adequate lighting, Bed in [...] of the form. Electronically signed by [facility] Conversion Parking Technician Cerner at 12/26/2022 11:15 AM CDT documented in this encounter Plan of Treatment Not on file documented as of this encounter Visit Diagnoses Not on filedocumented in this encounter Care Teams Tank Truck Loader Relationship Specialty Start Date End Date Dieter Larios MD [address] [place] [address] PCP - General Emergency Medicine 07/25/22 03/16/25 Shan Pimentel MD [address] [place] [address] PCP - General General Internal Medicine 03/17/25 documented as of this encounter
--- OUTSIDE RECORDS SUMMARY | 2025-04-10 11:54 | XMS_ITS | Encounter Summary ---
Author Organization [employer] ([place], [place], [place], [place]) Address [address] [place] [address] Care Team Providers Care Desk Reporter Name Role Phone Dieter Larios MD Primary Care Provider [phone] Shan Pimentel MD Primary Care Provider [phone] Encounter Details Date Type Department Care Team (Late st Contact Info) Description 04/20/2020 Transcribed Document [facility] [place] [address] [place] [address] ProviderBelkys MD [address] [place] [address] Social History Tobacco Use Types [...] Monsalve MD - 04/20/2020 2:29 PM CDT [facility] [place] [id number] LATRICIA FEDE ELAINE :1950 Visit Time:04/20/2020 Your Visit Summary Your [...] scheduled Where: [address] [place] [id number]- Medications What How Much When Instructions Next [...] Fats and oils Meat fat, or shortening. [place] butter, hydrogenated oils, palm oil, coconut oil, [...] 06/06/2009 Document Revised: 10/05/2018 Document Reviewed: 10/05/2018 [employer] Patient Education ?? 2020 [employer] Radial Site Care This sheet gives [...] these instructions at home: Medicines ??? Take lgdw-jjh-doxqjvm and prescription medicines only as told by your health care provider. Insertion site care ??? Follow instructions from your health care provider about how to take care of your insertion site. Make sure you: ? Wash your hands with soap and water before you change your bandage (dressing). If soap and water are not available, use hand tap dancer. ? Change your dressing as told by [...] 09/30/2011 Document Revised: 10/03/2018 Document Reviewed: 10/03/2018 [employer] Patient Education ?? 2020 [employer] Moderate Conscious Sedation, Adult, Care After [...] you are awake and alert. ??? Take pbbb-ejd-giszlne and prescription medicines only as told by [...] 06/18/2014 Document Revised: 08/10/2018 Document Reviewed: 12/17/2016 [employer] Patient Education ?? 2020 [employer]. Coronary Angiogram A coronary angiogram is an [...] including vitamins, herbs, eye drops, creams, and eiwb-wzn-bayhvem medicines. ??? Any problems you or family [...] 03/03/2004 Document Revised: 08/10/2018 Document Reviewed: 06/09/2017 [employer] Patient Education ?? 2020 [employer]. empagliflozin (SATINDER olivera) Jardiance What is the [...] may report side effects to FDA at 8-176-GVX-7556. What other drugs will affect empagliflozin? Tell your doctor about all your other medicines, especially: ?? insulin or other oral diabetes medications; or ?? a diuretic or 'water pill.' This list is not complete. Other drugs may affect empagliflozin, including prescription and bnwk-ymm-irmpevp medicines, vitamins, and herbal products. Not all [...] to ensure that the information provided by [employer]. ('[employer]') is accurate, up-to-date, and complete, but no guarantee is made to that effect. Drug information contained herein may be time sensitive. [employer] information has been compiled for use by healthcare practitioners and consumers in the [place] and therefore [employer] does not warrant that uses outside of the [place] are appropriate, unless specifically indicated otherwise. [employer] drug information does not endorse drugs, diagnose patients or recommend therapy. [employer] drug information is an informational resource designed [...] with your doctor, nurse or pharmacist. Copyright 0383-0332 [facility]. Version: 3.02. Revision Date: 12/10/2019. Emergency Awareness [...] Assistance with quitting is available by contacting 6-682-UAAI-NOW. This is a free resource providing counseling, [...] was given the opportunity to ask questions. Patient/[employer] Name: Patient/[employer] Signature: Relationship to Patient: Clinician/Hospital [employer] Signature: Date: documented in this encounter Plan of Treatment Not on file documented as of this encounter Visit Diagnoses Not on filedocumented in this encounter Care Teams Desk Reporter Relationship Specialty Start Date End Date Dieter Lraios MD [address] [place] [address] PCP - General Emergency Medicine 07/25/22 03/16/25 Shan Pimentel MD [address] [place] [address] PCP - General General Internal Medicine 03/17/25 documented as of this encounter
--- OUTSIDE RECORDS SUMMARY | 2025-04-10 11:54 | XMS_ITS | Clinical Summary ---
[facility] Address [address] [place] [id number] Care Team Providers Care Head Packager Name Role Phone Shan Pimentel MD Primary Care Provider [phone] Allergies Active Allergy Reactions Criticality Noted Date Comments Codeine Other (See Comments) 05/09/2022 Hydrocodone Anxiety,Unknown - Low Severity Low 07/12 Medications Multiple Vitamins-Mineral s (OCUVITE ADULT 50+ PO) Take by mouth. Activ e atorvastatin (LIPITOR) 80 MG tabletIndication s:Pure hypercholesterol emia,Cerebrovasc ular disease TAKE 1 TABLET BY MOUTH ONCE DAILY 90 tablet 3 024 Active Ozempic, 2 MG/DOSE, 8 MG/3ML solution pen-injectorIndi cations:Type 2 diabetes mellitus with diabetic autonomic neuropathy, with long-term current use of insulin INJECT SUBCUTANEOUSLY 2 MG EVERY WEEK INTO THE ABDOMEN, THIGH OR OUTER AREA OF UPPER ARM (ROTATE SITES) 9 mL 3 025 Active montelukast (SINGULAIR) 10 MG tabletIndication s:Seasonal allergic rhinitis due to pollen TAKE 1 TABLET BY MOUTH EVERY NIGHT 90 tablet 3 025 Active Farxiga 10 MG tabletIndication s:Type 2 diabetes mellitus with diabetic autonomic neuropathy, with long-term current use of insulin TAKE 1 TABLET BY MOUTH DAILY 90 tablet 3 025 Active minocycline (MINOCIN,DYNACIN ) 100 MG capsule TAKE 1 CAPSULE BY MOUTH TWICE A DAY FOR CELLULITIS FOR 10 DAYS 025 Active Lantus SoloStar 100 UNIT/ML injection penIndications:T ype 2 diabetes mellitus with diabetic autonomic neuropathy, with long-term current use of insulin INJECT 60 UNITS SUBCUTANEOUSLY DAILY DIRECTED INTO THE ABDOMEN, THIGH OR OUTER AREA OF UPPER ARM (ROTATE SITES) 60 mL 3 025 Active lisinopril (PRINIVIL,ZESTRI L) 5 MG tabletIndication s:DM (diabetes mellitus), type 2 with complications Take 1 tablet by mouth Daily. 90 tablet 3 025 Active sertraline (ZOLOFT) 100 MG tablet Take 1 tablet by mouth Daily. 90 tablet 025 Active clopidogrel (PLAVIX) 75 MG tablet Take 1 tablet by mouth Daily. 90 tablet 025 Active metoprolol succinate XL (TOPROL-XL) 50 MG 24 hr tablet Take 1 tablet by mouth Daily. 90 tablet 025 Active sertraline (ZOLOFT) 100 MG tablet 021 2024 Discontinued(R eorder) clopidogrel (PLAVIX) 75 MG tablet 021 2024 Discontinued(R eorder) lisinopril (PRINIVIL,ZESTRI L) 5 MG tabletIndication s:DM (diabetes mellitus), type 2 with complications Take 1 tablet by mouth Daily. 90 tablet 3 023 2024 Discontinued(R eorder) metoprolol succinate XL (TOPROL-XL) 50 MG 24 hr tablet Take 1 tablet by mouth Daily. 023 2024 Discontinued(R eorder) Insulin Glargine (LANTUS SOLOSTAR) 100 UNIT/ML injection penIndications:T ype 2 diabetes mellitus with diabetic autonomic neuropathy, with long-term current use of insulin Inject 60 Units under the skin into the appropriate area as directed Daily. 30 mL 3 024 2024 Discontinued Active Problems Problem Noted Date Diagnosed Date Head pain, chronic 11/28/2024 Assessment & Plan (11/28/2024 11:29 AM EDT): Main reason for today's visit on 11/28/2024. Somewhat of a nonspecific pattern of achiness in the head more on the right upper forehead and into the hairline, and a little bit in the top of the head although the top of the head is a bit more of a numb tingly sensation that varies. More persistent over the last year although prior to that it has been present similarly but more inconsistent for about 5 years or maybe longer. She has had a couple times where she is fallen and hit her head, and while she has no step-offs on exam she is somewhat reproducibly tender with otherwise no abnormality in the right frontal more than top of the head region. No concerning neurological manifestations associated. She fell a year ago and has had no imaging since, and it seems to been a bit worsened since then, as such I would like to obtain CT of the head without contrast to more assess the bony anatomy and soft tissues overlying this area, to assess for any abnormality that would benefit intervention. Ultimately recommend heating pad, and as needed Tylenol which does seem to give benefit. We discussed potential benefits of something like Cymbalta but she did not tolerate and takes Zoloft anyhow. Advise concerns Lipoma of right lower extremity 10/28/2024 Assessment & Plan (10/28/2024 11:51 AM EST): Discussed 10/28/2024. Notably large lipoma in the right upper medial thigh region, present for many years, she believes it was last assessed about 8 or [address] Acosta, orthopedist who did an MRI showing a fatty collection consistent with lipoma. No notable change since then but she wanted to discuss again with many other thoughts. As is not bothering her it is not growing in size, there is no redness or tenderness, and it is and generally not invasive I would recommend ongoing monitoring. Weakness of both lower extremities 10/28/2024 Assessment & Plan (10/28/2024 11:51 AM EST): Discussed in detail 10/28/2024, modest longstanding pattern just generalized weakness in the legs that she associates to not much use. I did discuss the benefit of physical therapy, which could give some further strength and I feel would benefit her mobility. Nonetheless she is a bit hesitant to pursue therapy as it requires multiple visits, and she had discussed a small device that she is seeing on TV that has like an elliptical type pattern, an example would be a Cubi. I discussed that [place] and updated back this up I had many patients that are older and uses and felt that helped her strength and she would like to try that first. If she changes her mind and wants to pursue therapy, advise me to schedule. Psychophysiological insomnia 10/28/2024 Assessment & Plan (02/25/2025 12:42 PM EDT): Discussed initially in detail 10/28/2024. Some difficulty [...] although with her comorbid use of Zoloft that would be generally preferred to avoid. Advise concerns. Assessment & Plan (11/28/2024 11:27 AM EDT): Discussed initially in detail 10/28/2024. Some difficulty getting sleep and sometimes waking up but she also has poor sleep hygiene with frequent naps the day. Discussed in detail need to improve sleep hygiene with removing naps which allow her to sleep better and having good sleep hygiene for nighttime. Recommendation at that time to consider melatonin and she has not yet initiated, such I will try to use prescribe if she has trouble getting to the pharmacy. Prescription for melatonin 3 mg to be given 1 to 1.5 hours prior to bed, try to use regular for few weeks and if she does well can transition to as needed use. If not seeing good benefit we could consider other medication such as amitriptyline, although with her comorbid use of Zoloft that would be generally preferred to avoid. Advise if not improving. Assessment & Plan (10/28/2024 11:58 AM EST): Discussed initially in detail 10/28/2024. Some difficulty getting sleep and sometimes waking up but she also has poor sleep hygiene with frequent naps the day. Discussed in detail need to improve sleep hygiene with removing naps which allow her to sleep better and having good sleep hygiene for nighttime. I also discussed melatonin which she would like to try first, at 3 to 5 mg nightly, using about an hour to 1.5 hours prior to bed, if she does well she can transition as needed use after 2 to 3 weeks. If not seeing good benefit we could consider other medication such as amitriptyline. Advise if not improving. Colon cancer screening 10/28/2024 Assessment & Plan (10/28/2024 12:18 PM EST): Requested records from [facility] on 10/28/2024 reveals colonoscopy 12/09/[address] Justice which was negative with 10-year follow-up recommended. She declines desire for further colonoscopy but as of this time she would not be due until November 2026. Vitamin D deficiency 07/23/2024 Assessment & Plan (10/28/2024 11:59 AM EST): Concern of possible vitamin D deficiency, By previous history by report. As such we obtained 07/23/2024 vitamin D level normal at 33.2. As such no specific vitamin D replacement is necessary by this result but I think low level 1000 units daily would be reasonable and she will start. Assessment & Plan (07/23/2024 12:27 PM EST): Concern of possible vitamin D deficiency, as such we will obtain vitamin D screening with blood work. Orders: Vitamin D,25-Hydroxy; Future Vitamin D,25-Hydroxy Need for vaccination 03/07/2024 Assessment & Plan (07/23/2024 12:27 PM EST): Orders: Tdap Vaccine Greater Than or Equal To 7yo IM Fluzone High-Dose 65+yrs Assessment & Plan (03/07/2024 11:44 AM EDT): Patient due for final pneumococcal vaccine, administered today 03/07/2024. Recommend Tdap vaccine as she is past due show, she declines today but may reconsider at future visit. Anxiety and depression 03/07/2024 Assessment & Plan (02/25/2025 12:40 PM EDT): Anxiety and depressive symptoms for which she has been on sertraline 100 mg daily, for many years with stability. I again discussed potential consideration of weaning dose, and as of 11/28/2024 she is considering but would like to hold off. Continue lifestyle modifications to benefit mood including pursuit of enjoyable activities, good communication, regular activity. Advise any concerns, we could consider adding buspirone to regimen in future if necessary. Stability as of 02/25/2025. Assessment & Plan (11/28/2024 11:26 AM EDT): Anxiety and depressive symptoms for which she has been on sertraline 100 mg daily, for many years with stability. I again discussed potential consideration of weaning dose, and as of 11/28/2024 she is considering but would like to hold off. Continue lifestyle modifications to benefit mood including pursuit of enjoyable activities, good communication, regular activity. Advise any concerns, we could consider adding buspirone to regimen in future if necessary. Advise concerns. Assessment & Plan (10/28/2024 11:52 AM EST): Anxiety and depressive symptoms for which she has been on sertraline 100 mg daily, for many years with stability. I again discussed potential consideration of weaning dose with stability but she would prefer to continue unchanged . Continue lifestyle modifications to benefit mood including pursuit of enjoyable activities, good communication, regular activity. Advise any concerns, we could consider adding buspirone to regimen in future if necessary. No new concerns as of 10/28/2024. Assessment & Plan (07/23/2024 12:27 PM EST): Anxiety and depressive symptoms for which she has been on sertraline 100 mg daily, for many years with stability. I again discussed potential consideration of weaning dose with stability but she would prefer to continue unchanged . Continue lifestyle modifications to benefit mood including pursuit of enjoyable activities, good communication, regular activity. Advise any concerns, we could consider adding buspirone to regimen in future if necessary. Assessment & Plan (03/07/2024 11:40 AM EDT): And depressive symptoms for which she has been on sertraline 100 mg daily for what sounds like many years with overall stability. I discussed potential consideration of weaning dose of stability but she has done well enough she would like to continue unchanged. Continue lifestyle modifications to benefit mood including pursuit of enjoyable activities, good communication, regular activity. Advise any worsening where in the future we could consider adding medicine such as buspirone if needed. Class 2 severe obesity with serious comorbidity and body mass index (BMI) of 37.0 to 37.9 in adult 03/07/2024 Assessment & Plan (02/25/2025 12:41 PM EDT): BMI improved to the low-mid 30 range, with improved diet, probably benefited by GLP-1 class of medicine, with multiple medical comorbidities. Reinforced importance of healthy diet, exercise and weight loss to benefit. Assessment & Plan (10/28/2024 11:52 AM EST): BMI improved to the low-mid 30 range, with improved diet, probably benefited by GLP-1 class of medicine, with multiple medical comorbidities. Reinforced importance of healthy diet, exercise and weight loss to benefit. Assessment & Plan (07/23/2024 12:27 PM EST): BMI improved to the mid 30 range, with improved diet, probably benefited by GLP- 1 class of medicine, with multiple medical comorbidities. Reinforced importance of healthy diet, exercise and weight loss to benefit. Assessment & Plan (03/07/2024 11:40 AM EDT): BMI in the upper 30 range at 37.1, with multiple medical comorbidities. Reinforced importance of healthy diet, exercise and weight loss to benefit. Seasonal allergic rhinitis due to pollen 024 Assessment & Plan (10/28/2024 11:55 AM EST): Seasonal pattern of allergies more spring and fall, generally responsive [id number] antihistamine and nasal steroid, with benefit. Current regimen Zyrtec 10 mg daily, Flonase 2 sprays per nostril daily, and with some periodic breakthrough symptoms on 07/23/2024 we added montelukast 10 mg to the regimen. She has done well on this regimen, continue unchanged. Additional benefit of saline spray, nasal flushing. Advise concerns. Assessment & Plan (07/23/2024 12:27 PM EST): Seasonal pattern of allergies more spring and fall, generally responsive [id number] antihistamine and nasal steroid, with benefit. Nonetheless azafol 2020 for some breakthrough symptoms we will add montelukast 10 mg to the regimen to use all 3 together for next couple weeks, and as needed. We could additionally consider adding nasal antihistamine in the future. additional benefit of saline spray, nasal flushing. Advise concerns. Orders: montelukast (Singulair) 10 MG tablet; Take 1 tablet by mouth Every Night. Assessment & Plan (03/07/2024 11:45 AM EDT): Seasonal pattern of allergies more spring and fall, generally responsive [id number] antihistamine and nasal steroid which she feels that does well. Declines need for further medication such as with montelukast. Additional benefit of saline spray, nasal flushing. Advise concerns. Left hand pain 03/07/2024 Assessment & Plan (03/07/2024 11:43 AM EDT): Onset of left hand pain when she fell 9 days ago on 02/27/2024, although she feels the pain is notably improved and now just a little residual discomfort in the mid palm region. Discussed with mechanism of injury, and lingering pain she would benefit from x-ray imaging but is doing well now she would like to hold off. Nonetheless if she is having persisting pain over the next week or so, advised him we would then pursue x-ray imaging with management per results. Advise concerns. Left shoulder pain 03/07/2024 Assessment & Plan (03/07/2024 11:44 AM EDT): Onset of left shoulder pain more anterior location with no catching clicking or grinding and reassuring neurologic exam today on 03/07/2024, after having a fall 9 days ago on 02/27/2024. Associated left hand pain which is improving more notably but the shoulder still improved fairly notably. Discussed with mechanism of injury, and lingering pain she would benefit from x-ray imaging but is doing well now she would like to hold off. Nonetheless if she is having persisting pain over the next week or so, advise and I would then pursue x-ray imaging with management per results. Advise concerns. Encounter for general adult medical examination with abnormal findings 03/07/2024 Assessment & Plan (07/23/2024 12:27 PM EST): Partial lab work 02/20/2024 at [place] full blood work ordered 07/23/2024 with management per results. Hospital including nonconcerning CBC, hemoglobin A1c of 8.4%, TSH of 2.05, and good CMP with notable creatinine 0.9 and GFR 68. Pap smear last reported approximate 2019 negative, declines desire to repursue at this time although will advise if she changes her mind. Patient reports colonoscopy by Dr. Justice that was good , details unknown we will request records to verify as of visit 07/23/2024. Mammogram last September 2022 at [facility] improving in the hospital, recommend setting up soonest convenience, patient still plans to do so with preference to obtain next at [facility]. Patient declines desire for DEXA scan. Pneumococcal 20 valent vaccine given 03/07/2024. Tdap vaccine and flu vaccine given 07/23/2024. Hypertension, essential 02/26/2024 Assessment & Plan (02/25/2025 12:41 PM EDT): Comorbid with coronary artery disease, on regimen of lisinopril 5 mg daily, metoprolol XL 50 mg daily benefit, with additional modest blood pressure effect from her Farxiga 10 mg daily. Good blood pressure control. Continue good activity level, decrease salt intake. Monitor regularly. No new concerns as of 02/25/2025. Assessment & Plan (11/28/2024 11:26 AM EDT): Comorbid with coronary artery disease, on regimen of lisinopril 5 mg daily, metoprolol XL 50 mg daily benefit, with additional modest blood pressure effect from her Farxiga 10 mg daily. Good blood pressure control. Continue good activity level, decrease salt intake. Monitor regularly. No new concerns as of 11/28/2024 Assessment & Plan (10/28/2024 11:53 AM EST): Comorbid with coronary artery disease, on regimen of lisinopril 5 mg daily, metoprolol XL 50 mg daily benefit, with additional modest blood pressure effect from her Farxiga 10 mg daily. Good blood pressure control. Continue good activity level, decrease salt intake. Monitor regularly. No new concerns as of 10/28/2024. Assessment & Plan (08/21/2024 10:59 AM EST): Well-controlled. Continue current medication. Assessment & Plan (07/23/2024 12:27 PM EST): Comorbid with coronary artery disease, on regimen of lisinopril 5 mg daily, metoprolol XL 50 mg daily benefit. Good blood pressure control. Continue good activity level, decrease salt intake. Monitor regularly. Assessment & Plan (03/07/2024 11:50 AM EDT): Comorbid with coronary artery disease, on regimen of lisinopril 5 mg daily, metoprolol XL 50 mg daily benefit. Good blood pressure control. Continue good activity level, decrease salt intake. Monitor regularly. Type 2 diabetes mellitus wit h diabetic autonomic neuropathy, with long-term current use of insulin 11/01/2022 Assessment & Plan (02/25/2025 12:43 PM EDT): Diagnosis sometime in the early to mid s by patient report. today's hemoglobin A1c notably continues in good range and improved to 6.2% on 02/25/2025, previous 6.7% on 10/28/2024, 6.8%, 03/07/2024 at 8.2%, prior to that 9.4% on 11/23/2023. In 2023, to simplify her regimen, I discontinued Soliqua, transition to insulin glargine 60 units daily, and [...] Ozempic 2 mg weekly. Continue unchanged, although for hemoglobin A1c at her job much further in the future we will consider decreasing the dose of Lantus modestly. Of note patient does not have any specific contraindication to metformin use and could be reconsidered in the future. Notable for reported history of neuropathy although 10/28/2024 neuropathy test with pinprick was normal. Notable for status post [address] 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 Regular follow-up with retina associates, Dr. Loyola for her eyes. Overall still having good control of her glucose measurements, continue regimen unchanged. With such good stability will follow- up in 5 months time, sooner as needed. Assessment & Plan (11/28/2024 11:27 AM EDT): Diagnosis sometime in the early to mid 1999's by patient report. today's hemoglobin A1c notably continues in good and slight improved range at 6.7% on 10/28/2024, previous 6.8%, 03/07/2024 at 8.2%, prior to that 9.4% on 11/23/2023. In 2023, to simplify her regimen, I discontinued Soliqua, transition to insulin glargine 60 units daily, and increase Ozempic To 2 mg weekly. Previous Jardiance was cost prohibitive but Farxiga is less expensive than a current 5 mg dosing as initiated 03/07/2024, and increased to. Increase Farxiga 10 mg dosing on 07/23/2024. Notable for good kidney function creatinine 0.9 GFR 68 with blood work 02/20/2024. As such she is overall doing well currently on a regimen of Lantus 60 units daily, Farxiga 10 mg daily and Ozempic 2 mg weekly. Continue unchanged. Of note patient does not have any specific contraindication to metformin use and could be reconsidered in the future. Notable for reported history of neuropathy although 10/28/2024 neuropathy test with pinprick was normal. Notable for status post [address] 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 Regular follow-up with retina Dr. Nir tobias for her eyes. Overall still having good control of her glucose measurements, continue regimen unchanged. Reassess at follow-up visit 02/25/2025 Assessment & Plan (10/28/2024 11:57 AM EST): Diagnosis sometime in the early to mid s by patient report. today's hemoglobin A1c notably continues in good and slight improved range at 6.7% on 10/28/2024, previous 6.8%, 03/07/2024 at 8.2%, prior to that 9.4% on 11/23/2023. In 2023, to simplify her regimen, I discontinued Soliqua, transition to insulin glargine 60 units daily, and increase Ozempic To 2 mg weekly. Previous Jardiance was cost prohibitive but Farxiga is less expensive than a current 5 mg dosing as initiated 03/07/2024, and increased to. Increase Farxiga 10 mg dosing on 07/23/2024. Notable for good kidney function creatinine 0.9 GFR 68 with blood work 02/20/2024. As such she is overall doing well currently on a regimen of Lantus 60 units daily, Farxiga 10 mg daily and Ozempic 2 mg weekly. Continue unchanged. Of note patient does not have any specific contraindication to metformin use and could be reconsidered in the future. Notable for reported history of neuropathy although 10/28/2024 neuropathy test with pinprick was normal. Notable for status post [address] 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 Regular follow-up with retina Dr. Nir tobias for her eyes. Stable pattern follow-up 4 months, sooner as needed. Assessment & Plan (07/23/2024 12:27 PM EST): Diagnosis sometime in the early to mid s by patient report. today's hemoglobin A1c notably improved to 6.8% compared to previous on 03/07/2024 at 8.2%, prior to that 9.4% on 11/23/2023. Current regimen of Soliqua 100/33, which she reports taking 60 units of insulin glargine and 20 units of a GLP-1 agonist in that medication, with additional semaglutide at 1 mg weekly. To simplify regimen I would like to discontinue the Soliqua, transition to insulin glargine 60 units daily, and increase Ozempic To 2 mg weekly as she is tolerating. Previous Jardiance was cost behavior but Farxiga is less expensive than a current 5 mg dosing as initiated . Increase Farxiga to 10 mg dosing today on 4 07/23/2024. Notable for good kidney function creatinine 0.9 GFR 68 with blood work 02/20/2024. Of note patient does not have any specific contraindication to metformin use and could be reconsidered in the future. Notable for reported history of neuropathy although 03/07/2024 neuropathy test with pinprick was normal. Notable for status post [address] 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 Regular follow-up with retina associates, Dr. Loyola for her eyes. Follow-up 3 months, sooner as needed. Orders: POC Glycosylated Hemoglobin (Hb A1C) POC Glucose, Blood MicroAlbumin, Urine, Random - Urine, Clean Catch; Future Semaglutide, 2 MG/DOSE, (Ozempic, 2 MG/DOSE,) 8 MG/3ML solution pen-injector; Inject 2 mg under the skin into the appropriate area as directed 1 (One) Time Per Week. Insulin Glargine (LANTUS SOLOSTAR) 100 UNIT/ML injection pen; Inject 60 Units under the skin into the appropriate area as directed Daily. dapagliflozin Propanediol (Farxiga) 10 MG tablet; Take 10 mg by mouth Daily. MicroAlbumin, Urine, Random - Urine, Clean Catch Assessment & Plan (03/07/2024 12:11 PM EDT): Diagnosis sometime in the early to mid 1999's by patient report. Today's hemoglobin A1c of 8.2%, and review of recent blood work records from just a couple weeks ago was at 8.4% through [facility], and prior to that 9.4% on 11/23/2023. As such improving pattern. Current regimen of Soliqua 100/33, which she reports taking 60 units of insulin glargine and 20 units of a GLP-1 agonist in that medication, with additional semaglutide at 1 mg weekly, which was increased from 0.5 mg just in the last couple weeks in February 2024. I did discuss there is some redundancy in taking a GLP-1 agonist in combination medicine as well as with the semaglutide but for now we will leave alone, but in the future may simplify her regimen, which could also be more cost effective. Apparently previous attempted Jardiance was cost prohibitive, and I discussed that with her history and SGLT2 class centimeter medication we recommended, we will try Farxiga 5 mg daily to see if tolerated, notable for good kidney function creatinine 0.9 GFR 68 with blood work 02/20/2024. Of note patient does not have any specific contraindication to metformin use and could be reconsidered in the future. Notable for reported history of neuropathy although today 03/07/2024 neuropathy test with pinprick was normal. Notable for status post [address] 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 Regular follow-up with retina associates, Dr. Loyola for her eyes. I will attempt to obtain a a continuous glucose monitor as of today's visit 03/07/2024. Follow-up 3 months, sooner as needed. Assessment & Plan (11/01/2022 12:27 PM EST): On Jardiance and Ozempic. A1c goal 7. Following up with PCP in near future. Mixed hyperlipidemia 11/01/2022 Assessment & Plan (02/25/2025 12:42 PM EDT): Most recent cholesterol 07/23/2024 with total cholesterol 132, triglycerides under 37, HDL 38, LDL 70. Overall good profile. She continues on high-dose statin with atorvastatin 80 mg daily, patient cardiovascular disease, benefit of high-dose statin with target LDL goal less than 70. Continue healthy diet, exercise and benefits of weight loss. Monitor cholesterol at minimum yearly. No new concerns as of 02/25/2025. Assessment & Plan (10/28/2024 11:54 AM EST): Most recent cholesterol 07/23/2024 with total cholesterol 132, triglycerides under 37, HDL 38, LDL 70. Overall good profile. She continues on high-dose statin with atorvastatin 80 mg daily, patient cardiovascular disease, benefit of high-dose statin with target LDL goal less than 70. Continue healthy diet, exercise and benefits of weight loss. Monitor cholesterol at minimum yearly. Assessment & Plan (07/23/2024 12:27 PM EST): No recent cholesterol profile to verify. Nonetheless she continues on high-dose statin with atorvastatin 80 mg daily, patient cardiovascular disease, benefit of high-dose statin with target LDL goal less than 70. Cholesterol obtained with blood work 07/23/2024, management per results. Continue healthy diet, exercise and benefits of weight loss. Orders: Comprehensive Metabolic Panel; Future Lipid Panel; Future Lipid Panel Comprehensive Metabolic Panel Assessment & Plan (03/07/2024 11:45 AM EDT): I do not have recent cholesterol profile to verify but have requested records from previous physician to verify. Nonetheless she continues on high-dose statin with atorvastatin 80 mg daily, patient cardiovascular disease, benefit of high-dose statin with target LDL goal less than 70. Keep follow-up with cardiology, Dr. Christopher as well as myself in this regard. Assessment & Plan (11/01/2022 12:26 PM EST): High-dose statin. LDL goal less than 70. Going to have a follow-up with PCP in the near future. Cerebrovascular disease 11/01/2022 Assessment & Plan (11/01/2022 12:25 PM EST): Seen on CT scan. Discussed types of stroke and education given. Primary prevention reviewed. Single subsegmental pulmonar y embolism without acute cor pulmonale 11/01/2022 Assessment & Plan (11/01/2022 12:25 PM EST): Would like to continue Eliquis for at least 6 months. Going to have to weigh benefits and risks of bleeding along with Plavix. Coronary artery disease invo lving big sandy coronary artery of big sandy heart 11/01/2022 Assessment & Plan (02/25/2025 12:41 PM EDT): As managed through [facility] with Dr. Christopher, with stenting and on appropriate medical therapy, including SHARONA inhibitor, beta-juan, statin and Plavix. Notable for history of 2012 RODRÍGUEZ-LAD, July 2022 LAD-XAVIER. Follows with Dr. Wilkins additionally. She most recently had a low risk stress test 03/24/2024, prior to that 10/05/2022 low risk nuclear stress test. Most recent follow-up with [facility] 02/17/2025 with a bit of atypical symptoms that have resulted in pending repeat cardiac catheterization for 03/17/2025. Assessment & Plan (10/28/2024 11:52 AM EST): As managed through [facility] with Dr. Christopher, with stenting and on appropriate medical therapy, including SHARONA inhibitor, beta-juan, statin and Plavix. Notable for history of 2012 RODRÍGUEZ-LAD, July 2022 LAD-XAVIER. Follows with Dr. Wilkins additionally. She most recently had a low risk stress test 03/24/2024, prior to that 10/05/2022 low risk nuclear stress test. Follow-up visit with [facility] last seen 08/19/2024 without any concerns or management changes and pending follow-up 02/17/2025 Assessment & Plan (08/21/2024 10:59 AM EST): Doing well on medical therapy. No recent increase in symptoms. Follow-up 6 months. Continue high-dose statin. Assessment & Plan (07/23/2024 12:27 PM EST): As managed through [facility] with Dr. Christopher, with stenting and on appropriate medical therapy, including SHARONA inhibitor, beta-juan, statin and Plavix. Notable for history of 2012 RODRÍGUEZ-LAD, July 2022 LAD-XAVIER. Follows with Dr. Wilkins additionally. She most recently had a low risk stress test 03/24/2024, prior to that 10/05/2022 low risk nuclear stress test. Follow-up visit with [facility]. Next appointment 08/29/2024. Assessment & Plan (03/07/2024 11:51 AM EDT): As managed through [facility] cardiology with Dr. Christopher, with stenting and on appropriate medical therapy, including SHARONA inhibitor, beta-juan, statin and Plavix. Notable for history of 2012 RODRÍGUEZ-LAD, July 2022 LAD-XAVIER. Follows with Dr. Wilkins additionally. She had a 10/05/2022 low risk nuclear stress test. With some consideration of cardiac symptoms as of visit February [address] Christopher she has pending 03/21/2020 for repeat stress testing. Reinforced importance of keeping that appointment. Assessment & Plan (11/01/2022 12:25 PM EST): Recent stenting. Stable. On medical therapy. We will try to continue Plavix for 6 months as long as no bleeding risk. Off of aspirin now that she is taking Eliquis. DDD (degenerative disc disease), lumbar 05/11/20 17 Assessment & Plan (07/23/2024 12:27 PM EST): History of degenerative disc disease, lower back region, with some waxing waning pattern historically of aches and pains for which she generally uses lidocaine patches with benefit, heating pad, stretching. No new concerns as of 07/23/2024. Advise any worsening. Assessment & Plan (03/07/2024 11:42 AM EDT): Reported history of degenerative disc disease, lower back region, with some waxing waning pattern historically of aches and pains for which she generally uses lidocaine patches with benefit, heating pad, stretching. Advise any worsening. Encounters Date Type Department Care Team Description 03/25/2025 Refill [facility] [address] [place] [id number] Shan Pimentel MD DM (diabetes mellitus), type 2 with complications 03/22/2025 Refill [facility] [address] [place] [address] [phone] Shan Pimentel MD Type 2 diabetes mellitus with diabetic autonomic neuropathy, with long-term current use of insulin 02/25/2025 11:00 AM EDT Office Visit [facility] [address] [place] [address] [address] [phone] Shan Pimentel MD Type 2 diabetes mellitus with diabetic autonomic neuropathy, with long-term current use of insulin (Primary Dx); Hypertension, essential; Coronary artery disease involving big sandy coronary artery of big sandy heart without angina pectoris; Mixed hyperlipidemia; Class 2 severe obesity due to excess calories with serious comorbidity and body mass index (BMI) of 37.0 to 37.9 in adult; Psychophysiological insomnia; Anxiety and depression 02/25/2025 Travel 02/18/2025 Patient rounding ([facility] [place] only) [facility] [address] [phone] Susan Christopher MD 02/17/2025 1:30 PM EDT Office Visit [facility] [address] [phone] Susan Christopher MD Coronary artery disease of big sandy artery of big sandy heart with stable angina pectoris (Primary Dx); Precordial chest pain; Hypertension, essential 02/17/2025 Travel 02/14/2025 Telephone [facility] [address] [facility] [address] [place] [address] WAESPE -- RELAYRESPONSE 01/21/2025 Refill [facility] [address] [place] [address] [place] [phone] Shan Pimentel MD Vaginal candidiasis from Last 3 Months Immunizations Immunization Administration Dates Next Due Arexvy (RSV, Adults 60+ yrs) 07/05/2023 COVID-19 (PFIZER) Purple Cap Monovalent 07/31/20 21 FLUAD TRI 65YR+ 05/27/2020,07/11/2019 Fluzone High-Dose 65+YRS 07/23/2024,06/14/2021 Fluzone High-Dose 65+yrs 06/21/2023,06/30/2022 Hepatitis A 07/13/2018 Pneumococcal Conjugate 20-Valent (PCV20) 024 Pneumococcal, Unspecified 07/19/2019 Tdap 07/23/2024 Family History Medical History Relation Name Comments Kidney disease Father Benjamin Arthritis Mother Anupama Hoover Heart disease Mother Anupama Hoover Kidney disease Mother Anupama Hoover Cancer Sister 1 Becky Eubanks Breast cancer Diabetes Sister 1 Becky Eubanks Diabetes Sister 2 Amarilys and Saadia Depression Sister 3 Amarilys Roly Heart disease Sister 3 Amarilys [place] Diabetes Sister 4 Sister 1 Relation Name Status Comments Father Benjamin (Age 74) Mother Anupama Hoover (Age 87) Sister 1 Becky Eubanks Alive Sister 2 Amarilys and Saadia Alive Sister 3 Amarilys Roly Alive Sister 4 Sister 1 Alive Social History Tobacco Use Types Packs/Day Years [...] file Not on file Not on file Last Filed Vital Signs Vital Sign Reading Time Taken Comments Blood Pressure 108/64 02/25/2025 11:13 AM EDT Pulse 67 02/25/2025 11:13 AM EDT Temperature 36.9 C (98.4 F) 02/25/2025 11:13 AM EDT Respiratory Rate 18 11/28/2024 10:46 AM EDT Oxygen Saturation 95% 02/25/2025 11:13 AM EDT Inhaled Oxygen Concentration - - Weight 99.3 kg (219 lb) 02/25/2025 11:13 AM EDT Height 170.2 cm (5' 7 ) 02/17/2025 1:41 PM EDT Body Mass Index 34.3 02/17/2025 1:41 PM EDT Plan of Treatment Upcoming Encounters Date Type Department Care Team (Late st Contact Info) Description 04/14/2025 3:00 PM EDT Office Visit [facility] [address] [place] [address] Susan Christopher MD [address] [place] [address] Health Maintenance Due Date Last Done Comments DXA SCAN 1950 COLOGUARD 1996 COLON CANCER SCREENING [address] COLONOGRAPHY 1996 FECAL OCCULT BLOOD TEST 1996 FIT Testing (1 year) 1996 ZOSTER VACCINE (1 of 2) 2001 COVID-19 Vaccine ( season) 2024 07/05/2023, 03/21/2022, 07/31/2021, Additional history exists INFLUENZA VACCINE 06/11/2025 07/23/2024, , 06/30/2022, Additional history exists ANNUAL WELLNESS VISIT 07/23/2025 07/23/2024 , 06/21/2023, 06/21/2023, Additional history exists LIPID PANEL 07/23/2025 07/23/2024 HEMOGLOBIN A1C 08/27/2025 02/25/2025, 10/12, 07/23/2024, Additional history exists DIABETIC EYE EXAM 10/12/2025 10/12/2024 (Patient-Reported (Performed Externally)) MAMMOGRAM 10/28/2025 Postponed from 1991 (Patient Refused) URINE MICROALBUMIN-CREATININE RATIO (uACR) 10/28/2025 10/28/2024 DIABETIC FOOT EXAM 02/25/2026 02/25/2025, 0 02/25/2025, 02/25/2025 COLONOSCOPY 12/09/2026 12/09/2016 COLORECTAL CANCER SCREENING 12/09/2026 TDAP/TD VACCINES (2 - Td or Tdap) 07/23/2034 07/23/2024 Pneumococcal Vaccine 50+ Completed 03/07/2024, 04/2019 HEPATITIS C SCREENING Completed 07/23/2024 Procedures Procedure Name Priority Date/Time Associated Diagnosis Comments SCANNED - LABS 03/17/2025 POCT GLUCOSE, BLD (NON STRIP) Routine 02/25/2025 11:47 AM EDT Type 2 diabetes mellitus with diabetic autonomic neuropathy, with long-term current use of insulin POCT GLYCOSYLATED HEMOGLOBIN (HGB A1C) Routine 02/25/2025 11:47 AM EDT Type 2 diabetes mellitus with diabetic autonomic neuropathy, with long-term current use of insulin ECG 12-LEAD Routine 02/17/2025 2:39 PM EDT Coronary artery disease of big sandy artery of big sandy heart with stable angina pectoris SCANNED EKG 02/16/2025 MICROALBUMIN / CREATININE URINE RATIO Routine 10/28/2024 11:54 AM EST Type 2 diabetes mellitus with diabetic autonomic neuropathy, with long-term current use of insulin LIPID PANEL Routine 07/23/2024 11:14 AM EST Mixed hyperlipidemia HEPATITIS C ANTIBODY Routine 07/23/2024 11:14 AM EST Other fatigue SCANNED - COLONOSCOPY 12/09/2016 from Last 3 Months or Most Recently Relevant to Health Maintenance Results * LABS SCANNED (03/17/2025) Susan Christopher MD LAB BLOOD ORDERABLES Final R esult * (ABNORMAL) POC Glucose, Blood (02/25/2025 11:47 AM EDT) Glucose 140(A) 70 - 130 mg/dL Lot Number [id number] Expiration Date 05/22/2025 Blood 02/25/2025 11:4 7 AM EDT us Shan Pimentel MD POINT OF CARE TEST ORDERABLES Fi nal Result * (ABNORMAL) POC Glycosylated Hemoglobin (Hb A1C) (02/25/2025 11:47 AM EDT) Hemoglobin A1C 6.2(A) 4.5 - 5.7 % [facility] Lot Number [id number] [facility] Expiration Date 11/01/2026 [facility] Blood 02/25/2025 11:4 7 AM EDT Shan Pimentel MD POINT OF CARE TEST ORDERABLES Fi nal Result [facility]
[address] [place] [address], * ECG 12-LEAD (02/17/2025 2:39 PM EDT) [...] ST-T wave changes Clinical impression: abnormal EKG Susan Christopher MD ECG ORDERABLES Final Result * ECG Scan (02/16/2025) Susan Christopher MD ECG ORDERABLES Final Result * Microalbumin / Creatinine Urine Ratio - Urine, Clean Catch (10/28/2024 11:54 AM EST) Creatinine, Urine 113.4 Not Estab. mg/dL [facility] Microalbumin, Urine 5.4 Not Estab. ug/mL [facility] Microalbumin/Cre atinine Ratio 5 0 - 29 mg/g creat [facility] Comment: Normal: 0 - 29 Moderately increased: 30 - 300 Severely increased: >300 Urine Urine specimen obtained by clean catch procedure / Unknown 10/28/2024 11:54 AM EST 10/28/2024 Comment:Urine Release to [facility] ([facility]) - 10/29/2024 10:07 AM EST Performed at: 01 - [address] [id number] Kier Tender: Dagoberto Sheth PhD, Phone: [phone] us Shan Pimentel MD URINE ORDERABLES Final Result Performing Organization Address [facility] Co de Phone Number [facility] ([facility]) [address] [place] [address], [place] [phone] [facility] [address] [place] [address], [place] [phone] * Hepatitis C Antibody (07/23/2024 11:14 AM EST) Hep C Virus Ab Non Reactive Non Reactive [facility] Comment: HCV antibody alone does not differentiate between previously resolved infection and active infection. Equivocal and Reactive HCV antibody results should be followed up with an HCV RNA test to support the diagnosis of active HCV infection. Blood Structure of right hand / Unknown 07/23/2024 11:14 AM EST 07/24/2024 Comment:Blood Release to [facility] ([facility]) - 07/24/2024 10:08 AM EST Performed at: [address] [id number] Kier Tender: Dagoberto Sheth PhD, Phone: [phone] us Shan Pimentel MD LAB BLOOD ORDERABLES Final Resul t Performing Organization Address City/[facility]/ZIP Co de Phone Number [facility] ([facility]) [address] [place] [address], [place] [phone] [facility] [address] [place] [address], [place] [phone] * (ABNORMAL) Lipid Panel (07/23/2024 11:14 AM EST) Total Cholesterol 132 100 - 199 mg/dL [facility] Triglycerides 137 0 - 149 mg/dL [facility] HDL Cholesterol 38(L) >39 mg/dL [facility] VLDL Cholesterol Jean-Claude 24 5 - 40 mg/dL [facility] LDL Chol Calc (NIH) 70 0 - 99 mg/dL [facility] Blood Structure of right hand / Unknown 07/23/2024 11:14 AM EST 07/24/2024 Comment:Blood Release to pat i Jesika [facility] ([facility]) - 07/24/2024 10:08 AM EST Performed at: - [facility] [address] [place] [id number] Kier Tender: Dagoberto Sheth PhD, Phone: [phone] Shan Pimentel MD LAB BLOOD ORDERABLES Final Resul t [facility] [address] [place] [address], [place] [phone] [facility] [address] [place] [address], [place] [phone] * Colonoscopy, Scan (12/09/2016) us Shan Pimentel MD CHART REVIEW TABS Final Resul t from Last 3 Months or Most Recently Relevant to Health Maintenance Insurance MEDICARE A & B [employer] Care Teams Head Packager Relationship Specialty Start Date End Date Shan Pimentel MD [address] [place] [address] PCP - General Internal Medicine 03/07/24
--- OUTSIDE RECORDS SUMMARY | 2025-04-10 11:54 | XMS_ITS | Clinical Summary ---
Author Organization [employer] ([place], [place], [place], [place]) Address [address] [place] [address] Care Team Providers Care Birthing Nurse Name Role Phone Shan Pimentel MD Primary Care Provider [phone] Allergies Active Allergy Reactions Criticality Noted Date Comments Hydrocodone Anxiety Low 07/25/2022 Medications clopidogreL (PLAVIX) 75 mg tablet clopidogrel 75 mg tablet Active atorvastatin (LIPITOR) 40 MG tablet atorvastatin 40 mg tablet Active metoprolol succinate (TOPROL-XL) 50 MG 24 hr tablet metoprolol succinate ER 50 mg tablet,extended release 24 hr Active sertraline (ZOLOFT) 100 MG tablet sertraline 100 mg tablet Active C,E,zinc,coppe r 25-[id number]-zog (Ocuvite Adult 50 Plus) 250-5-1 mg Cap [...] Diagnosed Date Coronary artery disease invo lving curyung coronary artery of curyung heart with angina pectoris 07/25/2022 Abnormal nuclear [...] - 03/17/2025 11:59 PM EDT Hospital Encounter [facility] Non-Invasive Cardiology [address] [place] [id number] Nilesh Mccarty MD CAD (coronary artery disease) Discharge Disposition: Home or Self Care 03/17/2025 11:00 AM EDT - 03/17/2025 1:22 PM EDT Hospital Encounter [facility] Cardiac Catheterization Lab [address] [place] [id number] Susan Christopher MD Lin, Steve, MD Athscl heart disease of curyung cor art w oth ang pctrs ([facility]) Discharge Disposition: Home or Self Care 03/17/2025 [...] Date Kai rded Speak language other than Kiswahili at home Not on file 09/28/2023 Want [...] Completed 03/07/2024 Medical Devices Implanted Type Area Machining Engineer Device Identifier Shelf Expiration Date Model / Serial / Lot Stent Synergy Xd Mr [id number] IMPLANTS [employer] C[employer]Y [id number] / / Procedures Procedure Name Priority Date/Time Associated Diagnosis Comments CARDIAC CATH - LEFT HEART CATH W/ POSSIBLE INTERVENTION Routine 03/17/2025 2:03 PM EDT Athscl heart disease of curyung cor art w oth ang pctrs ([facility]) US GUIDED VASCULAR ACCESS Routine 03/17/2025 2:00 [...] Shan Pimentel; Dr. Susan Christopher TECHNIQUE: A 5/6-Jordanian sheath was placed in the right radial [...] TELLO MISTRY Age 74 [place] Patient Number [id number] Gender Female Race Unknown Ethnicity Corporate ID [id number] Height 68 Date of 1950 Weight 217 Accession Number [id number] BSA 2.12 m^2 Room Number BMI 32.99 kg/m^2 Referring NILESH MCCARTY MD Interpreting NILESH MCCARTY MD Physician Physician Merchant Police Katina Betancourt T Procedure Type of Study: [...] TELLO MISTRY Age 74 [place] Patient Number [id number] Gender Female Race Unknown Ethnicity Corporate ID [id number] Height 68 Date of 1950 Weight 217 Accession Number [id number] BSA 2.12 m^2 Room Number BMI 32.99kg/m^2 Referring NILESH MCCARTY MD Interpreting NILESH MANNING Physician Physician Merchant Police Katina Betancourt RVT Procedure Type of Study: US GUIDED VASCULAR ACCESS : . Impressions Summary INDICATION: CAD (I25.10) ##################################### RIGHT: Ultrasound guided vascular access of the radial artery. Radial artery was 0.5 cm in depth and patent. Access was successful. ##################################### Allergies - Codeine. - Vicodin. Patient Status:Outpatient. Study Location:Portable. Technical Quality:Adequate visualization. Signature Nilesh Mccarty MD [facility] [place] ORDERABLES Final Result * (ABNORMAL) Chem8+ POC (03/17/2025 11:57 AM EDT) POC Sodium 143 138 - 146 mmol/L 03/17/2025 5:17 PM EDT [facility] POC Potassium 3.8 3.5 - 4.9 mmol/L 03/17/2025 5:17 PM EDT [facility] POC Chloride 106 98 - 109 mmol/L 03/17/2025 5:17 PM EDT [facility] POC Glucose 122(H) 70 - 105 mg/dL 03/17/2025 5:17 PM EDT [facility] POC BUN 17 8 - 26 mg/dL 03/17/2025 5:17 PM EDT [facility] POC Anion Gap 19 10 - 20 mmol/L 03/17/2025 5:17 PM EDT [facility] POC IONIZED CALCIUM JILLIAN 1.25 1.12 - 1.32 mmol/L 03/17/2025 5:17 PM EDT [facility] POC CO2 TOTAL JILLIAN 22(L) 24 - 29 mmol/L 03/17/2025 5:17 PM EDT [facility] POC-Creatinine 1.0 0.6 - 1.3 mg/dL 03/17/2025 5:17 PM EDT [facility] POC-EGFR 59 mL/min/1.7 3M2 03/17/2025 5:17 PM EDT [facility] Comment:Proceed with contras t if eGFR > 45 ml/min/1.73 when performed on the NovaSTAT strip Creatinine meter. POC HEMATOCRIT JILLIAN 49 38 - 51 %PCV 03/17/2025 5:17 PM EDT [facility] POC HEMOGLOBIN JILLIAN 16.7 12.0 - 17.0 g/dL 03/17/2025 5:17 PM EDT [facility] Blood 03/17/2025 11:5 7 AM EDT 03/17/2025 5:17 PM EDT Narrative [facility] - 03/17/2025 5:17 PM EDT Learning Operations Specialist ID is - [id number] us Susan Christopher MD POINT OF CARE TEST ORDERABLES Final Result [facility] [address] [place] [address] * Platelet count, auto (03/17/2025 11:55 AM EDT) Platelets 161 140 - 375 K/CU MM 03/17/2025 12:06 PM EDT [facility] Blood Venipuncture / Unknown 03/17/2025 11:55 AM EDT 03/17/2025 12:00 PM EDT us Marco SENAC LAB BLOOD ORDERABLES Final Resu lt [facility] [address] [place] [address], [facility] [phone] from Last 3 Months Insurance [place]IC[place] [address] [place] [address] [facility] CLAIMS Advance Directives For more information, please contact: [phone] * Full Code (Latest Code Status on File) Date Activated Date Inactivated Comments 03/17/2025 1:15 PM 03/18/2025 4:24 AM * Full Code Date Activated Date Inactivated Comments 03/17/2025 10:28 AM 03/17/2025 1:15 PM * Full Code Date Activated Date Inactivated Comments 07/25/2022 8:22 AM 08/19/2022 11:58 PM Care Teams Birthing Nurse Relationship Specialty Start Date End Date Shan Pimentel MD [address] [place], [place] [id number] PCP - General General Internal Medicine 03/17/25
== END 2025-04-09 23:59 | disposition home or self-care (01) ==
LOC: LAB.DROPOF 04-10 11:48
PROVIDERS: PCP Podiatrist; Visit Provider Podiatrist
DX: E11.621 Type 2 diabetes mellitus with foot ulcer (principal); L97.512 Non-pressure chronic ulcer of other part of right foot with fat layer exposed; L97.511 Non-pressure chronic ulcer of other part of right foot limited to breakdown of skin
CPT/HCPCS: 87070; 87205